=== PATIENT | female | born 1965 | race Two or more races ===

== ENCOUNTER 2020-06-13 13:55 | Outpatient (REF) | payer MEDICAID, SELFPAY ==
--- NOTE | 2020-06-13 | MM_ITS ---
EXAMINATION: MM SCREENING DIGITAL BREAST TOMOSYNTHESIS, BILATERAL CLINICAL INFORMATION: Screening. Asymptomatic. The lifetime risk of breast cancer based on the Tyrer-Cuzick Model is 5%. COMPARISON: Mammography: 07/23/2018, 07/18/2017, 04/24/2016 TECHNIQUE: Digital breast tomosynthesis is performed in both the craniocaudal and mediolateral oblique views along with computer-aided detection (CAD). Synthesized 2D images are generated from the tomosynthesis. Additional exaggerated left CC view is provided. FINDINGS: There are scattered areas of fibroglandular density (ACR BI-RADS breast composition Category b). There are no significant masses, abnormal calcifications, or other abnormalities. No significant changes from prior exams. MM/MM tomosynthesis screening BI IMPRESSION: No mammographic evidence of malignancy. ASSESSMENT: BI-RADS 1: Negative RECOMMENDATION: Routine annual mammography screening. This patient's information was entered into a reminder system with a target due date for their next mammogram.
== END 2020-06-13 13:56 | disposition home or self-care (01) ==
LOC: HO.MAMMO 13:55
PROVIDERS: PCP Internal Medicine; Visit Provider Internal Medicine
DX: Z12.31 Encounter for screening mammogram for malignant neoplasm of breast (principal)
CPT/HCPCS: 77063; 77067

== ENCOUNTER 2020-11-06 14:00 | Outpatient (RCR) | payer MEDICAID, SELFPAY | END 2021-03-09 13:50 | disposition home or self-care (01) | LOC: HO.PTCHIC 14:00 | PROVIDERS: PCP Internal Medicine; Visit Provider Internal Medicine | DX: M25.511 Pain in right shoulder (principal) | CPT/HCPCS: 97012; 97110; 97140; 97161; 97162 ==

== ENCOUNTER 2021-06-27 14:31 | Outpatient (REF) | payer MEDICAID, SELFPAY | END 2021-06-27 14:32 | disposition home or self-care (01) | LOC: HO.HMGCLDS 14:31 | PROVIDERS: Visit Provider Internal Medicine | DX: Z20.822 Contact with and (suspected) exposure to COVID-19 (principal) | CPT/HCPCS: C9803; U0003; U0005 ==

== ENCOUNTER 2021-07-16 13:03 | Outpatient (REF) | payer MEDICAID, SELFPAY ==
[2021-07-20 13:37] LABS: HPV mRNA E6/E7 rflx Not Detected (Not Detected)
== END 2021-07-16 13:04 | disposition home or self-care (01) ==
LOC: HO.LAB 13:03
PROVIDERS: PCP Internal Medicine; Visit Provider Obstetrics & Gynecology
DX: Z01.411 Encounter for gynecological examination (general) (routine) with abnormal findings (principal); Z11.51 Encounter for screening for human papillomavirus (HPV); R10.2 Pelvic and perineal pain
CPT/HCPCS: 81003; 87086; 87624; 88142

== ENCOUNTER → 2021-07-30 12:42 | Outpatient (BNVA) | payer MEDICAID, SELFPAY | PROVIDERS: PCP Internal Medicine; Visit Provider Obstetrics & Gynecology | DX: R10.2 Pelvic and perineal pain (principal); R31.29 Other microscopic hematuria; N95.0 Postmenopausal bleeding; D06.9 Carcinoma in situ of cervix, unspecified | CPT/HCPCS: 81003; 99212 ==

== ENCOUNTER 2021-08-06 10:56 | Outpatient (REF) | payer MEDICAID, SELFPAY ==
[2021-08-06 12:23] LABS: Blood Urea Nitrogen 13 mg/dL (9-16); Estimated Glomerular Filt Rate > 60
== END 2021-08-06 10:57 | disposition home or self-care (01) ==
LOC: HO.LAB 10:56
PROVIDERS: PCP Internal Medicine; Visit Provider Obstetrics & Gynecology
DX: R31.29 Other microscopic hematuria (principal)
CPT/HCPCS: 36415; 82565; 84520

== ENCOUNTER 2021-08-08 12:50 | Outpatient (REF) | payer MEDICAID, SELFPAY ==
--- NOTE | ~2021-08-08 | MM_ITS ---
EXAMINATION: MM SCREENING DIGITAL BREAST TOMOSYNTHESIS, BILATERAL CLINICAL INFORMATION: Screening. Asymptomatic. The lifetime risk of breast cancer based on the Tyrer-Cuzick Model is 6%. COMPARISON: Mammography: 06/13/2020, 07/23/2018, 07/18/2017 TECHNIQUE: Digital breast tomosynthesis is performed in both the craniocaudal and mediolateral oblique views along with computer-aided detection (CAD). Synthesized 2D images are generated from the tomosynthesis. FINDINGS: There are scattered areas of fibroglandular density (ACR BI-RADS breast composition Category b). There are no significant masses, abnormal calcifications, or other abnormalities. No developing density. No significant changes from prior studies. The axilla and skin contours are unremarkable. MM/MM tomosynthesis screening BI IMPRESSION: No mammographic evidence of malignancy. ASSESSMENT: BI-RADS 1: Negative RECOMMENDATION: Routine annual mammography screening. This patient's information was entered into a reminder system with a target due date for their next mammogram.
== END 2021-08-08 12:51 | disposition home or self-care (01) ==
LOC: HO.MAMMO 12:50
PROVIDERS: Visit Provider Internal Medicine
DX: Z12.31 Encounter for screening mammogram for malignant neoplasm of breast (principal)
CPT/HCPCS: 77063; 77067

== ENCOUNTER 2021-08-09 08:31 | Outpatient (REF) | payer MEDICAID, SELFPAY ==
--- NOTE | ~2021-08-09 | CT_ITS ---
EXAMINATION: CT ABDOMEN AND PELVIS WITHOUT AND WITH CONTRAST CLINICAL INFORMATION: Microscopic hematuria COMPARISON: Previous CT of the abdomen and pelvis most recent January 2018 TECHNIQUE: Multidetector volumetric imaging was performed of the abdomen and pelvis before and after the IV administration of 100 mL of Omnipaque 350 intravenous contrast. Sagittal and coronal reformatted images were obtained on the technologist's workstation. This CT examination was performed using dose optimization techniques as appropriate, variously including the following: *Automated exposure control *Adjustment of mA and/or kV according to patient size (this includes techniques or standardized protocols for targeted exams where dose is matched to indication/reason for exam; i.e. extremities or head) *Use of iterative reconstruction technique DLP: 938 mGy-cm FINDINGS: LUNG BASES: The visualized lung bases are unremarkable. LIVER, GALLBLADDER, AND BILIARY TREE: Fatty liver. Gallstones. No biliary duct dilatation or focal liver lesion. PANCREAS: Unremarkable SPLEEN: Unremarkable ADRENAL GLANDS: Unremarkable KIDNEYS AND URETERS: The kidneys are normal in size, shape, and attenuation. No hydronephrosis, hydroureter, or calculi seen. No perinephric stranding. BLADDER: Unremarkable GASTROINTESTINAL TRACT: There is nonspecific mild fat stranding of the small bowel mesentery. The small and large bowel are otherwise unremarkable. The appendix is unremarkable. ABDOMINAL WALL: No significant hernia is appreciated. LYMPH NODES: There is nonspecific small bowel mesentery fat stranding and shotty lymphadenopathy. No enlarged lymph nodes are seen. No ascites. VASCULAR: Unremarkable PELVIC VISCERA: Unremarkable OSSEOUS STRUCTURES: Unremarkable CT/CT abdomen pelvis wo/w con IMPRESSION: No cause of hematuria. Fatty liver. Gallstone. Mild nonspecific shotty small bowel mesentery lymphadenopathy and fat stranding. Fleischner guidelines were followed.
[2021-08-09] MEDS: iohexoL 350 MG/ML 100 ML INFUS..BTL IV (09:53)
== END 2021-08-09 08:32 | disposition home or self-care (01) ==
LOC: HO.CT 08:31
PROVIDERS: Visit Provider Obstetrics & Gynecology
DX: R31.29 Other microscopic hematuria (principal)
CPT/HCPCS: 74178; Q9967

== ENCOUNTER → 2021-09-03 13:13 | Outpatient (BNVA) | payer MEDICAID, SELFPAY | PROVIDERS: Visit Provider Obstetrics & Gynecology ==

== ENCOUNTER → 2021-10-02 07:48 | Outpatient (REF) | payer MEDICAID, SELFPAY | LOC: HO.NUCMED 07:48 | PROVIDERS: Visit Provider Internal Medicine | DX: Z13.89 Encounter for screening for other disorder (principal) ==

== ENCOUNTER → 2021-10-09 12:33 | Outpatient (BNVA) | payer MEDICAID, SELFPAY | PROVIDERS: Visit Provider Obstetrics & Gynecology | DX: N95.0 Postmenopausal bleeding (principal) | CPT/HCPCS: 99212 ==

== ENCOUNTER → 2021-10-12 07:42 | Outpatient (REF) | payer MEDICAID, SELFPAY ==
--- NOTE | ~2021-10-12 | NM_ITS ---
BILIARY TRACT IMAGING STUDY CLINICAL INDICATION: Calculus of gallbladder without cholecystitis. PROCEDURE: Scintillation camera images were obtained over the abdomen for an observation of 60 minutes following the intravenous administration of 5.0 millicuries technetium 99m Mebrofenin. COMPARISON: No previous biliary scan is available for comparison. The diagnostic CT scan of the abdomen and pelvis, dated 08/09/2021, is available for comparison.. FINDINGS: There is good concentration of activity in the liver by 5 minutes post injection. Biliary activity is well visualized by 15 minutes, and there is good visualization of small bowel activity by 25 minutes. The gallbladder is well visualized by 20 minutes. NM/NM hepatobiliary wo pharm IMPRESSION: Normal biliary scan. Visualization of the gallbladder is evidence of a patent cystic duct and strong evidence against the diagnosis of acute cholecystitis. The common bile duct is patent. Liver function appears normal.
== END ==
LOC: HO.NUCMED 07:42
PROVIDERS: Visit Provider Internal Medicine
DX: R10.2 Pelvic and perineal pain (principal); K80.20 Calculus of gallbladder without cholecystitis without obstruction
CPT/HCPCS: 78226; A9537

== ENCOUNTER 2021-10-23 08:47 | Outpatient (REF) | payer MEDICAID, SELFPAY ==
[2021-10-23 17:31] LABS: Urine Cytology See Pathology rpt
== END 2021-10-23 08:48 | disposition home or self-care (01) ==
LOC: HO.LAB 08:47
PROVIDERS: PCP Internal Medicine
DX: R31.29 Other microscopic hematuria (principal)
CPT/HCPCS: 88112; 99202

== ENCOUNTER 2021-10-26 06:56 | Day surgery (SDC) | payer MEDICAID, SELFPAY ==
[2021-10-22 10:42] VITALS: BMI 34.7
--- NOTE | 2021-10-25 09:04 | HO.ANESPROP2 ---
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 (Acute) Pelvic pain (Acute) Well woman exam (Acute) Past Medical History Medical History Anxiety Asthma AFSHAN III (cervical intraepithelial neoplasia grade III) with severe dysplasia Depression Surgical History Surgical History History of bilateral tubal ligation Social History Social History Alcohol intake: never Advance Directives: No Advance Directives Information Provided: Yes Sexual orientation: Straight/Heterosexual Gender identity: Female Meds Allergies Allergy/AdvReac Type Severity Reaction Status Date / Time acetaminophen [From Percocet] Allergy Mild Unknown Verified 10/26/21 07:21 hydromorphone Allergy Unknown hives Verified 10/26/21 07:21 oxycodone [From PERCOCET] Allergy Unknown ITCHING Verified 10/26/21 07:21 zolpidem [From AMBIEN] Allergy Unknown ITCHING Verified 10/26/21 07:21 Home Medications Medication Instructions Recorded Confirmed Last Taken Type fluoxetine 20 mg capsule 20 mg PO QAM 10/23/21 Unknown History fluticasone propionate 50 1 - 2 spray INTRANASAL DAILY PRN 10/23/21 Unknown History mcg/actuation nasal spray,suspension Exam Exam Date and Time: October 25, 2021 0904 Height,Weight and Vital Signs: Height 5 ft 2 in Weight 86.183 kg Assessment and Plan Assessment Anesthesia Assessment: Chart Reviewed Documented by User: Autumn Cunningham MD 10/26/21 07:33 [facility] Past Medical History Medical History Anxiety Asthma AFSHAN III (cervical intraepithelial neoplasia grade III) with severe dysplasia Depression Family History Family history of problems with anesthesia: No Surgical History Surgical History History of bilateral tubal ligation History of Problems with Anesthesia: No Social History Social History Alcohol intake: never Advance Directives: No Advance Directives Information Provided: Yes Sexual orientation: Straight/Heterosexual Gender identity: Female Meds Allergies Allergy/AdvReac Type Severity Reaction Status Date / Time acetaminophen [From Percocet] Allergy Mild Unknown Verified 10/26/21 07:21 hydromorphone Allergy Unknown hives Verified 10/26/21 07:21 oxycodone [From PERCOCET] Allergy Unknown ITCHING Verified 10/26/21 07:21 zolpidem [From AMBIEN] Allergy Unknown ITCHING Verified 10/26/21 07:21 Home Medications Medication Instructions Recorded Confirmed Last Taken Type fluoxetine 20 mg capsule 20 mg PO QAM 10/23/21 Unknown History fluticasone propionate 50 1 - 2 spray INTRANASAL DAILY PRN 10/23/21 Unknown History mcg/actuation nasal spray,suspension Exam Airway Mallampati Class: III TM Dist: >3cm Neck ROM: Full Assessment and Plan Assessment Anesthesia Assessment: Anesthesia Plan Discussed Final Anesthetic Review Family History of Problems with Anesthesia: No History of Problems with Anesthesia: No NPO: Yes ASA Class: II Final Preanesthetic Review: No Changes in Pt Med Stat, Meds/Allgs Chart Reviewed, Consent Obtained/Reviewed and Anes Risks/Benef Reviewed Patient Risk: Low Procedure Risk: Low Anesthetic Plan Anesthetic Plan: GA Disposition: Standard PACU
[2021-10-26] VITALS (8 sets, daily range): BP systolic 118–133; BP diastolic 70–83; PULSE 68–84; RESP 12–16; TEMP 36.4–36.7; O2SAT 97–100; BMI 34.7
[2021-10-26] MEDS: Lactated Ringers 1,000 ML 100 ML IVCONT (08:08)
--- NOTE | 2021-10-26 08:59 | MHC.SHP ---
Pre-Procedural Eval Section A Date of Service: 10/26/21 The patient is an INPATIENT: No Changes since office visit: No Cold of Flu in the past 2 weeks, No New Medical Problems, No Changes in Medication and No Patient answered all questions The History & Physical has been completed within 30 days and I have reviewed it.: Yes Section B Chief Complaint: postmenopasal bleeding Allergies: Allergies Allergy/AdvReac Type Severity Reaction Status Date / Time acetaminophen [From Percocet] Allergy Mild Unknown Verified 10/26/21 07:21 hydromorphone Allergy Unknown hives Verified 10/26/21 07:21 oxycodone [From PERCOCET] Allergy Unknown ITCHING Verified 10/26/21 07:21 zolpidem [From AMBIEN] Allergy Unknown ITCHING Verified 10/26/21 07:21 Plan Diagnosis/Plan: Unchanged I have reviewed the history and physical and performed a pertinent physical examination on my patient. No changes have occurred unless specified.
--- NOTE | 2021-10-26 09:23 | MHC.SHP ---
Pre-Procedural Eval Section A Date of Service: 10/26/21 Section B Chief Complaint: postmenopasal bleeding Allergies: Allergies Allergy/AdvReac Type Severity Reaction Status Date / Time acetaminophen [From Percocet] Allergy Mild Unknown Verified 10/26/21 07:21 hydromorphone Allergy Unknown hives Verified 10/26/21 07:21 oxycodone [From PERCOCET] Allergy Unknown ITCHING Verified 10/26/21 07:21 zolpidem [From AMBIEN] Allergy Unknown ITCHING Verified 10/26/21 07:21 Plan I have reviewed the history and physical and performed a pertinent physical examination on my patient. No changes have occurred unless specified.
--- NOTE | 2021-10-26 10:19 | P.BOP_ITS ---
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
--- NOTE | 2021-10-26 10:20 | W.PM.OPN ---
Operative Note Operative Note Date of Service: 10/26/21 Narrative: Preop Diagnosis: Postmenopausal bleeding Operation: Attempted Diagnostic Hysteroscopy Post Op Diagnosis: Stenosed cervix from previous called knife cone, unable to enter the endometrial cavity QBL: Minimal Anesthesia: MAC Surgeon: Gary Mena MD Campground Cleaning Attendant: None Complication: None Pathology: None Procedure: The patient was put in the dorsal lithotomy position, scrubbed, and draped in the usual manner. A sterile speculum was inserted in the patient's vagina. The cervix was grasped with a single tooth tenaculum. The cervix looked scarred from previous LEEP unable to identify endocervical canal, LEEP was used to excise the middle portion of the cervix to identify the endocervical cavity, but did not identify an endocervical ostium. This was followed by multiple attempts to dilate the cervix using cervical dilators to gain access to the endometrial cavity but they or failed, this point decision was made to abort the procedure. At the end of the procedure, all instruments were taken out of the patient vaginal cavity. The single tooth tenaculum was removed and homeostasis was assured using pressure, The patient tolerated the procedure well and was transferred to the PACU in a stable condition.
== END 2021-10-26 12:04 | disposition home or self-care (01) ==
PROVIDERS: PCP Internal Medicine; Visit Provider Obstetrics & Gynecology
PROC: 0UDB8ZZ Extraction of Endometrium, Via Natural or Artificial Opening Endoscopic (ICD-10-PCS; CPT 58558; principal; 2021-10-26 10:20)
DX: N95.0 Postmenopausal bleeding (principal); N99.89 Other postprocedural complications and disorders of genitourinary system; N88.2 Stricture and stenosis of cervix uteri; Z98.890 Other specified postprocedural states; F41.1 Generalized anxiety disorder; J45.909 Unspecified asthma, uncomplicated; Z98.51 Tubal ligation status
CPT/HCPCS: 58555; J1100; J2250; J2405; J3010

== ENCOUNTER → 2021-11-08 13:37 | Outpatient (BNVA) | payer MEDICAID, SELFPAY | PROVIDERS: PCP Internal Medicine; Visit Provider Obstetrics & Gynecology | DX: N95.0 Postmenopausal bleeding (principal) | CPT/HCPCS: 99212 ==

== ENCOUNTER 2021-12-20 10:24 | Outpatient (REF) | payer MEDICAID, SELFPAY ==
--- NOTE | ~2021-12-20 | US_ITS ---
EXAMINATION: US PELVIS CLINICAL INFORMATION: R10.2 - Pelvic and perineal pain. Age 56. COMPARISON: CT abdomen and pelvis without and with contrast 08/09/2021, pelvic ultrasound 10/23/2016. TECHNIQUE: Ultrasound of the pelvis is performed using both transabdominal and transvaginal transducers along with Doppler. Transvaginal imaging is performed due to inadequate visualization transabdominally. FINDINGS: Uterus: The uterus is anteverted and measures 7.5 x 3.2 x 4.2 cm. Uterine volume 53 mL. The double wall endometrial thickness is 7 mm. The uterus is smooth in contour and has normal myometrial echogenicity. There is no myometrial cysts are visible fibroid. There is fluid in the endocervical canal measuring 4 mm in thickness. Questionable nabothian cyst 1 cm at distal cervix versus funneling of the external os with fluid in the os. Adnexa: The right ovary is visible with transvaginal imaging and normal in size measuring 1.8 x 1.0 x 1.2 cm (volume 1. ML). There is no right adnexal mass and no pelvic ascites. The left ovary is not demonstrated with certainty. There is no visible left pelvic mass or ascites. US/US pelvic and transvaginal IMPRESSION: Uterus: -Normal in size. No fibroid. -Endometrial double wall thickness 11 mm. -Fluid in endocervical canal. Probable nabothian cyst 1 cm. Adnexa: -Left ovary not visualized. Right ovary unremarkable. -No adnexal mass or pelvic ascites.
== END 2021-12-20 10:25 | disposition home or self-care (01) ==
LOC: HO.US 10:24
PROVIDERS: Visit Provider Obstetrics & Gynecology
DX: R10.2 Pelvic and perineal pain (principal)
CPT/HCPCS: 76830; 76856

== ENCOUNTER → 2021-12-24 12:27 | Outpatient (BNVA) | payer MEDICAID, SELFPAY | PROVIDERS: PCP Internal Medicine | DX: R31.29 Other microscopic hematuria (principal) | CPT/HCPCS: 99212 ==

== ENCOUNTER → 2021-12-25 10:39 | Outpatient (BNVA) | payer MEDICAID, SELFPAY | PROVIDERS: PCP Internal Medicine; Visit Provider Obstetrics & Gynecology | DX: N95.0 Postmenopausal bleeding (principal) | CPT/HCPCS: 99212 ==

== ENCOUNTER 2022-01-25 11:47 | Outpatient (REF) | payer MEDICAID, SELFPAY ==
--- NOTE | ~2022-01-25 | XR_ITS ---
EXAMINATION: X-RAY RIGHT ANKLE X-RAY RIGHT FOOT CLINICAL INFORMATION: Achilles tendinitis. COMPARISON: No similar priors. TECHNIQUE: 2 views of the right ankle. 3 views of the right foot. FINDINGS: No evidence of acute fractures or malalignment. Prominent dorsal and plantar calcaneal spurs with associated calcifications at the insertion site of the Achilles tendon. Small enthesophytes along the medial malleolus and base of the fifth metatarsal. Nonspecific diffuse soft tissue edema. XR/XR foot RT min 3V IMPRESSION: 1. No acute fracture or malalignment. 2. Calcifications along the insertion site of the Achilles tendon suggesting tendinosis. Correlate clinically. 3. Mild multifocal osteoarthritis. 4. Nonspecific soft tissue swelling.
--- NOTE | ~2022-01-25 | XR_ITS ---
EXAMINATION: X-RAY RIGHT ANKLE X-RAY RIGHT FOOT CLINICAL INFORMATION: Achilles tendinitis. COMPARISON: No similar priors. TECHNIQUE: 2 views of the right ankle. 3 views of the right foot. FINDINGS: No evidence of acute fractures or malalignment. Prominent dorsal and plantar calcaneal spurs with associated calcifications at the insertion site of the Achilles tendon. Small enthesophytes along the medial malleolus and base of the fifth metatarsal. Nonspecific diffuse soft tissue edema. XR/XR ankle RT min 3V IMPRESSION: 1. No acute fracture or malalignment. 2. Calcifications along the insertion site of the Achilles tendon suggesting tendinosis. Correlate clinically. 3. Mild multifocal osteoarthritis. 4. Nonspecific soft tissue swelling.
== END 2022-01-25 11:48 | disposition home or self-care (01) ==
LOC: HO.XRAY 11:47
PROVIDERS: Absent Provider Internal Medicine; PCP Internal Medicine; Visit Provider Nurse Practitioner
DX: M76.61 Achilles tendinitis, right leg (principal)
CPT/HCPCS: 73610; 73630

== ENCOUNTER 2022-02-19 14:46 | Outpatient (REF) | payer MEDICAID, SELFPAY ==
--- NOTE | ~2022-02-19 | US_ITS ---
EXAMINATION: US RETROPERITONEAL LIMITED (RENAL ONLY) CLINICAL INFORMATION: Other microscopic hematuria. COMPARISON: CT abdomen and pelvis without and with contrast 08/09/2021. TECHNIQUE: Real-time imaging of the kidneys. FINDINGS: RIGHT KIDNEY: 9.6 x 4.3 x 4.5 cm (SAG x AP x TRV). The kidney is normal in size, contour, and echogenicity. Renal cortical thickness is normal. No focal parenchymal lesions or hydronephrosis. Two 3 mm nonobstructing lower pole renal stones. LEFT KIDNEY: 9.4 x 5.2 x 4.3 cm (SAG x AP x TRV). The kidney is normal in size, contour, and echogenicity. Renal cortical thickness is normal. No calculi or focal parenchymal lesions. No hydronephrosis. Imaged liver appears echogenic. US/US renal BI IMPRESSION: Two 3 mm nonobstructing right lower pole renal stones. Partially imaged liver appears echogenic suggestive of hepatic steatosis or underlying liver disease. This could be further characterized with a dedicated right upper quadrant ultrasound if clinically indicated.
== END 2022-02-19 14:47 | disposition home or self-care (01) ==
LOC: HO.US 14:46
DX: R31.29 Other microscopic hematuria (principal)
CPT/HCPCS: 76775

== ENCOUNTER 2022-04-26 13:43 | Outpatient (REF) | payer MEDICAID, SELFPAY | END 2022-04-26 13:44 | disposition home or self-care (01) | LOC: HO.CT 13:43 | PROVIDERS: Visit Provider Family Medicine | DX: Z13.89 Encounter for screening for other disorder (principal) ==

== ENCOUNTER 2022-06-03 13:29 | Outpatient (REF) | payer MEDICAID, SELFPAY ==
--- NOTE | ~2022-06-03 | CT_ITS ---
EXAMINATION: CT ABDOMEN AND PELVIS WITH CONTRAST CLINICAL INFORMATION: Abdominal pain. Renal stone versus diverticulitis. COMPARISON: Previous CT of the abdomen and pelvis most recent July 2021 and pelvic ultrasound most recent November 2021 and renal ultrasound January 2022 TECHNIQUE: Multidetector volumetric images were obtained from the superior aspect of the liver through the pubic symphysis following administration 85 mL of Omnipaque 350 intravenous contrast. Sagittal and coronal reformatted images were obtained on the technologist's workstation. Oral contrast: Yes This CT examination was performed using dose optimization techniques as appropriate, variously including the following: *Automated exposure control *Adjustment of mA and/or kV according to patient size (this includes techniques or standardized protocols for targeted exams where dose is matched to indication/reason for exam; i.e. extremities or head) *Use of iterative reconstruction technique DLP: 551 mGy-cm FINDINGS: LUNG BASES: The visualized lung bases are unremarkable. LIVER, GALLBLADDER, AND BILIARY TREE: The liver fatty. The liver is normal in size and contour. No focal liver lesion. Gallstone. The gallbladder is otherwise normal. No biliary duct dilatation. PANCREAS: Fatty infiltration of the head of the pancreas. Pancreas is otherwise normal. SPLEEN: Unremarkable. ADRENAL GLANDS: Unremarkable. KIDNEYS AND URETERS: The kidneys are normal in size, shape, and attenuation. No hydronephrosis, hydroureter, or calculi seen. No perinephric stranding. BLADDER: Unremarkable. GASTROINTESTINAL TRACT: The small and large bowel are unremarkable. The appendix is unremarkable. ABDOMINAL WALL: Small umbilical hernia containing fat. LYMPH NODES: Normal. VASCULAR: Unremarkable. PELVIC VISCERA: The uterus is prominent for the patient's age measuring 14 by by 6 cm. There is new central low attenuation seen in the uterus suggestive of endometrial fluid. This measures 11 x 4.6 x 4.5 cm in sagittal AP and transverse dimension. This is new compared to previous CT July 2021 and increased from pelvic ultrasound November 2021. Appearance is questionable for vaginal or cervical stenosis or obstructing lesion. WOOD ROOM SUPERVISOR consultation recommended.. Adnexa appear unremarkable. OSSEOUS STRUCTURES: Unremarkable. CT/CT abdomen pelvis w IV con IMPRESSION: New large area of central low attenuation seen in the uterus suggestive of endometrial fluid. This is new from previous CT July 2021 and increased from previous pelvic ultrasound November 2021. WOOD ROOM SUPERVISOR consultation recommended. Fatty liver. Gallstones. Findings will be communicated by the [place] work flow music instructor. Fleischner guidelines were followed.
[2022-06-03] MEDS: iohexoL 350 MG/ML 100 ML INFUS..BTL 85 ML IV (16:46)
[2022-06-03] MEDS: Barium Sulfate Oral (Berry) 450 ML ORAL.SUSP 900 ML PO (16:46)
== END 2022-06-03 13:30 | disposition home or self-care (01) ==
LOC: HO.CT 13:29
PROVIDERS: Visit Provider Registered Nurse
DX: R10.30 Lower abdominal pain, unspecified (principal)
CPT/HCPCS: 74177; Q9967

== ENCOUNTER 2022-08-14 12:42 | Emergency (ER) | payer MEDICAID, SELFPAY ==
--- NOTE | ~2022-08-14 | CT_ITS ---
EXAMINATION: CT ABDOMEN AND PELVIS WITH CONTRAST CLINICAL INFORMATION: Left lower quadrant pain and CVA tenderness with diarrhea COMPARISON: 06/03/2022 TECHNIQUE: Multidetector volumetric images were obtained from the superior aspect of the liver through the pubic symphysis following administration 85 mL of Omnipaque 350 intravenous contrast. Sagittal and coronal reformatted images were obtained on the technologist's workstation. Oral contrast: No This CT examination was performed using dose optimization techniques as appropriate, variously including the following: *Automated exposure control *Adjustment of mA and/or kV according to patient size (this includes techniques or standardized protocols for targeted exams where dose is matched to indication/reason for exam; i.e. extremities or head) *Use of iterative reconstruction technique DLP: 668 mGy-cm FINDINGS: LUNG BASES: The visualized lung bases are unremarkable. LIVER, GALLBLADDER, AND BILIARY TREE: Decreased attenuation throughout the liver most consistent with fatty change. Gallstones noted. PANCREAS: Unremarkable. SPLEEN: Unremarkable. ADRENAL GLANDS: Unremarkable. KIDNEYS AND URETERS: The kidneys are normal in size, shape, and attenuation. No hydronephrosis, hydroureter, or calculi seen. No perinephric stranding. BLADDER: Unremarkable. GASTROINTESTINAL TRACT: The bowel pattern is nonobstructing. There is no free fluid. The pancreas is within normal limits. ABDOMINAL WALL: No significant hernia is appreciated. LYMPH NODES: Some mild periaortic nodes are unchanged. There is mild mesenteric stranding and there are prominent mesenteric nodes which are felt to be increasing from previous. These are not at this time felt to be pathologically enlarged. VASCULAR: Unremarkable. PELVIC VISCERA: The appearance of the uterus is improved. There is persistent fluid density in the lower uterine segment/cervical region. Again overall improved. OSSEOUS STRUCTURES: Unremarkable. CT/CT abdomen pelvis w IV con IMPRESSION: The bowel pattern is felt to be nonobstructing. There is no free fluid. No convincing evidence for bowel wall thickening. There is, however some increasing mesenteric adenopathy here and some mild mesenteric swirling. This may be consistent with mesenteritis/panniculitis. This could be reactive to an enteritis. I would recommend short-term 3 month follow-up film as early malignancy/lymphoma cannot be excluded. Gallstones noted. Probable fatty liver change. Improved overall appearance to the uterus with there is still fluid density expanding the lower uterine segment/cervical region
[2022-08-14 13:05] VITALS: BP 141/68; PULSE 86; RESP 18; TEMP 36.6; O2SAT 98; BMI 35.4
--- NOTE | 2022-08-14 13:05 | ED.ABDPAIN ---
HPI - Abdominal Pain General Chief Complaint: Abdominal Pain <Wanda Haider CNP - Last Filed: 08/14/22 13:13> Stated Complaint: abd pain <Wanda Haider CNP - Last Filed: 08/14/22 13:13> Time Seen by Provider: 08/14/22 20:59 <Wanda Haider CNP - Last Filed: 08/14/22 13:13> Source: patient <Yanelis Alcantara MD - Last Filed: 08/15/22 00:24> Mode of arrival: ambulatory <Yanelis Alcantara MD - Last Filed: 08/15/22 00:24> Limitations: no limitations <Yanelis Alcantara MD - Last Filed: 08/15/22 00:24> History of Present Illness HPI narrative: The patient comes to the emergency room complaining of bilateral lower quadrant pain that started 3 months ago. Patient states that she is known to have endometrial polyps, patient states says she is scheduled for a surgery next month at [facility]. Patient states that she is also known to have hematuria chronically. Patient states that today the pain seemed a little bit worse than usual. Patient had 1 episode of diarrhea, no vomiting, no fever or chills <Yanelis Alcantara MD - Last Filed: 08/15/22 00:24> Related Data Home Medications: Home Medications Medication Instructions Recorded Confirmed fluoxetine 20 mg capsule 20 mg PO QAM 10/23/21 fluticasone propionate 50 1 - 2 spray intranasal DAILY PRN 10/23/21 mcg/actuation nasal spray,suspension ibuprofen 400 mg tablet 400 mg PO Q8-12H PRN 12/24/21 Previous Rx's Medication Instructions Recorded loperamide 2 mg capsule 2 mg PO Q6H PRN loose stool #10 08/15/22 caps <Wanda Haider CNP - Last Filed: 08/14/22 13:13> Allergies/Adverse Reactions: Allergies Allergy/AdvReac Type Severity Reaction Status Date / Time acetaminophen [From Percocet] Allergy Mild Unknown Verified 12/25/21 10:57 hydromorphone Allergy Unknown hives Verified 12/25/21 10:57 oxycodone [From PERCOCET] Allergy Unknown ITCHING Verified 12/25/21 10:57 zolpidem [From AMBIEN] Allergy Unknown ITCHING Verified 12/25/21 10:57 <Wanda Haider CNP - Last Filed: 08/14/22 13:13> Review of Systems Review of Systems Constitutional : No Weight loss, No Fever, No Chills, No Night Sweats, No Fatigue, No Malaise ENT/Mouth : No Hearing loss, No Ear Pain, No Nasal Congestion, No Sinus Pain, No Hoarseness, No sore throat, No Rhinorrhea, No Swallowing Difficulty Eyes: No Eye Pain, No Swelling, No Redness, No Foreign Body, No Discharge, No Vision Changes Cardiovascular : No Chest Pain, No SOB, No Dyspnea on Exertion, No Orthopnea, No Edema, No Palpitations Respiratory : No Cough, No Sputum, No Wheezing, No Smoke Exposure, No Dyspnea Gastrointestinal : No Nausea, No Vomiting, complaining of several episodes of Diarrhea, No Constipation, acute on chronic bilateral lower quadrant pain Genitourinary : no irregular bleeding, No Dysuria, No Urinary Frequency, No Hematuria, No Urinary Incontinence, No Urgency, No Flank Pain, No Urinary Flow Changes, No Hesitancy Musculoskeletal : No joint pain, No Myalgias, No Joint Swelling Skin : No Skin Lesions, No rash Neuro : No Weakness, No Numbness, No Paresthesias, No Loss of Consciousness, No Dizziness, No Headache Psych : No Anxiety/Panic, No Depression, No SI/HI/AH/VH, No Social Issues, Heme/Lymph: No Bruising, No Bleeding,No Lymphadenopathy Endocrine : No Polyuria, No Polydipsia, No Temperature Intolerance <Yanelis Alcantara MD - Last Filed: 08/15/22 00:24> [facility] Past Medical History Medical History: Medical History Anxiety Asthma AFSHAN III (cervical intraepithelial neoplasia grade III) with severe dysplasia Depression <Wanda Haider CNP - Last Filed: 08/14/22 13:13> Surgical History: Surgical History History of bilateral tubal ligation <Wanda Haider CNP - Last Filed: 08/14/22 13:13> Social History Social History: Social History Alcohol intake: never Patient Tobacco Use Status: Never used Tobacco Smoked in Last 30 Days: No Use of substances other than those prescribed or required for medical reasons: No Advance Directives: No Advance Directives Information Provided: Yes Patient : No Sexual orientation: Straight/Heterosexual Gender identity: Female <Wanda Haider JENA - Last Filed: 08/14/22 13:13> Physical Exam ED Vital Signs: Vital Signs - 24 hr 08/14/22 13:05 08/14/22 17:12 08/14/22 20:39 Temperature 98 F 98 F 97.6 F Pulse Rate 86 98 78 Respiratory Rate 18 17 16 Blood Pressure 141/68 H 115/79 129/70 Pulse Oximetry 98 99 97 Oxygen Delivery Method Room Air Room Air 08/15/22 00:08 Temperature 97.6 F Pulse Rate 82 Respiratory Rate 16 Blood Pressure 130/67 Pulse Oximetry 97 Oxygen Delivery Method Room Air BMI result Body Mass Index 35.4 <Wanda HaiderJENA - Last Filed: 08/14/22 13:13> Vital Signs - 24 hr 08/14/22 13:05 08/14/22 17:12 08/14/22 20:39 Temperature 98 F 98 F 97.6 F Pulse Rate 86 98 78 Respiratory Rate 18 17 16 Blood Pressure 141/68 H 115/79 129/70 Pulse Oximetry 98 99 97 Oxygen Delivery Method Room Air Room Air 08/15/22 00:08 Temperature 97.6 F Pulse Rate 82 Respiratory Rate 16 Blood Pressure 130/67 Pulse Oximetry 97 Oxygen Delivery Method Room Air BMI result Body Mass Index 35.4 <Yanelis Alcantara MD - Last Filed: 08/15/22 00:24> Const Other: Appearance: Alert. Oriented X3. No acute distress. Well appearing Eyes: Pupils equal, round and reactive to light. ENT: Pharynx normal. Neck: Normal inspection. Neck supple. No lymph nodes noted. No crepitus CVS: Normal heart rate and rhythm. Pulses normal. Normal S1 and S2 Respiratory: No respiratory distress. Breath sounds normal. No Wheezing. No rales Abdomen: Soft and nontender. No rigidity. No distention. Skin: Skin warm and dry. Normal skin color. Normal skin turgor. Extremities: No lower extremity edema. No Lacerations. No Rash Neuro: Oriented X 3. No motor deficit. No sensory deficit. Moving all extremities. No slurred speech. CN 2 through 12 grossly intact Psych: calm, cooperative, normal affect <Yanelis Alcantara MD - Last Filed: 08/15/22 00:24> Course Course Course Narrative: Patient is a 57-year-old female who presents emergency department for evaluation of abdominal pain and diarrhea. Pain is diffuse to the lower abdomen and radiates to the back alternating between right and left. Onset of pain was 3 months ago. She states that she was seen by [facility] gynecology last week, there is a plan for surgery, although it is unclear when this is supposed to occur or what type of surgery. The diarrhea, she states started yesterday, twice, and only one episode today. Denies hematochezia or melena, nausea, vomiting, fevers, chills. She does state that every time she has urine obtained there is microscopic hematuria, denies any genitourinary complaints. PE: LLQ pain/ tenderness upon palpation, L CVA tenderness Plan: Labs, urinalysis, CT abdomen pelvis. <Wanda Haider CNP - Last Filed: 08/14/22 13:13> Medical Decision Making Medical Decision Making MDM Narrative: -all of patient's labs are unremarkable. Urinalysis is positive for hematuria, however this is chronic per patient. -CT scan shows possible balanitis, panniculitis. -patient instructed to follow-up with her primary care physician. -Patient given the 1st dose of loperamide in the emergency room <Yanelis Alcantara MD - Last Filed: 08/15/22 00:24> Differential Diagnosis Differential Diagnoses: The differential diagnosis associated with the presentation includes (SBO, uterine fibroids, ovarian cysts) <Yanelis Alcantara MD - Last Filed: 08/15/22 00:24> Lab Data MDM Lab Attestation statement: I reviewed the patient's lab results. <aYnelis Alcantara MD - Last Filed: 08/15/22 00:24> Result Diagrams: 08/14/22 13:38 08/14/22 13:38 <Wanda Haider CNP - Last Filed: 08/14/22 13:13> Labs: Lab Results 08/14/22 08/14/22 08/14/22 Range/Units 13:38 13:38 13:42 WBC 6.4 (4.8-10.8) X10*3/uL RBC 4.87 (4.20-5.50) X10*6/uL Hgb 13.6 (12.0-16.0) g/dl Hct 41.7 (37.0-47.0) % MCV 85.6 (80.0-98.0) fL MCH 27.9 (27.0-33.0) pg MCHC 32.6 (31.0-35.0) g/dl RDW 14.2 (11.0-16.0) % Plt Count 250 (160-400) X10*3/uL MPV 11.5 (9.4-12.3) fL Immature Gran % (Auto) 0.5 H (0.0-0.4) % Neut % (Auto) 57.6 (45-73) % Lymph % (Auto) 25.2 (20-40) % Dyer % (Auto) 10.3 (2-11) % Eos % (Auto) 5.6 H (0-4) % Baso % (Auto) 0.8 (0-2) % Lymph # (Auto) 1.6 (1.2-4.9) X10*3/uL Dyer # (Auto) 0.7 (0.1-1.2) X10*3/uL Eos # (Auto) 0.4 (0.0-0.4) X10*3/uL Baso # (Auto) 0.1 (0.0-0.2) X10*3/uL Abs Immat Gran (auto) 0.03 (0.00-0.03) X10*3/uL Absolute Neuts (auto) 3.7 (2.0-8.3) x10*3/uL Absolute Nucleated RBC 0.000 (0.0-0.012) X10*3/uL Nucleated RBC % (auto) 0.0 (0.0-0.2) /100WBC Sodium 140 (135-145) mmol/L Potassium 4.6 (3.3-5.1) mmol/L Chloride 103 (96-108) mmol/L Carbon Dioxide 27 (22-29) mmol/L Anion Gap 15 (12-20) BUN 13 (9-16) mg/dL Creatinine 0.76 (0.5-1.4) mg/dL Estim Creat Clear Calc 86.1 Estimated GFR > 60 Random Glucose 96 (60-115) mg/dL Calcium 9.8 (8.4-10.2) mg/dL Total Bilirubin 0.5 (0.0-1.0) mg/dL AST 20 (5-31) U/L ALT 30 (0-31) U/L Alkaline Phosphatase 113 (39-117) U/L Total Protein 7.7 (6.5-8.0) g/dL Albumin 4.5 (3.5-5.0) g/dL Lipase 25 (8-78) U/L Urine Color Yellow Urine Appearance Clear Urine pH 7.0 (5.0-9.0) Ur Specific [place] 1.010 (1.005-1.025) Urine Protein Negative (Neg-Trace) mg/dL Urine Glucose (UA) Negative (Negative) mg/dL Urine Ketones Negative (Negative) mg/dL Urine Blood Small (1+) H (Negative) Urine Nitrite Negative (Negative) Ur Leukocyte Esterase Negative (Negative) Urine RBC 3-5 H (0-2) /HPF Urine WBC 0-5 (0-5) /HPF Ur Squamous Epith Cells 0-2 (0-2) /HPF Urine Bacteria None Seen (None Seen) Hyaline Casts 0-2 (0-2) /LPF <Wanda Haider, [employer] - Last Filed: 08/14/22 13:13> Lab Results 08/14/22 08/14/22 08/14/22 Range/Units 13:38 13:38 13:42 WBC 6.4 (4.8-10.8) X10*3/uL RBC 4.87 (4.20-5.50) X10*6/uL Hgb 13.6 (12.0-16.0) g/dl Hct 41.7 (37.0-47.0) % MCV 85.6 (80.0-98.0) fL MCH 27.9 (27.0-33.0) pg MCHC 32.6 (31.0-35.0) g/dl RDW 14.2 (11.0-16.0) % Plt Count 250 (160-400) X10*3/uL MPV 11.5 (9.4-12.3) fL Immature Gran % (Auto) 0.5 H (0.0-0.4) % Neut % (Auto) 57.6 (45-73) % Lymph % (Auto) 25.2 (20-40) % Dyer % (Auto) 10.3 (2-11) % Eos % (Auto) 5.6 H (0-4) % Baso % (Auto) 0.8 (0-2) % Lymph # (Auto) 1.6 (1.2-4.9) X10*3/uL Dyer # (Auto) 0.7 (0.1-1.2) X10*3/uL Eos # (Auto) 0.4 (0.0-0.4) X10*3/uL Baso # (Auto) 0.1 (0.0-0.2) X10*3/uL Abs Immat Gran (auto) 0.03 (0.00-0.03) X10*3/uL Absolute Neuts (auto) 3.7 (2.0-8.3) x10*3/uL Absolute Nucleated RBC 0.000 (0.0-0.012) X10*3/uL Nucleated RBC % (auto) 0.0 (0.0-0.2) /100WBC Sodium 140 (135-145) mmol/L Potassium 4.6 (3.3-5.1) mmol/L Chloride 103 (96-108) mmol/L Carbon Dioxide 27 (22-29) mmol/L Anion Gap 15 (12-20) BUN 13 (9-16) mg/dL Creatinine 0.76 (0.5-1.4) mg/dL Estim Creat Clear Calc 86.1 Estimated GFR > 60 Random Glucose 96 (60-115) mg/dL Calcium 9.8 (8.4-10.2) mg/dL Total Bilirubin 0.5 (0.0-1.0) mg/dL AST 20 (5-31) U/L ALT 30 (0-31) U/L Alkaline Phosphatase 113 (39-117) U/L Total Protein 7.7 (6.5-8.0) g/dL Albumin 4.5 (3.5-5.0) g/dL Lipase 25 (8-78) U/L Urine Color Yellow Urine Appearance Clear Urine pH 7.0 (5.0-9.0) Ur Specific [place] 1.010 (1.005-1.025) Urine Protein Negative (Neg-Trace) mg/dL Urine Glucose (UA) Negative (Negative) mg/dL Urine Ketones Negative (Negative) mg/dL Urine Blood Small (1+) H (Negative) Urine Nitrite Negative (Negative) Ur Leukocyte Esterase Negative (Negative) Urine RBC 3-5 H (0-2) /HPF Urine WBC 0-5 (0-5) /HPF Ur Squamous Epith Cells 0-2 (0-2) /HPF Urine Bacteria None Seen (None Seen) Hyaline Casts 0-2 (0-2) /LPF <Yanelis Alcantara MD - Last Filed: 08/15/22 00:24> Independent Interpretation I performed an independent interpretation of an: CT Scan (My interpretation of CT scan: No SBO) <Yanelis Alcantara MD - Last Filed: 08/15/22 00:24> Radiology Impression Discussion of test interpretation with radiology: I have reviewed the radiologist's reading. <Yanelis Alcantara MD - Last Filed: 08/15/22 00:24> Radiologist Impression: FINDINGS: LUNG BASES: The visualized lung bases are unremarkable.? LIVER, GALLBLADDER, AND BILIARY TREE: Decreased attenuation throughout the liver most consistent with fatty change. ? Gallstones noted.? PANCREAS: Unremarkable.? SPLEEN: Unremarkable.? ADRENAL GLANDS: Unremarkable.? KIDNEYS AND URETERS: The kidneys are normal in size, shape, and attenuation. No hydronephrosis, hydroureter, or calculi seen. No perinephric stranding. ? BLADDER: Unremarkable.? GASTROINTESTINAL TRACT: The bowel pattern is nonobstructing. There is no free fluid. The pancreas is within normal limits.? ABDOMINAL WALL: No significant hernia is appreciated.? LYMPH NODES: Some mild periaortic nodes are unchanged. There is mild mesenteric stranding and there are prominent mesenteric nodes which are felt to be increasing from previous. These are not at this time felt to be pathologically enlarged. VASCULAR: Unremarkable. PELVIC VISCERA: The appearance of the uterus is improved. There is persistent fluid density in the lower uterine segment/cervical region. Again overall improved.? OSSEOUS STRUCTURES: Unremarkable.? CT/CT abdomen pelvis w IV con IMPRESSION: The bowel pattern is felt to be nonobstructing. There is no free fluid. No convincing evidence for bowel wall thickening. ? There is, however some increasing mesenteric adenopathy here and some mild mesenteric swirling. This may be consistent with mesenteritis/panniculitis. This could be reactive to an enteritis. I would recommend short-term 3 month follow-up film as early malignancy/lymphoma cannot be excluded. ? Gallstones noted. ? Probable fatty liver change. ? Improved overall appearance to the uterus with there is still fluid density expanding the lower uterine segment/cervical region <Yanelis Alcantara MD - Last Filed: 08/15/22 00:24> Medications Administered Discontinued Medications Generic Name Dose Route Start Last Admin Trade Name Freq PRN Reason Stop Dose Admin Iohexol 100 ml 08/14/22 22:27 08/14/22 22:28 Iohexol 350 Mg/Ml 100 Ml Infus..Btl IV 08/14/22 22:28 85 ml ONCE ONE Administration <Wanda Haider CNP - Last Filed: 08/14/22 13:13> Medications Administered Discontinued Medications Generic Name Dose Route Start Last Admin Trade Name Freq PRN Reason Stop Dose Admin Iohexol 100 ml 08/14/22 22:27 08/14/22 22:28 Iohexol 350 Mg/Ml 100 Ml Infus..Btl IV 08/14/22 22:28 85 ml ONCE ONE Administration <Yanelis Alcantara MD - Last Filed: 08/15/22 00:24> Discharge Plan Discharge Clinical Impression: Diarrhea, Abdominal pain <Wanda Haider CNP - Last Filed: 08/14/22 13:13> Patient Disposition: Home, Self-Care <Wanda Haider CNP - Last Filed: 08/14/22 13:13> Instructions: Acute Diarrhea (ED) <Wanda Haider CNP - Last Filed: 08/14/22 13:13> Additional Instructions: Please follow-up with your primary care physician tomorrow. If you have any worsening or new symptoms, please return to the emergency room or call 911 <Wanda Haider CNP - Last Filed: 08/14/22 13:13> Prescriptions: New loperamide 2 mg capsule 2 mg PO Q6H PRN (Reason: loose stool) Qty: 10 0RF No Action fluticasone propionate 50 mcg/actuation spray,suspension 1 - 2 spray intranasal DAILY PRN fluoxetine 20 mg capsule 20 mg PO QAM ibuprofen 400 mg tablet 400 mg PO Q8-12H PRN <Wanda Haider, JENA - Last Filed: 08/14/22 13:13>
[2022-08-14 13:50] LABS: MANUAL DIFF FLAG NO
[2022-08-14 13:58] LABS: Appearance Urine Clear; Color Urine Yellow; Glucose Urine UA Negative (Negative); Leukocyte Esterase Urine Negative (Negative); Nitrite Urine Negative (Negative); UMIC TRIGGER UACC YES; Urine Blood Small (1+) (Negative); Urine Ketones Negative (Negative); Urine Protein Negative (Neg-Trace)
[2022-08-14 14:09] LABS: Basophils Absolute Auto 0.1 X10*3/uL (0.0-0.2); Basophils Percent Auto 0.8 % (0-2); Eosinophils Absolute Auto 0.4 X10*3/uL (0.0-0.4); Eosinophils Percent Auto 5.6 % (0-4); Hematocrit 41.7 % (37.0-47.0); Hemoglobin 13.6 g/dl (12.0-16.0); Imm Gran Abs Auto 0.03 X10*3/uL (0.00-0.03); Imm Gran Pct Auto 0.5 % (0.0-0.4); Lymphocytes Absolute Auto 1.6 X10*3/uL (1.2-4.9); Lymphocytes Percent Auto 25.2 % (20-40); Mean Corpuscular HGB Conc 32.6 g/dl (31.0-35.0); Mean Corpuscular Hemoglobin 27.9 pg (27.0-33.0); Mean Corpuscular Volume 85.6 fL (80.0-98.0); Mean Platelet Volume 11.5 fL (9.4-12.3); Monocytes Absolute Auto 0.7 X10*3/uL (0.1-1.2); Monocytes Percent Auto 10.3 % (2-11); Neutrophils Absolute Auto 3.7 x10*3/uL (2.0-8.3); Neutrophils Percent Auto 57.6 % (45-73); Platelet Count 250 X10*3/uL (160-400); Red Blood Count 4.87 X10*6/uL (4.20-5.50); Red Cell Distribution Width 14.2 % (11.0-16.0); White Blood Count 6.4 X10*3/uL (4.8-10.8)
[2022-08-14 14:16] LABS: Alanine Aminotransferase 30 U/L (0-31); Albumin Level 4.5 g/dL (3.5-5.0); Alkaline Phosphatase 113 U/L (39-117); Anion Gap 15 (12-20); Aspartate Amino Transferase 20 U/L (5-31); Bilirubin Total 0.5 mg/dL (0.0-1.0); Blood Urea Nitrogen 13 mg/dL (9-16); Calcium 9.8 mg/dL (8.4-10.2); Carbon Dioxide 27 mmol/L (22-29); Chloride 103 mmol/L (96-108); Creatinine Clr Calc Pharmacy 86.1; Estimated Glomerular Filt Rate > 60; Glucose Random 96 mg/dL (60-115); Lipase 25 U/L (8-78); Potassium 4.6 mmol/L (3.3-5.1); Sodium 140 mmol/L (135-145); Total Protein 7.7 g/dL (6.5-8.0)
[2022-08-14 14:20] LABS: Bacteria Urine None Seen (None Seen); Hyaline Casts Urine 0-2 /LPF (0-2); Squamous Epithelial Cell Urine 0-2 /HPF (0-2); WBC Urine 0-5 /HPF (0-5)
[2022-08-14 17:12] VITALS: BP 115/79; PULSE 98; RESP 17; TEMP 36.6; O2SAT 99
[2022-08-14 20:39] VITALS: BP 129/70; PULSE 78; RESP 16; TEMP 36.4; O2SAT 97
--- NOTE | 2022-08-14 20:44 | PC.NURSE ---
This property underwriter assumed care of this PT at this time. PT A&Ox4, reports 8/10 lower ABD pain x 3 months but more constant in the last two weeks, feeling a burning sensation. Reports diarrhea yesterday, but normal BM today. + Bowel sounds x 4 quadrants. Slightly tender to touch on RLQ. IV line placed.
[2022-08-14] MEDS: iohexoL 350 MG/ML 100 ML INFUS..BTL IV (22:28)
[2022-08-15 00:08] VITALS: BP 130/67; PULSE 82; RESP 16; TEMP 36.4; O2SAT 97
[2022-08-15] MEDS: Loperamide HCl 2 MG CAPSULE 4 MG PO (00:34)
== END 2022-08-15 00:41 | disposition home or self-care (01) ==
PROVIDERS: Nurse Practitioner Family; Emergency Provider Emergency Medicine; PCP Internal Medicine
DX: R19.7 Diarrhea, unspecified (principal); R10.30 Lower abdominal pain, unspecified
CPT/HCPCS: 36415; 74177; 80053; 81001; 81003; 83690; 85025; 99284; Q9967

== ENCOUNTER 2022-08-16 14:27 | Outpatient (REF) | payer MEDICAID, SELFPAY ==
--- NOTE | ~2022-08-16 | MM_ITS ---
EXAMINATION: MM SCREENING DIGITAL BREAST TOMOSYNTHESIS, BILATERAL CLINICAL INFORMATION: Screening. Asymptomatic. The lifetime risk of breast cancer based on the Tyrer-Cuzick Model is 7%. COMPARISON: Mammography: 08/06/2021, 06/13/2020, 07/23/2018 TECHNIQUE: Digital breast tomosynthesis is performed in both the craniocaudal and mediolateral oblique views along with computer-aided detection (CAD). Synthesized 2D images are generated from the tomosynthesis. FINDINGS: There are scattered areas of fibroglandular density (ACR BI-RADS breast composition Category b). There are no significant masses, abnormal calcifications, or other abnormalities. No architectural abnormality or developing density or significant change from prior studies. Again, there is mild nipple retraction similar to prior studies. The axilla are unremarkable. MM/MM tomosynthesis screening BI IMPRESSION: No mammographic evidence of malignancy. ASSESSMENT: BI-RADS 2: Benign RECOMMENDATION: Routine annual mammography screening. This patient's information was entered into a reminder system with a target due date for their next mammogram.
== END 2022-08-16 14:28 | disposition home or self-care (01) ==
LOC: HO.MAMMO 14:27
PROVIDERS: PCP Internal Medicine; Visit Provider Internal Medicine
DX: Z12.31 Encounter for screening mammogram for malignant neoplasm of breast (principal)
CPT/HCPCS: 77063; 77067

== ENCOUNTER → 2022-08-26 11:25 | Outpatient (BNVA) | payer MEDICAID, SELFPAY | PROVIDERS: PCP Internal Medicine; Visit Provider Nurse Practitioner Family | DX: R31.29 Other microscopic hematuria (principal); R10.9 Unspecified abdominal pain | CPT/HCPCS: 99212 ==

== ENCOUNTER 2022-11-06 14:00 | Outpatient (REF) | payer MEDICAID, SELFPAY ==
[2022-11-09 06:39] LABS: HPV mRNA E6/E7 rflx Not Detected (Not Detected)
== END 2022-11-06 14:01 | disposition home or self-care (01) ==
LOC: HO.LNP 14:00
PROVIDERS: PCP Internal Medicine; Visit Provider Obstetrics & Gynecology
DX: Z01.419 Encounter for gynecological examination (general) (routine) without abnormal findings (principal); Z11.51 Encounter for screening for human papillomavirus (HPV)
CPT/HCPCS: 87624; 88142

== ENCOUNTER 2022-11-22 13:15 | Outpatient (REF) | payer MEDICAID, SELFPAY ==
--- NOTE | ~2022-11-22 | US_ITS ---
EXAMINATION: US RETROPERITONEAL COMPLETE (RENAL) CLINICAL INFORMATION: Other microscopic hematuria. COMPARISON: CT abdomen and pelvis 08/14/2022. Renal ultrasound 02/19/2022. TECHNIQUE: Real-time imaging of the kidneys and bladder. FINDINGS: RIGHT KIDNEY: 9.2 x 4.0 x 4.4 cm (SAG x AP x TRV). The kidney is normal in size, contour, and echogenicity. Renal cortical thickness is normal. No calculi or focal parenchymal lesions. No hydronephrosis. LEFT KIDNEY: 10.7 x 4.8 x 4.4 cm (SAG x AP x TRV). The kidney is normal in size, contour, and echogenicity. Renal cortical thickness is normal. No calculi or focal parenchymal lesions. No hydronephrosis. BLADDER: Well distended and normal. Bilateral ureteral jets are demonstrated. Prevoid bladder volume is 463 mL. Postvoid bladder volume is 15.7 mL. US/US retroperitoneal comp IMPRESSION: Unremarkable renal ultrasound. Small postvoid residual volume. Normal bilateral ureteral jets.
== END 2022-11-22 13:16 | disposition home or self-care (01) ==
LOC: HO.US 13:15
PROVIDERS: PCP Internal Medicine; Visit Provider Nurse Practitioner Family
DX: R31.29 Other microscopic hematuria (principal)
CPT/HCPCS: 76770

== ENCOUNTER → 2022-12-20 09:52 | Outpatient (BNVA) | payer MEDICAID, SELFPAY | PROVIDERS: PCP Internal Medicine; Visit Provider Nurse Practitioner Family ==

== ENCOUNTER 2023-01-23 12:52 | Emergency (ER) | payer MEDICAID, SELFPAY ==
[2023-01-23 13:02] VITALS: BP 130/73; PULSE 90; RESP 18; TEMP 36.6; O2SAT 97; BMI 34.3
--- NOTE | 2023-01-23 13:02 | ED.GENADULT ---
HPI - General Adult General Chief complaint: Urogenital-Female Stated complaint: vaginal itch Time Seen by Provider: 01/23/23 15:23 Source: patient, family and trust mail clerk Mode of arrival: ambulatory Limitations: no limitations History of Present Illness HPI narrative: 57 year old female with history significant for AFSHAN 3 and nephrolithiasis presents to the ED today with perianal itching and burning x1 week. Reports concern for possible allergy to her toilet paper at home. Denies fever, chills, rectal bleeding, rectal pain, or change in BM, dysuria, hematuria. MD complaint: perianal itching Onset (ago): week(s) (1) Location: genitals Radiation: non-radiation Severity: mild Quality: burning and other (itching) Pain Consistency: constant Relieving factors: none Exacerbating factors: none Associated symptoms: denies other symptoms Treatments prior to arrival: none Related Data Home Medications Medication Instructions Recorded Confirmed fluoxetine 20 mg capsule 20 mg PO QAM 10/23/21 08/26/22 fluticasone propionate 50 1 - 2 spray intranasal DAILY PRN 10/23/21 08/26/22 mcg/actuation nasal spray,suspension ibuprofen 400 mg tablet 400 mg PO Q8-12H PRN 12/24/21 08/26/22 alprazolam 0.5 mg tablet 0.5 mg PO DAILY PRN anxiety 08/26/22 08/26/22 fluticasone propionate 110 2 puff inhalation BID 08/26/22 08/26/22 mcg/actuation HFA aerosol inhaler (Flovent HFA) gabapentin 100 mg capsule 0 mg PO 08/26/22 08/26/22 meclizine 12.5 mg tablet 12.5 mg PO TID PRN 08/26/22 08/26/22 meloxicam 15 mg tablet 15 mg PO DAILY 08/26/22 08/26/22 naproxen 500 mg tablet 500 mg PO BID 08/26/22 08/26/22 cetirizine 10 mg tablet 10 mg PO DAILY 12/20/22 ketotifen fumarate 0.025 % (0.035 1 drp ophthalmic (eye) BID 12/20/22 %) eye drops Previous Rx's Medication Instructions Recorded loperamide 2 mg capsule 2 mg PO Q6H PRN loose stool #10 08/15/22 caps hydrocortisone 2.5 % topical cream 1 appl [place] BEDTIME PRN itching #30 01/23/23 with perineal applicator grams Allergies Allergy/AdvReac Type Severity Reaction Status Date / Time acetaminophen [From Percocet] Allergy Mild Unknown Verified 12/21/22 21:42 hydromorphone Allergy Unknown hives Verified 12/21/22 21:42 oxycodone [From PERCOCET] Allergy Unknown ITCHING Verified 12/21/22 21:42 zolpidem [From AMBIEN] Allergy Unknown ITCHING Verified 12/21/22 21:42 Review of Systems Review of Systems: Yes all other systems are reviewed and are negative FORMERLY [facility], [facility] Past Medical History Attestation statement: The following information was validated with the patient. Source: old records reviewed and nursing notes reviewed Medical History Anxiety Asthma AFSHAN III (cervical intraepithelial neoplasia grade III) with severe dysplasia Depression Surgical History History of bilateral tubal ligation Family History Family History Mother Epilepsy Mental health disorder Social History Social History Household Members: Spouse Housing: Apartment Alcohol intake: never Patient Tobacco Use Status: Never used Tobacco Advance Directives: No Advance Directives Information Provided: No Current occupational status: disabled Sexual orientation: Straight/Heterosexual Gender identity: Female Physical Exam ED Vital Signs: Vital Signs - 24 hr 01/23/23 13:02 Temperature 97.8 F Pulse Rate 90 Respiratory Rate 18 Blood Pressure 130/73 Pulse Oximetry 97 Oxygen Delivery Method Room Air BMI result Body Mass Index 34.3 Appearance: Alert. Oriented X3. No acute distress. Head: normocephalic, atraumatic. Eyes: Pupils equal, round and reactive to light. ENT: Pharynx normal. No tonsillar swelling or exudate. Neck: Normal inspection. Neck supple. CVS: Normal heart rate and rhythm. Pulses normal. Respiratory: No respiratory distress. Breath sounds normal. Abdomen: Soft and nontender. +BS x4 Rectal exam: externally there are mild old excoriations of the shanell anal tissue without any active bleeding or lesions. Digital rectal exam is normal without any palpable hemorrhoids. No visible perianal worms Skin: Skin warm and dry. Normal skin color. Normal skin turgor. No rashes. Extremities: No lower extremity edema. No joint swelling. Course Course Course Narrative: This is an RME: Additional HPI, ROS, PE not included below will be deferred to primary provider. This is a [id number] speaking female, with a past medical history of depression, anxiety, asthma, presenting to the emergency department with a complaint of anal itching and burning x 1 week. No fevers or chills. No dysuria. No diarrhea. Unable to visualize area in triage, will defer until seen by primary provider in main emergency department. Medical Decision Making Medical Decision Making MDM Narrative: 57-year-old female presents to the ER for evaluation of perianal itching for the last week or 2. No pain. No bleeding. Exam is consistent with some mild excoriations but no visible hemorrhoids. No lesions. Symptoms are not worse at night. Low suspicion for pinworms. Will prescribe topical hydrocortisone and have her follow-up with her primary care doctor. Also encouraged [id number] aloe cloths for symptomatic relief. She is stable for discharge home with outpatient follow-up. Differential Diagnosis Differential Diagnoses: The differential diagnosis associated with the presentation includes pinworms, constipation, contact dermatitis, hemorrhoids, anal fissure Independent Historian Clinical information obtained from an independent historian. History obtained from or confirmed by: Spouse External Record Review External record reviewed: Prior outpatient labs and Prior outpatient radiology Prescription Management I considered prescription management with: Other ( Hydrocortisone ointment) Critical Care Time Critical Care Time Critical Care Time: No Discharge Plan Discharge Clinical Impression: Perianal pruritus Patient Disposition: Home, Self-Care Instructions: Anal Itching (ED) Additional Instructions: use the prescribed cream as directed use over the counter aloe wipes or cool cloths to the area as needed for comfort Prescriptions: New hydrocortisone 2.5 % cream with perineal applicator 1 appl [place] BEDTIME PRN (Reason: itching) Qty: 30 0RF No Action loperamide 2 mg capsule 2 mg PO Q6H PRN (Reason: loose stool) Qty: 10 0RF fluticasone propionate 50 mcg/actuation spray,suspension 1 - 2 spray intranasal DAILY PRN fluoxetine 20 mg capsule 20 mg PO QAM ibuprofen 400 mg tablet 400 mg PO Q8-12H PRN meclizine 12.5 mg tablet 12.5 mg PO TID PRN naproxen 500 mg tablet 500 mg PO BID gabapentin 100 mg capsule 0 mg PO alprazolam 0.5 mg tablet 0.5 mg PO DAILY PRN (Reason: anxiety) meloxicam 15 mg tablet 15 mg PO DAILY fluticasone propionate [Flovent HFA] 110 mcg/actuation HFA aerosol inhaler 2 puff inhalation BID cetirizine 10 mg tablet 10 mg PO DAILY ketotifen fumarate 0.025 % (0.035 %) drops 1 drp ophthalmic (eye) BID Referrals: Katie Douglas MD [Primary Care Provider] - Print Language: Armenian
[2023-01-23 17:14] VITALS: BP 135/80; PULSE 70; RESP 16; TEMP 36.4; O2SAT 95
== END 2023-01-23 17:40 | disposition home or self-care (01) ==
PROVIDERS: Emergency Provider Emergency Medicine Emergency Medical Services; PCP Internal Medicine
DX: L29.0 Pruritus ani (principal); L29.2 Pruritus vulvae; Z79.899 Other long term (current) drug therapy
CPT/HCPCS: 99283; 99284

== ENCOUNTER 2023-06-18 09:29 | Outpatient (REF) | payer MEDICAID, SELFPAY ==
[2023-06-18 13:39] LABS: Cholesterol 189 mg/dL (<200); HDL Cholesterol 48 mg/dL (>40); LDL Cholesterol Calculated 113 mg/dL (<100); Triglycerides 143 mg/dL (<150)
[2023-06-18 13:45] LABS: Reflex LDLD? No
[2023-06-18 14:00] LABS: HBS Num1 > 1000.00 mIU/mL (0-7.99); HBsAGNum1 0.27 S/CO (0.00-0.99); HIV AB/AG Nonreactive (Nonreactive); HIV Num 1 0.05 S/CO (0.00-0.99); Hepatitis A Antibody IgM 0.15 Index (0-0.79); Hepatitis B Core Antibody Nonreactive (Nonreactive); Hepatitis B Surface Antigen Negative (Negative); Syphilis Screen Nonreactive (Nonreactive); ~HepC Num1 0.12 S/CO (0.00-0.79); ~Hepatitis A Antibody IgM Nonreactive (Nonreactive); ~Hepatitis B Surface Antibody REACTIVE (Nonreactive); ~Hepatitis C Antibody Nonreactive (Nonreactive)
[2023-06-18 14:06] LABS: Vitamin D 25-OH Total 43.8 ng/mL (>30)
[2023-06-21 15:38] LABS: TS Negative Control Passed; TS Panel A 0; TS Panel B 0; TS Positive Control Passed; TSpotTB Negative (Negative)
== END 2023-06-18 09:30 | disposition home or self-care (01) ==
LOC: HO.HMGCLDS 09:29
PROVIDERS: PCP Internal Medicine; Visit Provider Internal Medicine
DX: Z00.00 Encounter for general adult medical examination without abnormal findings (principal); E78.00 Pure hypercholesterolemia, unspecified; E55.9 Vitamin D deficiency, unspecified; Z11.3 Encounter for screening for infections with a predominantly sexual mode of transmission; Z11.59 Encounter for screening for other viral diseases; Z11.1 Encounter for screening for respiratory tuberculosis
CPT/HCPCS: 36415; 80061; 82306; 86481; 86704; 86706; 86709; 86780; 86803; 87340; 87389

== ENCOUNTER 2023-08-06 11:11 | Outpatient (AMB) | payer MEDICAID, SELFPAY ==
--- NOTE | 2023-08-06 11:12 | A.OFFVIS_ITS ---
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 Patient reports ongoing pain for many year. She states that she has ongoing pain daily when she is sitting a getting ready to stand she feels a sharp pain on the heal. Also having ongoing numbness/ stinging sensation. Allergies acetaminophen [From Percocet] Allergy (Mild, Verified 08/06/23 11:18) Unknown hydromorphone Allergy (Unknown, Verified 08/06/23 11:18) hives oxycodone [From PERCOCET] Allergy (Unknown, Verified 08/06/23 11:18) ITCHING zolpidem [From AMBIEN] Allergy (Unknown, Verified 08/06/23 11:18) ITCHING HPI HPI Comments History of Present Illness Details Chronic ankle pain, 2-3 years, denies inciting injuries. No injection or surgery yet. No EMG. Has not tried any braces yet. Points to posterior/behind lateral malleoli. Numbness/tingling on area. Stinging/aching. Under disability. [facility]LY [facility] Medical History (Updated 08/06/23 @ 11:40 by Margie Poe MD) Achilles tendinitis of both lower extremities AFSHAN III (cervical intraepithelial neoplasia grade III) with severe dysplasia Asthma Depression Anxiety Surgical History History of bilateral tubal ligation Family History Mother Epilepsy Mental health disorder Social History Household Members: Spouse Housing: Apartment Alcohol intake: never Patient Tobacco Use Status: Never used Tobacco Current occupational status: disabled Sexual orientation: Straight/Heterosexual Gender identity: Female Review of Systems Const All systems reviewed & are unremarkable except as noted in HPI and below Physical Exam Vital Signs: BMI result Body Mass Index 34.3 Constitutional: Patient appears to be in no acute distress, well nourished and well developed. MSK: Tender distal Achillis tendon, right worse than left. No signs of acute inflammation, redness or swelling. Right does feel slightly more warm than l eft. No tenderness on malleoli or plantar fascia. Does not appear to have any footdrop. No increased tone noted. Neurological: Neurologic examination of the upper and lower extremities was nonfocal with intact sensation, muscle stretch reflexes and without focal motor deficits . Gentile?s negative bilaterally. Babinski was down going bilaterally. Clonus was negative. Gait is antalgic without loss of balance. Results Reviewed Results Reviewed: Date of Service: 01/25/22 Procedure(s): XR foot RT min 3V Accession Number(s): [id number] cc: Teodora Gan ~ EXAMINATION: X-RAY RIGHT ANKLE X-RAY RIGHT FOOT CLINICAL INFORMATION: Achilles tendinitis. COMPARISON: No similar priors. TECHNIQUE: 2 views of the right ankle. 3 views of the right foot. FINDINGS: No evidence of acute fractures or malalignment. Prominent dorsal and plantar calcaneal spurs with associated calcifications at the insertion site of the Achilles tendon. Small enthesophytes along the medial malleolus and base of the fifth metatarsal. Nonspecific diffuse soft tissue edema. XR/XR foot RT min 3V IMPRESSION: 1. No acute fracture or malalignment. 2. Calcifications along the insertion site of the Achilles tendon suggesting tendinosis. Correlate clinically. 3. Mild multifocal osteoarthritis. 4. Nonspecific soft tissue swelling. Assessment & Plan Assessment & Plan (1) Achilles tendinitis of both lower extremities: Code(s): M76.61 - Achilles tendinitis, right leg; M76.62 - Achilles tendinitis, left leg Plan Chronic Achilles tendinosis with calcification seen on plain x-ray. Mild signs of inflammation seen in right ankle. Patient had undergone adequate conservative management without improvement of condition. It would be reasonable to obtain further imaging such as MRI. An MRI would help rule out any serious condition, guide treatment and assess prognosis for recovery. Referring to pain management as well for consideration of Achilles injection under imaging such as ultrasound. Assessment and plan discussed with patient, and patient was agreeable. All questions were answered thoroughly. Margie Poe MD, NAREN Board Certified, [place] Board of [employer] Medicine and Rehabilitation (ABPMR) Board Certified, [place] Board of Electrodiagnostic Medicine (ABEM) Orders: Orders MR ankle RT wo con Today M76.61 - Achilles tendinitis, right leg, M76.62 - Achilles tendinitis, left leg Referrals Pain Management Referral M76.61 - Achilles tendinitis, right leg, M76.62 - Achilles tendinitis, left leg Coding Level of Care Code New Pt Level 4 (58739) Diagnoses Achilles tendinitis of both lower extremities M76.61; M76.62
[2023-08-06 11:19] VITALS: BMI 34.3
== END 2023-08-06 11:41 | disposition home or self-care (01) ==
PROVIDERS: PCP Internal Medicine; Referring Provider Internal Medicine; Visit Provider Physical Medicine & Rehabilitation
DX: M76.61 Achilles tendinitis, right leg (principal); M76.62 Achilles tendinitis, left leg
CPT/HCPCS: 99204

== ENCOUNTER → 2023-08-06 11:11 | Outpatient (BNVA) | payer MEDICAID, SELFPAY | PROVIDERS: PCP Internal Medicine; Visit Provider Physical Medicine & Rehabilitation | DX: M76.61 Achilles tendinitis, right leg (principal); M76.62 Achilles tendinitis, left leg | CPT/HCPCS: 99202 ==

== ENCOUNTER 2023-08-21 14:25 | Outpatient (REF) | payer MEDICAID, SELFPAY | END 2023-08-21 14:26 | disposition home or self-care (01) | LOC: HO.MAMMO 14:25 | PROVIDERS: PCP Internal Medicine; Visit Provider Internal Medicine | DX: Z12.31 Encounter for screening mammogram for malignant neoplasm of breast (principal) | CPT/HCPCS: 77063; 77067 ==

== ENCOUNTER → 2023-08-21 15:00 | Outpatient (BNV) | payer MEDICAID, SELFPAY | PROVIDERS: PCP Internal Medicine; Visit Provider Radiology Diagnostic Radiology | DX: Z12.31 Encounter for screening mammogram for malignant neoplasm of breast (principal) | CPT/HCPCS: 77063; 77067 ==

== ENCOUNTER 2023-08-29 10:45 | Outpatient (AMB) | payer MEDICAID, SELFPAY ==
--- NOTE | 2023-08-29 10:51 | MHC.OFFVIS ---
Intake Vital Signs 08/29/23 10:52 Height 5 ft 4 in Weight 192 lb BMI 33.0 BP 128/71 Blood Pressure Location Lt brachial Position Sitting Respiration 12 Pulse 82 Pulse Source Pulse Oximeter Pulse Oximetry (%) 96 Oxygen Delivery Method Room Air Intake Visit Reasons: Achiles tendinitis, both legs Human Resource Advisor Required: Yes Human Resource Advisor Name: Ariana Allergies acetaminophen [From Percocet] Allergy (Mild, Verified 08/29/23 10:55) Unknown hydromorphone Allergy (Unknown, Verified 08/29/23 10:55) hives oxycodone [From PERCOCET] Allergy (Unknown, Verified 08/29/23 10:55) ITCHING zolpidem [From AMBIEN] Allergy (Unknown, Verified 08/29/23 10:55) ITCHING Medication List - Last Reconciled 08/29/23 by Kassidy Crocuh LPN alprazolam 0.5 mg PO DAILY PRN cetirizine 10 mg PO DAILY fluoxetine 20 mg PO QAM fluticasone propionate 50 mcg/actuation 1 - 2 sprays intranasal DAILY PRN fluticasone propionate 110 mcg/actuation (Flovent HFA) 2 puffs inhalation BID hydrocortisone 2.5% 1 appl IN BEDTIME PRN ibuprofen 400 mg PO Q8-12H PRN ketotifen fumarate 0.025%(0.035%) 1 drp ophthalmic (eye) BID loperamide 2 mg PO Q6H PRN meclizine 12.5 mg PO TID PRN meloxicam 15 mg PO DAILY naproxen 500 mg PO BID HPI Achiles tendinitis, both legs HPI Details 58-year-old female who presents today to the office for an evaluation of Achilles tendons in both legs. A certified territory account representative was present during the visit. She has a history of bilateral Achilles tendinosis. The pain has been ongoing for many years. She describes her pain as constant in nature. It is worse when standing from a sitting position. She also reports ongoing paresthesia and numbness sensations. She reports chronic ankle pain that started about 2?3 years ago. She denies any inciting injuries or accidents in the past. She has not tried any braces yet. She went to an orthopedic doctor in the past for an evaluation. She has a scheduled appointment for MRI scan next week. She is currently on disability. [facility] Medical History (Updated 08/06/23 @ 11:40 by Margie Poe MD) Achilles tendinitis of both lower extremities AFSHAN III (cervical intraepithelial neoplasia grade III) with severe dysplasia Asthma Depression Anxiety Surgical History History of bilateral tubal ligation Family History Mother Epilepsy Mental health disorder Social History Household Members: Spouse Housing: Apartment Alcohol intake: never Patient Tobacco Use Status: Never used Tobacco Current occupational status: disabled Sexual orientation: Straight/Heterosexual Gender identity: Female Review of Systems Const All systems reviewed & are unremarkable except as noted in HPI and below Physical Exam Vital Signs: Last Vital Signs Pulse 82 08/29/23 10:52 Resp 12 08/29/23 10:52 BP 128/71 08/29/23 10:52 Pulse Ox 96 08/29/23 10:52 Oxygen Delivery Method Room Air 08/29/23 10:52 BMI result Body Mass Index 33.0 General: Appears afebrile. Alert and oriented. Mood and affect appropriate. Follows and participates in conversation appropriately. Respiratory effort is unlabored. Able to transition from sit to stand unassisted. Ambulates with bilaterally normal heel strike and toe off. Tenderness to palpation over and around both Achilles tendons. Results Reviewed Results Reviewed: No imaging is available for review. Assessment & Plan Assessment & Plan (1) Achilles tendinitis of both lower extremities: Code(s): M76.61 - Achilles tendinitis, right leg; M76.62 - Achilles tendinitis, left leg Plan The patient is scheduled for an MRI scan next week. I told her that it would be better to wait until I reviewed the MRI scan before we attempted an injection. We will see her back in the clinic, and based on the findings, we will proceed with an injection under ultrasound guidance accordingly. I will schedule her for bilateral Achilles tendon injections, ultrasound guided. Discussed the risks and benefits of the procedure with the patient in detail. All questions were answered. The patient is on board with the plan. Justification for interventional therapy: ? Patient with average pain > 6/10 ? Patient has exhausted conservative therapy ? Patient unable to tolerate physical therapy due to pain. Scribed for Dr. Rodriguez by Tod Rabago, director of medical review, on 08/29/2023. I, Dr. Rodriguez, have personally reviewed and agree with the information entered by the scribe. Coding Level of Care Code New Pt Level 3 (75971) Diagnoses Achilles tendinitis of both lower extremities M76.61; M76.62
[2023-08-29 10:52] VITALS: BP 128/71; PULSE 82; RESP 12; O2SAT 96; BMI 33.0
== END 2023-08-29 11:16 | disposition home or self-care (01) ==
PROVIDERS: PCP Internal Medicine; Visit Provider Internal Medicine
DX: M76.61 Achilles tendinitis, right leg (principal); M76.62 Achilles tendinitis, left leg
CPT/HCPCS: 99203

== ENCOUNTER → 2023-08-29 10:45 | Outpatient (BNVA) | payer MEDICAID, SELFPAY | PROVIDERS: PCP Internal Medicine; Visit Provider Internal Medicine | DX: M76.61 Achilles tendinitis, right leg (principal); M76.62 Achilles tendinitis, left leg | CPT/HCPCS: 99202 ==

== ENCOUNTER 2023-09-05 15:29 | Outpatient (REF) | payer MEDICAID, SELFPAY ==
--- NOTE | ~2023-09-05 | MR_ITS ---
EXAMINATION: MR ANKLE WITHOUT CONTRAST, RIGHT CLINICAL INFORMATION: Chronic Achilles tendinosis COMPARISON: Radiographs 01/25/2022 TECHNIQUE: MRI of the ankle was performed using routine sequences on a high-field scanner. FINDINGS: Mild chronic Achilles tendinopathy with maximal AP diameter of 0.8 cm distally. Mild interstitial partial tearing at the calcaneal insertion with a prominent enthesopathy and reactive marrow edema of the calcaneus. Posterior superior spurring of the calcaneus with edema along the retrocalcaneal bursa. The posterior tibialis tendon, peroneal tendons, flexor and extensor tendons are otherwise unremarkable. The plantar fascia appears intact with a prominent heel spur. There are foci of micrometallic artifact within the subcutaneous fat overlying the plantar fascia origin as well as the base of the 5th metatarsal and the plantar fascia at the level of the midfoot which could be due to previous surgery or small foreign bodies. These are not evident on the 01/25/2022 radiographs. Mild osteoarthritis of the midfoot with small osteophytes. Ankle ligaments appear intact. No ankle joint effusion. No talar OCD. MR/MR ankle RT wo con IMPRESSION: 1. Mild chronic Achilles tendinopathy with mild interstitial partial tearing at the calcaneal insertion where there is prominent enthesopathy and reactive marrow edema. Retrocalcaneal edema. 2. Plantar fascia appears intact with a prominent heel spur. 3. Mild osteoarthritis of the midfoot.
== END 2023-09-05 15:30 | disposition home or self-care (01) ==
LOC: HO.MRI 15:29
PROVIDERS: PCP Internal Medicine; Visit Provider Physical Medicine & Rehabilitation
DX: M76.61 Achilles tendinitis, right leg (principal); M76.62 Achilles tendinitis, left leg
CPT/HCPCS: 73721

== ENCOUNTER 2023-09-26 10:40 | Outpatient (AMB) | payer MEDICAID, SELFPAY ==
--- NOTE | 2023-09-26 10:44 | A.OFFVIS_ITS ---
Intake Vital Signs 09/26/23 10:46 Height 5 ft 4 in Weight 197 lb BMI 33.8 BP 123/69 Blood Pressure Location Lt brachial Position Sitting Respiration 12 Pulse 84 Pulse Source Pulse Oximeter Pulse Oximetry (%) 96 Oxygen Delivery Method Room Air Intake Visit Reasons: Richar achilles tendon injection Administrative Support Specialist Required: Yes Allergies acetaminophen [From Percocet] Allergy (Mild, Verified 09/26/23 10:47) Unknown hydromorphone Allergy (Unknown, Verified 09/26/23 10:47) hives oxycodone [From PERCOCET] Allergy (Unknown, Verified 09/26/23 10:47) ITCHING zolpidem [From AMBIEN] Allergy (Unknown, Verified 09/26/23 10:47) ITCHING Medication List - Last Reconciled 09/26/23 by Kassidy Crouch LPN alprazolam 0.5 mg PO DAILY PRN cetirizine 10 mg PO DAILY fluoxetine 20 mg PO QAM fluticasone propionate 50 mcg/actuation 1 - 2 sprays intranasal DAILY PRN fluticasone propionate 110 mcg/actuation (Flovent HFA) 2 puffs inhalation BID hydrocortisone 2.5% 1 appl [place] BEDTIME PRN ibuprofen 400 mg PO Q8-12H PRN ketotifen fumarate 0.025%(0.035%) 1 drp ophthalmic (eye) BID loperamide 2 mg PO Q6H PRN meclizine 12.5 mg PO TID PRN meloxicam 15 mg PO DAILY naproxen 500 mg PO BID HPI Richar achilles tendon injection HPI Details 58-year-old female who presents today to the office for an MRI review and consideration of bilateral Achilles tendon injection. She has not done any physical therapy in the past. She is amenable to try physical therapy first prior to receiving injections. [facility] Medical History (Updated 08/06/23 @ 11:40 by Margie Poe MD) Achilles tendinitis of both lower extremities AFSHAN III (cervical intraepithelial neoplasia grade III) with severe dysplasia Asthma Depression Anxiety Surgical History History of bilateral tubal ligation Family History Mother Epilepsy Mental health disorder Social History Household Members: Spouse Housing: Apartment Alcohol intake: never Patient Tobacco Use Status: Never used Tobacco Current occupational status: disabled Sexual orientation: Straight/Heterosexual Gender identity: Female Review of Systems Const All systems reviewed & are unremarkable except as noted in HPI and below Physical Exam Vital Signs: Last Vital Signs Pulse 84 09/26/23 10:46 Resp 12 09/26/23 10:46 BP 123/69 09/26/23 10:46 Pulse Ox 96 09/26/23 10:46 Oxygen Delivery Method Room Air 09/26/23 10:46 BMI result Body Mass Index 33.8 General: Appears afebrile. Alert and oriented. Mood and affect appropriate. Follows and participates in conversation appropriately. Respiratory effort is unlabored. Able to transition from sit to stand unassisted. Ambulates with bilaterally normal heel strike and toe off. Results Reviewed Results Reviewed: 09/05/23: MR ANKLE WITHOUT CONTRAST, RIGHT FINDINGS: Mild chronic Achilles tendinopathy with maximal AP diameter of 0.8 cm distally. Mild interstitial partial tearing at the calcaneal insertion with a prominent enthesopathy and reactive marrow edema of the calcaneus. Posterior superior spurring of the calcaneus with edema along the retrocalcaneal bursa. The posterior tibialis tendon, peroneal tendons, flexor and extensor tendons are otherwise unremarkable. The plantar fascia appears intact with a prominent heel spur. There are foci of micrometallic artifact within the subcutaneous fat overlying the plantar fascia origin as well as the base of the 5th metatarsal and the plantar fascia at the level of the midfoot which could be due to previous surgery or small foreign bodies. These are not evident on the 01/25/2022 radiographs. Mild osteoarthritis of the midfoot with small osteophytes. Ankle ligaments appear intact. No ankle joint effusion. No talar OCD. IMPRESSION: 1. Mild chronic Achilles tendinopathy with mild interstitial partial tearing at the calcaneal insertion where there is prominent enthesopathy and reactive marrow edema. Retrocalcaneal edema. 2. Plantar fascia appears intact with a prominent heel spur. 3. Mild osteoarthritis of the midfoot. Assessment & Plan Assessment & Plan (1) Achilles tendinitis of both lower extremities: Code(s): M76.61 - Achilles tendinitis, right leg; M76.62 - Achilles tendinitis, left leg Plan A referral was provided to physical therapy for two months. The patient will receive a call to schedule an appointment. The patient will follow up in two months for consideration of Achilles tendon corticosteroid injections. Scribed for Dr. Rodriguez by Tod Rabago, neuropsychology medical consultant, on 09/26/2023. I, Dr. Rodriguez, have personally reviewed and agree with the information entered by the scribe. Orders: Orders PT Evaluation and Treatment 09/26/23 M76.61 - Achilles tendinitis, right leg, M76.62 - Achilles tendinitis, left leg Coding Level of Care Code Est Pt Level 3 (33036) Diagnoses Achilles tendinitis of both lower extremities M76.61; M76.62
[2023-09-26 10:46] VITALS: BP 123/69; PULSE 84; RESP 12; O2SAT 96; BMI 33.8
== END 2023-09-26 11:31 | disposition home or self-care (01) ==
PROVIDERS: PCP Internal Medicine; Visit Provider Internal Medicine
DX: M76.61 Achilles tendinitis, right leg (principal); M76.62 Achilles tendinitis, left leg
CPT/HCPCS: 99213

== ENCOUNTER → 2023-09-26 10:40 | Outpatient (BNVA) | payer MEDICAID, SELFPAY | PROVIDERS: PCP Internal Medicine; Visit Provider Internal Medicine | DX: M76.61 Achilles tendinitis, right leg (principal); M76.62 Achilles tendinitis, left leg | CPT/HCPCS: 99212 ==

== ENCOUNTER 2023-12-05 10:44 | Outpatient (AMB) | payer MEDICAID, SELFPAY ==
[2023-12-05 10:47] VITALS: BP 122/78; PULSE 69; RESP 14; O2SAT 96; BMI 33.6
--- NOTE | 2023-12-05 10:47 | MHC.OFFVIS ---
Vital Signs 12/05/23 10:47 Height 5 ft 4 in Weight 196 lb BMI 33.6 BP 122/78 Blood Pressure Location Lt brachial Position Sitting Respiration 14 Pulse 69 Pulse Source Pulse Oximeter Pulse Oximetry (%) 96 Oxygen Delivery Method Room Air Intake Visit Reasons: 2 mo. Follow Up Java Performance Engineer Required: Yes Java Performance Engineer Name: [id number] Jorge Allergies acetaminophen [From Percocet] Allergy (Mild, Verified 12/05/23 10:49) Unknown hydromorphone Allergy (Unknown, Verified 12/05/23 10:49) hives oxycodone [From PERCOCET] Allergy (Unknown, Verified 12/05/23 10:49) ITCHING zolpidem [From AMBIEN] Allergy (Unknown, Verified 12/05/23 10:49) ITCHING Medication List - Last Reconciled 12/05/23 by Kassidy Crouch LPN alprazolam 0.5 mg PO DAILY PRN cetirizine 10 mg PO DAILY fluoxetine 20 mg PO QAM fluticasone propionate 50 mcg/actuation 1 - 2 sprays intranasal DAILY PRN fluticasone propionate 110 mcg/actuation (Flovent HFA) 2 puffs inhalation BID hydrocortisone 2.5% 1 appl [place] BEDTIME PRN ibuprofen 400 mg PO Q8-12H PRN ketotifen fumarate 0.025%(0.035%) 1 drp ophthalmic (eye) BID loperamide 2 mg PO Q6H PRN meclizine 12.5 mg PO TID PRN meloxicam 15 mg PO DAILY naproxen 500 mg PO BID HPI HPI 2 mo. Follow Up: Details: 58-year-old female who presents today to the office for a two month follow up. A certified telephone information supervisor was present during the visit. She reports abdominal pain post gallbladder removal surgery that was done recently. She discontinued physical therapy for foot pain due to surgery. She is also not doing any home exercises. She is interested in trying injection and discussed about the possible side effects. [facility] Medical History (Updated 08/06/23 @ 11:40 by Margie Poe MD) Achilles tendinitis of both lower extremities AFSHAN III (cervical intraepithelial neoplasia grade III) with severe dysplasia Asthma Depression Anxiety Surgical History History of bilateral tubal ligation Family History Mother Epilepsy Mental health disorder Social History Household Members: Spouse Housing: Apartment Alcohol intake: never Patient Tobacco Use Status: Never used Tobacco Current occupational status: disabled Sexual orientation: Straight/Heterosexual Gender identity: Female Review of Systems Const All systems reviewed & are unremarkable except as noted in HPI and below Physical Exam Vital Signs: Last Vital Signs Pulse 69 12/05/23 10:47 Resp 14 12/05/23 10:47 BP 122/78 12/05/23 10:47 Pulse Ox 96 12/05/23 10:47 Oxygen Delivery Method Room Air 12/05/23 10:47 BMI result Body Mass Index 33.6 General: Appears afebrile. Alert and oriented. Mood and affect appropriate. Follows and participates in conversation appropriately. Respiratory effort is unlabored. Able to transition from sit to stand unassisted. Ambulates with bilaterally normal heel strike and toe off. Results Reviewed Results Reviewed: No imaging is available for review. Assessment & Plan Assessment & Plan (1) Achilles tendinitis of both lower extremities: Code(s): M76.61 - Achilles tendinitis, right leg; M76.62 - Achilles tendinitis, left leg Category: Medical Plan A referral that was provided to physical therapy on the last visit is still valid. The patient will receive a call to schedule an appointment. I advised the patient to continue home exercises for the foot pain. The patient will follow up in three months. If the pain continues to persist after three months of formal PT and home exercise program, we will schedule her for Achilles tendon injections. Scribed for Dr. Rodriguez by Tod Rabago, director biomedical engineering, on 12/05/2023. I, Dr. Rodriguez, have personally reviewed and agree with the information entered by the scribe. Coding Level of Care Code Est Pt Level 3 (49598) Diagnoses Achilles tendinitis of both lower extremities M76.61; M76.62
== END 2023-12-05 11:14 | disposition home or self-care (01) ==
PROVIDERS: PCP Internal Medicine; Visit Provider Internal Medicine
DX: M76.61 Achilles tendinitis, right leg (principal); M76.62 Achilles tendinitis, left leg
CPT/HCPCS: 99213

== ENCOUNTER → 2023-12-05 10:44 | Outpatient (BNVA) | payer MEDICAID, SELFPAY | PROVIDERS: PCP Internal Medicine; Visit Provider Internal Medicine | DX: M76.61 Achilles tendinitis, right leg (principal); M76.62 Achilles tendinitis, left leg | CPT/HCPCS: 99212 ==

== ENCOUNTER 2023-12-11 18:05 | Outpatient (REF) | payer MEDICAID, SELFPAY ==
[2023-12-12 03:25] LABS: CT PCR NOT DETECTED (Not Detect.); NG PCR NOT DETECTED (Not Detect.)
[2023-12-12 10:49] LABS: Bacterial Vaginosis PCR NEGATIVE (Negative); Candida Group PCR NOT DETECTED (Not Detect); Candida glab krusei PCR NOT DETECTED (Not Detect); Trichomonas vaginalis PCR NOT DETECTED (Not Detect)
== END 2023-12-11 18:06 | disposition home or self-care (01) ==
LOC: HO.HHCLNP 18:05
PROVIDERS: Visit Provider Emergency Medicine
DX: N89.8 Other specified noninflammatory disorders of vagina (principal)
CPT/HCPCS: 0352U; 0353U

== ENCOUNTER 2024-01-14 10:04 | Outpatient (REF) | payer MEDICAID, SELFPAY ==
--- NOTE | ~2024-01-14 | US_ITS ---
EXAMINATION: US RETROPERITONEAL LIMITED (RENAL ONLY) CLINICAL INFORMATION: Calculus of kidney. COMPARISON: Ultrasound kidneys and bladder 11/16/2022. CT abdomen and pelvis 08/14/2022. Renal ultrasound 02/19/2022. TECHNIQUE: Real-time imaging of the kidneys. FINDINGS: RIGHT KIDNEY: 9.7 x 4.2 x 4.7 cm (SAG x AP x TRV). The kidney is normal in size, contour, and echogenicity. Renal cortical thickness is normal. No calculi or focal parenchymal lesions. No hydronephrosis. LEFT KIDNEY: 10.2 x 5.0 x 4.2 cm (SAG x AP x TRV). The kidney is normal in size, contour, and echogenicity. Renal cortical thickness is normal. No calculi or focal parenchymal lesions. No hydronephrosis. Partially imaged liver appears echogenic suggestive of hepatic steatosis or underlying liver disease. This could be further characterized with a dedicated right upper quadrant ultrasound if clinically indicated. US/US renal BI IMPRESSION: 1. No hydronephrosis or nephrolithiasis. 2. Partially imaged liver appears echogenic suggestive of hepatic steatosis or underlying liver disease. This could be further characterized with a dedicated right upper quadrant ultrasound
== END 2024-01-14 10:05 | disposition home or self-care (01) ==
LOC: HO.US 10:04
PROVIDERS: PCP Internal Medicine; Visit Provider Nurse Practitioner Family
DX: N20.0 Calculus of kidney (principal)
CPT/HCPCS: 76775

== ENCOUNTER 2024-01-29 13:40 | Outpatient (REF) | payer MEDICAID, SELFPAY ==
[2024-02-03 19:58] LABS: HPV mRNA E6/E7 Not Detected (Not Detected)
== END 2024-01-29 13:41 | disposition home or self-care (01) ==
LOC: HO.LNP 13:40
PROVIDERS: PCP Internal Medicine; Visit Provider Obstetrics & Gynecology
DX: Z01.419 Encounter for gynecological examination (general) (routine) without abnormal findings (principal); Z11.51 Encounter for screening for human papillomavirus (HPV); D06.9 Carcinoma in situ of cervix, unspecified
CPT/HCPCS: 36415; 87624; 88175; 99396

== ENCOUNTER 2024-01-29 13:40 | Outpatient (AMB) | payer MEDICAID, SELFPAY ==
[2024-01-29 13:45] VITALS: BP 116/70; BMI 33.3
--- NOTE | 2024-01-29 13:45 | A.OFFVIS_ITS ---
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/DO NOT RS Commercial Decorator Required: Yes Commercial Decorator Language: Hand Upper And Bottom Lacer Services: Commercial Decorator Present (in person) Commercial Decorator Name: Melinda CALIXTO Information Interpreted: non-clinical & clinical Automotive Hardware Engineer: Automotive Hardware Engineer Present (Melinda CALIXTO) Accompanied by: Self / Same As Patient Allergies acetaminophen [From Percocet] Allergy (Mild, Verified 01/29/24 13:52) Unknown hydromorphone Allergy (Unknown, Verified 01/29/24 13:52) hives oxycodone [From PERCOCET] Allergy (Unknown, Verified 01/29/24 13:52) ITCHING zolpidem [From AMBIEN] Allergy (Unknown, Verified 01/29/24 13:52) ITCHING Post menopausal: Yes HPI Comments Details: Presenting for annual exam. No complaints. Last Pap/HPV was negative in 11/19 Last Mammogram was BI-RADS 1 in 08/23 Last Colonoscopy was in 03/17, the recommendation was to repeat in 10 years [facility] Medical History Achilles tendinitis of both lower extremities AFSHAN III (cervical intraepithelial neoplasia grade III) with severe dysplasia Asthma Depression Anxiety Surgical History Hx of cholecystectomy History of bilateral tubal ligation Family History Mother Epilepsy Mental health disorder Social History Household Members: Spouse Housing: Apartment Alcohol intake: never Patient Tobacco Use Status: Never used Tobacco Current occupational status: disabled Sexual orientation: Straight/Heterosexual Gender identity: Female Female Reproductive History Menstrual Menopause type: natural Total pregnancies: 4 Full term: 3 Number of Living Children: 3 Ab spontaneous: 1 Date of last pap smear: 11/07/22 Date of Mammogram: 08/21/23 Review of Systems Const All systems reviewed & are unremarkable except as noted in HPI and below Card Reports as per HPI Resp Reports as per HPI GI Reports as per HPI and Reports no additional complaints Reports as per HPI Physical Exam Vital Signs: Last Vital Signs BP 116/70 01/29/24 13:45 BMI result Body Mass Index 33.3 Const General: cooperative, healthy appearing and comfortable Chest Chest palpation & inspection: normal inspection of the chest and normal palpation of entire chest wall Breast/axilla inspection: normal inspection of the breasts and normal inspection of the axillae Breast/axilla palpation: normal palpation of the breasts, normal palpation of the axillae and no axillary lymphadenopathy Resp Effort & Inspection: normal respiratory effort Auscultation: clear to auscultation bilaterally Percussion: percussion normal Cardio Palpation: normal PMI Rate: regular rate Rhythm: regular rhythm Heart sounds: no murmurs and no rubs Peripheral pulses: Peripheral pulses 2+ throughout GI Inspection: Yes normal to inspection Palpation (GI): Soft to palpation, nontender, no guarding, not rigid and No hepatosplenomegaly present Percussion: Yes normal to percussion Auscultation: normal bowel sounds Rectal Exam - Female: deferred General: Yes bladder normal to palpation External Female Exam: No lesion Speculum Exam - Vagina: normal appearance of the vagina, normal palpation, normal vaginal discharge and not erythematous Speculum Exam - Cervix: normal appearance of the cervix and normal palpation Bimanual exam- vagina & uterus: normal bimanual exam, normal palpation, uterine size normal, bladder normal to palpation, consistency normal and normal palpation Bimanual Exam- Adnexa, other: normal adnexae, no masses and no tenderness Assessment & Plan Assessment & Plan (1) Well woman exam: Comment: History of AFSHAN 3 status post LEEP 2018 and cold knife cone 2019 Negative Pap smear in 07/21 and 11/19 Code(s): Z01.419 - Encounter for gynecological examination (general) (routine) without abnormal findings Category: Medical Plan: Co testing done since the patient had AFSHAN 3 status post LEEP cone with positive margins and cold knife cone in 2019 was 2- co testing in and . Counseled the patient about the recommended dietary allowance of 1200 mg of Calcium & 600 IU of vitamin D. Instructions given the patient to schedule next screening Mammogram in 08/23. The patient was instructed to perform monthly self-breast exams and schedule annual exam in a year. All questions answered and the patient verbalized understanding. Coding Level of Care Code Est Pt Prev Care 40-64y(02116) Diagnoses Well woman exam Z01.419
== END 2024-01-29 14:17 | disposition home or self-care (01) ==
PROVIDERS: PCP Internal Medicine; Visit Provider Obstetrics & Gynecology
DX: Z01.419 Encounter for gynecological examination (general) (routine) without abnormal findings (principal)
CPT/HCPCS: 99396

== ENCOUNTER 2024-02-04 12:55 | Outpatient (AMB) | payer MEDICAID, SELFPAY ==
[2024-02-04 13:06] VITALS: BP 123/68; PULSE 72; BMI 32.8
--- NOTE | 2024-02-04 13:06 | A.OFFVIS_ITS ---
Vital Signs 02/04/24 13:06 Height 5 ft 4 in Weight 191 lb BMI 32.8 BP 123/68 Blood Pressure Location Lt brachial Position Sitting Pulse 72 Intake Visit Reasons: Internal Hemorrhoids Intake Note: This patient presents for Internal Hemorrhoids assessment. Patient c/o; reports no rectal bleeding, ? rash, reports itchiness, reports no straining with bowel movements, reports Hx cholecystectomy 10/2023 (DARYN Fields). Catalytic Converter Operator Helper Required: Yes Catalytic Converter Operator Helper Language: Cement Mixer Name: Brigette Information Interpreted: non-clinical & clinical Director Of Strategic Programs: Director Of Strategic Programs Present (Humaira-DURGA) Accompanied by: Self / Same As Patient Allergies acetaminophen [From Percocet] Allergy (Mild, Verified 02/04/24 13:15) Unknown hydromorphone Allergy (Unknown, Verified 02/04/24 13:15) hives oxycodone [From PERCOCET] Allergy (Unknown, Verified 02/04/24 13:15) ITCHING zolpidem [From AMBIEN] Allergy (Unknown, Verified 02/04/24 13:15) ITCHING Medication List - Last Reconciled 02/04/24 by Lauro Duncan MD alprazolam 0.5 mg PO DAILY PRN cetirizine 10 mg PO DAILY fluoxetine 20 mg PO QAM fluticasone propionate 50 mcg/actuation 1 - 2 sprays intranasal DAILY PRN fluticasone propionate 110 mcg/actuation (Flovent HFA) 2 puffs inhalation BID hydrocortisone 2.5% 1 appl [place] BEDTIME PRN ibuprofen 400 mg PO Q8-12H PRN ketotifen fumarate 0.025%(0.035%) 1 drp ophthalmic (eye) BID loperamide 2 mg PO Q6H PRN meclizine 12.5 mg PO TID PRN meloxicam 15 mg PO DAILY naproxen 500 mg PO BID HPI HPI Internal Hemorrhoids: Details: 58-year-old female referred for itching around her anus. She has had this for about 3 months. She describes severe itching around her anus. She denies any pain. She denies any bleeding. She denies any constipation. She feels that there is a rash in the perianal skin now because of the itching. [facility] Medical History (Updated 02/04/24 @ 13:43 by Lauro Duncan MD) Pruritus ani Achilles tendinitis of both lower extremities AFSHAN III (cervical intraepithelial neoplasia grade III) with severe dysplasia Asthma Depression Anxiety Surgical History Hx of cholecystectomy History of bilateral tubal ligation Family History Mother Epilepsy Mental health disorder Social History Household Members: Spouse Housing: Apartment Alcohol intake: never Patient Tobacco Use Status: Never used Tobacco Current occupational status: disabled Sexual orientation: Straight/Heterosexual Gender identity: Female Review of Systems Const Denies chills and Denies fever(s) Card Denies chest pain, Denies dyspnea and Denies dyspnea on exertion Resp Denies cough, Denies dyspnea and Denies dyspnea on exertion GI Denies hematochezia and Denies change in bowel habits Denies hematuria Musc Denies back pain and Denies limited range of motion Neuro Denies focal weakness and Denies convulsions Psych Denies depression and Denies mood swings Physical Exam Vital Signs: Last Vital Signs Pulse 72 02/04/24 13:06 BP 123/68 02/04/24 13:06 BMI result Body Mass Index 32.8 Const Other: Appears overweight General: comfortable and no acute distress Orientation/consciousness: patient oriented x3 Neck Neck: Yes no lymphadenopathy Resp Auscultation: clear to auscultation bilaterally Cardio Rhythm: regular rhythm GI Other: Rectal exam does not reveal any perianal lesions or abnormal skin Palpation (GI): Soft to palpation, nontender and no guarding Neuro General: patient oriented x3 Office Procedures Anoscopy She was in trevon-knife position. The anoscope was gently inserted. A full examination of the anal canal was done. There was small internal hemorrhoids. There were no lesions in the anal canal. There was no fissure. There was no bleeding. There was no induration. [id number] Assessment & Plan Assessment & Plan (1) Pruritus ani: Code(s): L29.0 - Pruritus ani Category: Medical Plan: It appears that she has pruritus anal with uncertain etiology. I had advised her to avoid caffeinated products as well as high sugar content. I will prescribe her Calmoseptine for symptomatic relief. I did tell her that if she has questions or concerns down the line, she is welcome to come back to the office to be re-evaluated. Coding Level of Care Code New Pt Level 3 (61143) Diagnoses Pruritus ani L29.0 CPT Codes Details - CPT: 65671-[id number] ([id number])
== END 2024-02-04 13:42 | disposition home or self-care (01) ==
PROVIDERS: PCP Internal Medicine; Referring Provider Internal Medicine; Visit Provider Surgery
DX: L29.0 Pruritus ani (principal); K64.8 Other hemorrhoids
CPT/HCPCS: 46600; 99203

== ENCOUNTER → 2024-02-04 12:55 | Outpatient (BNVA) | payer MEDICAID, SELFPAY | PROVIDERS: PCP Internal Medicine; Visit Provider Surgery | DX: L29.0 Pruritus ani (principal) | CPT/HCPCS: 46600; 99202 ==

== ENCOUNTER 2024-02-16 10:40 | Outpatient (AMB) | payer MEDICAID, SELFPAY ==
--- NOTE | 2024-02-16 10:51 | A.OFFVIS_ITS ---
Vital Signs 02/16/24 10:52 Height 5 ft 4 in Weight 189 lb 9.561 oz BMI 32.5 BP 122/70 Intake Visit Reasons: Colposcopy In Flight Technician Required: Yes In Flight Technician Language: Acquisition Editor Services: In Flight Technician Present (in person) In Flight Technician Name: Melinda CALIXTO Information Interpreted: non-clinical & clinical Cancer Center Director: Cancer Center Director Present (Melinda CALIXTO) Accompanied by: Self / Same As Patient Allergies acetaminophen [From Percocet] Allergy (Mild, Verified 02/16/24 11:04) Unknown hydromorphone Allergy (Unknown, Verified 02/16/24 11:04) hives oxycodone [From PERCOCET] Allergy (Unknown, Verified 02/16/24 11:04) ITCHING zolpidem [From AMBIEN] Allergy (Unknown, Verified 02/16/24 11:04) ITCHING Post menopausal: Yes HPI Comments Details: Presenting for colposcopy for LSIL/HPV negative PFSH Medical History Pruritus ani Achilles tendinitis of both lower extremities AFSHAN III (cervical intraepithelial neoplasia grade III) with severe dysplasia Asthma Depression Anxiety Surgical History Hx of cholecystectomy History of bilateral tubal ligation Family History Mother Epilepsy Mental health disorder Social History Household Members: Spouse Housing: Apartment Alcohol intake: never Patient Tobacco Use Status: Never used Tobacco Current occupational status: disabled Sexual orientation: Straight/Heterosexual Gender identity: Female Review of Systems Const All systems reviewed & are unremarkable except as noted in HPI and below Reports as per HPI and Reports no additional complaints GI Reports no additional complaints Reports no additional complaints Physical Exam Vital Signs: Last Vital Signs BP 122/70 02/16/24 10:52 BMI result Body Mass Index 32.5 Office Procedures Colposcopy Colposcopy: Pre-Procedure Counseling: Before beginning the procedure, I conducted comprehensive counseling with the patient. We thoroughly discussed the procedure itself, including its details, alternatives, and all associated risks. This included but not limited to the following complications such as bleeding, infection, and injury to the vagina, bladder, and vessels, as well as the potential need for transfusion with all its associated risks. Subsequently, the patient sign the consent. Pap smear result: LSIL. Procedure: During the procedure, the following steps were performed: A speculum was inserted, and acetic acid was applied. Colposcopy was conducted, allowing visualization of the transformation zone. Acetowhite lesions were identified at the 3 o'clock position. Cervical biopsies were obtained from the 3 o'clock position Vaginoscopy of the upper vagina revealed no evidence of aceto-white lesions. Hemostasis was achieved using Monsel solution, and the patient tolerated the procedure well. Post-Procedure Instructions: The patient was advised to promptly contact the office or the after hours answering service or go to the emergency room if experiencing a temperature exceeding 100.4?F, abdominal pain, nausea/vomiting, or bleeding. Additionally, the patient was instructed to abstain from vaginal intercourse and bathtub use. The patient confirmed understanding of these instructions. Discharge Instructions: The patient was instructed to schedule a follow-up appointment in 2 weeks for further evaluation and management. Please note that this note was generated using a voice recognition program, and errors may have occurred during retail sales associate. [id number] of cervix including upper vagina and biopsy Procedure code (CPT) selection complete Assessment & Plan Assessment & Plan (1) LGSIL on Pap smear of cervix: Code(s): R87.612 - Low grade squamous intraepithelial lesion on cytologic smear of cervix (LGSIL) Category: Medical Plan: Discussed with the patient the result of her abnormal pap, its significance, risk of progression, persistence, and regression. the false positive/negative rate of a Pap smear as a screening test in detecting cervical cancer and the indication for a diagnostic test -colposcopy, biopsy, endocervical curettage. The patient verbalized understanding and agreed with the plan, all questions answered. Colposcopy done, see procedure note Orders: Orders AMB Colposcopy Today R87.612 - Low grade squamous intraepithelial lesion on cytologic smear of cervix (LGSIL) Coding Level of Care Code Procedure Only Diagnoses LGSIL on Pap smear of cervix R87.612 CPT Codes Colposcopy - CPT: 39168-[id number] of cervix including upper vagina and biopsy ( [id number])
[2024-02-16 10:52] VITALS: BP 122/70; BMI 32.5
== END 2024-02-16 11:48 | disposition home or self-care (01) ==
LOC: HO.HWS 10:40
PROVIDERS: PCP Internal Medicine; Visit Provider Obstetrics & Gynecology
DX: R87.612 Low grade squamous intraepithelial lesion on cytologic smear of cervix (LGSIL) (principal)
CPT/HCPCS: 57455

== ENCOUNTER 2024-02-16 10:40 | Outpatient (REF) | payer MEDICAID, SELFPAY | END 2024-02-16 10:41 | disposition home or self-care (01) | LOC: HO.LNP 10:40 | PROVIDERS: PCP Internal Medicine; Visit Provider Obstetrics & Gynecology | DX: R87.612 Low grade squamous intraepithelial lesion on cytologic smear of cervix (LGSIL) (principal) | CPT/HCPCS: 57455; 88305 ==

== ENCOUNTER 2024-03-22 12:44 | Outpatient (AMB) | payer MEDICAID, SELFPAY ==
[2024-03-22 12:55] VITALS: BP 133/63; PULSE 77; RESP 15; O2SAT 97; BMI 32.6
--- NOTE | 2024-03-22 12:55 | A.OFFVIS_ITS ---
Vital Signs 03/22/24 12:55 Height 5 ft 4 in Weight 190 lb BMI 32.6 BP 133/63 Blood Pressure Location Lt brachial Position Sitting Respiration 15 Pulse 77 Pulse Source Pulse Oximeter Pulse Oximetry (%) 97 Oxygen Delivery Method Room Air Intake Visit Reasons: 3 Months F/U Chinese Language Professor Required: Yes Chinese Language Professor Name: Ariana Allergies acetaminophen [From Percocet] Allergy (Mild, Verified 04/07/24 08:42) Unknown hydromorphone Allergy (Unknown, Verified 04/07/24 08:42) hives oxycodone [From PERCOCET] Allergy (Unknown, Verified 04/07/24 08:42) ITCHING zolpidem [From AMBIEN] Allergy (Unknown, Verified 04/07/24 08:42) ITCHING Medication List - Last Reconciled 03/22/24 by Kassidy Crouch LPN alprazolam 0.5 mg PO DAILY PRN cetirizine 10 mg PO DAILY fluoxetine 20 mg PO QAM fluticasone propionate 50 mcg/actuation 1 - 2 sprays intranasal DAILY PRN fluticasone propionate 110 mcg/actuation (Flovent HFA) 2 puffs inhalation BID hydrocortisone 2.5% 1 appl [place] BEDTIME PRN ibuprofen 400 mg PO Q8-12H PRN ketotifen fumarate 0.025%(0.035%) 1 drp ophthalmic (eye) BID loperamide 2 mg PO Q6H PRN meclizine 12.5 mg PO TID PRN meloxicam 15 mg PO DAILY menthol-zinc oxide 0.44-20.6 % (Calmoseptine) 1 appl topical QID PRN naproxen 500 mg PO BID HPI HPI 3 Months F/U: Details: 58-year-old female who presents today to the office for follow up after three months She has been doing physical therapy twice a week and daily home exercises. She has noticed significant pain relief. [facility] Medical History (Updated 04/07/24 @ 08:57 by Lauro Duncan MD) External hemorrhoid Pruritus ani Achilles tendinitis of both lower extremities AFSHAN III (cervical intraepithelial neoplasia grade III) with severe dysplasia Asthma Depression Anxiety Surgical History Hx of cholecystectomy History of bilateral tubal ligation Family History Mother Epilepsy Mental health disorder Social History Household Members: Spouse Housing: Apartment Alcohol intake: never Patient Tobacco Use Status: Never used Tobacco Current occupational status: disabled Sexual orientation: Straight/Heterosexual Gender identity: Female Review of Systems Const All systems reviewed & are unremarkable except as noted in HPI and below Physical Exam Vital Signs: Last Vital Signs Pulse 77 03/22/24 12:55 Resp 15 03/22/24 12:55 BP 133/63 03/22/24 12:55 Pulse Ox 97 03/22/24 12:55 Oxygen Delivery Method Room Air 03/22/24 12:55 BMI result Body Mass Index 32.6 General: Appears afebrile. Alert and oriented. Mood and affect appropriate. Follows and participates in conversation appropriately. Respiratory effort is unlabored. Able to transition from sit to stand unassisted. Ambulates with bilaterally normal heel strike and toe off. Results Reviewed Results Reviewed: No imaging is available for review. Assessment & Plan Assessment & Plan (1) Achilles tendinitis of both lower extremities: Code(s): M76.61 - Achilles tendinitis, right leg; M76.62 - Achilles tendinitis, left leg Category: Medical Plan The patient will continue PT and home exercises as it provided good relief. She will follow up in two months or earlier as needed. Scribed for Dr. Rodriguez by Tod Rabago, medical logistics specialist, on 03/22/2024. I, Dr. Rodriguez, have personally reviewed and agree with the information entered by the scribe. Coding Level of Care Code Est Pt Level 2 (74989) Diagnoses Achilles tendinitis of both lower extremities M76.61; M76.62
== END 2024-03-22 13:12 | disposition home or self-care (01) ==
PROVIDERS: PCP Internal Medicine; Visit Provider Internal Medicine
DX: M76.61 Achilles tendinitis, right leg (principal); M76.62 Achilles tendinitis, left leg
CPT/HCPCS: 99212

== ENCOUNTER → 2024-03-22 12:44 | Outpatient (BNVA) | payer MEDICAID, SELFPAY | PROVIDERS: PCP Internal Medicine; Visit Provider Internal Medicine | DX: M76.61 Achilles tendinitis, right leg (principal); M76.62 Achilles tendinitis, left leg | CPT/HCPCS: 99212 ==

== ENCOUNTER 2024-03-23 10:46 | Outpatient (REF) | payer MEDICAID, SELFPAY ==
[2024-03-23 17:18] LABS: Urine Cytology See Pathology rpt
== END 2024-03-23 10:47 | disposition home or self-care (01) ==
LOC: HO.LNP 10:46
PROVIDERS: PCP Internal Medicine; Visit Provider Nurse Practitioner Family
DX: R31.29 Other microscopic hematuria (principal); N20.0 Calculus of kidney
CPT/HCPCS: 81003; 88112; 99212

== ENCOUNTER 2024-03-23 10:46 | Outpatient (AMB) | payer MEDICAID, SELFPAY ==
--- NOTE | 2024-03-23 11:02 | A.OFFVIS_ITS ---
Intake Visit Reasons: follow up/US(set) Intake Note: Patient presents today for follow up on: nephrolithiasis, microscopic hematuria, ultrasound results Imaging Completed: 01/14/24 Urology Medications: none Blood Thinner: none Library Consultant Required: Yes Accompanied by: Self / Same As Patient Allergies acetaminophen [From Percocet] Allergy (Mild, Verified 03/23/24 11:42) Unknown hydromorphone Allergy (Unknown, Verified 03/23/24 11:42) hives oxycodone [From PERCOCET] Allergy (Unknown, Verified 03/23/24 11:42) ITCHING zolpidem [From AMBIEN] Allergy (Unknown, Verified 03/23/24 11:42) ITCHING Medication List - Last Reconciled 03/23/24 by Rosa Emanuel [facility]- alprazolam 0.5 mg PO DAILY PRN cetirizine 10 mg PO DAILY fluoxetine 20 mg PO QAM fluticasone propionate 50 mcg/actuation 1 - 2 sprays intranasal DAILY PRN fluticasone propionate 110 mcg/actuation (Flovent HFA) 2 puffs inhalation BID hydrocortisone 2.5% 1 appl [place] BEDTIME PRN ibuprofen 400 mg PO Q8-12H PRN ketotifen fumarate 0.025%(0.035%) 1 drp ophthalmic (eye) BID loperamide 2 mg PO Q6H PRN meclizine 12.5 mg PO TID PRN meloxicam 15 mg PO DAILY menthol-zinc oxide 0.44-20.6 % (Calmoseptine) 1 appl topical QID PRN naproxen 500 mg PO BID HPI Comments Details: Divine is a pleasant 57 year old Venezuelan speaking female patient of Dr. Yeung. She has a past medical history of asthma, depression, anxiety, and AFSHAN III with dysplasia. She presents to the office today for follow-up of her nephrolithiasis. Recent renal imaging results reviewed with the patient today. Bilateral kidneys are normal in size, contour, and echogenicity. No renal calculi, lesions, and or hydronephrosis noted bilaterally. She currently denies any bothersome urinary issues or concerns. 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 She also discusses following up with Gastroenterology in the past for gallbladder stones and has since had a cholecystectomy. When asked she denies urinary frequency, urinary urgency, dysuria, change to urinary stream, hematuria, flank pain, fever, and or chills. In office urinalysis results reviewed with the patient today. When asked she reports to be happy with her current voiding parameters. She otherwise offers no other issues or concerns at this time. 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 Asthma Depression Anxiety Surgical History Hx of cholecystectomy History of bilateral tubal ligation Family History Mother Epilepsy Mental health disorder Social History Household Members: Spouse Housing: Apartment Alcohol intake: never Patient Tobacco Use Status: Never used Tobacco Current occupational status: disabled Sexual orientation: Straight/Heterosexual Gender identity: Female Review of Systems Const Reports as per HPI Eyes Reports no additional complaints ENT Reports no additional complaints Card Reports no additional complaints Resp Reports no additional complaints GI Reports as per HPI Reports as per HPI Musc Reports no additional complaints Neuro Reports no additional complaints Psych Reports no additional complaints Endo Reports no additional complaints Physical Exam Const General: cooperative, healthy appearing, comfortable, no acute distress, well developed, alert and awake Nutritional Appearance: overweight Orientation/consciousness: patient oriented x3 Limitations: no limitations HEENT Head: Yes normal to inspection, Yes normocephalic and Yes atraumatic Ears: hearing grossly normal bilaterally Eyes General: appearance normal, both eyes and all related structures Neck Neck: Yes normal visual inspection and Yes trachea midline Chest Chest palpation & inspection: normal inspection of the chest Resp Effort & Inspection: normal respiratory effort and able to speak in complete sentences Cardio Rate: regular rate GI Inspection: Yes normal to inspection General: Yes no CVA tenderness Back/Spine/Pelvis Back: no CVA tenderness Skin General skin exam: no rashes or lesions noted Neuro General: patient oriented x3 Extrem General: Yes normal to inspection Psych Appearance: grossly normal and well kempt Mental Status: mental status grossly normal Speech and movement: Normal speech and movement present and Clear speech present Affect: normal affect Attitude: cooperative Thought process: Normal thought process present Thought content: Normal thought content present Insight: Fair insight present (Psych) Judgement: Fair judgement present (Psych) Results AMB Urinalysis, Automated UA Leukoctes 0 Tori/uL Last Edit by [employer] on 03/23/24 11:14 UA Nitrite Last Edit by [employer] on 03/23/24 11:14 UA Urobilinogen 0.2 mg/dL Last Edit by [employer] on 03/23/24 11:14 UA Protein 0 mg/dL Last Edit by [employer] on 03/23/24 11:14 UA pH 8.5 Last Edit by [employer] on 03/23/24 11:14 UA Blood 10 Adalberto/uL Last Edit by [employer] on 03/23/24 11:14 UA Specific [place] 1.015 Last Edit by [employer] on 03/23/24 11:14 UA Ketone Last Edit by [employer] on 03/23/24 11:14 UA Bilirubin 0 mg/dL Last Edit by [employer] on 03/23/24 11:14 UA Glucose 0 mg/dL Last Edit by [employer] on 03/23/24 11:14 Results Reviewed Results Reviewed: Laboratory Last Values Urine pH (Auto) 8.5 03/23/24 11:12 Specific [place] (Auto) 1.015 03/23/24 11:12 Urine Protein (Auto) 0 mg/dL 03/23/24 11:12 Glucose (UA)(Auto) 0 mg/dL 03/23/24 11:12 Urine Blood (Auto) 10 Adalberto/uL 03/23/24 11:12 Urine Bilirubin (Auto) 0 mg/dL 03/23/24 11:12 Urine Urobilinogen (Auto) 0.2 mg/dL 03/23/24 11:12 Leukocyte Esterase (Auto) 0 Tori/uL 03/23/24 11:12 Date of Service: 01/14/24 US RETROPERITONEAL LIMITED (RENAL ONLY) FINDINGS: RIGHT KIDNEY: 9.7 x 4.2 x 4.7 cm (SAG x AP x TRV). The kidney is normal in size, contour, and echogenicity. Renal cortical thickness is normal. No calculi or focal parenchymal lesions. No hydronephrosis. LEFT KIDNEY: 10.2 x 5.0 x 4.2 cm (SAG x AP x TRV). The kidney is normal in size, contour, and echogenicity. Renal cortical thickness is normal. No calculi or focal parenchymal lesions. No hydronephrosis. Partially imaged liver appears echogenic suggestive of hepatic steatosis or underlying liver disease. This could be further characterized with a dedicated right upper quadrant ultrasound if clinically indicated. IMPRESSION: 1. No hydronephrosis or nephrolithiasis. 2. Partially imaged liver appears echogenic suggestive of hepatic steatosis or underlying liver disease. This could be further characterized with a dedicated right upper quadrant ultrasound. Assessment & Plan Assessment & Plan (1) Nephrolithiasis: Code(s): N20.0 - Calculus of kidney Category: Medical (2) Microscopic hematuria: Code(s): R31.29 - Other microscopic hematuria Category: Medical Plan In office urinalysis results reviewed with the patient today; as noted above; will send for urine cytology Recent renal imaging results reviewed with the patient today; as noted above. Patient currently denies any bothersome urinary issues or concerns. She reports be happy with current voiding parameters. Discussed continuing to drink plenty of water daily in relation to nephrolithiasis as well as overall health and well-being. Continue adding 1 oz of lemon juice to water daily. Follow-up in 6 months; or sooner with any issues, concerns, and or questions. Orders: Orders AMB Urinalysis Automated Today Z13.9 - Encounter for screening, unspecified Urine Cytology Today R31.29 - Other microscopic hematuria Patient Instructions: The patient had an opportunity to ask questions regarding the treatment plan. All questions were answered. Physical exam, labs, and imaging were discussed and reviewed in detail. As well as risks, benefits, and discussion of treatment choices. No major barriers to understanding were identified. The patient expressed understanding and agreement with the above treatment plan. The patient was made aware they should contact our office by phone for worsening of their current condition, the appearance of new symptoms, or with any questions or concerns. Compliance is encouraged with any medications and follow up testing that is ordered. It is a privilege to be allowed the opportunity to participate in? your urological care.? Again, if you have any questions or concerns If you have any questions or concerns please do not hesitate to contact me. The office is [phone]. This note is constructed using voice recognition software. While every effort has been made to ensure accuracy support associate errors may have been included. Yours sincerely, TANGELA Meyers Coding Level of Care Code Est Pt Level 3 (25307) Complex EM visit Add On G2211 Diagnoses Nephrolithiasis N20.0 Microscopic hematuria R31.29
== END 2024-03-23 11:34 | disposition home or self-care (01) ==
PROVIDERS: PCP Internal Medicine; Visit Provider Nurse Practitioner Family
DX: N20.0 Calculus of kidney (principal); R31.29 Other microscopic hematuria; Z13.9 Encounter for screening, unspecified
CPT/HCPCS: 99213

== ENCOUNTER 2024-04-06 10:00 | Outpatient (RCR) | payer MEDICAID, SELFPAY ==
--- NOTE | 2024-03-09 13:39 | MHC.PT.EP ---
[facility] [place] Office [place] Office [place] Office [address] Maged Willams [address] [phone] F: [phone] F: [phone] F: [phone] F: [phone] Physical Therapy Plan of Care Date of Evaluation: 03/09/24 Date of Surgery: NA Diagnosis: B ACHILLES TENDONITIS Assessment: Pt IS 58 YO F REFERRED TO PT FROM DR WALLACE WITH B ACHILLES TENDONITIS. Pt REPORTS 3 YR HX OF PAIN OF INSIDIOUS ONSET. PRESENTS WITH ANTALGIC GT, DECREASED END ROM ANKLE, DECREASED ANKLE STRENGTH. SHOULD BENEFIT FROM PT TO ADDRESS THESE ISSUES Frequency and Duration: The patient will be seen 1-2X/WK X 6 WKS Short Term Goals: 1.INCREASED AWARENESS ANKLE CARE 2. I KT IF INDICATED 3. IMPROVED GT PATTERN (INCREASED HEEL STRIKE AND PUSH OFF/PF) Longterm Goals: 1. I HEP WITH DC EX PLAN 2. DECREASED PAIN AT LEAST 50% WITH ADLS Treatment Plan: Modalities to reduce pain, spasms and effusion. Manual therapy to restore motion and function. Therapeutic exercise to improve strength and flexibility. Neuromuscular re-education for posture and balance. Therapeutic activities to return to functional activities of daily living. Electronically signed by: AVI ARCHER PT Please sign and return to therapist. Thank you for your referral.
--- NOTE | 2024-05-18 10:32 | MHC.PT.DC ---
[facility] [place] Office [place] [facility] [place] Office [address] Maged Willams [address] [phone] F: [phone] F: [phone] F: [phone] F: [phone] Physical Therapy Discharge Report Diagnosis: B ACHILLES TENDONITIS Date of Surgery: NA Date of Evaluation: 03/09/24 Date of Discharge: 05/18/24 Treatments to Date: 8 Cancellations to Date: No Shows to Date: Discharge Status: Independent with HEP Patient Elected to Stop Recommend MD Follow-up Discharge Summary: Pt CONTINUES WITH PAIN AND NOTABLE SWELLING DISTAL ACHILLES TENDONS B. MAY BENEFIT FROM ORTHO/PODIATRY CONSULT (?CORTISONE INJECTIONS, ORTHOTICS, NIGHT SPLINT). IS TO BE AWAY X 2 WEEKS (FOR HER HUSBANDS WORK). TO SCHEDULE A FU FOR WHEN SHE RETURNS TO [facility] PER RECORD, Pt HAD APPT WITH PAIN MANAGEMENT 05/17 AND WILL BE GETTING AN ACHILLES TENDON INJECTION ON 05/19 Electronically signed by: AVI ARCHER PT Please sign and return to therapist. Thank you for your referral.
== END 2024-05-18 10:32 | disposition home or self-care (01) ==
LOC: HO.PT 10:00
PROVIDERS: PCP Internal Medicine; Visit Provider Internal Medicine
DX: M67.88 Other specified disorders of synovium and tendon, other site (principal)
CPT/HCPCS: 97110; 97140; 97161; 97530

== ENCOUNTER 2024-04-06 10:43 | Outpatient (AMB) | payer MEDICAID, SELFPAY ==
--- NOTE | 2024-04-06 10:44 | MHC.OFFVIS ---
Intake Visit Reasons: colpo follow up Conference Center Manager Required: Yes Conference Center Manager Language: Hr Director Services: Conference Center Manager Present (in person) Conference Center Manager Name: Melinda CALIXTO Information Interpreted: non-clinical & clinical Allergies acetaminophen [From Percocet] Allergy (Mild, Verified 03/23/24 11:42) Unknown hydromorphone Allergy (Unknown, Verified 03/23/24 11:42) hives oxycodone [From PERCOCET] Allergy (Unknown, Verified 03/23/24 11:42) ITCHING zolpidem [From AMBIEN] Allergy (Unknown, Verified 03/23/24 11:42) ITCHING HPI Comments Details: The patient is scheduled a telehealth visit post colpo for follow-up. The patient is doing well with no complaints. The pathology showed the following: Cervix, 3 o'clock, biopsy: Squamous mucosa within normal limits; no endocervical component seen; negative for squamous intraepithelial lesion. [facility] Medical History Pruritus ani Achilles tendinitis of both lower extremities AFSHAN III (cervical intraepithelial neoplasia grade III) with severe dysplasia Asthma Depression Anxiety Surgical History Hx of cholecystectomy History of bilateral tubal ligation Family History Mother Epilepsy Mental health disorder Social History Household Members: Spouse Housing: Apartment Alcohol intake: never Patient Tobacco Use Status: Never used Tobacco Current occupational status: disabled Sexual orientation: Straight/Heterosexual Gender identity: Female Review of Systems Const All systems reviewed & are unremarkable except as noted in HPI and below Reports as per HPI and Reports no additional complaints GI Reports no additional complaints Reports no additional complaints Telehealth Telehealth Telehealth Platform: Telephone Location of provider rendering services: practice address Location of patient: address on file Patient Identification confirmed using: Name, : Yes Telehealth method: voice only Patient verbally consented to treatment: Yes Patient verbally consented to billing insurance company: Yes Patient informed of any privacy concerns related to visit: Yes Assessment & Plan Assessment & Plan (1) LGSIL on Pap smear of cervix: Comment: neg cerv bx Code(s): R87.612 - Low grade squamous intraepithelial lesion on cytologic smear of cervix (LGSIL) Category: Medical Plan: Discussed with the patient the pathology results of the colposcopy biopsies & endocervical curettage (neg). Discussed with the patient the sensitivity specificity, positive and negative predictive value in detecting cervical cancer in addition discussed the regression, persistence and progression rates. Recommended co-testing in 12 months, if cytology and or HPV are abnormal will proceed was colposcopy biopsy and endocervical curettage. Instructions given to the patient to schedule a co test appointment in 1 year. All questions answered the patient verbalized understanding. I spent a total of 20 minutes reviewing the chart, talking to the patient via phone and documenting in the medical record. Coding Level of Care Code Tele Est Pt Level 1 (96350) Diagnoses LGSIL on Pap smear of cervix R87.612
== END 2024-04-06 13:07 | disposition home or self-care (01) ==
LOC: HO.HWS 10:43
PROVIDERS: PCP Internal Medicine; Visit Provider Obstetrics & Gynecology
DX: R87.612 Low grade squamous intraepithelial lesion on cytologic smear of cervix (LGSIL) (principal)
CPT/HCPCS: 99211

== ENCOUNTER → 2024-04-06 10:43 | Outpatient (BNVA) | payer MEDICAID, SELFPAY | PROVIDERS: PCP Internal Medicine; Visit Provider Obstetrics & Gynecology ==

== ENCOUNTER 2024-04-07 08:17 | Outpatient (AMB) | payer MEDICAID, SELFPAY ==
[2024-04-07 08:33] VITALS: BP 135/66; PULSE 77; BMI 31.8
--- NOTE | 2024-04-07 08:33 | MHC.OFFVIS ---
Vital Signs 04/07/24 08:33 Height 5 ft 4 in Weight 185 lb BMI 31.8 BP 135/66 Blood Pressure Location Rt brachial Position Sitting Pulse 77 Intake Visit Reasons: Hemorrhoids Intake Note: This patient presents for Hemorrhoids. Pt c/o; reports she was showering when she noticed she had a lump outside her anus, reports no rectal bleeding or constipation. Accounting Tutor Required: Yes Accounting Tutor Language: Lockstitch Front Maker Services: Accounting Tutor Present Accounting Tutor Name: Brigette Information Interpreted: non-clinical & clinical Accompanied by: Self / Same As Patient Allergies acetaminophen [From Percocet] Allergy (Mild, Verified 04/07/24 08:42) Unknown hydromorphone Allergy (Unknown, Verified 04/07/24 08:42) hives oxycodone [From PERCOCET] Allergy (Unknown, Verified 04/07/24 08:42) ITCHING zolpidem [From AMBIEN] Allergy (Unknown, Verified 04/07/24 08:42) ITCHING Medication List - Last Reconciled 04/07/24 by Lauro Duncan MD alprazolam 0.5 mg PO DAILY PRN cetirizine 10 mg PO DAILY fluoxetine 20 mg PO QAM fluticasone propionate 50 mcg/actuation 1 - 2 sprays intranasal DAILY PRN fluticasone propionate 110 mcg/actuation (Flovent HFA) 2 puffs inhalation BID hydrocortisone 2.5% 1 appl [place] BEDTIME PRN ibuprofen 400 mg PO Q8-12H PRN ketotifen fumarate 0.025%(0.035%) 1 drp ophthalmic (eye) BID loperamide 2 mg PO Q6H PRN meclizine 12.5 mg PO TID PRN meloxicam 15 mg PO DAILY menthol-zinc oxide 0.44-20.6 % (Calmoseptine) 1 appl topical QID PRN naproxen 500 mg PO BID HPI HPI Hemorrhoids: Details: She is here to have her anus checked. She says that for the past few weeks, she has noted this small lump outside her anus. She denies any pain. She denies any bleeding I had seen her last January, for pruritus. She says that her pruritus has improved with Calmoseptine. I had done an anoscopy at that time as well. 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 Asthma Depression Anxiety Surgical History Hx of cholecystectomy History of bilateral tubal ligation Family History Mother Epilepsy Mental health disorder Social History Household Members: Spouse Housing: Apartment Alcohol intake: never Patient Tobacco Use Status: Never used Tobacco Current occupational status: disabled Sexual orientation: Straight/Heterosexual Gender identity: Female Review of Systems Const Denies chills and Denies fever(s) Card Denies chest pain, Denies dyspnea and Denies dyspnea on exertion Resp Denies cough, Denies dyspnea and Denies dyspnea on exertion GI Denies hematochezia and Denies change in bowel habits Denies hematuria Musc Denies back pain and Denies limited range of motion Neuro Denies focal weakness and Denies convulsions Psych Denies depression and Denies mood swings Physical Exam Vital Signs: Last Vital Signs Pulse 77 04/07/24 08:33 BP 135/66 04/07/24 08:33 BMI result Body Mass Index 31.8 Const General: comfortable and no acute distress Orientation/consciousness: patient oriented x3 Neck Neck: Yes no lymphadenopathy Resp Auscultation: clear to auscultation bilaterally Cardio Rhythm: regular rhythm GI Other: Rectal exam shows a small external hemorrhoid and right side, non thrombosed, mildly swollen, nontender Palpation (GI): Soft to palpation, nontender and no guarding Neuro General: patient oriented x3 Assessment & Plan Assessment & Plan (1) External hemorrhoid: Code(s): K64.4 - Residual hemorrhoidal skin tags Category: Medical Plan: She has this small external hemorrhoid on the right side. I told her that I would not recommend hemorrhoidectomy at this point. She was very minimal symptoms if at all. I advised her to avoid straining and constipation. She says she is taking Metamucil and this seems to be helping She she understands that she can always see me down the line if she has more concerns about this. She is comfortable with the plan. Coding Level of Care Code Est Pt Level 3 (63651) Diagnoses External hemorrhoid K64.4
== END 2024-04-07 09:10 | disposition home or self-care (01) ==
PROVIDERS: PCP Internal Medicine; Referring Provider Internal Medicine; Visit Provider Surgery
DX: K64.4 Residual hemorrhoidal skin tags (principal)
CPT/HCPCS: 99213

== ENCOUNTER → 2024-04-07 08:17 | Outpatient (BNVA) | payer MEDICAID, SELFPAY | PROVIDERS: PCP Internal Medicine; Visit Provider Surgery | DX: K64.4 Residual hemorrhoidal skin tags (principal) | CPT/HCPCS: 99212 ==

== ENCOUNTER → 2024-05-17 09:33 | Outpatient (BNVA) | payer MEDICAID, SELFPAY | PROVIDERS: PCP Internal Medicine; Visit Provider Internal Medicine | DX: M76.61 Achilles tendinitis, right leg (principal); M76.62 Achilles tendinitis, left leg | CPT/HCPCS: 99212 ==

== ENCOUNTER 2024-05-17 09:52 | Outpatient (AMB) | payer MEDICAID, SELFPAY ==
--- NOTE | 2024-05-17 09:57 | A.OFFVIS_ITS ---
Vital Signs 05/17/24 09:58 Height 5 ft 4 in Weight 185 lb BMI 31.8 BP 118/76 Blood Pressure Location Lt brachial Position Sitting Respiration 15 Pulse 82 Pulse Source Pulse Oximeter Pulse Oximetry (%) 98 Oxygen Delivery Method Room Air Intake Visit Reasons: 2 Month Follow Up Respiratory Care Technician Required: Yes Respiratory Care Technician Name: Silverio [id number] Allergies acetaminophen [From Percocet] Allergy (Mild, Verified 05/19/24 10:41) Unknown hydromorphone Allergy (Unknown, Verified 05/19/24 10:41) hives oxycodone [From PERCOCET] Allergy (Unknown, Verified 05/19/24 10:41) ITCHING zolpidem [From AMBIEN] Allergy (Unknown, Verified 05/19/24 10:41) ITCHING Medication List - Last Reconciled 05/17/24 by Kassidy Crouch LPN alprazolam 0.5 mg PO DAILY PRN cetirizine 10 mg PO DAILY fluoxetine 20 mg PO QAM fluticasone propionate 50 mcg/actuation 1 - 2 sprays intranasal DAILY PRN fluticasone propionate 110 mcg/actuation (Flovent HFA) 2 puffs inhalation BID hydrocortisone 2.5% 1 appl [place] BEDTIME PRN ibuprofen 400 mg PO Q8-12H PRN ketotifen fumarate 0.025%(0.035%) 1 drp ophthalmic (eye) BID loperamide 2 mg PO Q6H PRN meclizine 12.5 mg PO TID PRN meloxicam 15 mg PO DAILY menthol-zinc oxide 0.44-20.6 % (Calmoseptine) 1 appl topical QID PRN naproxen 500 mg PO BID HPI HPI 2 Month Follow Up: Details: 58-year-old female who presents today to the office for a 2 month follow up visit. A certified brewery representative was present during the visit. She reports mild pain in her lower back. She reports when she walks, she feel numbness sensation in her feet and loses her balance. With back pain, she has difficulty walking and standing. She has stopped doing physical therapy and is interested in injection. [facility] Medical History (Updated 04/07/24 @ 08:57 by Lauro Duncan MD) External hemorrhoid Pruritus ani Achilles tendinitis of both lower extremities AFSHAN III (cervical intraepithelial neoplasia grade III) with severe dysplasia Asthma Depression Anxiety Surgical History Hx of cholecystectomy History of bilateral tubal ligation Family History Mother Epilepsy Mental health disorder Social History Household Members: Spouse Housing: Apartment Alcohol intake: never Patient Tobacco Use Status: Never used Tobacco Current occupational status: disabled Sexual orientation: Straight/Heterosexual Gender identity: Female Review of Systems Const All systems reviewed & are unremarkable except as noted in HPI and below Physical Exam Vital Signs: Last Vital Signs Pulse 82 05/17/24 09:58 Resp 15 05/17/24 09:58 BP 118/76 05/17/24 09:58 Pulse Ox 98 05/17/24 09:58 Oxygen Delivery Method Room Air 05/17/24 09:58 BMI result Body Mass Index 31.8 General: Appears afebrile. Alert and oriented. Mood and affect appropriate. Follows and participates in conversation appropriately. Respiratory effort is unlabored. Able to transition from sit to stand unassisted. Ambulates with bilaterally normal heel strike and toe off. Results Reviewed Results Reviewed: No imaging is available for review. Assessment & Plan Assessment & Plan (1) Achilles tendinitis of both lower extremities: Code(s): M76.61 - Achilles tendinitis, right leg; M76.62 - Achilles tendinitis, left leg Category: Medical Plan She will return to the clinic in 2 days for left Achilles tendon injection. Scribed for Dr. Rodriguez by Sherri Boyd medical collections representative, on 05/17/2024.? I, Dr. Rodriguez, have personally reviewed and agree with the information entered by the scribe. Coding Level of Care Code Est Pt Level 2 (62618) Diagnoses Achilles tendinitis of both lower extremities M76.61; M76.62
[2024-05-17 09:58] VITALS: BP 118/76; PULSE 82; RESP 15; O2SAT 98; BMI 31.8
== END 2024-05-17 10:18 | disposition home or self-care (01) ==
PROVIDERS: PCP Internal Medicine; Visit Provider Internal Medicine
DX: M76.61 Achilles tendinitis, right leg (principal); M76.62 Achilles tendinitis, left leg
CPT/HCPCS: 99212

== ENCOUNTER 2024-05-19 10:26 | Outpatient (AMB) | payer MEDICAID, SELFPAY ==
[2024-05-19 10:40] VITALS: BP 134/68; PULSE 90; RESP 16; O2SAT 94; BMI 31.8
--- NOTE | 2024-05-19 10:40 | MHC.OFFVIS ---
Vital Signs 05/19/24 10:40 Height 5 ft 4 in Weight 185 lb BMI 31.8 BP 134/68 Blood Pressure Location Lt brachial Position Sitting Respiration 16 Pulse 90 Pulse Source Pulse Oximeter Pulse Oximetry (%) 94 Oxygen Delivery Method Room Air Intake Visit Reasons: achilles tendon inj Allergies acetaminophen [From Percocet] Allergy (Mild, Verified 05/19/24 10:41) Unknown hydromorphone Allergy (Unknown, Verified 05/19/24 10:41) hives oxycodone [From PERCOCET] Allergy (Unknown, Verified 05/19/24 10:41) ITCHING zolpidem [From AMBIEN] Allergy (Unknown, Verified 05/19/24 10:41) ITCHING Medication List - Last Reconciled 05/19/24 by Kassidy Crouch LPN alprazolam 0.5 mg PO DAILY PRN cetirizine 10 mg PO DAILY fluoxetine 20 mg PO QAM fluticasone propionate 50 mcg/actuation 1 - 2 sprays intranasal DAILY PRN fluticasone propionate 110 mcg/actuation (Flovent HFA) 2 puffs inhalation BID hydrocortisone 2.5% 1 appl HI BEDTIME PRN ibuprofen 400 mg PO Q8-12H PRN ketotifen fumarate 0.025%(0.035%) 1 drp ophthalmic (eye) BID loperamide 2 mg PO Q6H PRN meclizine 12.5 mg PO TID PRN meloxicam 15 mg PO DAILY menthol-zinc oxide 0.44-20.6 % (Calmoseptine) 1 appl topical QID PRN naproxen 500 mg PO BID HPI HPI achilles tendon inj: Details: A certified waste recycler was present during the visit. 58-year-old female who presents today to the office for achilles tendon injection. Denies any recent cough, cold, infection, fever or other significant changes in medical history since last office visit. [facility] Medical History (Updated 04/07/24 @ 08:57 by Lauro Duncan MD) External hemorrhoid Pruritus ani Achilles tendinitis of both lower extremities AFSHAN III (cervical intraepithelial neoplasia grade III) with severe dysplasia Asthma Depression Anxiety Surgical History Hx of cholecystectomy History of bilateral tubal ligation Family History Mother Epilepsy Mental health disorder Social History Household Members: Spouse Housing: Apartment Alcohol intake: never Patient Tobacco Use Status: Never used Tobacco Current occupational status: disabled Sexual orientation: Straight/Heterosexual Gender identity: Female Review of Systems Const All systems reviewed & are unremarkable except as noted in HPI and below Physical Exam Vital Signs: Last Vital Signs Pulse 90 05/19/24 10:40 Resp 16 05/19/24 10:40 BP 134/68 05/19/24 10:40 Pulse Ox 94 05/19/24 10:40 Oxygen Delivery Method Room Air 05/19/24 10:40 BMI result Body Mass Index 31.8 General: Appears afebrile. Alert and oriented. Mood and affect appropriate. Follows and participates in conversation appropriately. Respiratory effort is unlabored. Able to transition from sit to stand unassisted. Ambulates with bilaterally normal heel strike and toe off. Office Procedures AMB Joint Injection/Aspiration Joint Injection/Aspiration Primary Site: right ankle (Achilles tendon) Prep: site was prepped using sterile technique Injected: 40 mg of, Kenalog and with 4 mL of ( 0.25% ropivacaine) Approach Used: other Procedure: The patient tolerated the procedure well Coding Details: Ultrasound guided with needle visualization. Additional procedure code (CPT) needed Results Reviewed Results Reviewed: 09/05/23: MR ANKLE WITHOUT CONTRAST, RIGHT FINDINGS: Mild chronic Achilles tendinopathy with maximal AP diameter of 0.8 cm distally. Mild interstitial partial tearing at the calcaneal insertion with a prominent enthesopathy and reactive marrow edema of the calcaneus. Posterior superior spurring of the calcaneus with edema along the retrocalcaneal bursa. The posterior tibialis tendon, peroneal tendons, flexor and extensor tendons are otherwise unremarkable. The plantar fascia appears intact with a prominent heel spur. There are foci of micrometallic artifact within the subcutaneous fat overlying the plantar fascia origin as well as the base of the 5th metatarsal and the plantar fascia at the level of the midfoot which could be due to previous surgery or small foreign bodies. These are not evident on the 01/25/2022 radiographs. Mild osteoarthritis of the midfoot with small osteophytes. Ankle ligaments appear intact. No ankle joint effusion. No talar OCD. IMPRESSION: 1. Mild chronic Achilles tendinopathy with mild interstitial partial tearing at the calcaneal insertion where there is prominent enthesopathy and reactive marrow edema. Retrocalcaneal edema. 2. Plantar fascia appears intact with a prominent heel spur. 3. Mild osteoarthritis of the midfoot. Assessment & Plan Assessment & Plan (1) Achilles tendinitis of both lower extremities: Code(s): M76.61 - Achilles tendinitis, right leg; M76.62 - Achilles tendinitis, left leg Category: Medical Plan Patient is status post right achilles tendon injection, US-guided. Patient tolerated procedure well and was discharged home in stable condition with discharge instructions. All questions were answered. Depending on response on the right side, we can plan to repeat the same procedure on the left side. Scribed for Dr. Rodriguez by Ricardo medical cost consultant, on 05/19/2024. I, Dr. Rodriguez, have personally reviewed and agree with the information entered by the scribe. Coding Level of Care Code Procedure Only Diagnoses Achilles tendinitis of both lower extremities M76.61; M76.62
== END 2024-05-19 11:33 | disposition home or self-care (01) ==
PROVIDERS: PCP Internal Medicine; Visit Provider Internal Medicine
DX: M76.61 Achilles tendinitis, right leg (principal)
CPT/HCPCS: 20551

== ENCOUNTER → 2024-05-19 10:26 | Outpatient (BNVA) | payer MEDICAID, SELFPAY | PROVIDERS: PCP Internal Medicine; Visit Provider Internal Medicine | DX: M76.61 Achilles tendinitis, right leg (principal); M76.62 Achilles tendinitis, left leg | CPT/HCPCS: 20551; J2795; J3301 ==

== ENCOUNTER 2024-06-29 14:16 | Outpatient (REF) | payer MEDICAID, SELFPAY | END 2024-06-29 14:17 | disposition home or self-care (01) | LOC: HO.HHCLNP 14:16 | PROVIDERS: Visit Provider Internal Medicine | DX: L29.0 Pruritus ani (principal) | CPT/HCPCS: 36415; 87255 ==

== ENCOUNTER 2024-07-02 11:18 | Outpatient (REF) | payer MEDICAID, SELFPAY | END 2024-07-02 11:19 | disposition home or self-care (01) | LOC: HO.HHCLNP 11:18 | PROVIDERS: Visit Provider Internal Medicine | DX: L29.0 Pruritus ani (principal) | CPT/HCPCS: 87172 ==

== ENCOUNTER 2024-07-12 08:58 | Outpatient (REF) | payer MEDICAID, SELFPAY ==
[2024-07-12 11:28] LABS: Estimated Average Glucose 114 mg/dL; Hemoglobin A1C 139.0429 umol/L; Hemoglobin A1c % 5.6 % (<6.0); Total Hemoglobin (HGBA1C) 3692.2026 umol/L
[2024-07-12 11:56] LABS: Alanine Aminotransferase 25 U/L (0-31); Albumin Level 4.5 g/dL (3.5-5.0); Alkaline Phosphatase 104 U/L (39-117); Anion Gap 9 (12-20); Aspartate Amino Transferase 18 U/L (5-31); Bilirubin Total 0.4 mg/dL (0.0-1.0); Blood Urea Nitrogen 16 mg/dL (9-16); Calcium 9.8 mg/dL (8.4-10.2); Carbon Dioxide 30 mmol/L (22-29); Chloride 105 mmol/L (96-108); Cholesterol 251 mg/dL (<200); Estimated Glomerular Filt Rate > 60; Glucose Random 88 mg/dL (60-115); HDL Cholesterol 58 mg/dL (>40); LDL Cholesterol Calculated 168 mg/dL (<100); Potassium 4.2 mmol/L (3.3-5.1); Sodium 140 mmol/L (135-145); Total Protein 8.2 g/dL (6.5-8.0); Triglycerides 126 mg/dL (<150)
[2024-07-12 11:59] LABS: Reflex LDLD? No
== END 2024-07-12 08:59 | disposition home or self-care (01) ==
LOC: HO.HHCL 08:58
PROVIDERS: Visit Provider Internal Medicine
DX: E78.00 Pure hypercholesterolemia, unspecified (principal); E66.811 Obesity, class 1; E66.09 Other obesity due to excess calories; Z68.33 Body mass index [BMI] 33.0-33.9, adult
CPT/HCPCS: 36415; 80053; 80061; 83036

== ENCOUNTER 2024-07-31 11:11 | Emergency (ER) | payer MEDICAID, SELFPAY ==
--- NOTE | ~2024-07-31 | CT_ITS ---
CLINICAL HISTORY: Lower abdominal pain radiating to back > right CT abdomen and pelvis without contrast Comparison: CT/SR - CT ABDOMEN PELVIS W IV CON - 08/14/22 22:22 EST Findings: The lung bases are clear. The unenhanced liver, spleen, adrenal glands and pancreas are unremarkable. The gallbladder is absent. Kidneys demonstrate neither calculus nor obstructive uropathy. Ureters and bladder are within normal limits. No bowel obstruction, free air, free fluid, abscess or adenopathy. Uterus and adnexa are unremarkable. No suspicious bone lesion. Impression: No acute findings. This document has been electronically signed by: Rex Hammond MD on 07/31/2024 12:05:00
[2024-07-31 11:29] VITALS: BP 118/70; PULSE 80; RESP 18; TEMP 36.6; O2SAT 98; BMI 33.8
--- NOTE | 2024-07-31 11:29 | ED.ABDPAIN ---
HPI - Abdominal Pain General Chief Complaint: Abdominal Pain Stated Complaint: abd and back pain Time Seen by Provider: 07/31/24 13:06 Source: patient, old records reviewed and cable lacer Mode of arrival: ambulatory Limitations: no limitations History of Present Illness ED Provider: MUNA MÁRQUEZ narrative: 59 yo female with PMH of renal stones, anxiety, arthritis here with c/o 7 days of L flank pain but no associated GI or symptoms no fevers hurts to move, denies b/b incontinence or saddle anesthesia. No trauma noted. Has not taken medications for it. No rash noted. Pain wraps around the lower hip MD elicited complaint: flank pain Pertinent past history: kidney stones Onset (ago): day(s) (7) Pain Consistency: constant Location: L flank Severity: moderate Quality: aching Radiation: none Migration to: no migration Exacerbating factors: movement Relieving factors: nothing Associated symptoms: denies other symptoms Related Data Home Medications ?Medication ?Instructions ?Recorded ?Confirmed fluoxetine 20 mg capsule 20 mg PO QAM 10/23/21 05/19/24 fluticasone propionate 50 1 - 2 spray intranasal DAILY PRN 10/23/21 05/19/24 mcg/actuation nasal spray,suspension ibuprofen 400 mg tablet 400 mg PO Q8-12H PRN 12/24/21 05/19/24 alprazolam 0.5 mg tablet 0.5 mg PO DAILY PRN anxiety 08/26/22 05/19/24 fluticasone propionate 110 2 puff inhalation BID 08/26/22 05/19/24 mcg/actuation HFA aerosol inhaler (Flovent HFA) meclizine 12.5 mg tablet 12.5 mg PO TID PRN 08/26/22 05/19/24 meloxicam 15 mg tablet 15 mg PO DAILY 08/26/22 05/19/24 naproxen 500 mg tablet 500 mg PO BID 08/26/22 05/19/24 cetirizine 10 mg tablet 10 mg PO DAILY 12/20/22 05/19/24 ketotifen fumarate 0.025 % (0.035 1 drp ophthalmic (eye) BID 12/20/22 05/19/24 %) eye drops Previous Rx's ?Medication ?Instructions ?Recorded loperamide 2 mg capsule 2 mg PO Q6H PRN loose stool #10 08/15/22 caps hydrocortisone 2.5 % topical cream 1 appl HI BEDTIME PRN itching #30 01/23/23 with perineal applicator grams menthol 0.44 %-zinc oxide 20.6 % 1 appl topical QID PRN perianal 02/04/24 topical ointment (Calmoseptine) itching #113 grams cyclobenzaprine 10 mg tablet 10 mg PO TID PRN muscle spasm #20 07/31/24 tabs lidocaine 5 % topical patch 1 patch topical DAILY #30 ea 07/31/24 Allergies Allergy/AdvReac Type Severity Reaction Status Date / Time acetaminophen [From Percocet] Allergy Mild Unknown Verified 07/31/24 11:31 hydromorphone Allergy Unknown hives Verified 07/31/24 11:31 oxycodone [From PERCOCET] Allergy Unknown ITCHING Verified 07/31/24 11:31 zolpidem [From AMBIEN] Allergy Unknown ITCHING Verified 07/31/24 11:31 Review of Systems Review of Systems Constitutional : No Weight loss, No Fever, No Chills ENT/Mouth : No sore throat, No Rhinorrhea Eyes: No Swelling, No Redness Cardiovascular : No Chest Pain, No SOB, NoEdema Respiratory : No Cough, No Sputum, No Wheezing Gastrointestinal : noNausea, no Vomiting, no Diarrhea, positive abdominal Pain, No Hematochezia, No Melena Genitourinary : No Dysuria, No Urinary Frequency, No Hematuria, No Urgency Musculoskeletal : No joint pain, No Myalgias, No Joint Swelling, pos back pain Skin : No Skin Lesions, No rash Neuro : No Weakness, No Numbness, No Dizziness, No Headache Psych : No Anxiety/Panic, No Depression All other systems reviewed and are negative. [facility] Past Medical History Attestation statement: The following information was validated with the patient. Medical History External hemorrhoid Pruritus ani Achilles tendinitis of both lower extremities AFSHAN III (cervical intraepithelial neoplasia grade III) with severe dysplasia Asthma Depression Anxiety Surgical History Hx of cholecystectomy History of bilateral tubal ligation Family History Family History Mother Epilepsy Mental health disorder Social History Social History Household Members: Spouse Housing: Apartment Alcohol intake: never Patient Tobacco Use Status: Never used Tobacco Advance Directives: No Advance Directives Information Provided: No Do you have a plan to hurt others: No Plan Current occupational status: disabled Sexual orientation: Straight/Heterosexual Gender identity: Female Physical Exam ED Vital Signs: Vital Signs - 24 hr 07/31/24 11:29 07/31/24 13:42 Temperature 98 F 98.2 F Pulse Rate 80 88 Respiratory Rate 18 14 Blood Pressure 118/70 130/60 Pulse Oximetry 98 97 Oxygen Delivery Method Room Air BMI result Body Mass Index 33.8 Appearance: Alert. Oriented X3. No acute distress. Eyes: Pupils equal, round and reactive to light. ENT: Pharynx normal. Neck: Normal inspection. Neck supple. CVS: Normal heart rate and rhythm. Pulses normal. Respiratory: No respiratory distress. Breath sounds normal. Abdomen: Soft and non-tender. L lower paraspinal lumbar above hip reports ttp but no mass or rash felt Skin: Skin warm and dry. Normal skin color. Extremities: No lower extremity edema. Neuro: Oriented X 3. No motor deficit. No sensory deficit. CN2-12 intact Course Course Course Narrative: This is a Rapid Medical Exam performed in triage by Shanda Mora PA-C. Full HPI, ROS and PE to be performed by primary ED provider. 59-year-old female presenting to the ED c/o lower abd pain radiating to right low back x many days. PE: abdomen soft w/lower/suprapubic tenderness in left CVAT Plan: labs, UA, CT Medical Decision Making Medical Decision Making [facility] Narrative: 59 yo female with PMH of renal stones, anxiety, arthritis here with c/o L flank pain x 7 days no associated symptoms no b/b incontinence no saddle anesthesia. Not on thinners no red flags on exam and abdomen is not tender at this time possible MSK pain and or renal colic. Labs, UA, CT scan for renal colic. Differential Diagnosis Differential Diagnoses: The differential diagnosis associated with the presentation includes MSK pain, renal colic Admission/Observation Consideration of admission/observation: Escalation of care including admission/observation considered work up negative stable for DC Lab Data [facility] Lab Attestation statement: I reviewed the patient's lab results. 07/31/24 12:09 02/01/25 12:09 Labs: Lab Results 07/31/24 Range/Units 12:09 WBC 6.3 (4.8-10.8) X10*3/uL RBC 4.75 (4.20-5.50) X10*6/uL Hgb 13.6 (12.0-16.0) g/dl Hct 40.9 (37.0-47.0) % MCV 86.1 (80.0-98.0) fL MCH 28.6 (27.0-33.0) pg MCHC 33.3 (31.0-35.0) g/dl RDW 14.3 (11.0-16.0) % Plt Count 238 (160-400) X10*3/uL MPV 11.1 (9.4-12.3) fL Immature Gran % (Auto) 0.2 (0.0-0.4) % Neut % (Auto) 59.1 (45-73) % Lymph % (Auto) 27.2 (20-40) % [place] % (Auto) 7.6 (2-11) % Eos % (Auto) 5.1 H (0-4) % Baso % (Auto) 0.8 (0-2) % Lymph # (Auto) 1.7 (1.2-4.9) X10*3/uL [place] # (Auto) 0.5 (0.1-1.2) X10*3/uL Eos # (Auto) 0.3 (0.0-0.4) X10*3/uL Baso # (Auto) 0.1 (0.0-0.2) X10*3/uL Abs Immat Gran (auto) 0.01 (0.00-0.03) X10*3/uL Absolute Neuts (auto) 3.7 (2.0-8.3) x10*3/uL Absolute Nucleated RBC 0.000 (0.0-0.012) X10*3/uL Nucleated RBC % (auto) 0.0 (0.0-0.2) /100WBC Sodium 140 (135-145) mmol/L Potassium 4.0 (3.3-5.1) mmol/L Chloride 108 (96-108) mmol/L Carbon Dioxide 25 (22-29) mmol/L Anion Gap 11 L (12-20) BUN 16 (9-16) mg/dL Creatinine 0.70 (0.5-1.4) mg/dL Estim Creat Clear Calc 89.0 Estimated GFR > 60 Random Glucose 81 (60-115) mg/dL Calcium 9.5 (8.4-10.2) mg/dL Magnesium 2.3 (1.6-2.6) mg/dL Total Bilirubin 0.4 (0.0-1.0) mg/dL Direct Bilirubin 0.1 (0.0-0.5) mg/dL AST 20 (5-31) U/L ALT 22 (0-31) U/L Alkaline Phosphatase 97 (39-117) U/L Total Protein 8.2 H (6.5-8.0) g/dL Albumin 4.4 (3.5-5.0) g/dL Lipase 20 (8-78) U/L Urine Color Yellow Urine Appearance Cloudy Urine pH 6.5 (5.0-9.0) Ur Specific [place] 1.025 (1.005-1.025) Urine Protein Negative (Neg-Trace) mg/dL Urine Glucose (UA) Negative (Negative) mg/dL Urine Ketones Negative (Negative) mg/dL Urine Blood Trace H (Negative) Urine Nitrite Negative (Negative) Ur Leukocyte Esterase Negative (Negative) Urine RBC 0-2 (0-2) /HPF Urine WBC 0-5 (0-5) /HPF Ur Squamous Epith Cells 6-10 (0-2) /HPF Other Crystals Present Urine Bacteria Trace (None Seen) Hyaline Casts 0-2 (0-2) /LPF Independent Interpretation I performed an independent interpretation of an: CT Scan (no stone) Radiology Impression Discussion of test interpretation with radiology: I have reviewed the radiologist's reading. External Record Review External record reviewed: Outpatient record Prescription Management I considered prescription management with: Pain Medication and Other Discharge Plan Discharge Clinical Impression: Acute flank pain Patient Disposition: Home, Self-Care Instructions: Flank Pain (ED) Additional Instructions: return for fevers, vomiting, increased pain or any other concerns normal urine, labs, CT scan no stone noted Prescriptions: New cyclobenzaprine 10 mg tablet 10 mg PO TID PRN (Reason: muscle spasm) Qty: 20 0RF lidocaine 5 % adhesive patch,medicated 1 patch topical DAILY Qty: 30 0RF Rx Instructions: leave on most painful area for up to 12 hrs No Action loperamide 2 mg capsule 2 mg PO Q6H PRN (Reason: loose stool) Qty: 10 0RF hydrocortisone 2.5 % cream with perineal applicator 1 appl HI BEDTIME PRN (Reason: itching) Qty: 30 0RF fluticasone propionate 50 mcg/actuation spray,suspension 1 - 2 spray intranasal DAILY PRN fluoxetine 20 mg capsule 20 mg PO QAM ibuprofen 400 mg tablet 400 mg PO Q8-12H PRN meclizine 12.5 mg tablet 12.5 mg PO TID PRN naproxen 500 mg tablet 500 mg PO BID alprazolam 0.5 mg tablet 0.5 mg PO DAILY PRN (Reason: anxiety) meloxicam 15 mg tablet 15 mg PO DAILY fluticasone propionate [Flovent HFA] 110 mcg/actuation HFA aerosol inhaler 2 puff inhalation BID menthol-zinc oxide [Calmoseptine] 0.44-20.6 % ointment 1 appl topical QID PRN (Reason: perianal itching) Qty: 113 0RF cetirizine 10 mg tablet 10 mg PO DAILY ketotifen fumarate 0.025 % (0.035 %) drops 1 drp ophthalmic (eye) BID Interventions: ED Discharge Assessment Last Done: 07/31/24 13:42 Discharge Date/Time: 07/31/24 13:43 Print Language: Kenyan
[2024-07-31 12:14] LABS: MANUAL DIFF FLAG NO
[2024-07-31 12:15] LABS: Basophils Absolute Auto 0.1 X10*3/uL (0.0-0.2); Basophils Percent Auto 0.8 % (0-2); Eosinophils Absolute Auto 0.3 X10*3/uL (0.0-0.4); Eosinophils Percent Auto 5.1 % (0-4); Hematocrit 40.9 % (37.0-47.0); Hemoglobin 13.6 g/dl (12.0-16.0); Imm Gran Abs Auto 0.01 X10*3/uL (0.00-0.03); Imm Gran Pct Auto 0.2 % (0.0-0.4); Lymphocytes Absolute Auto 1.7 X10*3/uL (1.2-4.9); Lymphocytes Percent Auto 27.2 % (20-40); Mean Corpuscular HGB Conc 33.3 g/dl (31.0-35.0); Mean Corpuscular Hemoglobin 28.6 pg (27.0-33.0); Mean Corpuscular Volume 86.1 fL (80.0-98.0); Mean Platelet Volume 11.1 fL (9.4-12.3); Monocytes Absolute Auto 0.5 X10*3/uL (0.1-1.2); Monocytes Percent Auto 7.6 % (2-11); Neutrophils Absolute Auto 3.7 x10*3/uL (2.0-8.3); Neutrophils Percent Auto 59.1 % (45-73); Platelet Count 238 X10*3/uL (160-400); Red Blood Count 4.75 X10*6/uL (4.20-5.50); Red Cell Distribution Width 14.3 % (11.0-16.0); White Blood Count 6.3 X10*3/uL (4.8-10.8)
[2024-07-31 12:17] LABS: Appearance Urine Cloudy; Color Urine Yellow; Glucose Urine UA Negative (Negative); Leukocyte Esterase Urine Negative (Negative); Nitrite Urine Negative (Negative); PH 6.5 (5.0-9.0); Specific Gravity - Urine 1.025 (1.005-1.025); UMIC TRIGGER UACC YES; Urine Blood Trace (Negative); Urine Ketones Negative (Negative); Urine Protein Negative (Neg-Trace)
[2024-07-31 12:31] LABS: Alanine Aminotransferase 22 U/L (0-31); Albumin Level 4.4 g/dL (3.5-5.0); Alkaline Phosphatase 97 U/L (39-117); Anion Gap 11 (12-20); Aspartate Amino Transferase 20 U/L (5-31); Bacteria Urine Trace (None Seen); Bilirubin Direct 0.1 mg/dL (0.0-0.5); Bilirubin Total 0.4 mg/dL (0.0-1.0); Blood Urea Nitrogen 16 mg/dL (9-16); Calcium 9.5 mg/dL (8.4-10.2); Carbon Dioxide 25 mmol/L (22-29); Chloride 108 mmol/L (96-108); Estimated Glomerular Filt Rate > 60; Glucose Random 81 mg/dL (60-115); Hyaline Casts Urine 0-2 /LPF (0-2); Lipase 20 U/L (8-78); Magnesium 2.3 mg/dL (1.6-2.6); Other Crystals Urine Present; RBC Urine 0-2 /HPF (0-2); Sodium 140 mmol/L (135-145); Total Protein 8.2 g/dL (6.5-8.0); WBC Urine 0-5 /HPF (0-5)
--- OUTSIDE RECORDS SUMMARY | 2024-07-31 13:15 | XMS_ITS | Encounter Summary ---
Author Organization [employer] Address [address] [place] [address] Care Team Providers Care Lang Interpreter Name Role Phone Katie Douglas MD Primary Care Provider + Reason for Visit * Reason Onset Date Comments Results 07/05/2024 Encounter Details Date Type Department Care Team ([facility] Contact Info) Description 07/05/2024 Telephone [facility] [address] [place], [place] [phone] Katie Douglas MD [address] [place], [place] [phone] Results Social History Tobacco Use Types Packs/Day Years Used Date Smoking Tobacco: Never Passive Smoke Exposure: Never Smokeless Tobacco: Never Alcohol Use Standard Drinks/Week Comments Never 0 (1 standard drink = 0.6 oz pur e alcohol) Depression Answer Date Recorded Patient Health Questionnaire-9 Score 8 02/12/2024 Patient Health Questionnaire-9 Score 8 02/12/2024 Last PHQ-9: Questionnaire Data Not on file 0 02/12/2024 Housing Stability Answer Date Recorded What is your housing situation today? I have emiliano gonzalez 01/29/[address] you li ve. Do you have problems with any of the following? None of the above 01/29/2024 Food Insecurity Answer Date Recorded Within the past 12 months, y ou worried that your food would run out before you got money to buy more: Never True 04/23/2023 Within the past 12 months,th e food you bought just didn't last and you didn't have enough money to get more: Never True Transportation Answer Date Recorded In the past 12 months, has l ack of transportation kept you from medical appts, meetings, work or from getting things needed for daily living? No 04/23/2023 Utilities Answer Date Recorded In the past 12 months, has t he electric, gas, oil or water company threatened to shut off services in your home? No 01/29/2024 Depression Answer Date Recorded Patient Health Questionnaire-2 Score 1 02/12/2024 Internet Access Answer Date Recorded Internet Access Q1 Yes 03/01/2024 Internet Access Q2 Not on file 03/01/2024 Comments Unknown Sex and Gender Information Value Date Recorded Sex Assigned at Female 04/29/2022 10:18 AM EDT Legal Sex Female 10:18 AM EDT Gender Identity Female 04/29/2022 10:18 AM EDT Sexual Orientation Straight 04/29/2022 10 :18 AM EDT documented as of this encounter Miscellaneous Notes * Telephone Encounter - Annette Lowery [place] - 07/05/2024 2:56 PM EST Contacted pt in regards to Pinworm findings, expressed that her results came back negative which means her study was normal. Pt was very understanding and expressed that she will mention her concernsonce more to her pcp at the next visit. documented in this encounter Plan of Treatment Upcoming Encounters Date Type Department Care Team (Late st Contact Info) Description 08/02/2024 9:00 AM EST Telemedicine [facility] [address] [place] [phone] Katie Douglas MD [address] [place] [phone] documented as of this encounter Visit Diagnoses Not on filedocumented in this encounter Additional Health Concerns Assessment Noted Time PHQ-9 Depression Total Score: 8 02/12/20 24 10:40 AM EDT documented as of this encounter Care Teams Lang Interpreter Relationship Specialty Start Date End Date Katie Douglas MD [address] [place] [phone] PCP - General Family Medicine 09/18/16 documented as of this encounter
--- OUTSIDE RECORDS SUMMARY | 2024-07-31 13:15 | XMS_ITS | Encounter Summary ---
Author Organization [email or web address] Address [address] [place] [address] Care Team Providers Care Conciliation Court Judge Name Role Phone Katie Douglas MD Primary Care Provider + Encounter Details Date Type Department Care Team (Latest Contact Info) Description 03/19/2019 Abstract [facility] Dental, Provider, DDS Social History Tobacco Use Types Packs/Day Years Used Date Smoking Tobacco: Never Assessed Comments Unknown Sex and Gender Information Value Date Recorded Sex Assigned at Female 04/29/2022 10:18 AM EDT Legal Sex Female 10:18 AM EDT Gender Identity Female 04/29/2022 10:18 AM EDT Sexual Orientation Straight 04/29/2022 10 :18 AM EDT documented as of this encounter Plan of Treatment Upcoming Encounters Date Type Department Care Team (Late st Contact Info) Description 08/02/2024 9:00 AM EST Telemedicine [facility] [address] [place] [phone] Katie Douglas MD [address] [place] [address] documented as of this encounter Visit Diagnoses Not on filedocumented in this encounter Care Teams Conciliation Court Judge Relationship Specialty Start Date End Date Katie Douglas MD [address] [place] [address] PCP - General Family Medicine 09/18/16 documented as of this encounter
--- OUTSIDE RECORDS SUMMARY | 2024-07-31 13:15 | XMS_ITS | Encounter Summary ---
Author Organization [employer] Address [address] [place] [address] Care Team Providers Care Hat Former Name Role Phone Katie Douglas MD Primary Care Provider + Encounter Details Date Type Department Care Team (Late Contact Info) Description 04/02/2023 Abstract [facility] [address] [place], [place] [phone] Rozina Gama Social History Tobacco Use Types Packs/Day Years Used Date Smoking Tobacco: Never Smokeless Tobacco: Never Alcohol Use Standard Drinks/Week Comments Never 0 (1 standard drink = 0.6 oz pur e alcohol) Depression Answer Date Recorded Patient Health Questionnaire-9 Score 10 02/10/2023 Depression Answer Date Recorded Patient Health Questionnaire-2 Score 2 02/10/2023 Comments Unknown Sex and Gender Information Value Date Recorded Sex Assigned at Female 04/29/2022 10:18 AM EDT Legal Sex Female 10:18 AM EDT Gender Identity Female 04/29/2022 10:18 AM EDT Sexual Orientation Straight 04/29/2022 10 :18 AM EDT documented as of this encounter Plan of Treatment Upcoming Encounters Date Type Department Care Team (Late st Contact Info) Description 08/02/2024 9:00 AM EST Telemedicine [facility] [address] [place], [place] [phone] Katie Douglas MD [address] [place], [place] [phone] documented as of this encounter Procedures Procedure Name Priority Date/Time Associated Diagnosis Comments PAP/HPV Routine 07/16/2021 documented in this encounter Results * Hm Pap Smear (07/16/2021) Pap Negative for intraephithelial lesion or malignancy Negative for intraephithelial lesion or malignancy, Other HPV Undetected us Historical Provider HEALTH MAINTENANCE Final Result documented in this encounter Visit Diagnoses Not on filedocumented in this encounter Additional Health Concerns Assessment Noted Time PHQ-9 Depression Total Score: 10 023 2:01 PM EDT documented as of this encounter Care Teams Hat Former Relationship Specialty Start Date End Date Katie Douglas MD [address] [place] [address] PCP - General Family Medicine 09/18/16 documented as of this encounter
--- OUTSIDE RECORDS SUMMARY | 2024-07-31 13:15 | XMS_ITS | Encounter Summary ---
Author Organization [employer] Address [address] [place] [address] Care Team Providers Care Handbag Finisher Name Role Phone Katie Douglas MD Primary Care Provider + Reason for Visit * Reason Onset Date Comments callback requested 06/29/2024 Encounter Details Date Type Department Care Team ([facility] Contact Info) Description 06/29/2024 Telephone [facility] [address] [place], [place] [phone] Katie Douglas MD [address] [place], [place] [phone] callback requested Social History Tobacco Use Types Packs/Day Years [...] encounter Miscellaneous Notes * Telephone Encounter - Rebekah Tirado RN - 07/01/2024 2:33 PM EST TC placed to pt with S bellstand attendant Arsh #[id number] to clarify the directions for the two lab tests ordered by Dr. Larios on 06/29/2024. Pt given the instructions below as documented in [facility]IN[facility] notes below I also recommended she be tested for Pinworm. Contacted [facility] lab who confirmed they had the stiicky pads for testing and pt was instructed to picking tech the supplies at [facility] and if the credit front office developer staff was confused to ask them to contact Microbiology. Pt verbalized undersanding. Pt also given the main number for [facility] labs for further clarification on collection * Telephone Encounter - Fernandez Stout - 06/29/2024 10:35 AM EST Tc from pt requesting a callback as she's confused in regards some lab work [phone] documented in this encounter Plan of Treatment Upcoming Encounters Date Type Department Care Team (Late st Contact Info) Description 08/02/2024 9:00 AM EST Telemedicine [facility] [address] [place], [place] [phone] Katie Douglas MD [address] [place], [place] [phone] documented as of this encounter Visit Diagnoses Not on filedocumented in this encounter Additional Health Concerns Assessment Noted Time PHQ-9 Depression Total Score: 8 02/12/20 24 10:40 AM EDT documented as of this encounter Care Teams Handbag Finisher Relationship Specialty Start Date End Date Katie Douglas MD [address] [place] [address] PCP - General Family Medicine 09/18/16 documented as of this encounter
--- OUTSIDE RECORDS SUMMARY | 2024-07-31 13:15 | XMS_ITS | Encounter Summary ---
Author Organization [employer] Address [address] [place] [address] Care Team Providers Care Machine Filler Name Role Phone Katie Douglas MD Primary Care Provider + Encounter Details Date Type Department Care Team ([facility] st Contact Info) Description 07/31/2024 Orders Only [facility] External Provider, [facility] Social History Tobacco Use Types Packs/Day Years [...] Info) Description 08/02/2024 9:00 AM EST Telemedicine [facility] [address] [place], [place] [phone] Katie Douglas MD [address] [place], [place] [phone] documented as of this encounter Procedures Procedure Name Priority Date/Time Associated Diagnosis Comments URINALYSIS, COMPLETE, WITH REFLEX TO CULTURE Routine 07/31/2024 12:09 PM EST CBC WITH AUTO DIFFERENTIAL Routine 07/31/2024 12:09 PM EST URINALYSIS WITH REFLEX MICROSCOPIC Routine 07/31/2024 12:09 PM EST MAGNESIUM Routine 07/31/2024 12:09 PM EST LIPASE Routine 07/31/2024 12:09 PM EST HEPATIC FUNCTION PANEL Routine 07/31/2024 12:09 PM EST BASIC METABOLIC PANEL Routine 07/31/2024 12:[address] ABDOMEN PELVIS WO CONTRAST Routine 07/31/2024 12:05 PM EST documented in this encounter Results * (ABNORMAL) Urinalysis, Complete, with Reflex to Culture (07/31/2024 12:09 PM EST) [facility] Color Urine Yellow [facility] Appearance Urine Cloudy [facility] PH 6.5 5.0 - 9.0 [facility] Glucose Urine UA Negative Negative mg/dL [facility] Urine Blood Trace(A) Negative [facility] Specific [employer] - Urine 1.025 1.005 - 1.025 [facility] Urine Protein Negative Neg-Trace mg/dL [facility] Urine Ketones Negative Negative mg/dL [facility] Nitrite Urine Negative Negative [facility] Leukocyte Esterase Urine Negative Negative [facility] RBC Urine 0-2 0 - 2 /HPF [facility] Urine WBC 0-5 0 - 5 /HPF [facility] Urine Squamous Epithelial Cell 6-10 0 - 2 /HPF [facility] Other Crystals Urine Present [facility] Urine Bacteria Trace None Seen [facility] Hyaline Casts, Urine 0-2 0 - 2 /LPF [facility] 07/31/2024 12:0 9 PM EST 07/31/2024 12:12 PM EST Narrative [facility] - 07/31/2024 12:32 PM EST [id number], [employer] us Generic External Data Provider LAB URINE ORDERAB LES Final Result Performing Organization Address [facility] Co de Phone Number [facility] [address] [place] [phone] * Lipase (07/31/2024 12:09 PM EST) Lipase 20 8 - 78 U/L [facility] 07/31/2024 12:0 9 PM EST 07/31/2024 12:12 PM EST us Generic External Data Provider LAB BLOOD ORDERAB LES Final Result Performing Organization Address [facility] Co de Phone Number [facility] [address] [place] [phone] * Magnesium (07/31/2024 12:09 PM EST) Magnesium 2.3 1.6 - 2.6 mg/dL [facility] 07/31/2024 12:0 9 PM EST 07/31/2024 12:12 PM EST us Generic External Data Provider LAB BLOOD ORDERAB LES Final Result [facility] [address] [place] [phone] * (ABNORMAL) Basic Metabolic Panel (07/31/2024 12:09 PM EST) Sodium 140 135 - 145 mmol/L [facility] Potassium 4.0 3.3 - 5.1 mmol/L [facility] Chloride 108 96 - 108 mmol/L [facility] Carbon Dioxide 25 22 - 29 mmol/L [facility] Anion Gap 11(L) 12 - 20 [facility] Urea Nitrogen (BUN) 16 9 - 16 mg/dL [facility] Creatinine, Serum 0.70 0.5 - 1.4 mg/dL [facility] Creatinine Clr Calc Pharmacy 89.0 [facility] Comment:Provided height and weight: 157.48 cm,83.915 kg.eGFR (calculated from the MDRD study equation) and eCrCl(calculated from the Cockcroft-Gault equation) are based ondifferent parameters and may not yield comparable results.If eCrCl result is absurd, please check patient'sheight/weight. Estimated Glomerular Filt Rate >60 [facility] Comment:Chronic Kidney Disea se: Estimated GFR < 60 mL/min/[id number] Kidney Disease: Estimated GFR < 15 mL/min/1.73m2 Glucose 81 60 - 115 mg/dL [facility] Calcium 9.5 8.4 - 10.2 mg/dL [facility] 07/31/2024 12:0 9 PM EST 07/31/2024 12:12 PM EST Generic External Data Provider LAB BLOOD ORDERAB LES Final Result Performing Organization Address [facility]/ZIP Co de Phone Number [facility] [address] [place] [phone] * (ABNORMAL) Hepatic Function Panel (07/31/2024 12:09 PM EST) Bilirubin, Total 0.4 0.0 - 1.0 mg/dL [facility] Bilirubin, Direct 0.1 0.0 - 0.5 mg/dL [facility] Aspartate Amino Transferase 20 5 - 31 U/L [facility] Alanine Aminotransferase 22 0 - 31 U/L [facility] Total Protein 8.2(H) 6.5 - 8.0 g/dL [facility] Albumin Level 4.4 3.5 - 5.0 g/dL [facility] Alkaline Phosphatase 97 39 - 117 U/L [facility] 07/31/2024 12:0 9 PM EST 07/31/2024 12:12 PM EST Generic External Data Provider LAB BLOOD ORDERAB LES Final Result Performing Organization Address [facility] Co de Phone Number [facility] [address] [place] [phone] * (ABNORMAL) Urinalysis w/reflex microscopic (07/31/2024 12:09 PM EST) Color Urine Yellow [facility] Appearance Urine Cloudy [facility] PH 6.5 5.0 - 9.0 [facility] Glucose Urine UA Negative Negative mg/dL [facility] Urine Blood Trace(A) Negative [facility] Specific [employer] - Urine 1.025 1.005 - 1.025 [facility] Urine Protein Negative Neg-Trace mg/dL [facility] Urine Ketones Negative Negative mg/dL [facility] Nitrite Urine Negative Negative [facility] Leukocyte Esterase Urine Negative Negative [facility] 07/31/2024 12:0 9 PM EST 07/31/2024 12:12 PM EST Narrative [facility] - 07/31/2024 12:17 PM EST [id number], Clean Catch us Generic External Data Provider LAB URINE ORDERAB LES Final Result [facility] [address] [place] [phone] * (ABNORMAL) CBC auto differential (07/31/2024 12:09 PM EST) White Blood Count 6.3 4.8 - 10.8 X10*3/uL [facility] Red Blood Count 4.75 4.20 - 5.50 X10*6/uL [facility] Hemoglobin 13.6 12.0 - 16.0 g/dl [facility] Hematocrit 40.9 37.0 - 47.0 % [facility] Mean Corpuscular Volume 86.1 80.0 - 98.0 fL [facility] Mean Corpuscular Hemoglobin 28.6 27.0 - 33.0 pg [facility] Mean Corpuscular HGB Conc 33.3 31.0 - 35.0 g/dl [facility] Red Cell Distribution Width 14.3 11.0 - 16.0 % [facility] Platelet Count 238 160 - 400 X10*3/uL [facility] Mean Platelet Volume 11.1 9.4 - 12.3 fL [facility] Neutrophils Percent Auto 59.1 45 - 73 % [facility] Imm Gran Pct Auto 0.2 0.0 - 0.4 % [facility] Lymphocytes Percent Auto 27.2 20 - 40 % [facility] Monocytes Percent Auto 7.6 2 - 11 % [facility] Eosinophils Percent Auto 5.1(H) 0 - 4 % [facility] Basophils Percent Auto 0.8 0 - 2 % [facility] NRBC Pct Auto 0.0 0.0 - 0.2 /100WBC [facility] Neutrophils Absolute Auto 3.7 2.0 - 8.3 x10*3/uL [facility] Imm Gran Abs Auto 0.01 0.00 - 0.03 X10*3/uL [facility] Lymphocytes Absolute Auto 1.7 1.2 - 4.9 X10*3/uL [facility] Monocytes Absolute Auto 0.5 0.1 - 1.2 X10*3/uL [facility] Eosinophils Absolute Auto 0.3 0.0 - 0.4 X10*3/uL [facility] Basophils Absolute Auto 0.1 0.0 - 0.2 X10*3/uL [facility] NRBC Abs Auto 0.000 0.0 - 0.012 X10*3/uL [facility] 07/31/2024 12:0 9 PM EST 07/31/2024 12:12 PM EST us Generic External Data Provider LAB BLOOD ORDERAB LES Final Result Performing Organization Address City/State/[facility] Co de Phone Number [facility] [address] [place] [phone] * CT Abdomen Pelvis w/o Contrast (07/31/2024 12:05 PM EST) Anatomical Region Laterality Modality Body, Pelvis, Abdomen Computed T omography 07/31/2024 12:0 5 PM EST Narrative 07/31/2024 12:08 PM EST ? [facility] ?[address] ?[place] [address] ? CT Scan Report ? Signed ? Patient: Joel Mastache,Buck D ?MR#: [id number] ?? [id number] ? : 1965 ?Acct:[id number] ? Age/Sex: 59 / F ?ADM Date: 02/01/25 ? Loc: HO.ED ? Attending Dr: ? Ordering Physician: Shanda Mora ?? Date of Service: 07/31/24 ?? Procedure(s): CT abdomen pelvis wo IV con ?? Accession Number(s): [id number] ? cc: Katie Douglas MD; Shanda Mora ? Report Number: ?? [id number]: Total DLP = ??618.00 mGy-cm ? CLINICAL HISTORY: Lower abdominal pain radiating to back > right ? CT abdomen and pelvis without contrast ? Comparison: CT/SR - CT ABDOMEN PELVIS W IV CON - 08/14/22 22:22 EST ? Findings: ?? The lung bases are clear. ?? The unenhanced liver, spleen, adrenal glands and pancreas are ?? unremarkable. ?? The gallbladder is absent. ?? Kidneys demonstrate neither calculus nor obstructive uropathy. ?? Ureters and bladder are within normal limits. ?? No bowel obstruction, free air, free fluid, abscess or adenopathy. ?? Uterus and adnexa are unremarkable. ?? No suspicious bone lesion. ? Impression: ? No acute findings. ? This document has been electronically signed by: Rex Hammond MD on ?? 07/31/2024 12:05:00 ? Dictated By: ?Rex Hammond MD ? Signed By: ?<Electronically signed by Rex Hammond MD in OV> ? 07/31/24 1206 ? DD/ 1205 ? TD/TT: 07/31/24 1205 ? Breaker Operator: ? Procedure Note Juliet, Image - 07/31/[address] [place] [address] [address] Scan Report Signed Patient: Buck Rader DMR#: [id number] : 1965Acct:[id number] Age/Sex: 59 / FADM Date: 07/31/24 Loc: HO.ED Attending Dr: Ordering Physician: Shanda Mora Date of Service: 07/31/24 Procedure(s): CT abdomen pelvis wo IV con Accession Number(s): [id number] cc: Katie Douglas MD; Shanda Mora Report Number: [id number]: Total DLP = 618.00 mGy-cm CLINICAL HISTORY: Lower abdominal pain radiating to back > right CT abdomen and pelvis without contrast Comparison: CT/SR - CT ABDOMEN PELVIS W IV CON - 08/14/22 22:22 EST Findings: The lung bases are clear. The unenhanced liver, spleen, adrenal glands and pancreas are unremarkable. The gallbladder is absent. Kidneys demonstrate neither calculus nor obstructive uropathy. Ureters and bladder are within normal limits. No bowel obstruction, free air, free fluid, abscess or adenopathy. Uterus and adnexa are unremarkable. No suspicious bone lesion. Impression: No acute findings. This document has been electronically signed by: Rex Hammond MD on 07/31/2024 12:05:00 Dictated By: Rex Hammond MD Signed By: <Electronically signed by Rex Hammond MD in OV> 07/31/24 1206 DD/ 1205 TD/TT: 07/31/24 1205 Breaker Operator: [facility] External Provider IMG CT PROCEDURES Edited Result - Final documented in this encounter Visit Diagnoses Not on filedocumented in this encounter Additional Health Concerns Assessment Noted Time PHQ-9 Depression Total Score: 8 02/12/20 24 10:40 AM EDT documented as of this encounter Care Teams Machine Filler Relationship Specialty Start Date End Date Katie Douglas MD [address] [place] [phone] PCP - General Family Medicine 09/18/16 documented as of this encounter
--- OUTSIDE RECORDS SUMMARY | 2024-07-31 13:15 | XMS_ITS | Encounter Summary ---
Author Organization [employer] Address [address] [facility] 7t [place] [address] Care Team Providers Care Medical Technologist Clinical Name Role Phone Katie Douglas MD Primary Care Provider + Encounter Details Date Type Department Care Team (Latest Contact Info) Description 08/27/2021 Abstract [facility] CONVERSIONS Dental, Provider, DDS Social History [...] Info) Description 08/02/2024 9:00 AM EST Telemedicine [facility] [address] [place] [address] Katie Douglas MD [address] [place] [address] documented as of this encounter Visit Diagnoses Not on filedocumented in this encounter Care Teams Medical Technologist Clinical Relationship Specialty Start Date End Date Katie Douglas MD [address] [place] [phone] PCP - General Family Medicine 09/18/16 documented as of this encounter
--- OUTSIDE RECORDS SUMMARY | 2024-07-31 13:15 | XMS_ITS | Encounter Summary ---
Author Organization [employer] Address [address] 7t [place] [address] Care Team Providers Care Certified Surgical Tech/First Assistant Name Role Phone Katie Douglas MD Primary Care Provider + Reason for Visit * Reason Onset Date Comments Chart prep 07/29/2024 Encounter Details Date Type Department Care Team ([facility] Contact Info) Description 07/29/2024 Telephone [facility]INE [address] [place], [place] [phone] April Domingo MA Chart prep Social History Tobacco Use Types Packs/Day Years [...] encounter Miscellaneous Notes * Telephone Encounter - April Domingo MA - 07/29/2024 1:41 PM EST Chart Prep Labs: done Images: done Vaccines due: yes Referrals: complete Screenings: pap smear Overdue care gaps: Up to date documented in this encounter Plan of Treatment Upcoming Encounters Date Type Department Care Team (Late st Contact Info) Description 08/02/2024 9:00 AM EST Telemedicine [facility] MED[facility]INE [address] [place] [address] Katie Douglas MD [address] [place] [address] documented as of this encounter Visit Diagnoses Not on filedocumented in this encounter Additional Health Concerns Assessment Noted Time PHQ-9 Depression Total Score: 8 02/12/20 24 10:40 AM EDT documented as of this encounter Care Teams Certified Surgical Tech/First Assistant Relationship Specialty Start Date End Date Katie Douglas MD [address] [place] [phone] PCP - General Family Medicine 09/18/16 documented as of this encounter
--- OUTSIDE RECORDS SUMMARY | 2024-07-31 13:15 | XMS_ITS | Encounter Summary ---
Author Organization [employer] Address [address] [place] [address] Care Team Providers Care Certified Ski Patroller Name Role Phone Katie Douglas MD Primary Care Provider + Reason for Visit * Reason Onset Date Comments Lab Orders 07/02/2024 Encounter Details Date Type Department Care Team ([facility] Contact Info) Description 07/02/2024 Telephone [facility]INE [address] [place], [place] [phone] Sonia Hare RN [address] [place], [place] [phone] Lab Orders Social History Tobacco Use Types Packs/Day Years [...] encounter Miscellaneous Notes * Telephone Encounter - Brenna Blanca RN - 07/08/2024 10:50 AM EST TC placed to pt via [employer] ([employer] ID#[id number]) to inform of message, Please inform patient that the HSV test ordered by PCP on 06/29/24 could not be processed. If the patient develops any lesions/blisters, they should contact the office for repeat testing. No answer, LVM to return call to office and ask to speak to the green team nurses. * Telephone Encounter - Sonia Hare RN - 07/02/2024 12:44 PM EST Received call from [facility] reporting the HSV lab test from 06/29/24 cannot be performed because thelab received the wrong specimen swab (aptima). The correct swab is the green top viral culture media swab. Message sent to ordering provider Dr. Larios to determine if patient should have specimen recollected. documented in this encounter Plan of Treatment Upcoming Encounters Date Type Department Care Team (Late st Contact Info) Description 08/02/2024 9:00 AM EST Telemedicine [facility]INE [address] [place] [phone] Katie Douglas MD [address] [place] [address] documented as of this encounter Visit Diagnoses Not on filedocumented in this encounter Additional Health Concerns Assessment Noted Time PHQ-9 Depression Total Score: 8 02/12/20 24 10:40 AM EDT documented as of this encounter Care Teams Certified Ski Patroller Relationship Specialty Start Date End Date Katie Douglas MD [address] [place] [phone] PCP - General Family Medicine 09/18/16 documented as of this encounter
--- OUTSIDE RECORDS SUMMARY | 2024-07-31 13:15 | XMS_ITS | Encounter Summary ---
Author Organization [employer] Address [address] [place] [address] Care Team Providers Care Bricklayer Name Role Phone Katie Douglas MD Primary Care Provider + Encounter Details Date Type Department Care Team ([facility] Contact Info) Description 08/08/2022 Orders Only [facility]S [address] [place], [place] [phone] Henrietta Newell LPN Social History Tobacco Use Types Packs/Day Years Used Date Smoking Tobacco: Never Assessed Comments Unknown Sex and Gender Information Value Date Recorded Sex Assigned at Female 04/29/2022 10:18 AM EDT Legal Sex Female 10:18 AM EDT Gender Identity Female 04/29/2022 10:18 AM EDT Sexual Orientation Straight 04/29/2022 10 :18 AM EDT COVID-19 Exposure Response Date Recorded In the last 10 days, have yo u been in contact with someone who was confirmed or suspected to have Coronavirus/COVID-19? No / Unsure 07/18/2022 2:24 PM EST documented as of this encounter Plan of Treatment Upcoming Encounters Date Type Department Care Team (Late Contact Info) Description 08/02/2024 9:00 AM EST Telemedicine [facility] MEDICINE [address] [place] [address] Katie Douglas MD [address] [place] [address] documented as of this encounter Visit Diagnoses Not on filedocumented in this encounter Care Teams Bricklayer Relationship Specialty Start Date End Date Katie Douglas MD [address] [place] [address] PCP - General Family Medicine 09/18/16 documented as of this encounter
--- OUTSIDE RECORDS SUMMARY | 2024-07-31 13:15 | XMS_ITS | Encounter Summary ---
Author Organization [employer] Address [address] [place] [address] Care Team Providers Care Export Specialist Name Role Phone Katie Douglas MD Primary Care Provider + Encounter Details Date Type Department Care Team ([facility] Contact Info) Description 09/03/2022 Orders Only [facility] MED [facility] PEDS [address] [place], [place] [phone] Henrietta Newell LPN Social History Tobacco Use Types Packs/Day Years Used Date Smoking Tobacco: Never Smokeless Tobacco: Never Alcohol Use Standard Drinks/Week Comments Never 0 (1 standard drink = 0.6 oz pur e alcohol) Comments Unknown Sex and Gender Information Value [...] suspected to have Coronavirus/COVID-19? No / Unsure 08/15/2022 11:15 AM EST documented as of this encounter Plan of Treatment Upcoming Encounters Date Type Department Care Team (Late Contact Info) Description 08/02/2024 9:00 AM EST Telemedicine [facility] MEDICINE [address] [place] [address] Katie Douglas MD [address] [place] [address] documented as of this encounter Visit Diagnoses Not on filedocumented in this encounter Care Teams Export Specialist Relationship Specialty Start Date End Date Katie Douglas MD [address] [place] [phone] PCP - General Family Medicine 09/18/16 documented as of this encounter
--- OUTSIDE RECORDS SUMMARY | 2024-07-31 13:15 | XMS_ITS | Encounter Summary ---
Author Organization [employer] Address [address] [place] [address] Care Team Providers Care Flatbed Driver Name Role Phone Katie Douglas MD Primary Care Provider + Encounter Details Date Type Department Care Team (Late Contact Info) Description 10/29/2022 Abstract [facility] MEDICINE [address] [place] [id number] Sandra Ospina RN [address] [place] [address] [phone] Social History Tobacco Use Types Packs/Day Years [...] Info) Description 08/02/2024 9:00 AM EST Telemedicine [facility] MEDICINE [address] [place] [address] [phone] Katie Douglas MD [address] [place], [place] [phone] documented as of this encounter Procedures Procedure Name Priority Date/Time Associated Diagnosis Comments MAMMOGRAPHY Routine 08/08/2021 PAP/HPV Routine 03/01/2020 COLONOSCOPY Routine 03/17/2018 documented in this encounter Results * Mammography (08/08/2021) Mammogram B-RADS 1: Neg Anatomical Region Laterality Modality Other Historical Provider HEALTH MAINTENANCE Final Result * Pap Smear (03/01/2020) Pap smear ASCUS'HPV Narrative Sandra Ospina RN - 03/01/2020 Followed by [employer], 06/16/20 s/p [facility]/ECC [facility] Provider HEALTH MAINTENANCE Edited Result - Final * Colonoscopy (03/17/2018) Colonoscopy Normal Normal [facility] Provider HEALTH MAINTENANCE Edited Result - Final documented in this encounter Visit Diagnoses Not on filedocumented in this encounter Care Teams Flatbed Driver Relationship Specialty Start Date End Date Katie Douglas MD [address] [place] [phone] PCP - General Family Medicine 09/18/16 documented as of this encounter
--- OUTSIDE RECORDS SUMMARY | 2024-07-31 13:15 | XMS_ITS | Encounter Summary ---
Author Organization [employer] Address [address] [facility] [address] [place] [address] Care Team Providers Care Mri Supervisor Name Role Phone Katie Douglas MD Primary Care Provider + Encounter Details Date Type Department Care Team (Latest Contact Info) Description 04/24/2020 Abstract [facility] CONVERSIONS Dental, Provider, DDS Social History [...] Info) Description 08/02/2024 9:00 AM EST Telemedicine [facility] MEDICINE [address] [place] [address] Katie Douglas MD [address] [place] [address] documented as of this encounter Visit Diagnoses Not on filedocumented in this encounter Care Teams Mri Supervisor Relationship Specialty Start Date End Date Katie Douglas MD [address] [place] [address] PCP - General Family Medicine 09/18/16 documented as of this encounter
--- OUTSIDE RECORDS SUMMARY | 2024-07-31 13:15 | XMS_ITS | Encounter Summary ---
Author Organization [employer] Address [address] [place] [address] Care Team Providers Care Diet Assistant Name Role Phone Katie Douglas MD Primary Care Provider + Reason for Visit * Reason Onset Date Comments pain from ext 02/09/2024 Encounter Details Date Type Department Care Team ([facility] st Contact Info) Description 02/09/2024 Telephone [facility] ADULT DENTAL [address] [place] [address] Arsh Cortes, DDMonika [address] [place] [address] pain from ext Social History Tobacco Use Types Packs/Day Years [...] Recorded Patient Health Questionnaire-2 Score 1 02/12/2024 Comments Unknown Sex and Gender Information Value Date Recorded Sex Assigned at Female 04/29/2022 10:18 AM EDT Legal Sex Female 10:18 AM EDT Gender Identity Female 04/29/2022 10:18 AM EDT Sexual Orientation Straight 04/29/2022 10 :18 AM EDT documented as of this encounter Miscellaneous Notes * Telephone Encounter - Jaqui Banks - 02/09/2024 2:23 PM EDT Message for Dr. Cortes Patient is calling in to report pain from extraction on 02/01 and would like to have antibiotic andpain medication sent to the pharmacy DR * Telephone Encounter - Elaine Fabian - 02/09/2024 8:26 AM EDT Carlos cerda Patient had an extraction last week she asking if u can send something for pain and antibiotic for pain for infection . documented in this encounter Plan of Treatment Upcoming Encounters Date Type Department Care Team (Late st Contact Info) Description 08/02/2024 9:00 AM EST Telemedicine [facility] MEDICINE [address] [place] [address] Katie Douglas MD [address] [place] [address] documented as of this encounter Visit Diagnoses Not on filedocumented in this encounter Additional Health Concerns Assessment Noted Time PHQ-9 Depression Total Score: 10 023 2:01 PM EDT documented as of this encounter Care Teams Diet Assistant Relationship Specialty Start Date End Date Katie Douglas MD [address] [place] [phone] PCP - General Family Medicine 09/18/16 documented as of this encounter
[2024-07-31 13:42] VITALS: BP 130/60; PULSE 88; RESP 14; TEMP 36.8; O2SAT 97
== END 2024-07-31 13:43 | disposition home or self-care (01) ==
PROVIDERS: Physician Assistant; Emergency Provider Emergency Medicine; PCP Internal Medicine
DX: R10.9 Unspecified abdominal pain (principal)
CPT/HCPCS: 36415; 74176; 80048; 80076; 81001; 83690; 83735; 85025; 99282; 99284

== ENCOUNTER → 2024-07-31 11:31 | Outpatient (BNV) | payer MEDICAID, SELFPAY | PROVIDERS: PCP Internal Medicine; Visit Provider Radiology Vascular & Interventional Radiology | DX: R10.10 Upper abdominal pain, unspecified (principal) | CPT/HCPCS: 74176 ==

== ENCOUNTER 2024-08-02 09:49 | Emergency (ER) | payer MEDICAID, SELFPAY ==
--- NOTE | ~2024-08-02 | CT_ITS ---
CLINICAL HISTORY: lower abdominal pain CT abdomen and pelvis with contrast Comparison: CT of the abdomen and pelvis from 07/31/2024 Findings: Mild bibasilar atelectasis/pneumonitis of the imaged lung bases with trace right pleural effusion. No significant change in solid abdominal organs. Small mesenteric and periaortic lymph nodes are not significantly changed with mild fluid in the donita mesentery. No small bowel obstruction. Mild wall thickening of the large intestine in fluid in the cecum concerning for mild colitis. The appendix is not definitively seen. Uterus is anteverted. No adnexal soft tissue mass. Mild free fluid in the pelvis is likely physiologic. No acute osseous abnormality. Degenerative changes include lower lumbar facet arthropathy. IMPRESSION: 1. Mild wall thickening of the large intestine concerning for mild colitis, including cecum. 2. No small bowel obstruction. This document has been electronically signed by: Ye Quezada MD on 08/02/2024 19:19:11
[2024-08-02 10:29] VITALS: BP 134/81; PULSE 96; RESP 18; TEMP 36.3; O2SAT 97; BMI 33.1
[2024-08-02 11:25] LABS: Basophils Percent Auto 0.3 % (0-2); Eosinophils Absolute Auto 0.1 X10*3/uL (0.0-0.4); Eosinophils Percent Auto 0.9 % (0-4); Hematocrit 43.9 % (37.0-47.0); Hemoglobin 14.7 g/dl (12.0-16.0); Imm Gran Abs Auto 0.05 X10*3/uL (0.00-0.03); Imm Gran Pct Auto 0.5 % (0.0-0.4); Lymphocytes Absolute Auto 0.4 X10*3/uL (1.2-4.9); Lymphocytes Percent Auto 3.8 % (20-40); MANUAL DIFF FLAG SCAN; Mean Corpuscular HGB Conc 33.5 g/dl (31.0-35.0); Mean Corpuscular Hemoglobin 28.8 pg (27.0-33.0); Mean Corpuscular Volume 86.1 fL (80.0-98.0); Mean Platelet Volume 11.2 fL (9.4-12.3); Monocytes Absolute Auto 0.4 X10*3/uL (0.1-1.2); Monocytes Percent Auto 3.4 % (2-11); Neutrophils Absolute Auto 10.1 x10*3/uL (2.0-8.3); Neutrophils Percent Auto 91.1 % (45-73); Platelet Count 232 X10*3/uL (160-400); SCAN SMEAR FLAG 1; White Blood Count 11.1 X10*3/uL (4.8-10.8)
[2024-08-02 11:46] LABS: Alanine Aminotransferase 23 U/L (0-31); Albumin Level 4.6 g/dL (3.5-5.0); Anion Gap 15 (12-20); Aspartate Amino Transferase 21 U/L (5-31); Bilirubin Direct 0.1 mg/dL (0.0-0.5); Bilirubin Total 0.5 mg/dL (0.0-1.0); Blood Urea Nitrogen 17 mg/dL (9-16); Calcium 9.6 mg/dL (8.4-10.2); Carbon Dioxide 24 mmol/L (22-29); Chloride 104 mmol/L (96-108); Creatinine Clr Calc Pharmacy 88.1; Estimated Glomerular Filt Rate > 60; Glucose Random 116 mg/dL (60-115); Lipase 18 U/L (8-78); Magnesium 2.1 mg/dL (1.6-2.6); Sodium 139 mmol/L (135-145); Total Protein 8.7 g/dL (6.5-8.0)
[2024-08-02 11:56] LABS: Alkaline Phosphatase 103 U/L (39-117)
[2024-08-02 11:57] LABS: SLIDE REVIEW VERIFIED
[2024-08-02 12:30] LABS: Appearance Urine Cloudy; Color Urine Dark Yellow; Glucose Urine UA Negative (Negative); Leukocyte Esterase Urine Trace (Negative); Nitrite Urine Negative (Negative); PH >= 9.0 (5.0-9.0); Specific Gravity - Urine >= 1.030 (1.005-1.025); UMIC TRIGGER UACC YES; Urine Blood Negative (Negative); Urine Ketones Trace mg/dL (Negative); Urine Protein 30 (1+) mg/dL (Neg-Trace)
[2024-08-02 13:37] LABS: Bacteria Urine 2+ (None Seen); Hyaline Casts Urine 0-2 /LPF (0-2); RBC Urine 0-2 /HPF (0-2); WBC Urine 0-5 /HPF (0-5)
[2024-08-02] MEDS: Ondansetron ODT 4 MG TAB.RAPDIS TRANSLINGU (14:46)
[2024-08-02 15:15] VITALS: BP 134/74; PULSE 91; RESP 16; TEMP 36.7; O2SAT 95
--- NOTE | 2024-08-02 15:56 | ED.GENADULT ---
HPI - General Adult General Chief complaint: Nausea/Vomiting/Diarrhea Stated complaint: Vomiting, abd pain Time Seen by Provider: 08/02/24 15:25 Source: patient, RN notes reviewed, old records reviewed and interpreter deaf Mode of arrival: ambulatory Limitations: language barrier History of Present Illness ED Provider: Aidan HPI narrative: 59-year-old female presents for evaluation of abdominal pain that started this morning. The patient reports that she woke up at 4:00 a.m. this morning with lower abdominal pain, nausea, vomiting, and diarrhea She denies any black or bloody stool She reports a history of cholecystectomy but no other abdominal surgeries She reports chills but no fevers Denies any sick contacts No other complaints or concerns at this time Related Data Home Medications ?Medication ?Instructions ?Recorded ?Confirmed fluoxetine 20 mg capsule 20 mg PO QAM 10/23/21 05/19/24 fluticasone propionate 50 1 - 2 spray intranasal DAILY PRN 10/23/21 05/19/24 mcg/actuation nasal spray,suspension ibuprofen 400 mg tablet 400 mg PO Q8-12H PRN 12/24/21 05/19/24 alprazolam 0.5 mg tablet 0.5 mg PO DAILY PRN anxiety 08/26/22 05/19/24 fluticasone propionate 110 2 puff inhalation BID 08/26/22 05/19/24 mcg/actuation HFA aerosol inhaler (Flovent HFA) meclizine 12.5 mg tablet 12.5 mg PO TID PRN 08/26/22 05/19/24 meloxicam 15 mg tablet 15 mg PO DAILY 08/26/22 05/19/24 naproxen 500 mg tablet 500 mg PO BID 08/26/22 05/19/24 cetirizine 10 mg tablet 10 mg PO DAILY 12/20/22 05/19/24 ketotifen fumarate 0.025 % (0.035 1 drp ophthalmic (eye) BID 12/20/22 05/19/24 %) eye drops Previous Rx's ?Medication ?Instructions ?Recorded loperamide 2 mg capsule 2 mg PO Q6H PRN loose stool #10 08/15/22 caps hydrocortisone 2.5 % topical cream 1 appl [place] BEDTIME PRN itching #30 01/23/23 with perineal applicator grams menthol 0.44 %-zinc oxide 20.6 % 1 appl topical QID PRN perianal 02/04/24 topical ointment (Calmoseptine) itching #113 grams cyclobenzaprine 10 mg tablet 10 mg PO TID PRN muscle spasm #20 07/31/24 tabs lidocaine 5 % topical patch 1 patch topical DAILY #30 ea 07/31/24 amoxicillin 875 mg-potassium 1 tab PO Q12H #14 tabs 08/02/24 clavulanate 125 mg tablet Allergies Allergy/AdvReac Type Severity Reaction Status Date / Time hydromorphone Allergy Unknown hives Verified 08/02/24 10:31 oxycodone [From PERCOCET] Allergy Unknown ITCHING Verified 08/02/24 10:31 zolpidem [From AMBIEN] Allergy Unknown ITCHING Verified 08/02/24 10:31 Review of Systems Constitutional: Constitutional: Reports chills, Denies fever(s) and Reports lethargy ENT: Denies vertigo and Denies dizziness Cardiovascular: Cardiovascular: Denies chest pain Respiratory: Respiratory: Denies cough Gastrointestinal: Gastrointestinal: Reports abdominal pain, Denies hematochezia, Reports diarrhea, Reports loose stools, Reports nausea and Reports vomiting Genitourinary: Genitourinary: Denies difficulty voiding and Denies dysuria Integumentary/Breasts: Skin/Breast: Denies rash Neurologic: Denies vertigo and Denies dizziness PMFSH Past Medical History Medical History External hemorrhoid Pruritus ani Achilles tendinitis of both lower extremities AFSHAN III (cervical intraepithelial neoplasia grade III) with severe dysplasia Asthma Depression Anxiety Surgical History Hx of cholecystectomy History of bilateral tubal ligation Family History Family History Mother Epilepsy Mental health disorder Social History Social History Household Members: Spouse Housing: Apartment Alcohol intake: never Patient Tobacco Use Status: Never used Tobacco Smoked in Last 30 Days: No Use of substances other than those prescribed or required for medical reasons: No Advance Directives: No Advance Directives Information Provided: Yes Do you have a plan to hurt others: No Plan Current occupational status: disabled Sexual orientation: Straight/Heterosexual Gender identity: Female Physical Exam ED Vital Signs: Vital Signs - 24 hr 08/02/24 10:29 08/02/24 15:15 08/02/24 17:03 Temperature 97.4 F 98.1 F 98.6 F Pulse Rate 96 91 96 Respiratory Rate 18 16 18 Blood Pressure 134/81 134/74 123/73 Pulse Oximetry 97 95 95 Oxygen Delivery Method Room Air Room Air Room Air BMI result Body Mass Index 33.1 Const General: healthy appearing, comfortable, no acute distress, alert and awake Nutritional Appearance: well nourished Orientation/consciousness: patient oriented x3 HENMT Head: Yes normocephalic and Yes atraumatic Eyes Eyelids: Yes eyelids normal Conjunctivae: conjunctivae normal Sclerae: sclerae normal Corneas: corneas normal Pupils: Equal, round and reactive pupils present EOM: EOMs intact bilaterally Neck Neck: Yes full ROM Resp Effort & Inspection: normal respiratory effort, able to speak in complete sentences and not labored Cardio Rate: regular rate Rhythm: regular rhythm GI Inspection: No distended Palpation (GI): Soft to palpation, not firm, Tenderness to palpation present (GI) in the LLQ, in the RLQ and suprapubicly and Guarding due to palpation present (GI) in the LLQ and in the RLQ Skin General skin exam: elasticity normal Neuro General: patient oriented x3 Cranial nerves: Yes Equal, round and reactive pupils present and Yes Bilaterally intact EOM present Cognition (Neuro): normal cognition Extrem Other: Moving all extremities well without any obvious deformities Course Reevaluation(s) Reevaluation #1: Patient's CT scan shows evidence of colitis. She has not had any recent antibiotic use or travel outside the [place] discussed the results with the patient using a lang interpreter. Recommended liquid diet for the next 2 days. I will prescribe her Augmentin that she should start if her liquid diet is not resolving her symptoms Time: 19:52 Medications Administered Discontinued Medications Generic Name Dose Route Start Last Admin Trade Name Freq PRN Reason Stop Dose Admin Sodium Chloride 1,000 mls @ 999 mls/hr 08/02/24 16:00 08/02/24 17:21 Ns IV 08/02/24 17:00 Infused .Q1H1M JOEY Infusion Iohexol 85 ml 08/02/24 17:52 08/02/24 17:52 Iohexol 350 Mg/Ml 100 Ml Infus..Btl IV 08/02/24 17:53 85 ml ONCE ONE Administration Ketorolac Tromethamine 15 mg 08/02/24 15:49 08/02/24 16:10 Ketorolac Tromethamine 15 Mg/Ml Vial IVPUSH 08/02/24 15:50 15 mg ONCE ONE Administration Ondansetron HCl 4 mg 08/02/24 14:34 08/02/24 14:46 Ondansetron Odt 4 Mg Tab.Rapdis TRANSLINGU 08/02/24 14:35 4 mg ONCE ONE Administration Medical Decision Making Medical Decision Making [facility] Narrative: 59-year-old female presents for evaluation of abdominal pain with nausea vomiting and diarrhea. She was already status post cholecystectomy and her pain is quite low in her abdomen. Concern for colitis/diverticulitis. Less likely UTI as she has no urinary complaints. Given her tenderness with guarding on exam we will get a CT scan of the abdomen pelvis though I feel her symptoms are most likely viral in etiology. Differential Diagnosis Differential Diagnoses: The differential diagnosis associated with the presentation includes Gastroenteritis Colitis Diverticulitis UTI Lab Data [facility] Lab Attestation statement: I reviewed the patient's lab results. Mild leukocytosis to 11.1. This may be reactive to vomiting or related to a viral illness. No anemia. Normal platelet count. No significant electrolyte abnormalities. 08/02/24 11:19 08/02/24 11:19 Labs: Lab Results 08/02/24 08/02/24 08/02/24 Range/Units 11:19 12:21 15:27 WBC 11.1 H (4.8-10.8) X10*3/uL RBC 5.10 (4.20-5.50) X10*6/uL Hgb 14.7 (12.0-16.0) g/dl Hct 43.9 (37.0-47.0) % MCV 86.1 (80.0-98.0) fL MCH 28.8 (27.0-33.0) pg MCHC 33.5 (31.0-35.0) g/dl RDW 14.0 (11.0-16.0) % Plt Count 232 (160-400) X10*3/uL MPV 11.2 (9.4-12.3) fL Immature Gran % (Auto) 0.5 H (0.0-0.4) % Neut % (Auto) 91.1 H (45-73) % Lymph % (Auto) 3.8 L (20-40) % Coleman % (Auto) 3.4 (2-11) % Eos % (Auto) 0.9 (0-4) % Baso % (Auto) 0.3 (0-2) % Lymph # (Auto) 0.4 L (1.2-4.9) X10*3/uL Coleman # (Auto) 0.4 (0.1-1.2) X10*3/uL Eos # (Auto) 0.1 (0.0-0.4) X10*3/uL Baso # (Auto) 0.0 (0.0-0.2) X10*3/uL Abs Immat Gran (auto) 0.05 H (0.00-0.03) X10*3/uL Absolute Neuts (auto) 10.1 H (2.0-8.3) x10*3/uL Absolute Nucleated RBC 0.000 (0.0-0.012) X10*3/uL Nucleated RBC % (auto) 0.0 (0.0-0.2) /100WBC Smear Tech's Comments VERIFIED Sodium 139 (135-145) mmol/L Potassium 4.0 (3.3-5.1) mmol/L Chloride 104 (96-108) mmol/L Carbon Dioxide 24 (22-29) mmol/L Anion Gap 15 (12-20) BUN 17 H (9-16) mg/dL Creatinine 0.70 (0.5-1.4) mg/dL Estim Creat Clear Calc 88.1 Estimated GFR > 60 Random Glucose 116 H (60-115) mg/dL Calcium 9.6 (8.4-10.2) mg/dL Magnesium 2.1 (1.6-2.6) mg/dL Total Bilirubin 0.5 (0.0-1.0) mg/dL Direct Bilirubin 0.1 (0.0-0.5) mg/dL AST 21 (5-31) U/L ALT 23 (0-31) U/L Alkaline Phosphatase 103 (39-117) U/L Total Protein 8.7 H (6.5-8.0) g/dL Albumin 4.6 (3.5-5.0) g/dL Lipase 18 (8-78) U/L Urine Color Dark Yellow Urine Appearance Cloudy Urine pH >= 9.0 (5.0-9.0) Ur Specific [place] >= 1.030 H (1.005-1.025) Urine Protein 30 (1+) H (Neg-Trace) mg/dL Urine Glucose (UA) Negative (Negative) mg/dL Urine Ketones Trace (Negative) mg/dL Urine Blood Negative (Negative) Urine Nitrite Negative (Negative) Ur Leukocyte Esterase Trace H (Negative) Urine RBC 0-2 (0-2) /HPF Urine WBC 0-5 (0-5) /HPF Ur Squamous Epith Cells 11-20 (0-2) /HPF Urine Bacteria 2+ (None Seen) Hyaline Casts 0-2 (0-2) /LPF Influenza Type A (PCR) NEGATIVE (Negative) Influenza Type B (PCR) NEGATIVE (Negative) RSV RNA Qual (PCR) NEGATIVE (Negative) SARS-CoV-2 RNA (RT-PCR) NEGATIVE (Negative) Discharge Plan Discharge Clinical Impression: Colitis Patient Disposition: Home, Self-Care Instructions: Colitis (ED) Additional Instructions: Your CT scan showed colitis. This is usually a type of infection. The treatment however is usually a liquid diet for a couple of days. I recommend that you start a liquid diet for the next 2 days. If your symptoms are worsening or not improving start the antibiotic that was prescribed You may use ibuprofen/acetaminophen as needed for pain Follow-up with your primary doctor, return for new or worsening symptoms Prescriptions: New amoxicillin-pot clavulanate 875-125 mg tablet 1 tab PO Q12H Qty: 14 0RF No Action loperamide 2 mg capsule 2 mg PO Q6H PRN (Reason: loose stool) Qty: 10 0RF hydrocortisone 2.5 % cream with perineal applicator 1 appl [place] BEDTIME PRN (Reason: itching) Qty: 30 0RF cyclobenzaprine 10 mg tablet 10 mg PO TID PRN (Reason: muscle spasm) Qty: 20 0RF lidocaine 5 % adhesive patch,medicated 1 patch topical DAILY Qty: 30 0RF Rx Instructions: leave on most painful area for up to 12 hrs fluticasone propionate 50 mcg/actuation spray,suspension 1 - 2 spray intranasal DAILY PRN fluoxetine 20 mg capsule 20 mg PO QAM ibuprofen 400 mg tablet 400 mg PO Q8-12H PRN meclizine 12.5 mg tablet 12.5 mg PO TID PRN naproxen 500 mg tablet 500 mg PO BID alprazolam 0.5 mg tablet 0.5 mg PO DAILY PRN (Reason: anxiety) meloxicam 15 mg tablet 15 mg PO DAILY fluticasone propionate [Flovent HFA] 110 mcg/actuation HFA aerosol inhaler 2 puff inhalation BID menthol-zinc oxide [Calmoseptine] 0.44-20.6 % ointment 1 appl topical QID PRN (Reason: perianal itching) Qty: 113 0RF cetirizine 10 mg tablet 10 mg PO DAILY ketotifen fumarate 0.025 % (0.035 %) drops 1 drp ophthalmic (eye) BID Print Language: Upper Sorbian
[2024-08-02] MEDS: Ketorolac Tromethamine 15 MG/ML VIAL IVPUSH (16:10)
[2024-08-02] MEDS: 0.9 % Sodium Chloride 1,000 ML 999 ML IV (16:10)
[2024-08-02 16:11] LABS: Influenza A PCR NEGATIVE (Negative); Influenza B PCR NEGATIVE (Negative); Resp Syncy Virus RNA Qual PCR NEGATIVE (Negative); SARS COV2 PCR INHOUSE NEGATIVE (Negative)
--- OUTSIDE RECORDS SUMMARY | 2024-08-02 16:26 | XMS_ITS | Encounter Summary ---
Author Organization [employer] Address [address] [place] [address] Care Team Providers Care Doubler Helper Name Role Phone Katie Douglas MD Primary Care Provider + Encounter Details Date Type Department Care Team ([facility] st Contact Info) Description 08/02/2024 Orders Only GENERIC EXTERNAL DATA DEPARTMENT Provider, Generic External Data Social History Tobacco Use Types Packs/Day Years [...] Upcoming Encounters Date Type Department Care Team ([facility] st Contact Info) Description 09/20/2024 9:00 AM EDT Telemedicine [facility] [address] [place], [place] [phone] Katie Douglas MD [address] [place], [place] [phone] documented as of this encounter Procedures Procedure Name Priority Date/Time Associated Diagnosis Comments SARS COV2/INFLUENZA A/B AND RSV RNA QL NAAT Routine 08/02/2024 3:27 PM EST URINALYSIS, COMPLETE, WITH REFLEX TO CULTURE Routine 08/02/2024 12:21 PM EST SLIDE REVIEW Routine 08/02/2024 11:19 AM EST CBC WITH AUTO DIFFERENTIAL Routine 08/02/2024 11:19 AM EST MAGNESIUM Routine 08/02/2024 11:19 AM EST LIPASE Routine 08/02/2024 11:19 AM EST HEPATIC FUNCTION PANEL Routine 11:19 AM EST COMPREHENSIVE METABOLIC PANEL Routine 08/02/2024 11:19 AM EST documented in this encounter Results * SARS-CoV-2 RNA, Influenza A/B, and RSV RNA, Ql NAAT (08/02/2024 3:27 PM EST) Influenza A PCR NEGATIVE Negative [facility] Influenza B PCR NEGATIVE Negative [facility] Resp Syncy Virus RNA Qual PCR NEGATIVE Negative [facility] SARS COV2 PCR NEGATIVE Negative [facility] Comment:All test results mus t be correlated with clinical findings.Negative results do not preclude SARS-CoV2, influenza Avirus, influenza B virus and/or RSV infectionand should not be used as the sole basis for treatment orother patient management decisions. Negative results must becombined with clinical observations, patient history, andepidemiological information.This test has not been evaluated for monitoring treatment ofinfection.This test has been authorized by the FDA under an EmergencyUse Authorization (EUA) for use by authorized laboratories.Testing performed on the [employer] GeneXpert utilizingreal-time RT-PCR.All SARS CoV2 and positive influenza A/B results arereported to [facility]. 08/02/2024 3:27 PM EST 08/02/2024 3:30 PM EST us Generic External Data Provider LAB MICROBIOLOGY - GENERAL ORDERABLES Final Result [facility] [address] [place] [address] [phone] * (ABNORMAL) Urinalysis, Complete, with Reflex to Culture (08/02/2024 12:21 PM EST) Color Urine Dark Yellow [facility] Appearance Urine Cloudy [facility] PH >=9.0 5.0 - 9.0 [facility] Glucose Urine UA Negative Negative mg/dL [facility] Urine Blood Negative Negative [facility] Specific [place] - Urine >=1.030(H) 1.005 - 1.025 [facility] Urine Protein 30 (1+)(A) Neg-Trace mg/dL [facility] Urine Ketones Trace Negative mg/dL [facility] Nitrite Urine Negative Negative [facility] Leukocyte Esterase Urine Trace(A) Negative [facility] RBC Urine 0-2 0 - 2 /HPF [facility] Urine WBC 0-5 0 - 5 /HPF [facility] Urine Squamous Epithelial Cell 11-20 0 - 2 /HPF [facility] Urine Bacteria 2+ None Seen [facility] Hyaline Casts, Urine 0-2 0 - 2 /LPF [facility] 08/02/2024 12:2 1 PM EST 08/02/2024 12:26 PM EST Narrative [facility] - 08/02/2024 1:39 PM EST 1220Urine, Clean Catch Generic External Data Provider LAB URINE ORDERAB LES Final Result Performing Organization Address [facility]/ZIP Co de Phone Number [facility] [address] [place] [phone] * Slide Review (08/02/2024 11:19 AM EST) Slide Review VERIFIED [facility] 08/02/2024 11:1 9 AM EST 08/02/2024 11:22 AM EST us Generic External Data Provider LAB BLOOD ORDERAB LES Final Result Performing Organization Address [facility] Phone Number [facility] [address] [place] [phone] * Lipase (08/02/2024 11:19 AM EST) Lipase 18 8 - 78 U/L [facility] 08/02/2024 11:1 9 AM EST 08/02/2024 11:22 AM EST us Generic External Data Provider LAB BLOOD ORDERAB LES Final Result Performing Organization Address [facility] Phone Number [facility] [address] [place] [phone] * Magnesium (08/02/2024 11:19 AM EST) Magnesium 2.1 1.6 - 2.6 mg/dL [facility] 08/02/2024 11:1 9 AM EST 08/02/2024 11:22 AM EST Generic External Data Provider LAB BLOOD ORDERAB LES Final Result Performing Organization Address [facility] Co de Phone Number [facility] [address] [place] [address] [phone] * Hepatic Function Panel (08/02/2024 11:19 AM EST) [facility] Bilirubin, Direct 0.1 0.0 - 0.5 mg/dL [facility] 08/02/2024 11:1 9 AM EST 08/02/2024 11:22 AM EST [facility] External Data Provider LAB BLOOD ORDERAB LES Final Result Performing Organization Address [facility] de Phone Number [facility] [address] [place] [phone] * (ABNORMAL) Comprehensive Metabolic Panel (08/02/2024 11:19 AM EST) [facility] Sodium 139 135 - 145 mmol/L [facility] Potassium 4.0 3.3 - 5.1 mmol/L [facility] Chloride 104 96 - 108 mmol/L [facility] Carbon Dioxide 24 22 - 29 mmol/L [facility] Anion Gap 15 12 - 20 [facility] Urea Nitrogen (BUN) 17(H) 9 - 16 mg/dL [facility] Creatinine, Serum 0.70 0.5 - 1.4 mg/dL [facility] Creatinine Clr Calc Pharmacy 88.1 [facility] Comment:Provided height and weight: 157.48 cm,82.2 kg.eGFR (calculated from the MDRD study equation) and eCrCl(calculated from the Cockcroft-Gault equation) are based ondifferent parameters and may not yield comparable results.If eCrCl result is absurd, please check patient'sheight/weight. Estimated Glomerular Filt Rate >60 [facility] Comment:Chronic Kidney Disea se: Estimated GFR < 60 mL/min/1.20n9Unpdrs Kidney Disease: Estimated GFR < 15 mL/min/1.73m2 Glucose 116(H) 60 - 115 mg/dL [facility] Calcium 9.6 8.4 - 10.2 mg/dL [facility] Bilirubin, Total 0.5 0.0 - 1.0 mg/dL [facility] Aspartate Amino Transferase 21 5 - 31 U/L [facility] Alanine Aminotransferase 23 0 - 31 U/L [facility] Total Protein 8.7(H) 6.5 - 8.0 g/dL [facility] Albumin Level 4.6 3.5 - 5.0 g/dL [facility] Alkaline Phosphatase 103 39 - 117 U/L [facility] 08/02/2024 11:1 9 AM EST 08/02/2024 11:22 AM EST us Generic External Data Provider LAB BLOOD ORDERAB LES Final Result [facility] [address] [place] [phone] * (ABNORMAL) CBC auto differential (08/02/2024 11:19 AM EST) White Blood Count 11.1(H) 4.8 - 10.8 X10*3/uL [facility] Red Blood Count 5.10 4.20 - 5.50 X10*6/uL [facility] Hemoglobin 14.7 12.0 - 16.0 g/dl [facility] Hematocrit 43.9 37.0 - 47.0 % [facility] Mean Corpuscular Volume 86.1 80.0 - 98.0 fL [facility] Mean Corpuscular Hemoglobin 28.8 27.0 - 33.0 pg [facility] Mean Corpuscular HGB Conc 33.5 31.0 - 35.0 g/dl [facility] Red Cell Distribution Width 14.0 11.0 - 16.0 % [facility] Platelet Count 232 160 - 400 X10*3/uL [facility] Mean Platelet Volume 11.2 9.4 - 12.3 fL [facility] Neutrophils Percent Auto 91.1(H) 45 - 73 % [facility] Imm Gran Pct Auto 0.5(H) 0.0 - 0.4 % [facility] Lymphocytes Percent Auto 3.8(L) 20 - 40 % [facility] Monocytes Percent Auto 3.4 2 - 11 % [facility] Eosinophils Percent Auto 0.9 0 - 4 % [facility] Basophils Percent Auto 0.3 0 - 2 % [facility] NRBC Pct Auto 0.0 0.0 - 0.2 /100WBC [facility] Neutrophils Absolute Auto 10.1(H) 2.0 - 8.3 x10*3/uL [facility] Imm Gran Abs Auto 0.05(H) 0.00 - 0.03 X10*3/uL [facility] Lymphocytes Absolute Auto 0.4(L) 1.2 - 4.9 X10*3/uL [facility] Monocytes Absolute Auto 0.4 0.1 - 1.2 X10*3/uL [facility] Eosinophils Absolute Auto 0.1 0.0 - 0.4 X10*3/uL [facility] Basophils Absolute Auto 0.0 0.0 - 0.2 X10*3/uL [facility] NRBC Abs Auto 0.000 0.0 - 0.012 X10*3/uL [facility] 08/02/2024 11:1 9 AM EST 08/02/2024 11:22 AM EST us Generic External Data Provider LAB BLOOD ORDERAB LES Edited Result - Final [facility] [address] [place] [phone] documented in this encounter Visit Diagnoses Not on filedocumented in this encounter Additional Health Concerns Assessment Noted Time PHQ-9 Depression Total Score: 8 02/12/20 24 10:40 AM EDT documented as of this encounter Care Teams Doubler Helper Relationship Specialty Start Date End Date Katie Douglas MD [address] [place] [phone] PCP - General Family Medicine 09/18/16 documented as of this encounter
--- OUTSIDE RECORDS SUMMARY | 2024-08-02 16:26 | XMS_ITS | Clinical Summary ---
Author Organization [employer] Address [address] [place] [address] Care Team Providers Care Staff Midwife Name Role Phone Panda Douglas MD Primary Care Provider + Allergies Active Allergy Reactions Criticality Noted Date Comments Acetaminophen Itching 10/19/2014 Cat Dander 02/10/2023 Other reaction(s): WHEEZING Fentanyl Itching 12/02/2023 Gramineae Pollens 02/10/2023 Other reaction(s): wheezing Hydromorphone Hives 02/10/2023 Morphine Hives 12/02/2023 Oxycodone Itching 10/19/2014 Oxycodone-Acetaminophen 08/15/2022 Other reaction(s): itching all over Poison Melissa Extract 10/19/2014 Zolpidem Itching,Rash Low 02/10/2023 Medications meclizine (Antivert) 12.5 MG tabletIndicatio ns:Dizziness TOME NGHIA TABLETA PHONG VECES AL D A CUANDO SEA NECESARIO 30 tablet 3 3 Active FLUoxetine (PROzac) 20 MG capsule TOME NGHIA C PSULA TODOS LOS D EN LA MA APNDA 3 Active albuterol (ProAir HFA) 108 (90 Base) MCG/ACT inhalerIndicati ons:Moderate persistent asthma, unspecified whether complicated Inhale 2 puffs every 4 (four) hours if needed for shortness of breath or wheezing. 18 g 1 3 Active cetirizine (ZyrTEC) 10 MG tabletIndicatio ns:Seasonal allergic rhinitis, unspecified trigger TOME NGHIA TABLETA TODOS LOS ALVAREZ 90 tablet 3 4 Active ibuprofen 600 MG tablet Take 1 tablet (600 mg) by mouth every 6 (six) hours if needed for mild pain for up to 20 doses. 20 tablet 4 Active chlorhexidine (Peridex) 0.12 % solution Swish 15 mL morning and night for 1 minute. Spit, do not swallow. Do not eat or drink for 30 minutes following use. 473 mL 4 Active fluticasone (Flonase) 50 MCG/ACT nasal sprayIndication s:Chronic rhinitis Administer 1 spray into each nostril Once per day. Shake gently. Before first use, prime pump. After use, clean tip and replace cap. 48 mL 1 4 Active Calmoseptine 0.44-20.6 % ointment USE 1 APPLICATION TOPICALLY 4 TIMES A DAY NEEDED FOR PERIANAL ITCHING 20 g 4 08/19/19 25 Active ammonium lactate (Amlactin) 12 % cream Apply topically if needed for dry skin. 385 g 1 4 06/14/20 25 Active betamethasone valerate (Valisone) 0.1 % ointment Apply topically if needed in the morning and at bedtime (itchiness). 45 g 4 Active liver oil-zinc oxide (Desitin) 40 % ointment Apply topically if needed in the morning and at bedtime for irritation. 56 g 4 Active clotrimazole (Lotrimin) 1 % cream Apply topically 2 times daily for 28 days. 30 g 2 4 07/12/19 25 Active Problems Problem Noted Date Diagnosed Date Pruritus ani 06/29/2024 Assessment & Plan (06/29/2024 9:48 AM EST): Pt here with c/o persistent pruritus around her anus , that is not going away despite the use of Topical steroid cream and Calmoseptin prescribed by anorectal surgeon Dr. Rhodes who saw patient for this back in 01/2024 Pt underwent an Anoscopy Per dr. Garcia note: A full examination of the anal canal was done. There was small internal hemorrhoids. There were no lesions in the anal canal. There was no fissure. There was no bleeding. There was no induration. His assessment was that pt had pruritus anal with uncertain etiology. He advised her to avoid caffeinated products as well as high sugar content. He did tell her that if she had questions or concerns down the line, she is welcome to come back to the office to be re-evaluated. Pt will do that. Today's exam of her rectum is unrevealing. I obtained a Cx for HSV although no lesions were observed on exam. I also recommended she be tested for Pinworm. Contacted [facility] lab who confirmed they had the stiicky pads for testing and pt was instructed to seed cone picker the supplies at [facility] and if the front office associate staff was confused to ask them to contact Microbiology. Pt verbalized undersanding. Class 1 obesity due to exces s calories without serious comorbidity with body mass index (BMI) of 33.0 to 33.9 in adult 06/14/2024 Assessment & Plan (06/14/2024 2:41 PM EST): Discussed re weight reduction options including exercise, life style modifications, diet. Recommended to decrease soda and sugary beverage consumption, increase protein intake with meals (at least 1 portion of protein with each meal) to assist with satiety, increase dietary fiber Recommended at least 150 min/week of moderate intensity exercise. Has fatty liver, will order labs to ro also Dm Will consider nutrition referral after labs Declined Influenza or Covid vax today. Chronic rhinitis 02/12/2024 Dry skin dermatitis 02/12/2024 Assessment & Plan (06/14/2024 2:40 PM EST): On both heels, use ammonium lactate cream bid and fu in 6w Assessment & Plan (02/12/2024 2:24 PM EDT): On both ears. Recommended against excessive cleaning with Q-tips. Use a few drops of baby oil gently on each ear. Open fracture of tooth 02/02/2024 Other constipation 12/02/2023 Assessment & Plan (12/02/2023 2:04 PM EDT): Drink more water, more fiber on diet (more fresh fruits and vegetables), walks as tolerated Miralax prescribed today S/P laparoscopic cholecystectomy 12/02/2023 Assessment & Plan (12/02/2023 2:05 PM EDT): Continue to follow post-op instructions Transient elevated blood pressure 10/21/2023 Assessment & Plan (10/21/2023 1:30 PM EDT): Likely a little anxious I advise low Na diet weight reduction and f/u with PCP Dental abscess 09/24/2023 Periodontal disease 09/02/2023 Dental calculus 08/25/2023 Gingival bleeding 08/25/2023 Missing teeth, acquired 08/25/2023 Hemorrhoids, internal 08/11/2023 Assessment & Plan (06/14/2024 2:36 PM EST): Asymptomatic, she can dc daily hemorrhoidal cram and use it prn constipation pain/rectal bleeding only. FU with me or Surgery prn bleeding/pain. I rx clotrimazole cream + Zinc oxide to use daily prn rectal itchiness only, advised to use alcohol free wipes after BM. Assessment & Plan (02/12/2024 2:21 PM EDT): Followed by general surgery, Rx hydrocortisone rectal cream. Avoid constipation. Follow up with GI after MRI. Assessment & Plan (10/21/2023 1:29 PM EDT): Anal/rectal itching probably due to hemorrhoid, I will prescribe hydrocortisone cream Assessment & Plan (08/11/2023 2:06 PM EST): Colonoscopy up to date 2019. Use prep H IR cream Avoid constipation, continue colace dialy, increase water intake. Seasonal allergic rhinitis 08/11/2023 Encounter for preventive health examination 05/30 Assessment & Plan (06/12/2023 2:11 PM EST): Discussed with patient re increase fresh fruit and vegetable intake. Counseled re moderate exercise as tolerated, up to 20min/d Patient feels safe at home. PAP smear Up to date, next one due 2023 by [facility] Mammogram Up to date, next one due 2023 Eye exam Up to date, next one due 2024 CRC screen Up to date. Next one due on 02/2028 Lipids/FBS To be ordered Vaccinations Influenza iz today. Counseled about COVID + Booster and Zoster. Other iz up to date. Obtain hepatitis profile. Dental visit Overdue, mortgage counselor to make an appt at [facility] or one of the other closest dental clinics. Candidiasis of perineum 06/12/2023 Assessment & Plan (06/12/2023 11:11 AM EST): Use Lotrisone cream BID F/u with me in 3-6 weeks Screen for STD (sexually transmitted disease) Assessment & Plan (06/12/2023 2:13 PM EST): Patient is in a monogamous relationship, interested on STD testing Heel pain, bilateral 06/12/2023 Assessment & Plan (06/14/2024 2:39 PM EST): Right side is resolved sp steroid inj. Advised to use Mositurizing cream on left side to treat heel skin cracks _ use heel pad for pain and fu w me in 6w. Vitamin D deficiency 08/15/2022 Tired 08/15/2022 Sprain of calcaneofibular ligament 08/15/2022 Spasm of muscle of lower back 08/15/2022 Shoulder pain 08/15/2022 Headache disorder 08/15/2022 HSIL (high grade squamous in traepithelial lesion) on Pap smear of cervix 08/15/2022 Elevated liver transaminase level 08/15/2022 Dysfunction of eustachian tube 08/15/2022 Dizziness 08/15/2022 Biliary calculus 08/15/2022 Asymptomatic microscopic hematuria 08/15/2022 Callus of heel 08/15/2022 Bilateral Achilles tendonosis 08/15/2022 Assessment & Plan (02/12/2024 2:22 PM EDT): Advised to use shoes with support on both heels, avoid flip flops. I gave her information regarding PT referral so she can make her own appointment. Assessment & Plan (06/12/2023 10:53 AM EST): Recurrent, refer again to orthopedics. Patient is aware she needs to bring foot x-ray from last year. Allergic conjunctivitis 08/15/2022 Assessment & Plan (08/15/2022 12:29 PM EST): Will send refill for allergy medications. Gastroenteritis 08/15/2022 Assessment & Plan (08/15/2022 12:28 PM EST): Resolving with imodium PRN from ED. Discussed with patient about hydration and BRAT diet, advance as tolerated. Will request CT scan and FU PRN. Encounter for colorectal cancer screening 2022 Assessment & Plan (06/12/2023 2:12 PM EST): Up to date Next one due on 2027 (Dr Manning) Perimenopause 10/15/2018 Benign paroxysmal positional vertigo 10/15/2018 Cervical disc disorder 09/04/2018 Visual impairment 07/08/2017 Tinea pedis 07/08/2017 Pure hypercholesterolemia 07/08/2017 Assessment & Plan (08/11/2023 2:05 PM EST): We discussed re rx options. She wants to be more strict with life style modifications. Recommended moderate amount of exercise and increased consumption of fruit, vegetables, fish and high fiber foods. We discussed about avoiding consumption of highly saturated fats or trans fats. FU lipids in 6m, will start meds if LDL not improving. Neck pain 07/08/2017 Acute serous otitis media 01/02/2017 Pain in female pelvis 11/05/2016 Hyperlipidemia 01/12/2013 Assessment & Plan (06/14/2024 2:37 PM EST): Currently on dietary modifications, has fatty liver. Order lipids and fu w me in 6w Assessment & Plan (06/12/2023 10:52 AM EST): Repeat lipids and f/u with me next appointment Depressive disorder 01/12/2013 Anxiety 01/12/2013 Asthma 01/12/2013 Assessment & Plan (02/12/2024 2:23 PM EDT): Controlled, no recent exacerbations in past 5 months. Continue albuterol prn. Follow up in 3 months. 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/03/2018 02/12/2024 Assessment & Plan (08/11/2023 2:04 PM EST): FU PAP next week FU w/[facility] Encounters Date Type Department Care Team Description 08/02/2024 Orders Only GENERIC EXTERNAL DATA DEPARTMENT Provider, [facility] External Data 08/02/2024 Travel 07/31/2024 Orders Only [facility] External Provider, [facility] 07/29/[address] [address] April Domingo [place] Chart prep 07/05/[address] [address] Panda Douglas MD Results 07/02/[address] [address] Sonia Hare RN Lab Orders 06/29/2024 9:15 AM EST Office Visit [address] [address] Tariq Posey MD Pruritus ani (Primary Dx) 06/29/[address] [address] Panda Douglas MD callback requested 06/29/2024 Travel 06/28/[address] [address] Panda Douglas MD Nurse Triage 06/14/2024 2:00 PM EST Office Visit [address] [address] Panda Douglas MD Hemorrhoids, internal (Primary Dx); Pure hypercholesterolemi a; Class 1 obesity due to excess calories without serious comorbidity with body mass index (BMI) of 33.0 to 33.9 in adult; Dry skin dermatitis; Dietary counseling; Exercise counseling; Heel pain, bilateral 06/14/2024 Travel 06/11/2024 Telephone [facility] [address] [place] [address] April Domingo MA Chart prep 06/04/2024 Refill [facility] [address] [place] [address] Panda Douglas MD 06/04/2024 Telephone [facility] [address] [place] [address] [phone] Panda Douglas MD Error (VOID this visit) 06/04/2024 Patient Outreach [facility] [address] [place] [address] [phone] Panda Douglas MD from Last 3 Months Immunizations Name Administration Dates Next Due Hep B, adult 06/27/2010,11/03/2009,10/05/2009 Influenza injectable quadriv alent IIV4 with preservative 08/15/2022 Influenza injectable quadriv alent preservative free 06/12/2023,07/31/2021,05/10/2020,2016 Influenza, IIV3, injectable 03/28/2014, 1 Influenza, Split (incl. gabriela fied surface antigen) 04/19/2013,07/02/2012 Moderna Covid-19 Vaccine 6+ Bivalent 07/18/2022 Pneumococcal Conjugate PCV 20 05/01/2022 TD (adult), 2 Lf tetanus tox oid, preservative free, adsorbed 02/06/2006 Td (adult), 5 Lf tetanus tox oid, preservative free, adsorbed 05/05/2016 Tdap 04/19/2013 Zoster, Recombinant 08/07/2023,05/01/2022 Social History Tobacco Use Types Packs/Day Years Used Date Smoking Tobacco: Never Passive Smoke Exposure: Never Smokeless Tobacco: Never Tobacco Cessation:Counseling Given: Not Answered Alcohol Use Standard Drinks/Week Comments Never 0 [...] Orientation Straight 04/29/2022 10 :18 AM EDT Last Filed Vital Signs Vital Sign Reading Time Taken Comments Blood Pressure 136/78 06/29/2024 9:05 AM EST Pulse 70 06/29/2024 9:05 AM EST Temperature 36.1 ??C (96.9 ??F) 06/29/2024 9:05 AM ES T Respiratory Rate 20 06/29/2024 9:05 AM EST Oxygen Saturation 95% 06/29/2024 9:05 AM EST Inhaled Oxygen Concentration - - Weight 84.5 kg (186 lb 3.2 oz) 06/29/2024 9:05 A M EST Height 157.5 cm (5' 2 ) 06/29/2024 9:05 AM EST Body Mass Index 34.06 06/29/2024 9:05 AM EST Plan of Treatment Upcoming Encounters Date Type Department Care Team (Late st Contact Info) Description 09/20/2024 9:00 AM EDT Telemedicine [facility] [address] [place] [address] Panda Douglas MD [address] [place] [address] Health Maintenance Due Date Last Done Comments CT Colonography 1967 FIT DNA/Cologuard 1967 FIT 1967 FOBT 1967 Sigmoidoscopy 1967 Alcohol/Substance Use Screening 1979 Dental X-Ray: Full Mouth 09/21/2023 021, 03/19/2019, 10/19/2014 Dental Prophylaxis 02/24/2024 08/25/2023, 0 02/18/2022, 08/27/2021, Additional history exists COVID-19 Vaccine ( season) 2024 07/18/2022, 06/05/2021, 09/13/2020 Dental Oral Exam 03/05/2024 09/02/2023, , 04/24/2020, Additional history exists Dental X-Ray: Bitewings 08/26/2024 08/25/19 24, 08/27/2021, 04/24/2020, Additional history exists SDOH Screening 01/28/2025 01/29/2024 Depression Screening 02/11/2025 02/12/2024, 02/12/20 24 Cervical Cancer Screening 02/16/2025 HPV/Cotest 02/16/2025 01/29/2024, 10/28, 07/16/2021, Additional history exists Pap Smear 02/16/2025 01/29/2024, 10/28, 07/16/2021, Additional history exists Tobacco Screening 06/29/2025 06/29/2024 Mammogram 08/21/2025 08/21/2023, 07/31, 08/08/2021, Additional history exists DTaP/Tdap/Td Vaccines (3 - Td or Tdap) 05/05/2026 05/05/2016, 04/19/2013, 02/06/2006 Colonoscopy 03/17/2028 03/17/2018 Colorectal Cancer Screening 03/17/2028 Lipid Panel 07/12/2029 07/12/2024, 05/31, 11/23/2021, Additional history exists RSV Patients and Patients Aged 60 years or older (1 - 1-dose 75+ series) 2042 Hepatitis B Vaccines Completed 06/27/2010, 11/03/2009, 10/05/2009 Pneumococcal Vaccine: 50+ Years Completed 05/01/2022 HIV Screening Completed 06/18/2023 Hepatitis C Screening Completed 06/18/2023 Zoster Vaccines Completed 08/07/2023, 05/01/2022 Influenza Vaccine Completed 06/26/2024, , 08/15/2022, Additional history exists HIB Vaccines Aged Out No longer eligi ble based on patient's age to complete this topic HPV Vaccines Aged Out No longer eligi ble based on patient's age to complete this topic Hepatitis A Vaccines Aged Out No long er eligible based on patient's age to complete this topic IPV Vaccines Aged Out No longer eligi ble based on patient's age to complete this topic Meningococcal Vaccine Aged Out No codie binta eligible based on patient's age to complete this topic RSV under 20 months Aged Out No longe r eligible based on patient's age to complete this topic Rotavirus Vaccines Aged Out No longer eligible based on patient's age to complete this topic Procedures Procedure Name Priority Date/Time Associated Diagnosis Comments SARS COV2/INFLUENZA A/B AND RSV RNA QL NAAT Routine 08/02/2024 3:27 PM EST URINALYSIS, COMPLETE, WITH REFLEX TO CULTURE Routine 08/02/2024 12:21 PM EST SLIDE REVIEW Routine 08/02/2024 11:19 AM EST LIPASE Routine 08/02/2024 11:19 AM EST MAGNESIUM Routine 08/02/2024 11:19 AM EST HEPATIC FUNCTION PANEL Routine 08/02/2024 11:19 AM EST COMPREHENSIVE METABOLIC PANEL Routine 08/02/2024 11:19 AM EST CBC WITH AUTO DIFFERENTIAL Routine 08/02/2024 11:19 AM EST URINALYSIS, COMPLETE, WITH REFLEX TO CULTURE Routine 07/31/2024 12:09 PM EST LIPASE Routine 07/31/2024 12:09 PM EST MAGNESIUM Routine 07/31/2024 12:09 PM EST BASIC METABOLIC PANEL Routine 07/31/2024 12:09 PM EST HEPATIC FUNCTION PANEL Routine 07/31/2024 12:09 PM EST URINALYSIS WITH REFLEX MICROSCOPIC Routine 07/31/2024 12:09 PM EST CBC WITH AUTO DIFFERENTIAL Routine 07/31/2024 12:[address] ABDOMEN PELVIS WO CONTRAST Routine 07/31/2024 12:05 PM EST HEMOGLOBIN A1C Routine 07/12/2024 9:01 AM EST Class 1 obesity due to excess calories without serious comorbidity with body mass index (BMI) of 33.0 to 33.9 in adult LIPID PANEL WITH REFLEX TO DIRECT LDL Routine 07/12/2024 9:01 AM EST Pure hypercholesterolemia COMPREHENSIVE METABOLIC PANEL Routine 07/12/2024 9:01 AM EST Class 1 obesity due to excess calories without serious comorbidity with body mass index (BMI) of 33.0 to 33.9 in adult Pure hypercholesterolemia PINWORM EXAMINATION Routine 07/02/2024 10:08 AM EST Pruritus ani HERPES CULTURE WITH REFLEX TYPING Routine 06/29/2024 12:00 AM EST Pruritus ani HM PAP/HPV Routine 01/29/2024 PERIODIC ORAL EVALUATION - ESTABLISHED PATIENT Routine 09/02/2023 9:30 AM EST Full PROPHYLAXIS - ADULT Routine 08/25/2023 11:00 AM EST BITEWINGS - 4 RADIOGRAPHIC IMAGES Routine 08/25/2023 11:00 AM EST BI MAMMOGRAM SCREENING TOMOSYNTHESIS BILATERAL Routine 08/21/2023 2:50 PM EST HEPATITIS PANEL, GENERAL Routine 06/18/2023 9:52 AM EST Encounter for preventive health examination Screen for STD (sexually transmitted disease) HIV 1/2 ANTIGEN/ANTIBODY, FOURTH GENERATION W/RFL Routine 06/18/2023 9:52 AM EST Encounter for preventive health examination Screen for STD (sexually transmitted disease) PANORAMIC RADIOGRAPHIC IMAGE Routine 09/19/2020 12:00 AM EDT HM COLONOSCOPY Routine 03/17/2018 from Last 3 Months or Most Recently Relevant to Health Maintenance Results * SARS-CoV-2 RNA, Influenza A/B, and RSV RNA, Ql NAAT (08/02/2024 3:27 PM EST) Influenza A PCR NEGATIVE Negative [facility] Influenza B PCR NEGATIVE Negative [facility] Resp Syncy Virus RNA Qual PCR NEGATIVE Negative [facility] SARS COV2 PCR NEGATIVE Negative [facility] Comment:All test results mus t be [...] use by authorized laboratories.Testing performed on the siOPTICA GeneXpert utilizingreal-time RT-PCR.All SARS CoV2 and positive influenza A/B results arereported to [facility]. 08/02/2024 3:27 PM EST 08/02/2024 3:30 PM EST us Generic External Data Provider LAB MICROBIOLOGY - GENERAL ORDERABLES Final Result Performing Organization Address City/[facility]/ZIP Co de Phone Number [facility] [address] [place] [address] [phone] * (ABNORMAL) Urinalysis, Complete, with Reflex to Culture (08/02/2024 12:21 PM EST) Only the most recent of2 resultswithin the time period is included. Color Urine Dark Yellow [facility] Appearance Urine Cloudy [facility] PH >=9.0 5.0 - 9.0 [facility] Glucose Urine UA Negative Negative mg/dL [facility] Urine Blood Negative Negative [facility] Specific Huffman - Urine >=1.030(H) 1.005 - 1.025 [facility] Urine Protein 30 (1+)(A) Neg-Trace mg/dL [facility] Urine Ketones Trace Negative mg/dL [facility] Nitrite Urine Negative Negative [facility] Leukocyte Esterase Urine Trace(A) Negative [facility] RBC Urine 0-2 0 - 2 /HPF [facility] Urine WBC 0-5 0 - 5 /HPF [facility] Urine Squamous Epithelial Cell 11-20 0 - 2 /HPF [facility] Urine Bacteria 2+ None Seen [facility] Hyaline Casts, Urine 0-2 0 - 2 /LPF [facility] 08/02/2024 12:2 1 PM EST 08/02/2024 12:26 PM EST Narrative [facility] - 08/02/2024 1:39 PM EST 1220Urine, Clean Catch us Generic External Data Provider LAB URINE ORDERAB LES Final Result Performing Organization Address City/[facility]/ZIP Co de Phone Number [facility] [address] [place] [phone] * Slide Review (08/02/2024 11:19 AM EST) Slide Review VERIFIED [facility] 08/02/2024 11:1 9 AM EST 08/02/2024 11:22 AM EST us Generic External Data Provider LAB BLOOD ORDERAB LES Final Result [facility] [address] [place] [phone] * (ABNORMAL) CBC auto differential (08/02/2024 11:19 AM EST) Only the most recent of2 resultswithin the time period is included. White Blood Count 11.1(H) 4.8 - 10.8 X10*3/uL [facility] Red Blood Count 5.10 4.20 - 5.50 X10*6/uL [facility] Hemoglobin 14.7 12.0 - 16.0 g/dl [facility] Hematocrit 43.9 37.0 - 47.0 % [facility] Mean Corpuscular Volume 86.1 80.0 - 98.0 fL [facility] Mean Corpuscular Hemoglobin 28.8 27.0 - 33.0 pg [facility] Mean Corpuscular HGB Conc 33.5 31.0 - 35.0 g/dl [facility] Red Cell Distribution Width 14.0 11.0 - 16.0 % [facility] Platelet Count 232 160 - 400 X10*3/uL [facility] Mean Platelet Volume 11.2 9.4 - 12.3 fL [facility] Neutrophils Percent Auto 91.1(H) 45 - 73 % [facility] Imm Gran Pct Auto 0.5(H) 0.0 - 0.4 % [facility] Lymphocytes Percent Auto 3.8(L) 20 - 40 % [facility] Monocytes Percent Auto 3.4 2 - 11 % [facility] Eosinophils Percent Auto 0.9 0 - 4 % [facility] Basophils Percent Auto 0.3 0 - 2 % [facility] NRBC Pct Auto 0.0 0.0 - 0.2 /100WBC [facility] Neutrophils Absolute Auto 10.1(H) 2.0 - 8.3 x10*3/uL [facility] Imm Gran Abs Auto 0.05(H) 0.00 - 0.03 X10*3/uL [facility] Lymphocytes Absolute Auto 0.4(L) 1.2 - 4.9 X10*3/uL [facility] Monocytes Absolute Auto 0.4 0.1 - 1.2 X10*3/uL [facility] Eosinophils Absolute Auto 0.1 0.0 - 0.4 X10*3/uL [facility] Basophils Absolute Auto 0.0 0.0 - 0.2 X10*3/uL [facility] NRBC Abs Auto 0.000 0.0 - 0.012 X10*3/uL [facility] 08/02/2024 11:1 9 AM EST 08/02/2024 11:22 AM EST us Generic External Data Provider LAB BLOOD ORDERAB LES Edited Result - Final Performing Organization Address City/[facility]/ZIP Co de Phone Number [facility] [address] [place] [phone] * Magnesium (08/02/2024 11:19 AM EST) Only the most recent of2 resultswithin the time period is included. Magnesium 2.1 1.6 - 2.6 mg/dL [facility] [facility] 08/02/2024 11:1 9 AM EST 08/02/2024 11:22 AM EST us Generic External Data Provider LAB BLOOD ORDERAB LES Final Result Performing Organization Address City/[facility]/ZIP Co de Phone Number [facility] [address] [place] [phone] * Lipase (08/02/2024 11:19 AM EST) Only the most recent of2 resultswithin the time period is included. Lipase 18 8 - 78 U/L [facility] 08/02/2024 11:1 9 AM EST 08/02/2024 11:22 AM EST Generic External Data Provider LAB BLOOD ORDERAB LES Final Result Performing Organization Address City/[facility]/ZIP Co de Phone Number [facility] [address] [place] [phone] * Hepatic Function Panel (08/02/2024 11:19 AM EST) Only the most recent of2 resultswithin the time period is included. Bilirubin, Direct 0.1 0.0 - 0.5 mg/dL [facility] 08/02/2024 11:1 9 AM EST 08/02/2024 11:22 AM EST Generic External Data Provider LAB BLOOD ORDERAB LES Final Result Performing Organization Address [facility] Co de Phone Number [facility] [address] [place] [phone] * (ABNORMAL) Comprehensive Metabolic Panel (08/02/2024 11:19 AM EST) Only the most recent of2 resultswithin the time period is included. Sodium 139 135 - 145 mmol/L [facility] Potassium 4.0 3.3 - 5.1 mmol/L [facility] Chloride 104 96 - 108 mmol/L [facility] Carbon Dioxide 24 22 - 29 mmol/L [facility] Anion Gap 15 12 - 20 [facility] Urea Nitrogen (BUN) 17(H) 9 - 16 mg/dL [facility] Creatinine, Serum 0.70 0.5 - 1.4 mg/dL [facility] Creatinine Clr Calc Pharmacy 88.1 [facility] Comment:Provided height and weight: 157.48 cm,82.2 kg.eGFR (calculated from the MDRD study equation) and eCrCl(calculated from the Cockcroft-Gault equation) are based ondifferent parameters and may not yield comparable results.If eCrCl result is absurd, please check patient'sheight/weight. Estimated Glomerular Filt Rate >60 [facility] Comment:Chronic Kidney Disea se: Estimated GFR < 60 mL/min/1.12u7Krdoyc Kidney Disease: Estimated GFR < 15 mL/min/1.73m2 Glucose 116(H) 60 - 115 mg/dL [facility] Calcium 9.6 8.4 - 10.2 mg/dL [facility] Bilirubin, Total 0.5 0.0 - 1.0 mg/dL [facility] Aspartate Amino Transferase 21 5 - 31 U/L [facility] Alanine Aminotransferase 23 0 - 31 U/L [facility] Total Protein 8.7(H) 6.5 - 8.0 g/dL [facility] Albumin Level 4.6 3.5 - 5.0 g/dL [facility] Alkaline Phosphatase 103 39 - 117 U/L [facility] 08/02/2024 11:1 9 AM EST 08/02/2024 11:22 AM EST us Generic External Data Provider LAB BLOOD ORDERAB LES Final Result Performing Organization Address City/State/[facility] Co de Phone Number [facility] [address] [place] [phone] * (ABNORMAL) Urinalysis w/reflex microscopic (07/31/2024 12:09 PM EST) Color Urine Yellow [facility] Appearance Urine Cloudy [facility] PH 6.5 5.0 - 9.0 [facility] Glucose Urine UA Negative Negative mg/dL [facility] Urine Blood Trace(A) Negative [facility] Specific Huffman - Urine 1.025 1.005 - 1.025 [facility] Urine Protein Negative Neg-Trace mg/dL [facility] Urine Ketones Negative Negative mg/dL [facility] Nitrite Urine Negative Negative [facility] Leukocyte Esterase Urine Negative Negative [facility] 07/31/2024 12:0 9 PM EST 07/31/2024 12:12 PM EST Narrative [facility] - 07/31/2024 12:17 PM EST [id number], Clean Catch us Generic External Data Provider LAB URINE ORDERAB LES Final Result [facility] [address] [place] [phone] * (ABNORMAL) Basic Metabolic Panel (07/31/2024 12:09 PM EST) Sodium 140 135 - 145 mmol/L [facility] Potassium 4.0 3.3 - 5.1 mmol/L [facility] Chloride 108 96 - 108 mmol/L [facility] Carbon Dioxide 25 22 - 29 mmol/L [facility] Anion Gap 11(L) 12 - 20 [facility] Urea Nitrogen (BUN) 16 9 - 16 mg/dL [facility] Creatinine, Serum 0.70 0.5 - 1.4 mg/dL [facility] Creatinine Clr Calc Pharmacy 89.0 [facility] Comment:Provided height and weight: 157.48 cm,83.915 kg.eGFR (calculated from the MDRD study equation) and eCrCl(calculated from the Cockcroft-Gault equation) are based ondifferent parameters and may not yield comparable results.If eCrCl result is absurd, please check patient'sheight/weight. Estimated Glomerular Filt Rate >60 [facility] Comment:Chronic Kidney Disea se: Estimated GFR < 60 mL/min/1.74c1Chbish Kidney Disease: Estimated GFR < 15 mL/min/1.73m2 Glucose 81 60 - 115 mg/dL [facility] Calcium 9.5 8.4 - 10.2 mg/dL [facility] 07/31/2024 12:0 9 PM EST 07/31/2024 12:12 PM EST us Generic External Data Provider LAB BLOOD ORDERAB LES Final Result [facility] [address] [place] [phone] * CT Abdomen Pelvis w/o Contrast (07/31/2024 12:05 PM EST) Anatomical Region Laterality Modality Body, Pelvis, Abdomen Computed T omography 07/31/2024 12:0 5 PM EST Narrative 07/31/2024 12:08 PM EST ? [facility] ?[address] ?[place] [address] ? CT Scan Report ? Signed ? Patient: Buck Rader ?MR#: MM ?? [id number] ? : 1965 ?Acct:[id number] ? Age/Sex: 59 / F ?ADM Date: 07/31/24 ? Loc: HO.ED ? Attending Dr: ? Ordering Physician: Shanda Mora ?? Date of Service: 07/31/24 ?? Procedure(s): CT abdomen pelvis wo IV con ?? Accession Number(s): [id number] ? cc: Panda Douglas MD; Shanda Mora ? Report Number: ?? [id number]: Total DLP = ??618.00 mGy-cm ? CLINICAL [...] by Rex Hammond MD in OV> ? 07/31/241205 ? DD/ 04 ? TD/TT: 02/01/25 1205 ? Sales Product Specialist: ? Procedure Note Donotuseinterpreter, Image - 07/31/[address] [address] [address] Scan Report Signed Patient: Buck Rader DMR#: [id number] : 1965Acct:[id number] Age/Sex: 59 / FADM Date: 07/31/24 Loc: HO.ED Attending Dr: Ordering Physician: Shanda Mora Date of Service: 07/31/24 Procedure(s): CT abdomen pelvis wo IV con Accession Number(s): [id number] cc: Panda Douglas MD; Shadna Mora Report Number: [id number]: Total DLP = 618.00 mGy-cm CLINICAL HISTORY: [...] 07/31/24 1206 DD/ 1205 TD/TT: 07/31/24 1205 Sales Product Specialist: [facility] External Provider IMG CT PROCEDURES Edited Result - Final * (ABNORMAL) Lipid Panel with Reflex to Direct LDL (07/12/2024 9:01 AM EST) Triglycerides 126 <150 mg/dL [facility] Comment:Desirable Triglyceri de: less than 150 mg/dLBorderline High Triglyceride 150-199 mg/dLHigh Triglyceride: 200-499 mg/dLVery High Triglyceride: greater than or equal to 5OO mg/dL Cholesterol 251(H) <200 mg/dL [facility] Comment:Desirable Cholestero l: less than 200 mg/dLBorderline High Cholesterol: 200-239 mg/dLHigh Cholesterol: greater than 239 mg/dL LDL Cholesterol Calculated 168(H) <100 mg/dL [facility] Comment:Desirable LDL: less than 100 mg/dLNear Optimal/Above Optimal LDL: 110- 129 mg/dLBorderline High LDL: 130-159 mg/dLHigh LDL: 160-189 mg/dLVery High LDL: greater than or equal to 190 mg/dL HDL Cholesterol 58 >40 mg/dL [facility] Comment:Desirable HDL: great er than 40 mg/dL Note: This HDL assay may give artificially low results in patients with liver disease. Blood 07/12/2024 9:01 AM EST 07/12/2024 10:59 AM EST us Panda Douglas MD LAB BLOOD ORDERABLES Fin al Result [facility] [address] [place] [phone] * Hemoglobin A1c (07/12/2024 9:01 AM EST) Hemoglobin A1c 5.6 <6.0 % [facility] Comment:Hemoglobin A1C Refer ence Range Adults: 4.8 - 6.0 % Non diabetic: < 6.0 % Goal: < 7.0 %Additional Action Suggested: > 8.0 %Note: Hemoglobin A1c results are invalid for patients with abnormal amounts of HbF. Blood transfusions may impact the HbA1c concentration in the patient sample. Estimated Average Glucose 114 mg/dL [facility] Comment:eAG = Estimated ave rage glucose which is %A1C expressed asaverage glucose, using the formula of the C5M-PhgreirYrreqtx Glucose study (ADAG), Diabetes Care, Vol.31,#8,2007 Blood Venous blood specimen / Unknown 07/12/2024 9:01 AM EST 07/12/2024 10:59 AM EST us Panda Douglas MD LAB BLOOD ORDERABLES Fin al Result Performing Organization Address [facility] Co de Phone Number [facility] [address] [place] [phone] * Pinworm Examination (07/02/2024 10:08 AM EST) Pinworm Examination SEE NOTE [facility] Comment:PINWORM EXAMINATION Micro Number: [id number] Test Status: Final Specimen Source: Pinworm paddle prep Specimen Quality: Adequate Pinworm Result 1: No enterobius vermicularis seen. Comment: 3 PINWORM PADDLE PREPS SENT IN FOR ONE ORDERTHIS TEST WAS PERFORMED AT:[employer] [place] [id number] BHAKTA MD Swab Anal structure / Unknown 07/02/2024 10:08 AM EST 07/02/2024 11:23 AM EST us Tariq Maldonado MD LAB MICROBIOLOGY - GE NERAL ORDERABLES Final Result Performing Organization Address [facility] Co de Phone Number [facility] [address] [place] [phone] * Herpes Simplex Virus Culture with Reflex Typing (06/29/2024 12:00 AM EST) HSV Culture/Type SEE NOTE [facility] Comment:HERPES SIMPLEX VIRUS CULTURE W/RFL TO TYPING Micro Number: [id number] Test Status: Final Specimen Source: Unk Specimen Quality: Inadequate Result: Test not performed. No suitable specimen received. Please review the test requirements at [email or web address] TEST WAS PERFORMED AT:[facility] [address] [id number] BHAKTA MD Swab Anal structure / Unknown 06/29/2024 06/29/2024 us Tariq Maldonado MD LAB MICROBIOLOGY - NERPR ORDERABLES Final Result [facility] [address] [place] [phone] * (ABNORMAL) HM PAP/HPV (01/29/2024) Pap Smear 4. LSIL(A) 1. NILM HPV Not Detected Undetected, Indeterminat e, Quantitative , Not Detected us Historical Provider HEALTH MAINTENANCE Edited Result - Final * BI Mammogram Screening Tomosynthesis Bilateral (08/21/2023 2:50 PM EST) Anatomical Region Laterality Modality Breast Bilateral Mammography 08/21/2023 2:50 PM EST Narrative 09/14/2023 8:11 AM EDT ? [facility] ? [address] ?[place] [address] ? Mammography Report ? Signed ? Patient: Joel Brown,Buck D ?MR#: MM ?? [id number] ? : 1965 ?Acct:[id number] ? Age/Sex: 58 / F ?ADM Date: 08/21/23 ? Loc: HO.MAMMO ? Attending Dr: Panda Douglas MD ? Ordering Physician: Panda Douglas MD ?Results: 1Ne ?? gative ? Date of Service: 08/21/23 ?Follow Up: 1 Year From Orig ?? inal Mammogram ? Procedure(s): MM tomosynthesis screening BI ?? Accession Number(s): [id number] ? cc: Panda Douglas MD ? EXAMINATION: ?? MM SCREENING DIGITAL BREAST TOMOSYNTHESIS, BILATERAL ? CLINICAL INFORMATION: ? Screening. Asymptomatic. ? COMPARISON: ?? Mammography: This study is compared with prior exams dating back to ?? 2019. ? TECHNIQUE: ?? Digital breast tomosynthesis is performed in both the craniocaudal and ?? mediolateral oblique views along with computer-aided detection (CAD). ?? Synthesized 2D images are generated from the tomosynthesis. ? FINDINGS: ?? There are scattered areas of fibroglandular density (ACR BI-RADS breast ?? composition Category b). ? There are no significant masses, abnormal calcifications, or other ?? abnormalities. ? MM/MM tomosynthesis screening BI ?? IMPRESSION: ?? No mammographic evidence of malignancy. ? ASSESSMENT: ? BI-RADS BI-RADS 1 - Negative ? RECOMMENDATION: ?? Routine annual mammography screening. ? 1 year F/U ? This examination should not preclude the clinical evaluation of a ?? suspicious palpable abnormality. ? This patient's information was entered into a reminder system with a ?? target due date for their next mammogram. ? Dictated By: ?Ary Mcdonnell MD ? Signed By: ?<Electronically signed by Ary Mcdonnell MD in OV> ? 09/14/23 0807 ? DD/ 1450 ? TD/TT: ? Sales Product Specialist: ? Procedure Note Juliet, Image - 09/14/2023 [facility] [address] [place] [address] Mammography Report Signed Patient: Buck Rader [facility]#: [id number] : 1965Acct:[id number] Age/Sex: 58 / FADM Date: 08/21/23 Loc: [facility].MAMMO Attending Dr: Panda Douglas MD Ordering Physician: Panda Douglas MDResults: 1Ne gative Date of Service: 08/21/23Follow Up: 1 Year From [facility] ina Mammogram Procedure(s): MM tomosynthesis screening BI Accession Number(s): [id number] cc: Panda Douglas MD EXAMINATION: MM SCREENING DIGITAL BREAST TOMOSYNTHESIS, BILATERAL CLINICAL INFORMATION: Screening. Asymptomatic. COMPARISON: Mammography: This study is compared with prior exams dating back to 2019. TECHNIQUE: Digital breast tomosynthesis is performed in both the craniocaudal and mediolateral oblique views along with computer-aided detection (CAD). Synthesized 2D images are generated from the tomosynthesis. FINDINGS: There are scattered areas of fibroglandular density (ACR BI-RADS breast composition Category b). There are no significant masses, abnormal calcifications, or other abnormalities. MM/MM tomosynthesis screening BI IMPRESSION: No mammographic evidence of malignancy. ASSESSMENT: BI-RADS BI-RADS 1 - Negative RECOMMENDATION: Routine annual mammography screening. 1 year F/U This examination should not preclude the clinical evaluation of a suspicious palpable abnormality. This patient's information was entered into a reminder system with a target due date for their next mammogram. Dictated By: Ary Mcdonnell MD Signed By: <Electronically signed by Ary Mcdonnell MD in OV> 09/14/23 0807 DD/ 1450 TD/TT: Sales Product Specialist: us Panda Douglas MD IMG BI PROCEDURES Final Result * Hepatitis Panel, General (06/18/2023 9:52 AM EST) Hepatitis A IgM Nonreactive Nonreactive [facility] Comment:IgM antibodies to MALONE V not detected; does not exclude earlyacute or recovered HAV infection. ~Hepatitis B Surface Antibody REACTIVE Nonreactive [facility] Comment:REACTIVE: > 11.99 mI U/mL Hepatitis B Core Antibody Nonreactive Nonreactive [facility] Hepatitis C Antibody Nonreactive Nonreactive [facility] Comment:Antibodies to HCV no t detected; does not exclude early acuteHCV infection. Hepatitis B Surface Ag Negative Negative [facility] Blood 06/18/2023 9:52 AM EST 06/18/2023 1:03 PM EST us Panda Douglas MD LAB BLOOD ORDERABLES Fin al Result Performing Organization Address City/[facility]/ZIP Co de Phone Number [facility] [address] [place] [phone] * HIV-1/2 Antigen and Antibodies, Fourth Generation, with Reflexes (06/18/2023 9:52 AM EST) HIV AB/AG Nonreactive Nonreactive [facility] Comment:HIV-1 p24 Ag and/or HIV-1/HIV-2 Ab not detected.A test result that is nonreactive does not exclude thepossibility of exposure to or infection with HIV-1 and/orHIV-2. Nonreactive results in this assay for individualswith prior exposure to HIV-1 and/or HIV-2 may be due toantigen and antibody levels that are below the limit ofdetection of this assay.The [employer] HIV Ag/Ab Combo assay result andsupplemental assay results should be interpreted inconjunction with the patient's clinical presentation,history and other laboratory results. If the results areinconsistent with clinical evidence, additional testing issuggested to confirm the result. Blood Venous blood specimen / Unknown 06/18/2023 9:52 AM EST 06/18/2023 1:03 PM EST us Panda Douglas MD LAB BLOOD ORDERABLES Fin al Result Performing Organization Address [facility]/ZIP Co de Phone Number [facility] [address] [place] [phone] * Hm Colonoscopy (03/17/2018) Colonoscopy Normal Normal us Historical Provider HEALTH MAINTENANCE Edited Result - Final from Last 3 Months or Most Recently Relevant to Health Maintenance Insurance [facility] C3 DENTAL-[facility] MEDICAID STAND ADULT Care Teams Staff Midwife Relationship Specialty Start Date End Date Panda Douglas MD [address] [place] [address] [place] [address] PCP - General Family Medicine 09/18/16
--- OUTSIDE RECORDS SUMMARY | 2024-08-02 16:26 | XMS_ITS | Encounter Summary ---
Author Organization [employer] Address [address] [place] [address] Care Team Providers Care Assistant Sales Center Manager Name Role Phone Katie Douglas MD Primary Care Provider + Encounter Details Date Type Department Care Team (Latest Contact Info) Description 08/02/2024 Travel Social History Tobacco Use Types Packs/Day Years [...] Info) Description 09/20/2024 9:00 AM EDT Telemedicine [facility] [address] [place] [address] Katie Douglas MD [address] [place] [address] documented as of this encounter Visit Diagnoses Not on filedocumented in this encounter Additional Health Concerns Assessment Noted Time PHQ-9 Depression Total Score: 8 02/12/20 24 10:40 AM EDT documented as of this encounter Care Teams Assistant Sales Center Manager Relationship Specialty Start Date End Date Katie Douglas MD [address] [place] [address] PCP - General Family Medicine 09/18/16 documented as of this encounter
--- OUTSIDE RECORDS SUMMARY | 2024-08-02 16:27 | XMS_ITS | Encounter Summary ---
Author Organization [employer] Address [address] [facility] [address] [place] [address] Care Team Providers Care Clerk Telegraph Service Name Role Phone Katie Douglas MD Primary Care Provider + Encounter Details Date Type Department Care Team (Latest Contact Info) Description 08/27/2021 Abstract [facility] CONVERSIONS Dental, Provider, DDS Social History Tobacco [...] Info) Description 09/20/2024 9:00 AM EDT Telemedicine [facility] [address] [place] [address] Katie Douglas MD [address] [place] [address] documented as of this encounter Visit Diagnoses Not on filedocumented in this encounter Care Teams Clerk Telegraph Service Relationship Specialty Start Date End Date Katie Douglas MD [address] [place] [address] PCP - General Family Medicine 09/18/16 documented as of this encounter
--- OUTSIDE RECORDS SUMMARY | 2024-08-02 16:27 | XMS_ITS | Encounter Summary ---
Author Organization [employer] Address [address] [facility] [address] [place] [address] Care Team Providers Care Ware Dresser Name Role Phone Katie Douglas MD Primary Care Provider + Encounter Details Date Type Department Care Team (Latest Contact Info) Description 04/24/2020 Abstract [facility] Dental, Provider, DDS Social History Tobacco [...] Info) Description 09/20/2024 9:00 AM EDT Telemedicine [facility] [address] [place] [address] Katie Douglas MD [address] [place] [address] documented as of this encounter Visit Diagnoses Not on filedocumented in this encounter Care Teams Ware Dresser Relationship Specialty Start Date End Date Katie Douglas MD [address] [place] [address] PCP - General Family Medicine 09/18/16 documented as of this encounter
--- OUTSIDE RECORDS SUMMARY | 2024-08-02 16:27 | XMS_ITS | Encounter Summary ---
Author Organization [employer] Address [address] [facility] [address]t [place] [address] Care Team Providers Care Dice Spotter Name Role Phone Katie Douglas MD Primary Care Provider + Encounter Details Date Type Department Care Team ([facility] st Contact Info) Description 07/31/2024 Orders Only [facility] External Provider, [facility] Social History Tobacco Use Types Packs/Day Years [...] Info) Description 09/20/2024 9:00 AM EDT Telemedicine [facility] [address] [place], [place] [phone] Katie Douglas MD [address] [place], [place] [phone] documented as of this encounter Procedures Procedure [...] Reflex to Culture (07/31/2024 12:09 PM EST) Color Urine Yellow [facility] Appearance Urine Cloudy [facility] PH 6.5 5.0 - 9.0 [facility] Glucose Urine UA Negative Negative mg/dL [facility] Urine Blood Trace(A) Negative [facility] Specific Oaks - Urine 1.025 1.005 - 1.025 [facility] Urine Protein Negative Neg-Trace mg/dL [facility] Urine Ketones Negative Negative mg/dL [facility] Nitrite Urine Negative Negative [facility] Leukocyte Esterase Urine Negative Negative [facility] RBC Urine 0-2 0 - 2 /HPF [facility] Urine WBC 0-5 0 - 5 /HPF [facility] Urine Squamous Epithelial Cell 6-10 0 - 2 /HPF [facility] Other Crystals Urine Present [facility] Urine Bacteria Trace None Seen [facility] Hyaline Casts, Urine 0-2 0 - 2 /LPF [facility] 07/31/2024 12:0 9 PM EST 07/31/2024 12:12 PM EST Narrative [facility] - 07/31/2024 12:32 PM EST [id number], Clean Catch Generic External Data Provider LAB URINE ORDERAB LES Final Result Performing Organization Address [facility] Co de Phone Number [facility] [address] [place] [phone] * Lipase (07/31/2024 12:09 PM EST) Lipase 20 8 - 78 U/L [facility] 07/31/2024 12:0 9 PM EST 07/31/2024 12:12 PM EST us Generic External Data Provider LAB BLOOD ORDERAB LES Final Result Performing Organization Address [facility] Co de Phone Number [facility] [address] [place] [phone] * Magnesium (07/31/2024 12:09 PM EST) Magnesium 2.3 1.6 - 2.6 mg/dL [facility] 07/31/2024 12:0 9 PM EST 07/31/2024 12:12 PM EST us Generic External Data Provider LAB BLOOD ORDERAB LES Final Result [facility] [address] [place] [phone] * (ABNORMAL) Basic Metabolic Panel (07/31/2024 12:09 PM EST) Sodium 140 135 - 145 mmol/L [facility] Potassium 4.0 3.3 - 5.1 mmol/L [facility] Chloride 108 96 - 108 mmol/L [facility] Carbon Dioxide 25 22 - 29 mmol/L [facility] Anion Gap 11(L) 12 - 20 [facility] Urea Nitrogen (BUN) 16 9 - 16 mg/dL [facility] Creatinine, Serum 0.70 0.5 - 1.4 mg/dL [facility] Creatinine Clr Calc Pharmacy 89.0 [facility] Comment:Provided height and weight: 157.48 cm,83.915 kg.eGFR (calculated from the MDRD study equation) and eCrCl(calculated from the Cockcroft-Gault equation) are based ondifferent parameters and may not yield comparable results.If eCrCl result is absurd, please check patient'sheight/weight. Estimated Glomerular Filt Rate >60 [facility] Comment:Chronic Kidney Disea se: Estimated GFR < 60 mL/min/1.25x3Xfduay Kidney Disease: Estimated GFR < 15 mL/min/1.73m2 Glucose 81 60 - 115 mg/dL [facility] Calcium 9.5 8.4 - 10.2 mg/dL [facility] 07/31/2024 12:0 9 PM EST 07/31/2024 12:12 PM EST Generic External Data Provider LAB BLOOD ORDERAB LES Final Result Performing Organization Address [facility]/ZIP Co de Phone Number [facility] [address] [place] [phone] * (ABNORMAL) Hepatic Function Panel (07/31/2024 12:09 PM EST) Bilirubin, Total 0.4 0.0 - 1.0 mg/dL [facility] Bilirubin, Direct 0.1 0.0 - 0.5 mg/dL [facility] Aspartate Amino Transferase 20 5 - 31 U/L [facility] Alanine Aminotransferase 22 0 - 31 U/L [facility] Total Protein 8.2(H) 6.5 - 8.0 g/dL [facility] Albumin Level 4.4 3.5 - 5.0 g/dL [facility] Alkaline Phosphatase 97 39 - 117 U/L [facility] 07/31/2024 12:0 9 PM EST 07/31/2024 12:12 PM EST Generic External Data Provider LAB BLOOD ORDERAB LES Final Result Performing Organization Address [facility] Co de Phone Number [facility] [address] [place] [phone] * (ABNORMAL) Urinalysis w/reflex microscopic (07/31/2024 12:09 PM EST) Color Urine Yellow [facility] Appearance Urine Cloudy [facility] PH 6.5 5.0 - 9.0 [facility] Glucose Urine UA Negative Negative mg/dL [facility] Urine Blood Trace(A) Negative [facility] Specific Oaks - Urine 1.025 1.005 - 1.025 [facility] Urine Protein Negative Neg-Trace mg/dL [facility] Urine Ketones Negative Negative mg/dL [facility] Nitrite Urine Negative Negative [facility] Leukocyte Esterase Urine Negative Negative [facility] 07/31/2024 12:0 9 PM EST 07/31/2024 12:12 PM EST Narrative [facility] - 07/31/2024 12:17 PM EST [id number], Clean Catch us Generic External Data Provider LAB URINE ORDERAB LES Final Result [facility] [address] [place] [phone] * (ABNORMAL) CBC auto differential (07/31/2024 12:09 PM EST) White Blood Count 6.3 4.8 - 10.8 X10*3/uL [facility] Red Blood Count 4.75 4.20 - 5.50 X10*6/uL [facility] Hemoglobin 13.6 12.0 - 16.0 g/dl [facility] Hematocrit 40.9 37.0 - 47.0 % [facility] Mean Corpuscular Volume 86.1 80.0 - 98.0 fL [facility] Mean Corpuscular Hemoglobin 28.6 27.0 - 33.0 pg [facility] Mean Corpuscular HGB Conc 33.3 31.0 - 35.0 g/dl [facility] Red Cell Distribution Width 14.3 11.0 - 16.0 % [facility] Platelet Count 238 160 - 400 X10*3/uL [facility] Mean Platelet Volume 11.1 9.4 - 12.3 fL [facility] Neutrophils Percent Auto 59.1 45 - 73 % [facility] Imm Gran Pct Auto 0.2 0.0 - 0.4 % [facility] Lymphocytes Percent Auto 27.2 20 - 40 % [facility] Monocytes Percent Auto 7.6 2 - 11 % [facility] Eosinophils Percent Auto 5.1(H) 0 - 4 % [facility] Basophils Percent Auto 0.8 0 - 2 % [facility] NRBC Pct Auto 0.0 0.0 - 0.2 /100WBC [facility] Neutrophils Absolute Auto 3.7 2.0 - 8.3 x10*3/uL [facility] Imm Gran Abs Auto 0.01 0.00 - 0.03 X10*3/uL [facility] Lymphocytes Absolute Auto 1.7 1.2 - 4.9 X10*3/uL [facility] Monocytes Absolute Auto 0.5 0.1 - 1.2 X10*3/uL [facility] Eosinophils Absolute Auto 0.3 0.0 - 0.4 X10*3/uL [facility] Basophils Absolute Auto 0.1 0.0 - 0.2 X10*3/uL [facility] NRBC Abs Auto 0.000 0.0 - 0.012 X10*3/uL [facility] 07/31/2024 12:0 9 PM EST 07/31/2024 12:12 PM EST us Generic External Data Provider LAB BLOOD ORDERAB LES Final Result Performing Organization Address [facility] Co de Phone Number [facility] [address] [place] [phone] * CT Abdomen Pelvis w/o Contrast (07/31/2024 12:05 PM EST) Anatomical Region Laterality Modality Body, Pelvis, Abdomen Computed T omography 07/31/2024 12:0 5 PM EST Narrative 07/31/2024 12:08 PM EST ? [facility] ?[address] ?[place] [address] ? CT Scan Report ? Signed ? Patient: Joel Mastache,Buck D ?MR#: [id number] ?? [id number] ? : 1965 ?Acct:[id number] ? Age/Sex: 59 / F ?ADM Date: 02/01/25 ? Loc: HO.ED ? Attending Dr: ? Ordering Physician: Shanda Mora ?? Date of Service: 07/31/24 ?? Procedure(s): CT abdomen pelvis wo IV con ?? Accession Number(s): [id number] ? cc: Katie Douglas MD; Shanda Mora ? Report Number: ?? [id number]: Total DLP = ??618.00 mGy-cm ? CLINICAL [...] DD/ 1205 ? TD/TT: 07/31/24 1205 ? Gas Meter Installer Helper: ? Procedure Note Juliet, Image - 07/31/[address] [place] [id number] [address] Scan Report Signed Patient: Buck Rader DMR#: [id number] : 1965Acct:[id number] Age/Sex: 59 / FADM Date: 07/31/24 Loc: HO.ED Attending Dr: Ordering Physician: Shanda Mora Date of Service: 07/31/24 Procedure(s): CT abdomen pelvis wo IV con Accession Number(s): [id number] cc: Katie Douglas MD; Shanda Mora Report Number: [id number]: Total DLP = 618.00 mGy-cm CLINICAL HISTORY: [...] 07/31/24 1206 DD/ 1205 TD/TT: 07/31/24 1205 Gas Meter Installer Helper: [facility] External Provider IMG CT PROCEDURES Edited Result - Final documented in this encounter Visit Diagnoses Not on filedocumented in this encounter Additional Health Concerns Assessment Noted Time PHQ-9 Depression Total Score: 8 02/12/20 24 10:40 AM EDT documented as of this encounter Care Teams Dice Spotter Relationship Specialty Start Date End Date Katie Douglas MD [address] [place] [address] PCP - General Family Medicine 09/18/16 documented as of this encounter
--- OUTSIDE RECORDS SUMMARY | 2024-08-02 16:27 | XMS_ITS | Encounter Summary ---
Author Organization [employer] Address [address] [facility] 7t [place] [address] Care Team Providers Care Creative Services Writer Name Role Phone Katie Douglas MD Primary Care Provider + Encounter Details Date Type Department Care Team (Late Contact Info) Description 10/29/2022 Abstract [facility] [address] [place] [phone] Sandra Ospina RN [address] [place] [address] [phone] Social History Tobacco Use Types Packs/Day Years [...] Department Care Team (Late Contact Info) Description 09/20/2024 9:00 AM EDT Telemedicine [facility] [address] [place] [address] [phone] Katie Douglas MD [address] [place], [place] [phone] documented as of this encounter Procedures Procedure Name Priority Date/Time Associated Diagnosis Comments MAMMOGRAPHY Routine 08/08/2021 PAP/HPV Routine 03/01/2020 COLONOSCOPY Routine 03/17/2018 documented in this encounter Results * Mammography (08/08/2021) Mammogram B-RADS 1: Neg Anatomical Region Laterality Modality Other Historical Provider HEALTH MAINTENANCE Final Result * Pap Smear (03/01/2020) Pap smear ASCUS'HPV Narrative Sandra Ospina, JIM - 03/01/2020 Followed by SPEECH PATHOLOGIST ONC, 06/16/20 s/p [facility]/ECC [facility] Provider HEALTH MAINTENANCE Edited Result - Final * Colonoscopy (03/17/2018) Colonoscopy Normal Normal [facility] Provider HEALTH MAINTENANCE Edited Result - Final documented in this encounter Visit Diagnoses Not on filedocumented in this encounter Care Teams Creative Services Writer Relationship Specialty Start Date End Date Katie Douglas MD [address] [place] [phone] PCP - General Family Medicine 09/18/16 documented as of this encounter
--- OUTSIDE RECORDS SUMMARY | 2024-08-02 16:27 | XMS_ITS | Encounter Summary ---
Author Organization [employer] Address [address] [facility] 7t [place] [address] Care Team Providers Care Director Nursing Service Name Role Phone Katie Douglas MD Primary Care Provider + Encounter Details Date Type Department Care Team (Late Contact Info) Description 04/02/2023 Abstract [facility] [address] [place] [address] [phone] Rozina Gama Social History Tobacco Use Types [...] Info) Description 09/20/2024 9:00 AM EDT Telemedicine [facility] [address] [place], [place] [phone] Katie Douglas MD [address] [place], [place] [phone] documented as of this encounter Procedures Procedure Name Priority Date/Time Associated Diagnosis Comments HM PAP/HPV Routine 07/16/2021 documented in this encounter Results * Pap Smear (07/16/2021) Pap Negative for intraephithelial lesion or malignancy Negative for intraephithelial lesion or malignancy, Other HPV Undetected us Historical Provider HEALTH MAINTENANCE Final Result documented in this encounter Visit Diagnoses Not on filedocumented in this encounter Additional Health Concerns Assessment Noted Time PHQ-9 Depression Total Score: 10 023 2:01 PM EDT documented as of this encounter Care Teams Director Nursing Service Relationship Specialty Start Date End Date Katie Douglas MD [address] [place] [address] PCP - General Family Medicine 09/18/16 documented as of this encounter
--- OUTSIDE RECORDS SUMMARY | 2024-08-02 16:27 | XMS_ITS | Encounter Summary ---
Author Organization [employer] Address [address] [facility] [place] [address] Care Team Providers Care Boiler Installer Name Role Phone Katie Douglas MD Primary Care Provider + Reason for Visit * Reason Onset Date Comments Lab Orders 07/02/2024 Encounter Details Date Type Department Care Team ([facility] Contact Info) Description 07/02/2024 Telephone [facility] [address] [place], [place] [phone] Sonia Hare RN [address] [place], [place] [phone] Lab Orders Social History Tobacco Use Types [...] AM EST TC placed to pt via [employer] cable puller ([id number] ID#[id number]) to inform of message, Please inform patient [...] EST Received call from [facility] reporting the HSV lab test from [...] Info) Description 09/20/2024 9:00 AM EDT Telemedicine [facility] [address] [place] [phone] Katie Douglas MD [address] [place] [address] documented as of this encounter Visit Diagnoses Not on filedocumented in this encounter Additional Health Concerns Assessment Noted Time PHQ-9 Depression Total Score: 8 02/12/20 24 10:40 AM EDT documented as of this encounter Care Teams Boiler Installer Relationship Specialty Start Date End Date Katie Douglas MD [address] [place] [address] PCP - General Family Medicine 09/18/16 documented as of this encounter
--- OUTSIDE RECORDS SUMMARY | 2024-08-02 16:27 | XMS_ITS | Encounter Summary ---
Author Organization [employer] Address [address] [facility] 7t [place] [address] Care Team Providers Care Vice President [employer] Name Role Phone Katie Douglas MD Primary Care Provider + Encounter Details Date Type Department Care Team (Latest Contact Info) Description 03/19/2019 Abstract [facility] Dental, Provider, DDS Social History [...] Info) Description 09/20/2024 9:00 AM EDT Telemedicine [facility] [address] [place] [address] Katie Douglas MD [address] [place] [address] documented as of this encounter Visit Diagnoses Not on filedocumented in this encounter Care Teams Vice President [employer] Relationship Specialty Start Date End Date Katie Douglas MD [address] [place] [address] PCP - General Family Medicine 09/18/16 documented as of this encounter
--- OUTSIDE RECORDS SUMMARY | 2024-08-02 16:27 | XMS_ITS | Encounter Summary ---
Author Organization [employer] Address [address] [facility] [address] [place] [address] Care Team Providers Care Template Checker Name Role Phone Katie Douglas MD Primary Care Provider + Reason for Visit * Reason Onset Date Comments Chart prep 07/29/2024 Encounter Details Date Type Department Care Team ([facility] Contact Info) Description 07/29/2024 Telephone [facility] [address] [place], [place] [phone] April Domingo MA Chart prep Social History [...] EDT Telemedicine [facility] [address] [place] [address] Katie Douglas MD [address] [place] [address] documented as of this encounter Visit Diagnoses Not on filedocumented in this encounter Additional Health Concerns Assessment Noted Time PHQ-9 Depression Total Score: 8 02/12/20 24 10:40 AM EDT documented as of this encounter Care Teams Template Checker Relationship Specialty Start Date End Date Katie Douglas MD [address] [place] [address] PCP - General Family Medicine 09/18/16 documented as of this encounter
--- OUTSIDE RECORDS SUMMARY | 2024-08-02 16:27 | XMS_ITS | Encounter Summary ---
Author Organization [employer] Address [address] [address] [place] [address] Care Team Providers Care Outboard Motorboat Operator Name Role Phone Katie Douglas MD Primary Care Provider + Encounter Details Date Type Department Care Team ([facility] Contact Info) Description 09/03/2022 Orders Only [facility] [address] [place], [place] [phone] Henrietta Newell LPN Social History Tobacco Use [...] Info) Description 09/20/2024 9:00 AM EDT Telemedicine [facility] MEDICINE [address] [place] [address] Katie Douglas MD [address] [place] [phone] documented as of this encounter Visit Diagnoses Not on filedocumented in this encounter Care Teams Outboard Motorboat Operator Relationship Specialty Start Date End Date Katie Douglas MD [address] [place] [phone] PCP - General Family Medicine 09/18/16 documented as of this encounter
--- OUTSIDE RECORDS SUMMARY | 2024-08-02 16:27 | XMS_ITS | Encounter Summary ---
Author Organization [employer] Address [address] [facility] [address] [place] [address] Care Team Providers Care Risk Management Intern Name Role Phone Katie Douglas MD Primary Care Provider + Reason for Visit * Reason Onset Date Comments Results 07/05/2024 Encounter Details Date Type Department Care Team ([facility] Contact Info) Description 07/05/2024 Telephone [facility] [address] [place], [place] [phone] Katie Douglas MD [address] [place], [place] [phone] Results Social History Tobacco Use Types Packs/Day [...] Description 09/20/2024 9:00 AM EDT Telemedicine [facility] [address] [place] [address] Katie Douglas MD [address] [place] [address] documented as of this encounter Visit Diagnoses Not on filedocumented in this encounter Additional Health Concerns Assessment Noted Time PHQ-9 Depression Total Score: 8 02/12/20 24 10:40 AM EDT documented as of this encounter Care Teams Risk Management Intern Relationship Specialty Start Date End Date Katie Douglas MD [address] [place] [address] PCP - General Family Medicine 09/18/16 documented as of this encounter
--- OUTSIDE RECORDS SUMMARY | 2024-08-02 16:27 | XMS_ITS | Encounter Summary ---
Author Organization [employer] Address [address] [facility] [address] [place] [address] Care Team Providers Care Principal Programmer Name Role Phone Katie Douglas MD Primary Care Provider + Encounter Details Date Type Department Care Team ([facility] Contact Info) Description 08/08/2022 Orders Only [facility]EDS [address] [place], [place] [phone] Henrietta Newell LPN Social History Tobacco Use [...] Info) Description 09/20/2024 9:00 AM EDT Telemedicine [facility] MED[facility]INE [address] [place] [address] Katie Douglas MD [address] [place] [address] documented as of this encounter Visit Diagnoses Not on filedocumented in this encounter Care Teams Principal Programmer Relationship Specialty Start Date End Date Katie Douglas MD [address] [place] [address] PCP - General Family Medicine 09/18/16 documented as of this encounter
--- OUTSIDE RECORDS SUMMARY | 2024-08-02 16:27 | XMS_ITS | Encounter Summary ---
Author Organization [employer] Address [address] [facility] [facility] [address] [place] [address] Care Team Providers Care Point Of Sale Associate Name Role Phone Katie Douglas MD Primary Care Provider + Reason for Visit * Reason Onset Date Comments pain from ext 02/09/2024 Encounter Details Date Type Department Care Team ([facility] st Contact Info) Description 02/09/2024 Telephone [facility] [address] [place] [address] Arsh Cortes, DDMonika [address] [place] [address] pain from ext Social History Tobacco Use [...] Info) Description 09/20/2024 9:00 AM EDT Telemedicine [facility]INE [address] [place] [address] Katie Douglas MD [address] [place] [address] documented as of this encounter Visit Diagnoses Not on filedocumented in this encounter Additional Health Concerns Assessment Noted Time PHQ-9 Depression Total Score: 10 023 2:01 PM EDT documented as of this encounter Care Teams Point Of Sale Associate Relationship Specialty Start Date End Date Katie Douglas MD [address] [place] [phone] PCP - General Family Medicine 09/18/16 documented as of this encounter
[2024-08-02 17:03] VITALS: BP 123/73; PULSE 96; RESP 18; TEMP 37; O2SAT 95
[2024-08-02] MEDS: iohexoL 350 MG/ML 100 ML INFUS..BTL 85 ML IV (17:52)
--- NOTE | 2024-08-02 18:12 | PC.NURSE ---
Pt resting quietly on stretcher; reports some relief of sx's with treatment; awaiting abd CT scan
[2024-08-02 20:07] VITALS: BP 121/61; PULSE 91; RESP 16; TEMP 37; O2SAT 97
[2024-08-02 20:08] VITALS: BP 121/61; PULSE 91; RESP 16; TEMP 37; O2SAT 97
== END 2024-08-02 20:08 | disposition home or self-care (01) ==
PROVIDERS: Physician Assistant Medical; Emergency Provider Emergency Medicine; PCP Internal Medicine
DX: K52.9 Noninfective gastroenteritis and colitis, unspecified (principal); R11.2 Nausea with vomiting, unspecified; R10.2 Pelvic and perineal pain; Z79.899 Other long term (current) drug therapy; Z03.818 Encounter for observation for suspected exposure to other biological agents ruled out
CPT/HCPCS: 0241U; 36415; 74177; 80053; 81001; 82248; 83690; 83735; 85025; 96361; 96374; 99284; J1885; Q9967

== ENCOUNTER → 2024-08-02 15:49 | Outpatient (BNV) | payer MEDICAID, SELFPAY | PROVIDERS: Emergency Provider Emergency Medicine; PCP Internal Medicine; Visit Provider Radiology Neuroradiology | DX: K52.9 Noninfective gastroenteritis and colitis, unspecified (principal) | CPT/HCPCS: 74177 ==

== ENCOUNTER 2024-08-09 08:57 | Emergency (ER) | payer MEDICAID, SELFPAY ==
[2024-08-09 10:08] VITALS: BP 134/70; PULSE 73; RESP 20; TEMP 36.1; O2SAT 98; BMI 32.9
--- NOTE | 2024-08-09 10:11 | ED_ITS ---
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 Patient states that she was here on 07/31/2024 and diagnosed with flank pain, came back on 08/02/2024 with abdominal pain / nausea / and vomiting then diagnosed with colitis and told to wait 2 days - if symptoms persist start Augmentin as prescribed. Patient stated that the symptoms persisted so she started the medication and now the diarrhea has worsened, stating she is having episodes 3 or 4 times a day. Patient denies any dizziness, lightheadedness, abdominal pain, nausea, vomiting, fever, chills, blurry vision, double vision, loss of vision, chest pain, difficulty breathing, shortness of breath, back pain, night sweats, pain with urination, increased urinary frequency, increased urinary urgency, blood in her urine or stool, syncope or a near syncopal episode, recent trauma or falls, bowel incontinence, bladder incontinence, or any other complaints at this time. Relieving factors: none Exacerbating factors: none Associated symptoms: denies other symptoms Related Data Home Medications ?Medication ?Instructions ?Recorded ?Confirmed fluoxetine 20 mg capsule 20 mg PO QAM 10/23/21 05/19/24 fluticasone propionate 50 1 - 2 spray intranasal DAILY PRN 10/23/21 05/19/24 mcg/actuation nasal spray,suspension ibuprofen 400 mg tablet 400 mg PO Q8-12H PRN 12/24/21 05/19/24 alprazolam 0.5 mg tablet 0.5 mg PO DAILY PRN anxiety 08/26/22 05/19/24 fluticasone propionate 110 2 puff inhalation BID 08/26/22 05/19/24 mcg/actuation HFA aerosol inhaler (Flovent HFA) meclizine 12.5 mg tablet 12.5 mg PO TID PRN 08/26/22 05/19/24 meloxicam 15 mg tablet 15 mg PO DAILY 08/26/22 05/19/24 naproxen 500 mg tablet 500 mg PO BID 08/26/22 05/19/24 cetirizine 10 mg tablet 10 mg PO DAILY 12/20/22 05/19/24 ketotifen fumarate 0.025 % (0.035 1 drp ophthalmic (eye) BID 12/20/22 05/19/24 %) eye drops Previous Rx's ?Medication ?Instructions ?Recorded loperamide 2 mg capsule 2 mg PO Q6H PRN loose stool #10 08/15/22 caps hydrocortisone 2.5 % topical cream 1 appl MS BEDTIME PRN itching #30 01/23/23 with perineal applicator grams menthol 0.44 %-zinc oxide 20.6 % 1 appl topical QID PRN perianal 02/04/24 topical ointment (Calmoseptine) itching #113 grams cyclobenzaprine 10 mg tablet 10 mg PO TID PRN muscle spasm #20 07/31/24 tabs lidocaine 5 % topical patch 1 patch topical DAILY #30 ea 07/31/24 amoxicillin 875 mg-potassium 1 tab PO Q12H #14 tabs 08/02/24 clavulanate 125 mg tablet Allergies Allergy/AdvReac Type Severity Reaction Status Date / Time hydromorphone Allergy Unknown hives Verified 08/09/24 10:12 oxycodone [From PERCOCET] Allergy Unknown ITCHING Verified 08/09/24 10:12 zolpidem [From AMBIEN] Allergy Unknown ITCHING Verified 08/09/24 10:12 Review of Systems 2 Constitutional: Constitutional: Reports no additional constitutional complaints, Denies chills, Denies fever(s) and Denies night sweats Eyes: Eyes: Reports no additional eye complaints, Denies blurry vision, Denies change in vision, Denies diplopia, Denies eye discharge, Denies loss of vision and Denies eye pain ENT: Denies dizziness Cardiovascular: Cardiovascular: Reports no additional cardiovascular complaints, Denies chest pain, Denies lightheadedness, Denies Loss of Consciousness and Denies dyspnea Respiratory: Respiratory: Reports no additional respiratory complaints and Denies dyspnea Gastrointestinal: Gastrointestinal: Reports no additional gastrointestinal complaints, Denies abdominal pain, Denies melena, Denies hematochezia, Reports change in bowel habits, Denies change in stool character and Reports diarrhea Genitourinary: Genitourinary: Denies hematuria, Denies urinary frequency, Denies dysuria, Denies urinary incontinence, Denies urinary hesitancy and Denies urinary urgency Musculoskeletal: Musculoskeletal: Reports no additional musculoskeletal complaints, Denies numbness and Denies tingling Neurologic: Denies dizziness, Denies loss of vision, Denies numbness and Denies tingling Psychiatric: Psychiatric: Reports no additional psychiatric complaints Endocrine: Endocrine: Reports no additional endocrine complaints Hematologic/Lymphatic: Hematologic/Lymphatic: Reports no additional hematologic/lymphatic complaints Allergic/Immunologic: Allergic/Immunologic: Reports no additional allergic/immunologic complaints PMFSH Past Medical History Attestation statement: The following information was validated with the patient. Source: old records reviewed and nursing notes reviewed Medical History External hemorrhoid Pruritus ani Achilles tendinitis of both lower extremities AFSHAN III (cervical intraepithelial neoplasia grade III) with severe dysplasia Asthma Depression Anxiety Surgical History Hx of cholecystectomy History of bilateral tubal ligation Family History Family History Mother Epilepsy Mental health disorder Social History Social History Household Members: Spouse Housing: Apartment Unable to assess alcohol history related to: Unknown Alcohol intake: never Patient Tobacco Use Status: Never used Tobacco Use of substances other than those prescribed or required for medical reasons: Unknown Advance Directives: No Advance Directives Information Provided: Yes Do you have a plan to hurt others: No Plan Current occupational status: disabled Sexual orientation: Straight/Heterosexual Gender identity: Female Physical Exam ED Vital Signs: Vital Signs - 24 hr 08/09/24 10:08 08/09/24 15:10 08/09/24 15:11 Temperature 97.0 F 97.8 F 97.8 F Pulse Rate 73 67 67 Respiratory Rate 20 20 20 Blood Pressure 134/70 118/65 118/65 Pulse Oximetry 98 97 97 Oxygen Delivery Method Room Air Room Air Room Air BMI result Body Mass Index 32.9 Const General: cooperative, no acute distress, alert and awake Nutritional Appearance: well nourished Orientation/consciousness: patient oriented x3 Limitations: no limitations HENMT Head: Yes normal to inspection and Yes atraumatic Ears: hearing grossly normal bilaterally and external ears normal General nose exam: Normal external nose present, no nasal discharge noted and no epistaxis Face and sinus: Yes normal facial exam, No abrasion and No laceration Mouth: Normal oral and palatal mucosa present, no drooling and no muffled voice Eyes General: appearance normal, both eyes and all related structures Periorbital: periorbital findings normal Eyelids: Yes eyelids normal Conjunctivae: conjunctivae normal Pupils: Equal, round and reactive pupils present EOM: EOMs intact bilaterally Neck Neck: Yes normal visual inspection, Yes full ROM and Yes no lymphadenopathy Chest Chest palpation & inspection: normal inspection of the chest Resp Effort & Inspection: normal respiratory effort and able to speak in complete sentences GI Inspection: Yes normal to inspection Neuro General: patient oriented x3, moves all extremities and CN's II-XI intact bilaterally Cranial nerves: Yes Equal, round and reactive pupils present Cognition (Neuro): normal cognition Extrem General: Yes normal to inspection, Yes full ROM and Yes capillary refill normal Psych Appearance: grossly normal Mental Status: mental status grossly normal Affect: normal affect Attitude: cooperative Thought process: Normal thought process present Thought content: Normal thought content present Insight: Good insight present (Psych) Course Course Course Narrative: RME performed by Kassidy Lowery PA-C. Patient is a 59 year old assigned female at presenting to the emergency department with diarrhea. Patient states that on 08/02 she was diagnosed with colitis and started on Augmentin. Patient states that she continues to have a lot of diarrhea. Detailed physical exam and review of systems are deferred to the primary teaching assistant. EKG, labs, and swabs ordered. Patient placed back in the waiting room pending room availability and results. Medical Decision Making Medical Decision Making MDM Narrative: Patient is a 59 year old assigned female at with a history of kidney stones presenting to the emergency department today with diarrhea. Patient's physical exam was unremarkable. Patient's blood work was unremarkable. Patient's urine showed no acute process. Patient's EKG was unremarkable. I explained my physical exam findings as well as all test results to the patient. I answered all questions asked by the patient. Patient was unable to provide a stool sample while in the department because she did not have any diarrhea in the multiple hours she was here. I am most suspicious the patient's diarrhea is secondary to her Augmentin use. I stressed the importance of the patient taking her medication as directed (either prescribed or as the over the counter packaging recommends) - and stopping her augmentin as she is not tolerating the adverse effects well. I stressed the importance of the patient following up with her primary care provider. I stressed the importance of the patient returning to the emergency department immediately if her symptoms were to worsen or if she were to develop any dizziness, shortness of breath, difficulty breathing, chest pain, blurry vision, loss of vision, nausea, vomiting, abdominal pain, fever, chills, back pain, or any other complaints. Patient verbalized agreement and understanding with this treatment plan and discharge. Differential Diagnosis Differential Diagnoses: The differential diagnosis associated with the presentation includes Adverse reaction to medication C.Diff Norovirus Gastroenteritis Diarrhea Admission/Observation Consideration of admission/observation: Escalation of care including admission/observation considered Patient would have been admitted to the hospital had her work up had any findings where hospital admission was appropriate and her clinical presentation warranted hospital admission. Lab Data [facility] Lab Attestation statement: I reviewed the patient's lab results. My interpretation of these results are in the MDM Rationale portion of this note. 08/09/24 11:23 08/09/24 11:23 Labs: Lab Results 08/09/24 Range/Units 11:23 WBC 7.7 (4.8-10.8) X10*3/uL RBC 4.73 (4.20-5.50) X10*6/uL Hgb 13.6 (12.0-16.0) g/dl Hct 41.1 (37.0-47.0) % MCV 86.9 (80.0-98.0) fL MCH 28.8 (27.0-33.0) pg MCHC 33.1 (31.0-35.0) g/dl RDW 13.6 (11.0-16.0) % Plt Count 240 (160-400) X10*3/uL MPV 11.1 (9.4-12.3) fL Immature Gran % (Auto) 0.3 (0.0-0.4) % Neut % (Auto) 63.3 (45-73) % Lymph % (Auto) 24.6 (20-40) % Nobles % (Auto) 7.0 (2-11) % Eos % (Auto) 4.3 H (0-4) % Baso % (Auto) 0.5 (0-2) % Lymph # (Auto) 1.9 (1.2-4.9) X10*3/uL Nobles # (Auto) 0.5 (0.1-1.2) X10*3/uL Eos # (Auto) 0.3 (0.0-0.4) X10*3/uL Baso # (Auto) 0.0 (0.0-0.2) X10*3/uL Abs Immat Gran (auto) 0.02 (0.00-0.03) X10*3/uL Absolute Neuts (auto) 4.9 (2.0-8.3) x10*3/uL Absolute Nucleated RBC 0.000 (0.0-0.012) X10*3/uL Nucleated RBC % (auto) 0.0 (0.0-0.2) /100WBC Sodium 141 (135-145) mmol/L Potassium 3.9 (3.3-5.1) mmol/L Chloride 110 H (96-108) mmol/L Carbon Dioxide 25 (22-29) mmol/L Anion Gap 10 L (12-20) BUN 14 (9-16) mg/dL Creatinine 0.67 (0.5-1.4) mg/dL Estim Creat Clear Calc 91.6 Estimated GFR > 60 Random Glucose 74 (60-115) mg/dL Calcium 9.1 (8.4-10.2) mg/dL Magnesium 2.2 (1.6-2.6) mg/dL Total Bilirubin 0.4 (0.0-1.0) mg/dL AST 21 (5-31) U/L ALT 39 H (0-31) U/L Alkaline Phosphatase 86 (39-117) U/L Total Protein 8.1 H (6.5-8.0) g/dL Albumin 4.3 (3.5-5.0) g/dL Urine Color Yellow Urine Appearance Clear Urine pH 6.5 (5.0-9.0) Ur Specific [place] 1.025 (1.005-1.025) Urine Protein Negative (Neg-Trace) mg/dL Urine Glucose (UA) Negative (Negative) mg/dL Urine Ketones Negative (Negative) mg/dL Urine Blood Small (1+) H (Negative) Urine Nitrite Negative (Negative) Ur Leukocyte Esterase Negative (Negative) Urine RBC 6-10 H (0-2) /HPF Urine WBC 0-5 (0-5) /HPF Ur Squamous Epith Cells 0-2 (0-2) /HPF Urine Bacteria None Seen (None Seen) Hyaline Casts 0-2 (0-2) /LPF Influenza Type A (PCR) NEGATIVE (Negative) Influenza Type B (PCR) NEGATIVE (Negative) RSV RNA Qual (PCR) NEGATIVE (Negative) SARS-CoV-2 RNA (RT-PCR) NEGATIVE (Negative) Independent Interpretation I performed an independent interpretation of an: EKG Interpretation: I independently interpreted this EKG and am in agreement with the below findings: Vent. Rate: 71 BPM Atrial Rate: 71 BPM P-R Int: 150 ms QRS Dur: 86 ms QT Int: 394 ms P-R-T Axes: 43 1 33 degrees QTcB Int: 428 ms Normal sinus rhythm with sinus arrhythmia Normal ECG When compared with ECG of 02-Mar-2015 13:58, No significant change was found Referred By: Kassidy Lowery Electronically Signed By: ALEX BUENO MD Dictated By: Alex Bueno MD Signed By: Electronically signed by Alex Bueno MD 08/09/24 1257 Radiology Impression Discussion of test interpretation with radiology: I have reviewed the radiologist's reading. Discharge Plan Discharge Clinical Impression: Colitis, Adverse drug effect Patient Disposition: Home, Self-Care Instructions: Colitis (ED) Additional Instructions: STOP taking the antibiotic. This is likely the cause of your symptoms. Follow up with a GI specialist. MARILYN de matthew el antibi?michael. Es probable que esta sea la causa de chaitanya s?ntomas. Acuda a un especialista gastrointestinal. Follow up with your primary care provider. Return to the emergency department immediately if your symptoms worsen or if you develop any dizziness, shortness of breath, difficulty breathing, chest pain, blurry vision, loss of vision, nausea, vomiting, abdominal pain, fever, chills, back pain, or any other complaints. Moreno?seguimiento?con linares m?dico de atenci?n primaria. Acuda inmediatamente al servicio de urgencias si chaitanya s?ntomas empeoran o si presenta falta de aliento, dificultad para respirar, dolor tor?cico, mareos, aturdimiento, dolor de espalda, dolor abdominal, fiebre, escalofr?os o cualquier otro s?ntoma. Prescriptions: No Action loperamide 2 mg capsule 2 mg PO Q6H PRN (Reason: loose stool) Qty: 10 0RF hydrocortisone 2.5 % cream with perineal applicator 1 appl MS BEDTIME PRN (Reason: itching) Qty: 30 0RF cyclobenzaprine 10 mg tablet 10 mg PO TID PRN (Reason: muscle spasm) Qty: 20 0RF lidocaine 5 % adhesive patch,medicated 1 patch topical DAILY Qty: 30 0RF Rx Instructions: leave on most painful area for up to 12 hrs amoxicillin-pot clavulanate 875-125 mg tablet 1 tab PO Q12H Qty: 14 0RF fluticasone propionate 50 mcg/actuation spray,suspension 1 - 2 spray intranasal DAILY PRN fluoxetine 20 mg capsule 20 mg PO QAM ibuprofen 400 mg tablet 400 mg PO Q8-12H PRN meclizine 12.5 mg tablet 12.5 mg PO TID PRN naproxen 500 mg tablet 500 mg PO BID alprazolam 0.5 mg tablet 0.5 mg PO DAILY PRN (Reason: anxiety) meloxicam 15 mg tablet 15 mg PO DAILY fluticasone propionate [Flovent HFA] 110 mcg/actuation HFA aerosol inhaler 2 puff inhalation BID menthol-zinc oxide [Calmoseptine] 0.44-20.6 % ointment 1 appl topical QID PRN (Reason: perianal itching) Qty: 113 0RF cetirizine 10 mg tablet 10 mg PO DAILY ketotifen fumarate 0.025 % (0.035 %) drops 1 drp ophthalmic (eye) BID Referrals: [facility] G[facility]ology [facility] [Provider Group] (Call to establish and follow up with a GI specialist.) Katie Douglas MD [Primary Care Provider] - Interventions: ED Discharge Assessment Last Done: 08/09/24 15:11 Discharge Date/Time: 08/09/24 15:11 Print Language: Syriac
--- NOTE | 2024-08-09 10:13 | ECG_ITS ---
Test Reason : WEAKNESS Blood Pressure : */* mmHG Vent. Rate : 71 BPM Atrial Rate : 71 BPM P-R Int : 150 ms QRS Dur : 86 ms QT Int : 394 ms P-R-T Axes : 43 1 33 degrees QTcB Int : 428 ms Normal sinus rhythm with sinus arrhythmia Normal ECG When compared with ECG of 02-Mar-2015 13:58, No significant change was found Referred By: Kassidy Lowery Electronically Signed By: CHRISTIANO BUENO MD
[2024-08-09 11:28] LABS: MANUAL DIFF FLAG NO
[2024-08-09 11:29] LABS: Basophils Percent Auto 0.5 % (0-2); Eosinophils Absolute Auto 0.3 X10*3/uL (0.0-0.4); Eosinophils Percent Auto 4.3 % (0-4); Hematocrit 41.1 % (37.0-47.0); Hemoglobin 13.6 g/dl (12.0-16.0); Imm Gran Abs Auto 0.02 X10*3/uL (0.00-0.03); Imm Gran Pct Auto 0.3 % (0.0-0.4); Lymphocytes Absolute Auto 1.9 X10*3/uL (1.2-4.9); Lymphocytes Percent Auto 24.6 % (20-40); Mean Corpuscular HGB Conc 33.1 g/dl (31.0-35.0); Mean Corpuscular Hemoglobin 28.8 pg (27.0-33.0); Mean Corpuscular Volume 86.9 fL (80.0-98.0); Mean Platelet Volume 11.1 fL (9.4-12.3); Monocytes Absolute Auto 0.5 X10*3/uL (0.1-1.2); Neutrophils Absolute Auto 4.9 x10*3/uL (2.0-8.3); Neutrophils Percent Auto 63.3 % (45-73); Platelet Count 240 X10*3/uL (160-400); Red Blood Count 4.73 X10*6/uL (4.20-5.50); Red Cell Distribution Width 13.6 % (11.0-16.0); White Blood Count 7.7 X10*3/uL (4.8-10.8)
[2024-08-09 11:32] LABS: Appearance Urine Clear; Color Urine Yellow; Glucose Urine UA Negative (Negative); Leukocyte Esterase Urine Negative (Negative); Nitrite Urine Negative (Negative); PH 6.5 (5.0-9.0); Specific Gravity - Urine 1.025 (1.005-1.025); UMIC TRIGGER UACC YES; Urine Blood Small (1+) (Negative); Urine Ketones Negative (Negative); Urine Protein Negative (Neg-Trace)
[2024-08-09 11:36] LABS: Bacteria Urine None Seen (None Seen); Hyaline Casts Urine 0-2 /LPF (0-2); Squamous Epithelial Cell Urine 0-2 /HPF (0-2); WBC Urine 0-5 /HPF (0-5)
[2024-08-09 11:46] LABS: Albumin Level 4.3 g/dL (3.5-5.0); Alkaline Phosphatase 86 U/L (39-117); Anion Gap 10 (12-20); Aspartate Amino Transferase 21 U/L (5-31); Bilirubin Total 0.4 mg/dL (0.0-1.0); Blood Urea Nitrogen 14 mg/dL (9-16); Calcium 9.1 mg/dL (8.4-10.2); Carbon Dioxide 25 mmol/L (22-29); Chloride 110 mmol/L (96-108); Creatinine Clr Calc Pharmacy 91.6; Estimated Glomerular Filt Rate > 60; Glucose Random 74 mg/dL (60-115); Magnesium 2.2 mg/dL (1.6-2.6); Potassium 3.9 mmol/L (3.3-5.1); Sodium 141 mmol/L (135-145); Total Protein 8.1 g/dL (6.5-8.0)
[2024-08-09 11:57] LABS: Alanine Aminotransferase 39 U/L (0-31)
--- OUTSIDE RECORDS SUMMARY | 2024-08-09 12:07 | XMS_ITS | Encounter Summary ---
Author Organization [employer] Address [address] [place] [address] Care Team Providers Care Sdet Name Role Phone Katie Douglas MD Primary Care Provider + Encounter Details Date Type Department Care Team (Latest Contact Info) Description 08/27/2021 Abstract [facility] CONVERSIONS Dental, Provider, DDS Social History [...] Info) Description 09/20/2024 9:00 AM EDT Telemedicine [facility] MEDICINE [address] [place] [address] Katie Douglas MD [address] [place] [address] documented as of this encounter Visit Diagnoses Not on filedocumented in this encounter Care Teams Sdet Relationship Specialty Start Date End Date Katie Douglas MD [address] [place] [address] PCP - General Family Medicine 09/18/16 documented as of this encounter
--- OUTSIDE RECORDS SUMMARY | 2024-08-09 12:07 | XMS_ITS | Encounter Summary ---
Author Organization [employer] Address [address] [place] [address] Care Team Providers Care Resource Conservationist Name Role Phone Katie Douglas MD Primary Care Provider + Encounter Details Date Type Department Care Team ([facility] st Contact Info) Description 08/09/2024 Orders Only GENERIC EXTERNAL DATA DEPARTMENT Provider, [...] Info) Description 09/20/2024 9:00 AM EDT Telemedicine [facility] [address] [place], [place] [phone] Katie Douglas MD [address] [place] [phone] documented as of this encounter Procedures Procedure Name Priority Date/Time Associated Diagnosis Comments URINALYSIS, COMPLETE, WITH REFLEX TO CULTURE Routine 08/09/2024 11:23 AM EST CBC WITH AUTO DIFFERENTIAL Routine 08/09/2024 11:23 AM EST URINALYSIS WITH REFLEX MICROSCOPIC Routine 08/09/2024 11:23 AM EST MAGNESIUM Routine 08/09/2024 11:23 AM EST COMPREHENSIVE METABOLIC PANEL Routine 08/09/2024 11:23 AM EST documented in this encounter Results * Magnesium (08/09/2024 11:23 AM EST) Magnesium 2.2 1.6 - 2.6 mg/dL [facility] 08/09/2024 11:2 3 AM EST 08/09/2024 11:26 AM EST us Generic External Data Provider LAB BLOOD ORDERAB LES Final Result [facility] [address] [place] [phone] * (ABNORMAL) Comprehensive Metabolic Panel (08/09/2024 11:23 AM EST) Sodium 141 135 - 145 mmol/L [facility] Potassium 3.9 3.3 - 5.1 mmol/L [facility] Chloride 110(H) 96 - 108 mmol/L [facility] Carbon Dioxide 25 22 - 29 mmol/L [facility] Anion Gap 10(L) 12 - 20 [facility] Urea Nitrogen (BUN) 14 9 - 16 mg/dL [facility] Creatinine, Serum 0.67 0.5 - 1.4 mg/dL [facility] Creatinine Clr Calc Pharmacy 91.6 [facility] Comment:Provided height and weight: 157.48 cm,81.6 kg.eGFR (calculated from the MDRD study equation) and eCrCl(calculated from the Cockcroft-Gault equation) are based ondifferent parameters and may not yield comparable results.If eCrCl result is absurd, please check patient'sheight/weight. Estimated Glomerular Filt Rate >60 [facility] Comment:Chronic Kidney Disea se: Estimated GFR < 60 mL/min/1.72l2Wlvbde Kidney Disease: Estimated GFR < 15 mL/min/1.73m2 Glucose 74 60 - 115 mg/dL [facility] Calcium 9.1 8.4 - 10.2 mg/dL [facility] Bilirubin, Total 0.4 0.0 - 1.0 mg/dL [facility] Aspartate Amino Transferase 21 5 - 31 U/L [facility] Alanine Aminotransferase 39(H) 0 - 31 U/L [facility] Total Protein 8.1(H) 6.5 - 8.0 g/dL [facility] Albumin Level 4.3 3.5 - 5.0 g/dL [facility] Alkaline Phosphatase 86 39 - 117 U/L [facility] 08/09/2024 11:2 3 AM EST 08/09/2024 11:26 AM EST us Generic External Data Provider LAB BLOOD ORDERAB LES Final Result [facility] [address] [place] [phone] * (ABNORMAL) Urinalysis, Complete, with Reflex to Culture (08/09/2024 11:23 AM EST) Color Urine Yellow [facility] Appearance Urine Clear [facility] PH 6.5 5.0 - 9.0 [facility] Glucose Urine UA Negative Negative mg/dL [facility] Urine Blood Small (1+)(A) Negative [facility] Specific [place] - Urine 1.025 1.005 - 1.025 [facility] Urine Protein Negative Neg-Trace mg/dL [facility] Urine Ketones Negative Negative mg/dL [facility] Nitrite Urine Negative Negative [facility] Leukocyte Esterase Urine Negative Negative [facility] RBC Urine 6-10(A) 0 - 2 /HPF [facility] Urine WBC 0-5 0 - 5 /HPF [facility] Urine Squamous Epithelial Cell 0-2 0 - 2 /HPF [facility] Urine Bacteria None Seen None Seen [facility] Hyaline Casts, Urine 0-2 0 - 2 /LPF [facility] 08/09/2024 11:2 3 AM EST 08/09/2024 11:26 AM EST Narrative [facility] - 08/09/2024 11:38 AM EST Urine, Clean Catch us Generic External Data Provider LAB URINE ORDERAB LES Final Result [facility] [address] [place] [phone] * (ABNORMAL) Urinalysis w/reflex microscopic (08/09/2024 11:23 AM EST) Color Urine Yellow [facility] Appearance Urine Clear [facility] PH 6.5 5.0 - 9.0 [facility] Glucose Urine UA Negative Negative mg/dL [facility] Urine Blood Small (1+)(A) Negative [facility] Specific [place] - Urine 1.025 1.005 - 1.025 [facility] Urine Protein Negative Neg-Trace mg/dL [facility] Urine Ketones Negative Negative mg/dL [facility] Nitrite Urine Negative Negative [facility] Leukocyte Esterase Urine Negative Negative [facility] 08/09/2024 11:2 3 AM EST 08/09/2024 11:26 AM EST Narrative [facility] - 08/09/2024 11:34 AM EST Urine, Clean Catch us Generic External Data Provider LAB URINE ORDERAB LES Final Result [facility] [address] [place] [phone] * (ABNORMAL) CBC auto differential (08/09/2024 11:23 AM EST) White Blood Count 7.7 4.8 - 10.8 X10*3/uL [facility] Red Blood Count 4.73 4.20 - 5.50 X10*6/uL [facility] Hemoglobin 13.6 12.0 - 16.0 g/dl [facility] Hematocrit 41.1 37.0 - 47.0 % [facility] Mean Corpuscular Volume 86.9 80.0 - 98.0 fL [facility] Mean Corpuscular Hemoglobin 28.8 27.0 - 33.0 pg [facility] Mean Corpuscular HGB Conc 33.1 31.0 - 35.0 g/dl [facility] Red Cell Distribution Width 13.6 11.0 - 16.0 % [facility] Platelet Count 240 160 - 400 X10*3/uL [facility] Mean Platelet Volume 11.1 9.4 - 12.3 fL [facility] Neutrophils Percent Auto 63.3 45 - 73 % [facility] Imm Gran Pct Auto 0.3 0.0 - 0.4 % [facility] Lymphocytes Percent Auto 24.6 20 - 40 % [facility] Monocytes Percent Auto 7.0 2 - 11 % [facility] Eosinophils Percent Auto 4.3(H) 0 - 4 % [facility] Basophils Percent Auto 0.5 0 - 2 % [facility] NRBC Pct Auto 0.0 0.0 - 0.2 /100WBC [facility] Neutrophils Absolute Auto 4.9 2.0 - 8.3 x10*3/uL [facility] Imm Gran Abs Auto 0.02 0.00 - 0.03 X10*3/uL [facility] Lymphocytes Absolute Auto 1.9 1.2 - 4.9 X10*3/uL [facility] Monocytes Absolute Auto 0.5 0.1 - 1.2 X10*3/uL [facility] Eosinophils Absolute Auto 0.3 0.0 - 0.4 X10*3/uL [facility] Basophils Absolute Auto 0.0 0.0 - 0.2 X10*3/uL [facility] NRBC Abs Auto 0.000 0.0 - 0.012 X10*3/uL [facility] 08/09/2024 11:2 3 AM EST 08/09/2024 11:26 AM EST us Generic External Data Provider LAB BLOOD ORDERAB LES Final Result Performing Organization Address City/State/[facility] Co de Phone Number [facility] [address] [place] [phone] documented in this encounter Visit Diagnoses Not on filedocumented in this encounter Additional Health Concerns Assessment Noted Time PHQ-9 Depression Total Score: 8 02/12/20 24 10:40 AM EDT documented as of this encounter Care Teams Resource Conservationist Relationship Specialty Start Date End Date Katie Douglas MD [address] [place] [phone] PCP - General Family Medicine 09/18/16 documented as of this encounter
--- OUTSIDE RECORDS SUMMARY | 2024-08-09 12:07 | XMS_ITS | Clinical Summary ---
Author Organization [employer] Address [address] [place] [address] Care Team Providers Care Vending Route Servicer Name Role Phone Panda Douglas MD Primary [...] PSULA TODOS LOS D EN LA [place] PANDA 3 Active albuterol (ProAir HFA) 108 (90 [...] recommended she be tested for Pinworm. Contacted [facility] [place] [facility] who confirmed they had the stiicky pads for testing and pt was instructed to pickup driver the supplies at [facility] [place] [facility] and if the front office java developer staff was confused to ask them [...] to date, next one due 2023 by TECHNICIAN ASSISTANT Mammogram Up to date, next one due 2023 Eye exam Up to date, next one due 2024 CRC screen Up to date. Next one due on 02/2028 Lipids/FBS To be ordered Vaccinations Influenza iz today. Counseled about COVID + Booster and Zoster. Other iz up to date. Obtain hepatitis profile. 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 county counsel to make an appt at [facility] or one of the other closest dental [...] PM EST): FU PAP next week FU w/TECHNICIAN ASSISTANT Encounters Date Type Department Care Team Description 08/09/2024 Orders Only GENERIC EXTERNAL DATA DEPARTMENT Provider, Generic External Data 08/02/2024 Orders Only GENERIC EXTERNAL DATA DEPARTMENT Provider, Generic External Data 08/02/2024 Travel 07/31/2024 Orders Only [facility] External Provider, [facility] 07/29/[address] [address] April Domingo [place] Chart prep 07/05/[address] [address] Panda Douglas MD Results 07/02/[address] [address] Sonia Hare RN Lab Orders 06/29/2024 9:15 AM EST Office Visit [address] [address] Tariq Posey MD Pruritus ani (Primary Dx) 06/29/[address] [address] Panda Douglas MD callback requested 06/29/2024 Travel 06/28/[address] [address] Panda Douglas MD Nurse Triage 06/14/2024 2:00 PM EST Office Visit [address] [address] Panda Douglas MD Hemorrhoids, internal (Primary Dx); Pure hypercholesterolemi a; Class 1 obesity due to excess calories without serious comorbidity with body mass index (BMI) of 33.0 to 33.9 in adult; Dry skin dermatitis; Dietary counseling; Exercise counseling; Heel pain, bilateral 06/14/2024 Travel 06/11/[address] [address] April Domingo [place] Chart prep 06/04/[address] [phone] Panda Douglas MD 06/04/[address] [phone] Panda Douglas MD Error (VOID this visit) 06/04/2024 Patient Outreach [address] [phone] Panda Douglas MD from Last 3 Months [...] Info) Description 09/20/2024 9:00 AM EDT Telemedicine [facility] [address] [place] [address] Panda Douglas MD [address] [place] [address] Health Maintenance Due Date Last Done Comments [...] 01/28/2025 01/29/2024 Depression Screening 02/11/2025 02/12/2024, 02/12/20 Cervical Cancer Screening 02/16/2025 HPV/Cotest 02/16/2025 01/29/2024, [...] Procedure Name Priority Date/Time Associated Diagnosis Comments MAGNESIUM Routine 08/09/2024 11:23 AM EST COMPREHENSIVE METABOLIC PANEL Routine 08/09/2024 11:23 AM EST URINALYSIS, COMPLETE, WITH REFLEX TO CULTURE Routine 08/09/2024 11:23 AM EST URINALYSIS WITH REFLEX MICROSCOPIC Routine 08/09/2024 11:23 AM EST CBC WITH AUTO DIFFERENTIAL Routine 08/09/2024 11:[address] ABDOMEN PELVIS W CONTRAST Routine 08/02/2024 7:19 PM EST SARS COV2/INFLUENZA A/B AND RSV RNA QL [...] Recently Relevant to Health Maintenance Results * (ABNORMAL) Urinalysis, Complete, with Reflex to Culture (08/09/2024 11:23 AM EST) Only the most recent of3 resultswithin the time period is included. Color Urine Yellow [facility] Appearance Urine Clear [facility] PH 6.5 5.0 - 9.0 [facility] Glucose Urine UA Negative Negative mg/dL [facility] Urine Blood Small (1+)(A) Negative [facility] Specific Kirby - Urine 1.025 1.005 - 1.025 [facility] Urine Protein Negative Neg-Trace mg/dL [facility] Urine Ketones Negative Negative mg/dL [facility] Nitrite Urine Negative Negative [facility] Leukocyte Esterase Urine Negative Negative [facility] RBC Urine 6-10(A) 0 - 2 /HPF [facility] Urine WBC 0-5 0 - 5 /HPF [facility] Urine Squamous Epithelial Cell 0-2 0 - 2 /HPF [facility] Urine Bacteria None Seen None Seen [facility] Hyaline Casts, Urine 0-2 0 - 2 /LPF [facility] 08/09/2024 11:2 3 AM EST 08/09/2024 11:26 AM EST Narrative [facility] - 08/09/2024 11:38 AM EST Urine, Clean Catch us Generic External Data Provider LAB URINE ORDERAB LES Final Result [facility] [address] [place] [phone] * (ABNORMAL) CBC auto differential (08/09/2024 11:23 AM EST) Only the most recent of3 resultswithin the time period is included. White Blood Count 7.7 4.8 - 10.8 X10*3/uL [facility] Red Blood Count 4.73 4.20 - 5.50 X10*6/uL [facility] Hemoglobin 13.6 12.0 - 16.0 g/dl [facility] Hematocrit 41.1 37.0 - 47.0 % [facility] Mean Corpuscular Volume 86.9 80.0 - 98.0 fL [facility] Mean Corpuscular Hemoglobin 28.8 27.0 - 33.0 pg [facility] Mean Corpuscular HGB Conc 33.1 31.0 - 35.0 g/dl [facility] Red Cell Distribution Width 13.6 11.0 - 16.0 % [facility] Platelet Count 240 160 - 400 X10*3/uL [facility] Mean Platelet Volume 11.1 9.4 - 12.3 fL [facility] Neutrophils Percent Auto 63.3 45 - 73 % [facility] Imm Gran Pct Auto 0.3 0.0 - 0.4 % [facility] Lymphocytes Percent Auto 24.6 20 - 40 % [facility] Monocytes Percent Auto 7.0 2 - 11 % [facility] Eosinophils Percent Auto 4.3(H) 0 - 4 % [facility] Basophils Percent Auto 0.5 0 - 2 % [facility] NRBC Pct Auto 0.0 0.0 - 0.2 /100WBC [facility] Neutrophils Absolute Auto 4.9 2.0 - 8.3 x10*3/uL [facility] Imm Gran Abs Auto 0.02 0.00 - 0.03 X10*3/uL [facility] Lymphocytes Absolute Auto 1.9 1.2 - 4.9 X10*3/uL [facility] Monocytes Absolute Auto 0.5 0.1 - 1.2 X10*3/uL [facility] Eosinophils Absolute Auto 0.3 0.0 - 0.4 X10*3/uL [facility] Basophils Absolute Auto 0.0 0.0 - 0.2 X10*3/uL [facility] NRBC Abs Auto 0.000 0.0 - 0.012 X10*3/uL [facility] 08/09/2024 11:2 3 AM EST 08/09/2024 11:26 AM EST us Generic External Data Provider LAB BLOOD ORDERAB LES Final Result [facility] [address] [place], [place] [phone] * (ABNORMAL) Urinalysis w/reflex microscopic (08/09/2024 11:23 AM EST) Only the most recent of2 resultswithin the time period is included. Color Urine Yellow [facility] Appearance Urine Clear [facility] PH 6.5 5.0 - 9.0 [facility] Glucose Urine UA Negative Negative mg/dL [facility] Urine Blood Small (1+)(A) Negative [facility] Specific Kirby - Urine 1.025 1.005 - 1.025 [facility] Urine Protein Negative Neg-Trace mg/dL [facility] Urine Ketones Negative Negative mg/dL [facility] Nitrite Urine Negative Negative [facility] Leukocyte Esterase Urine Negative Negative [facility] 08/09/2024 11:2 3 AM EST 08/09/2024 11:26 AM EST Narrative [facility] - 08/09/2024 11:34 AM EST Urine, Clean Catch Generic External Data Provider LAB URINE ORDERAB LES Final Result Performing Organization Address City/[facility] Co de Phone Number [facility] [address] [place] [phone] * Magnesium (08/09/2024 11:23 AM EST) Only the most recent of3 resultswithin the time period is included. Magnesium 2.2 1.6 - 2.6 mg/dL [facility] 08/09/2024 11:2 3 AM EST 08/09/2024 11:26 AM EST Generic External Data Provider LAB BLOOD ORDERAB LES Final Result Performing Organization Address City/[facility] Co de Phone Number [facility] [address] [place] [phone] * (ABNORMAL) Comprehensive Metabolic Panel (08/09/2024 11:23 AM EST) Only the most recent of3 resultswithin the time period is included. Sodium 141 135 - 145 mmol/L [facility] Potassium 3.9 3.3 - 5.1 mmol/L [facility] Chloride 110(H) 96 - 108 mmol/L [facility] Carbon Dioxide 25 22 - 29 mmol/L [facility] Anion Gap 10(L) 12 - 20 [facility] Urea Nitrogen (BUN) 14 9 - 16 mg/dL [facility] Creatinine, Serum 0.67 0.5 - 1.4 mg/dL [facility] Creatinine Clr Calc Pharmacy 91.6 [facility] Comment:Provided height and weight: 157.48 cm,81.6 kg.eGFR (calculated from the MDRD study equation) and eCrCl(calculated from the Cockcroft-Gault equation) are based ondifferent parameters and may not yield comparable results.If eCrCl result is absurd, please check patient'sheight/weight. Estimated Glomerular Filt Rate >60 [facility] Comment:Chronic Kidney Disea se: Estimated GFR < 60 mL/min/1.87f8Spliuo Kidney Disease: Estimated GFR < 15 mL/min/1.73m2 Glucose 74 60 - 115 mg/dL [facility] Calcium 9.1 8.4 - 10.2 mg/dL [facility] Bilirubin, Total 0.4 0.0 - 1.0 mg/dL [facility] Aspartate Amino Transferase 21 5 - 31 U/L [facility] Alanine Aminotransferase 39(H) 0 - 31 U/L [facility] Total Protein 8.1(H) 6.5 - 8.0 g/dL [facility] Albumin Level 4.3 3.5 - 5.0 g/dL [facility] Alkaline Phosphatase 86 39 - 117 U/L [facility] 08/09/2024 11:2 3 AM EST 08/09/2024 11:26 AM EST us Generic External Data Provider LAB BLOOD ORDERAB LES Final Result [facility] [address] [place] [address] [phone] * CT Abdomen Pelvis w/ Contrast (08/02/2024 7:19 PM EST) Anatomical Region Laterality Modality Body, Pelvis, Abdomen Computed T omography 08/02/2024 7:19 PM EST Narrative 08/02/2024 7:20 PM EST ? [facility] ?[address] ?[place] [address] ? CT Scan Report ? Signed ? Patient: Joel Brown,Buck D ?MR#: MM ?? [id number] ? : 1965 ?Acct:[id number] ? Age/Sex: 59 / F ?ADM Date: 08/02/24 ? Loc: HO.ED ? Attending Dr: ? Ordering Physician: Viraj Bermudez ?? Date of Service: 08/02/24 ?? Procedure(s): CT abdomen pelvis w IV con ?? Accession Number(s): [id number] ? cc: Panda Douglas MD; Viraj Bermudez ? Report Number: ?? [id number]: Total DLP = ??603.00 mGy-cm ? CLINICAL HISTORY: lower abdominal pain ? CT abdomen and pelvis with contrast ? Comparison: CT of the abdomen and pelvis from 07/31/2024 ? Findings: ?? Mild bibasilar atelectasis/pneumonitis of the imaged lung bases with trace ?? right pleural effusion. ?? No significant change in solid abdominal organs. ?? Small mesenteric and periaortic lymph nodes are not significantly changed ?? with mild fluid in the donita mesentery. No small bowel obstruction. Mild ?? wall thickening of the large intestine in fluid in the cecum concerning ?? for mild colitis. ?? The appendix is not definitively seen. ?? Uterus is anteverted. No adnexal soft tissue mass. Mild free fluid in the ?? pelvis is likely physiologic. ?? No acute osseous abnormality. Degenerative changes include lower lumbar ?? facet arthropathy. ? IMPRESSION: ?? 1. Mild wall thickening of the large intestine concerning for mild ?? colitis, including cecum. ?? 2. No small bowel obstruction. ? This document has been electronically signed by: Ye Quezada MD on ?? 08/02/2024 19:19:11 ? Dictated By: ?Ye Quezada MD ? Signed By: ?<Electronically signed by Ye Quezada MD in OV> ? 08/02/241919 ? DD/ 18 ? TD/TT: 08/02/241918 ? Credit Historian: ? Procedure Note Donotuseinterpreter, Image - 08/02/[address] [place] [address] [address] Scan Report Signed Patient: Buck Rader DMR#: [id number] : 1965Acct:[id number] Age/Sex: 59 / FADM Date: 08/02/24 Loc: HO.ED Attending Dr: Ordering Physician: Viraj Bermudez Date of Service: 08/02/24 Procedure(s): CT abdomen pelvis w IV con Accession Number(s): [id number] cc: Panda Douglas MD; Viraj Bermudez Report Number: [id number]: Total DLP = 603.00 mGy-cm CLINICAL HISTORY: lower abdominal pain CT abdomen and pelvis with contrast Comparison: CT of the abdomen and pelvis from 07/31/2024 Findings: Mild bibasilar atelectasis/pneumonitis of the imaged lung bases with trace right pleural effusion. No significant change in solid abdominal organs. Small mesenteric and periaortic lymph nodes are not significantly changed with mild fluid in the donita mesentery. No small bowel obstruction. Mild wall thickening of the large intestine in fluid in the cecum concerning for mild colitis. The appendix is not definitively seen. Uterus is anteverted. No adnexal soft tissue mass. Mild free fluid in the pelvis is likely physiologic. No acute osseous abnormality. Degenerative changes include lower lumbar facet arthropathy. IMPRESSION: 1. Mild wall thickening of the large intestine concerning for mild colitis, including cecum. 2. No small bowel obstruction. This document has been electronically signed by: Ye Quezada MD on 08/02/2024 19:19:11 Dictated By: Ye Quezada MD Signed By: <Electronically signed by Ye Quezada MD in OV> 08/02/241919 DD/ 18 TD/TT: 08/02/241918 Credit Historian: us [facility] External Provider IMG CT PROCEDURES Final Result * SARS-CoV-2 RNA, Influenza A/B, and RSV RNA, Ql NAAT (08/02/2024 3:27 PM EST) Influenza A PCR NEGATIVE Negative [facility] Influenza B PCR NEGATIVE Negative [facility] Resp Syncy Virus RNA Qual PCR NEGATIVE Negative [facility] SARS COV2 PCR NEGATIVE Negative [facility] Comment:All test results mus t [...] use by authorized laboratories.Testing performed on the [employer] GeneXpert utilizingreal-time RT-PCR.All SARS CoV2 and positive influenza A/B results arereported to [facility]. 08/02/2024 3:27 PM EST 08/02/2024 3:30 PM EST Generic External Data Provider LAB MICROBIOLOGY - GENERAL ORDERABLES Final Result [facility] [address] [place] [phone] * Slide Review (08/02/2024 11:19 AM EST) Slide Review VERIFIED [facility] 08/02/2024 11:1 9 AM EST 08/02/2024 11:22 AM EST Generic External Data Provider LAB BLOOD ORDERAB LES Final Result [facility] [address] [place] [phone] * Lipase (08/02/2024 11:19 AM EST) Only the most recent of2 resultswithin the time period is included. Lipase 18 8 - 78 U/L [facility] 08/02/2024 11:1 9 AM EST 08/02/2024 11:22 AM EST Generic External Data Provider LAB BLOOD ORDERAB LES Final Result Performing Organization Address City/[facility] Co de Phone Number [facility] [address] [place] [phone] * Hepatic Function Panel (08/02/2024 11:19 AM EST) Only the most recent of2 resultswithin the time period is included. Bilirubin, Direct 0.1 0.0 - 0.5 mg/dL [facility] 08/02/2024 11:1 9 AM EST 08/02/2024 11:22 AM EST Generic External Data Provider LAB BLOOD ORDERAB LES Final Result Performing Organization Address [facility] de Phone Number [facility] [address] [place] [phone] * (ABNORMAL) Basic Metabolic Panel (07/31/2024 12:09 PM EST) Sodium 140 135 - 145 mmol/L [facility] Potassium 4.0 3.3 - 5.1 mmol/L [facility] Chloride 108 96 - 108 mmol/L [facility] Carbon Dioxide 25 22 - 29 mmol/L [facility] Anion Gap 11(L) 12 - 20 [facility] Urea Nitrogen (BUN) 16 9 - 16 mg/dL [facility] Creatinine, Serum 0.70 0.5 - 1.4 mg/dL [facility] Creatinine Clr Calc Pharmacy 89.0 [facility] Comment:Provided height and weight: 157.48 cm,83.915 kg.eGFR (calculated from the MDRD study equation) and eCrCl(calculated from the Cockcroft-Gault equation) are based ondifferent parameters and may not yield comparable results.If eCrCl result is absurd, please check patient'sheight/weight. Estimated Glomerular Filt Rate >60 [facility] Comment:Chronic Kidney Disea se: Estimated GFR < 60 mL/min/1.08o5Urmahj Kidney Disease: Estimated GFR < 15 mL/min/1.73m2 Glucose 81 60 - 115 mg/dL [facility] Calcium 9.5 8.4 - 10.2 mg/dL [facility] 07/31/2024 12:0 9 PM EST 07/31/2024 12:12 PM EST us Generic External Data Provider LAB BLOOD ORDERAB LES Final Result [facility] [address] [place] [phone] * CT Abdomen Pelvis w/o Contrast (07/31/2024 12:05 PM EST) Anatomical Region Laterality Modality Body, Pelvis, Abdomen Computed T omography 07/31/2024 12:0 5 PM EST Narrative 07/31/2024 12:08 PM EST ? [facility] ?[address] ?[place] [address] ? CT Scan Report ? Signed ? Patient: Joel Brown,Buck D ?MR#: MM ?? [id number] ? : 1965 ?Acct:[id number] ? Age/Sex: 59 / F ?ADM Date: 07/31/25 ? Loc: HO.ED ? Attending Dr: ? Ordering Physician: Shanda oMra ?? Date of Service: 02/01/25 ?? Procedure(s): CT abdomen pelvis wo IV con ?? Accession Number(s): [id number] ? cc: Panda Douglas MD; Shanda Mora ? Report Number: ?? [id number]: Total DLP = ??618.00 mGy-cm ? CLINICAL [...] document has been electronically signed by: Rex aHmmond MD on ?? 07/31/2024 12:05:00 ? Dictated By: ?Rex Hammond MD ? Signed By: ?<Electronically signed by Rex Hammond MD in OV> ? 07/31/24 1206 ? DD/ 1205 ? TD/TT: 07/31/24 1205 ? Credit Historian: ? Procedure Note Farrah Chung - 07/31/[address] [place] [address] [address] Scan Report Signed Patient: Buck Rader DMR#: MM [id number] : 1965Acct:[id number] Age/Sex: 59 / FADM Date: 07/31/24 Loc: HO.ED Attending Dr: Ordering Physician: Shanda Mora Date of Service: 07/31/24 Procedure(s): CT abdomen pelvis wo IV con Accession Number(s): [id number] cc: Panda Douglas MD; Shanda Mora Report Number: [id number]: Total DLP = 618.00 mGy-cm CLINICAL HISTORY: [...] Hammond MD in OV> 07/31/24 1206 DD/ 04 TD/TT: 07/31/241204 Credit Historian: [facility] External Provider IMG CT PROCEDURES Edited Result - Final * (ABNORMAL) Lipid Panel with Reflex to Direct LDL (07/12/2024 9:01 AM EST) Triglycerides 126 <150 mg/dL [facility] Comment:Desirable Triglyceri de: less than 150 mg/dLBorderline High Triglyceride 150-199 mg/dLHigh Triglyceride: 200-499 mg/dLVery High Triglyceride: greater than or equal to 5OO mg/dL Cholesterol 251(H) <200 mg/dL [facility] Comment:Desirable Cholestero l: less than 200 mg/dLBorderline High Cholesterol: 200-239 mg/dLHigh Cholesterol: greater than 239 mg/dL LDL Cholesterol Calculated 168(H) <100 mg/dL [facility] Comment:Desirable LDL: less than 100 mg/dLNear Optimal/Above Optimal LDL: 110- 129 mg/dLBorderline High LDL: 130-159 mg/dLHigh LDL: 160-189 mg/dLVery High LDL: greater than or equal to 190 mg/dL HDL Cholesterol 58 >40 mg/dL [facility] Comment:Desirable HDL: great er than 40 mg/dL Note: This HDL assay may give artificially low results in patients with liver disease. Blood 07/12/2024 9:01 AM EST 07/12/2024 10:59 AM EST Panda Douglas MD LAB BLOOD ORDERABLES Fin al Result [facility] [address] [place] [phone] * Hemoglobin A1c (07/12/2024 9:01 AM EST) Hemoglobin A1c 5.6 <6.0 % [facility] Comment:Hemoglobin A1C Refer ence Range Adults: 4.8 - 6.0 % Non diabetic: < 6.0 % Goal: < 7.0 %Additional Action Suggested: > 8.0 %Note: Hemoglobin A1c results are invalid for patients with abnormal amounts of HbF. Blood transfusions may impact the HbA1c concentration in the patient sample. Estimated Average Glucose 114 mg/dL [facility] Comment:eAG = Estimated ave rage glucose which is %A1C expressed asaverage glucose, using the formula of the F6D-UouwqblCrhffgz Glucose study (ADAG), Diabetes Care, Vol.31,#8,Jan. 2007 Blood Venous blood specimen / Unknown 07/12/2024 9:01 AM EST 07/12/2024 10:59 AM EST us Panda Douglas MD LAB BLOOD ORDERABLES Fin al Result [facility] [address] [place] [phone] * Pinworm Examination (07/02/2024 10:08 AM EST) Pinworm Examination SEE NOTE [facility] Comment:PINWORM EXAMINATION Micro Number: [id number] Test Status: Final Specimen Source: Pinworm paddle prep Specimen Quality: Adequate Pinworm Result 1: No enterobius vermicularis seen. Comment: 3 PINWORM PADDLE PREPS SENT IN FOR ONE ORDERTHIS TEST WAS PERFORMED AT[employer] [address] [phone] BHAKTA MD Swab Anal structure / Unknown 07/02/2024 10:08 AM EST 07/02/2024 11:23 AM EST us Tariq Maldonado MD LAB MICROBIOLOGY - GE NERAL ORDERABLES Final Result Performing Organization Address City/State/[facility] de Phone Number [facility] [address] [place] [phone] * Herpes Simplex Virus Culture with Reflex Typing (06/29/2024 12:00 AM EST) HSV Culture/Type SEE NOTE [facility] Comment:HERPES SIMPLEX VIRUS CULTURE W/RFL TO TYPING Micro Number: [id number] Test Status: Final Specimen Source: Unk Specimen Quality: Inadequate Result: Test not performed. No suitable specimen received. Please review the test requirements at [email or web address] TEST WAS PERFORMED AT:[employer] [place] [phone] BHAKTA MD Swab Anal structure / Unknown 06/29/2024 06/29/2024 Tariq Maldonado MD LAB MICROBIOLOGY - NERAL ORDERABLES Final Result Performing Organization Address [facility] Co de Phone Number [facility] [address] [place] [address] [phone] * (ABNORMAL) HM PAP/HPV (01/29/2024) Pap Smear 4. LSIL(A) 1. NILM HPV Not Detected Undetected, Indeterminat e, Quantitative , Not Detected Historical Provider HEALTH MAINTENANCE Edited Result - Final * BI Mammogram Screening Tomosynthesis Bilateral (08/21/2023 2:50 PM EST) Anatomical Region Laterality Modality Breast Bilateral Mammography 08/21/2023 2:50 PM EST Narrative 09/14/2023 8:11 AM EDT ? [facility] ? [address] ?[place] [address] ? Mammography Report ? Signed ? Patient: Joel Mastache,Buck D ?MR#: MM ?? [id number] ? : 1965 ?Acct:[id number] ? Age/Sex: 58 / F ?ADM Date: /22/24 ? Loc: HO.MAMMO ? Attending Dr: Panda Douglas MD ? Ordering Physician: Panda Douglas MD ?Results: 1Ne ?? gative ? Date of Service: 08/21/23 ?Follow Up: 1 Year From Orig ?? inal Mammogram ? Procedure(s): MM tomosynthesis screening BI ?? Accession Number(s): [id number] ? cc: Panda Douglas MD ? EXAMINATION: [...] by Ary Mcdonnell MD in OV> ? 09/13/ 0807 ? DD/ 1450 ? TD/TT: ? Credit Historian: ? Procedure Note Donotuseinterpreter, Image - 09/14/2023 [place] [facility] [address] [place] [address] Mammography Report Signed Patient: Buck Rader DMR#: MM [id number] : 1965Acct:[id number] Age/Sex: 58 / FADM Date: 08/21/23 Loc: HO.MAMMO Attending Dr: Panda Douglas MD Ordering Physician: Panda Douglas MDResults: 1Ne gative Date of Service: 08/21/23Follow Up: 1 Year From Orig inal Mammogram Procedure(s): MM tomosynthesis screening BI Accession Number(s): [id number] cc: Panda Douglas MD EXAMINATION: MM SCREENING [...] in OV> 09/14/23 0807 DD/ 1450 TD/TT: Credit Historian: Panda Douglas MD IMG BI PROCEDURES Final Result * Hepatitis Panel, General (06/18/2023 9:52 AM EST) Hepatitis A IgM Nonreactive Nonreactive [facility] [facility] Comment:IgM antibodies to MALONE V not detected; does not exclude earlyacute or recovered HAV infection. ~Hepatitis B Surface Antibody REACTIVE Nonreactive [facility] Comment:REACTIVE: > 11.99 mI U/mL Hepatitis B Core Antibody Nonreactive Nonreactive [facility] Hepatitis C Antibody Nonreactive Nonreactive [facility] Comment:Antibodies to HCV no t detected; does not exclude early acuteHCV infection. Hepatitis B Surface Ag Negative Negative [facility] Blood 06/18/2023 9:52 AM EST 06/18/2023 1:03 PM EST Panda Douglas MD LAB BLOOD ORDERABLES Fin al Result [facility] [address] [place] [phone] * HIV-1/2 Antigen and Antibodies, Fourth Generation, with Reflexes (06/18/2023 9:52 AM EST) HIV AB/AG Nonreactive Nonreactive [facility] Comment:HIV-1 p24 Ag and/or HIV-1/HIV-2 Ab not detected.A test result that is nonreactive does not exclude thepossibility of exposure to or infection with HIV-1 and/orHIV-2. Nonreactive results in this assay for individualswith prior exposure to HIV-1 and/or HIV-2 may be due toantigen and antibody levels that are below the limit ofdetection of this assay.The Currently HIV Ag/Ab Combo assay result andsupplemental assay results should be interpreted inconjunction with the patient's clinical presentation,history and other laboratory results. If the results areinconsistent with clinical evidence, additional testing issuggested to confirm the result. Blood Venous blood specimen / Unknown 06/18/2023 9:52 AM EST 06/18/2023 1:03 PM EST Panda Douglas MD LAB BLOOD ORDERABLES Fin al Result [facility] [address] [place] [phone] * Colonoscopy (03/17/2018) [facility] Colonoscopy Normal Normal us Historical Provider HEALTH MAINTENANCE Edited Result - Final from Last 3 Months or Most Recently Relevant to Health Maintenance Insurance [facility] STAND ADULT Care Teams Vending Route Servicer Relationship Specialty Start Date End Date Panda Douglas MD [address] [place] [phone] PCP - General Family Medicine 09/18/16
--- OUTSIDE RECORDS SUMMARY | 2024-08-09 12:07 | XMS_ITS | Encounter Summary ---
Author Organization [employer] Address [address] [place] [address] Care Team Providers Care Car Inspection And Repair Manager Name Role Phone Katie Douglas MD Primary Care Provider + Encounter Details Date Type Department Care Team ([facility] st Contact Info) Description 07/31/2024 Orders Only [facility] External Provider, [facility] Social History Tobacco Use Types Packs/Day [...] Info) Description 09/20/2024 9:[address] [facility] [address] [place], [place] [phone] Katie Douglas MD [address] [place], [place] [phone] documented as of this encounter Procedures Procedure [...] [facility] Appearance Urine Cloudy [facility] PH 6.5 5.0 - 9.0 [facility] Glucose Urine UA Negative Negative mg/dL [facility] Urine Blood Trace(A) Negative [facility] Specific Cameron - Urine 1.025 1.005 - 1.025 [facility] Urine Protein Negative Neg-Trace mg/dL [facility] Urine Ketones Negative Negative mg/dL [facility] Nitrite Urine Negative Negative [facility] Leukocyte Esterase Urine Negative Negative [facility] RBC Urine 0-2 0 - 2 /HPF [facility] Urine WBC 0-5 0 - 5 /HPF [facility] Urine Squamous Epithelial Cell 6-10 0 - 2 /HPF [facility] Other Crystals Urine Present [facility] Urine Bacteria Trace None Seen [facility] Hyaline Casts, Urine 0-2 0 - 2 /LPF [facility] 07/31/2024 12:0 9 PM EST 07/31/2024 12:12 PM EST Narrative [facility] - 07/31/2024 12:32 PM EST [id number], Clean Catch Generic External Data Provider LAB URINE ORDERAB LES Final Result Performing Organization Address [facility] Co de Phone Number [facility] [address] [place] [phone] * Lipase (07/31/2024 12:09 PM EST) Lipase 20 8 - 78 U/L [facility] 07/31/2024 12:0 9 PM EST 07/31/2024 12:12 PM EST us Generic External Data Provider LAB BLOOD ORDERAB LES Final Result Performing Organization Address [facility] Co de Phone Number [facility] [address] [place] [phone] * Magnesium (07/31/2024 12:09 PM EST) Magnesium 2.3 1.6 - 2.6 mg/dL [facility] 07/31/2024 12:0 9 PM EST 07/31/2024 12:12 PM EST us Generic External Data Provider LAB BLOOD ORDERAB LES Final Result [facility] [address] [place] [phone] * (ABNORMAL) Basic Metabolic Panel (07/31/2024 12:09 PM EST) Sodium 140 135 - 145 mmol/L [facility] Potassium 4.0 3.3 - 5.1 mmol/L [facility] Chloride 108 96 - 108 mmol/L [facility] Carbon Dioxide 25 22 - 29 mmol/L [facility] Anion Gap 11(L) 12 - 20 [facility] Urea Nitrogen (BUN) 16 9 - 16 mg/dL [facility] Creatinine, Serum 0.70 0.5 - 1.4 mg/dL [facility] Creatinine Clr Calc Pharmacy 89.0 [facility] Comment:Provided height and weight: 157.48 cm,83.915 kg.eGFR (calculated from the MDRD study equation) and eCrCl(calculated from the Cockcroft-Gault equation) are based ondifferent parameters and may not yield comparable results.If eCrCl result is absurd, please check patient'sheight/weight. Estimated Glomerular Filt Rate >60 [facility] Comment:Chronic Kidney Disea se: Estimated GFR < 60 mL/min/1.08x8Mwjaqw Kidney Disease: Estimated GFR < 15 mL/min/1.73m2 Glucose 81 60 - 115 mg/dL [facility] Calcium 9.5 8.4 - 10.2 mg/dL [facility] 07/31/2024 12:0 9 PM EST 07/31/2024 12:12 PM EST Generic External Data Provider LAB BLOOD ORDERAB LES Final Result Performing Organization Address [facility]/ZIP Co de Phone Number [facility] [address] [place] [phone] * (ABNORMAL) Hepatic Function Panel (07/31/2024 12:09 PM EST) Bilirubin, Total 0.4 0.0 - 1.0 mg/dL [facility] Bilirubin, Direct 0.1 0.0 - 0.5 mg/dL [facility] Aspartate Amino Transferase 20 5 - 31 U/L [facility] Alanine Aminotransferase 22 0 - 31 U/L [facility] Total Protein 8.2(H) 6.5 - 8.0 g/dL [facility] Albumin Level 4.4 3.5 - 5.0 g/dL [facility] Alkaline Phosphatase 97 39 - 117 U/L [facility] 07/31/2024 12:0 9 PM EST 07/31/2024 12:12 PM EST Generic External Data Provider LAB BLOOD ORDERAB LES Final Result Performing Organization Address [facility] Co de Phone Number [facility] [address] [place] [phone] * (ABNORMAL) Urinalysis w/reflex microscopic (07/31/2024 12:09 PM EST) Color Urine Yellow [facility] Appearance Urine Cloudy [facility] PH 6.5 5.0 - 9.0 [facility] Glucose Urine UA Negative Negative mg/dL [facility] Urine Blood Trace(A) Negative [facility] Specific Cameron - Urine 1.025 1.005 - 1.025 [facility] Urine Protein Negative Neg-Trace mg/dL [facility] Urine Ketones Negative Negative mg/dL [facility] Nitrite Urine Negative Negative [facility] Leukocyte Esterase Urine Negative Negative [facility] 07/31/2024 12:0 9 PM EST 07/31/2024 12:12 PM EST Narrative [facility] - 07/31/2024 12:17 PM EST [id number], Clean Catch us Generic External Data Provider LAB URINE ORDERAB LES Final Result [facility] [address] [place] [phone] * (ABNORMAL) CBC auto differential (07/31/2024 12:09 PM EST) White Blood Count 6.3 4.8 - 10.8 X10*3/uL [facility] Red Blood Count 4.75 4.20 - 5.50 X10*6/uL [facility] Hemoglobin 13.6 12.0 - 16.0 g/dl [facility] Hematocrit 40.9 37.0 - 47.0 % [facility] Mean Corpuscular Volume 86.1 80.0 - 98.0 fL [facility] Mean Corpuscular Hemoglobin 28.6 27.0 - 33.0 pg [facility] Mean Corpuscular HGB Conc 33.3 31.0 - 35.0 g/dl [facility] Red Cell Distribution Width 14.3 11.0 - 16.0 % [facility] Platelet Count 238 160 - 400 X10*3/uL [facility] Mean Platelet Volume 11.1 9.4 - 12.3 fL [facility] Neutrophils Percent Auto 59.1 45 - 73 % [facility] Imm Gran Pct Auto 0.2 0.0 - 0.4 % [facility] Lymphocytes Percent Auto 27.2 20 - 40 % [facility] Monocytes Percent Auto 7.6 2 - 11 % [facility] Eosinophils Percent Auto 5.1(H) 0 - 4 % [facility] Basophils Percent Auto 0.8 0 - 2 % [facility] NRBC Pct Auto 0.0 0.0 - 0.2 /100WBC [facility] Neutrophils Absolute Auto 3.7 2.0 - 8.3 x10*3/uL [facility] Imm Gran Abs Auto 0.01 0.00 - 0.03 X10*3/uL [facility] Lymphocytes Absolute Auto 1.7 1.2 - 4.9 X10*3/uL [facility] Monocytes Absolute Auto 0.5 0.1 - 1.2 X10*3/uL [facility] Eosinophils Absolute Auto 0.3 0.0 - 0.4 X10*3/uL [facility] Basophils Absolute Auto 0.1 0.0 - 0.2 X10*3/uL [facility] NRBC Abs Auto 0.000 0.0 - 0.012 X10*3/uL [facility] 07/31/2024 12:0 9 PM EST 07/31/2024 12:12 PM EST us Generic External Data Provider LAB BLOOD ORDERAB LES Final Result Performing Organization Address [facility] Co de Phone Number [facility] [address] [place] [address] [phone] * CT Abdomen Pelvis w/o Contrast (07/31/2024 12:05 PM EST) Anatomical Region Laterality Modality Body, Pelvis, Abdomen Computed T omography 07/31/2024 12:0 5 PM EST Narrative 07/31/2024 12:08 PM EST ? [facility] ?[address] ?[place] [address] ? [address] Scan Report ? Signed ? Patient: Joel Mastache,Buck D ?MR#: MM ?? [id number] ? : 1965 ?Acct:[id number] ? Age/Sex: 59 / F ?ADM Date: 02/01/25 ? Loc: HO.ED ? Attending Dr: ? Ordering Physician: Shanda Mora ?? Date of Service: 07/31/24 ?? Procedure(s): CT abdomen pelvis wo IV con ?? Accession Number(s): [id number] ? cc: Katie Douglas MD; Shanda Mora ? Report Number: ?? [id number]: Total DLP = ??618.00 mGy-cm ? CLINICAL [...] DD/ 1205 ? TD/TT: 07/31/24 1205 ? Restaurant Shift Leader: ? Procedure Note Juliet, Image - 07/31/[address] [place] [address] [address] Scan Report Signed Patient: Buck Rader DMR#: [id number] : 1965Acct:[id number] Age/Sex: 59 / FADM Date: 07/31/24 Loc: HO.ED Attending Dr: Ordering Physician: Shanda Mora Date of Service: 07/31/24 Procedure(s): CT abdomen pelvis wo IV con Accession Number(s): [id number] cc: Katie Douglas MD; Shanda Mora Report Number: [id number]: Total DLP = 618.00 mGy-cm CLINICAL HISTORY: [...] 07/31/24 1206 DD/ 1205 TD/TT: 07/31/24 1205 Restaurant Shift Leader: [facility] External Provider IMG CT PROCEDURES Edited Result - Final documented in this encounter Visit Diagnoses Not on filedocumented in this encounter Additional Health Concerns Assessment Noted Time PHQ-9 Depression Total Score: 8 02/12/20 24 10:40 AM EDT documented as of this encounter Care Teams Car Inspection And Repair Manager Relationship Specialty Start Date End Date Katie Douglas MD [address] [place] [phone] PCP - General Family Medicine 09/18/16 documented as of this encounter
--- OUTSIDE RECORDS SUMMARY | 2024-08-09 12:07 | XMS_ITS | Encounter Summary ---
Author Organization [employer] Address [address] [place] [address] Care Team Providers Care Searchlight Operator Name Role Phone Katie Douglas MD Primary Care Provider + Encounter Details Date Type Department Care Team (Latest Contact Info) Description 03/19/2019 Abstract [facility] CONVERSIONS Dental, Provider, DDS Social [...] Info) Description 09/20/2024 9:00 AM EDT Telemedicine [facility] MEDICINE [address] [place] [address] Katie Douglas MD [address] [place] [address] documented as of this encounter Visit Diagnoses Not on filedocumented in this encounter Care Teams Searchlight Operator Relationship Specialty Start Date End Date Katie Douglas MD [address] [place] [phone] PCP - General Family Medicine 09/18/16 documented as of this encounter
--- OUTSIDE RECORDS SUMMARY | 2024-08-09 12:07 | XMS_ITS | Encounter Summary ---
Author Organization [employer] Address [address] [place] [address] Care Team Providers Care Data Control Assistant Name Role Phone Katie Douglas MD [...] Info) Description 09/20/2024 9:00 AM EDT Telemedicine [facility] MED[facility]INE [address] [place] [address] Katie Douglas MD [address] [place] [address] documented as of this encounter Visit Diagnoses Not on filedocumented in this encounter Additional Health Concerns Assessment Noted Time PHQ-9 Depression Total Score: 8 02/12/20 24 10:40 AM EDT documented as of this encounter Care Teams Data Control Assistant Relationship Specialty Start Date End Date Katie Douglas MD [address] [place] [address] PCP - General Family Medicine 09/18/16 documented as of this encounter
--- OUTSIDE RECORDS SUMMARY | 2024-08-09 12:07 | XMS_ITS | Encounter Summary ---
Author Organization [employer] Address [address] [place] [address] Care Team Providers Care Event Crew Technician Name Role Phone Katie Douglas MD Primary Care Provider + Encounter Details Date Type Department Care Team (Latest Contact Info) Description 04/24/2020 Abstract [facility] CONVERSIONS Dental, Provider, [...] EDT Telemedicine [facility] [address] [place] [address] Katie Douglas MD [address] [place] [address] documented as of this encounter Visit Diagnoses Not on filedocumented in this encounter Care Teams Event Crew Technician Relationship Specialty Start Date End Date Katie Douglas MD [address] [place] [address] PCP - General Family Medicine 09/18/16 documented as of this encounter
--- OUTSIDE RECORDS SUMMARY | 2024-08-09 12:07 | XMS_ITS | Encounter Summary ---
Author Organization [employer] Address [address] [place] [address] Care Team Providers Care Cell Tower Climber Name Role Phone Katie Douglas MD Primary Care Provider + Reason for Visit * Reason Onset Date Comments Chart prep 07/29/2024 Encounter Details Date Type Department Care Team ([facility] Contact Info) Description 07/29/2024 Telephone [facility] MEDICINE [address] [place], [place] [phone] April Domingo MA Chart prep Social History [...] 09/20/2024 9:00 AM EDT Telemedicine [facility] MEDICINE [address] [place] [address] Katie Douglas MD [address] [place] [address] documented as of this encounter Visit Diagnoses Not on filedocumented in this encounter Additional Health Concerns Assessment Noted Time PHQ-9 Depression Total Score: 8 02/12/20 24 10:40 AM EDT documented as of this encounter Care Teams Cell Tower Climber Relationship Specialty Start Date End Date Katie Douglas MD [address] [place] [address] PCP - General Family Medicine 09/18/16 documented as of this encounter
--- OUTSIDE RECORDS SUMMARY | 2024-08-09 12:07 | XMS_ITS | Encounter Summary ---
Author Organization [employer] Address [address] [place] [address] Care Team Providers Care Superintendent [employer] Name Role Phone Katie Douglas MD Primary Care Provider + Reason for Visit * Reason Onset Date Comments pain from ext 02/09/2024 Encounter Details Date Type Department Care Team ([facility] st Contact Info) Description 02/09/2024 Telephone [facility] ADULT DENTAL [address] [place] [address] Arsh Cortes, DDMonika [address] [place] [address] pain from ext Social History Tobacco Use [...] Description 09/20/2024 9:00 AM EDT Telemedicine [facility] MEDICINE [address] [place] [address] Katie Douglas MD [address] [place] [address] documented as of this encounter Visit Diagnoses Not on filedocumented in this encounter Additional Health Concerns Assessment Noted Time PHQ-9 Depression Total Score: 10 023 2:01 PM EDT documented as of this encounter Care Teams Superintendent [employer] Relationship Specialty Start Date End Date Katie Douglas MD [address] [place] [phone] PCP - General Family Medicine 09/18/16 documented as of this encounter
--- OUTSIDE RECORDS SUMMARY | 2024-08-09 12:07 | XMS_ITS | Encounter Summary ---
Author Organization [employer] Address [address] [place] [address] Care Team Providers Care Apparatus Repair Mechanic Name Role Phone Katie Douglas MD Primary Care Provider + Encounter Details Date Type Department Care Team ([facility] st Contact Info) Description 08/02/2024 [...] Info) Description 09/20/2024 9:00 AM EDT Telemedicine [facility] MEDICINE [address] [place], [place] [phone] Katie Douglas MD [address] [place], [place] [phone] documented as of this encounter Procedures Procedure Name Priority Date/Time Associated Diagnosis Comments CT ABDOMEN PELVIS W CONTRAST Routine 08/02/2024 [...] EST documented in this encounter Results * CT Abdomen Pelvis w/ Contrast (08/02/2024 7:19 PM EST) Anatomical Region Laterality Modality Body, Pelvis, Abdomen Computed T omography 08/02/2024 7:19 PM EST Narrative 08/02/2024 7:20 PM EST ? [facility] ?[address] ?[place] [address] ? CT Scan Report ? Signed ? Patient: Buck Rader D ?MR#: MM ?? [id number] ? : 1965 ?Acct:[id number] ? Age/Sex: 59 / F ?ADM Date: 08/02/24 ? Loc: HO.ED ? Attending Dr: ? Ordering Physician: Viraj Bermudez ?? Date of Service: 08/02/24 ?? Procedure(s): CT abdomen pelvis w IV con ?? Accession Number(s): [id number] ? cc: Katie Douglas MD; Viraj Bermudez ? Report Number: ?? [id number]: Total DLP = ??603.00 mGy-cm ? CLINICAL [...] ? DD/ 18 ? TD/TT: 08/02/241918 ? [employer] Science Teacher: ? Procedure Note Donotuseinterpreter, Image - 08/02/[address] [place] [address] [address] Scan Report Signed Patient: Buck Rader DMR#: [id number] : 1965Acct:[id number] Age/Sex: 59 / FADM Date: 08/02/24 Loc: HO.ED Attending Dr: Ordering Physician: Viraj Bermudez Date of Service: 08/02/24 Procedure(s): CT abdomen pelvis w IV con Accession Number(s): [id number] cc: Katie Douglas MD; Viraj Bermudez Report Number: [id number]: Total DLP = 603.00 mGy-cm CLINICAL HISTORY: [...] in OV> 08/02/241919 DD/ 18 TD/TT: 08/02/241918 Middle [employer] Science Teacher: us [facility] External Provider IMG CT PROCEDURES Final Result * SARS-CoV-2 RNA, Influenza A/B, and RSV RNA, Ql NAAT (08/02/2024 3:27 PM EST) Influenza A PCR NEGATIVE Negative [facility] Influenza B PCR NEGATIVE Negative [facility] Resp Syncy Virus RNA Qual PCR NEGATIVE Negative [facility] SARS COV2 PCR NEGATIVE Negative [facility] Comment:All test results mus t be [...] use by authorized laboratories.Testing performed on the [employer] GeneXpert utilizingreal-time RT-PCR.All SARS CoV2 and positive influenza A/B results arereported to [facility]. 08/02/2024 3:27 PM EST 08/02/2024 3:30 PM EST us Generic External Data Provider LAB MICROBIOLOGY - GENERAL ORDERABLES Final Result [facility] [address] [place] [phone] [phone] * (ABNORMAL) Urinalysis, Complete, with Reflex to Culture (08/02/2024 12:21 PM EST) Color Urine Dark Yellow [facility] Appearance Urine Cloudy [facility] PH >=9.0 5.0 - 9.0 [facility] Glucose Urine UA Negative Negative mg/dL [facility] Urine Blood Negative Negative [facility] Specific [place] - Urine >=1.030(H) 1.005 - 1.025 [facility] Urine Protein 30 (1+)(A) Neg-Trace mg/dL [facility] Urine Ketones Trace Negative mg/dL [facility] Nitrite Urine Negative Negative [facility] Leukocyte Esterase Urine Trace(A) Negative [facility] RBC Urine 0-2 0 - 2 /HPF [facility] Urine WBC 0-5 0 - 5 /HPF [facility] Urine Squamous Epithelial Cell 11-20 0 - 2 /HPF [facility] Urine Bacteria 2+ None Seen [facility] Hyaline Casts, Urine 0-2 0 - 2 /LPF [facility] 08/02/2024 12:2 1 PM EST 08/02/2024 12:26 PM EST Narrative [facility] - 08/02/2024 1:39 PM EST 1220Urine, Clean Catch us Generic External Data Provider LAB URINE ORDERAB LES Final Result Performing Organization Address [facility] Co de Phone Number [facility] [address] [place] [phone] * Slide Review (08/02/2024 11:19 AM EST) Slide Review VERIFIED [facility] 08/02/2024 11:1 9 AM EST 08/02/2024 11:22 AM EST us Generic External Data Provider LAB BLOOD ORDERAB LES Final Result Performing Organization Address [facility] Co de Phone Number [facility] [address] [place] [phone] * Lipase (08/02/2024 11:19 AM EST) Lipase 18 8 - 78 U/L [facility] 08/02/2024 11:1 9 AM EST 08/02/2024 11:22 AM EST us Generic External Data Provider LAB BLOOD ORDERAB LES Final Result Performing Organization Address [facility] Co de Phone Number [facility] [address] [place] [phone] * Magnesium (08/02/2024 11:19 AM EST) Pathologist [facility] Magnesium 2.1 1.6 - 2.6 mg/dL [facility] 08/02/2024 11:1 9 AM EST 08/02/2024 11:22 AM EST Generic External Data Provider LAB BLOOD ORDERAB LES Final Result Performing Organization Address [facility]/ZIP Co de Phone Number [facility] [address] [place] [phone] * Hepatic Function Panel (08/02/2024 11:19 AM EST) Pathologist [facility] Bilirubin, Direct 0.1 0.0 - 0.5 mg/dL [facility] 08/02/2024 11:1 9 AM EST 08/02/2024 11:22 AM EST [employer] External Data Provider LAB BLOOD ORDERAB LES Final Result Performing Organization Address [facility] de Phone Number [facility] [address] [place] [phone] * (ABNORMAL) Comprehensive Metabolic Panel (08/02/2024 11:19 AM EST) Pathologist [facility] Sodium 139 135 - 145 mmol/L [facility] Potassium 4.0 3.3 - 5.1 mmol/L [facility] Chloride 104 96 - 108 mmol/L [facility] Carbon Dioxide 24 22 - 29 mmol/L [facility] Anion Gap 15 12 - 20 [facility] Urea Nitrogen (BUN) 17(H) 9 - 16 mg/dL [facility] Creatinine, Serum 0.70 0.5 - 1.4 mg/dL [facility] Creatinine Clr Calc Pharmacy 88.1 [facility] Comment:Provided height and weight: 157.48 cm,82.2 kg.eGFR (calculated from the MDRD study equation) and eCrCl(calculated from the Cockcroft-Gault equation) are based ondifferent parameters and may not yield comparable results.If eCrCl result is absurd, please check patient'sheight/weight. Estimated Glomerular Filt Rate >60 [facility] Comment:Chronic Kidney Disea se: Estimated GFR < 60 mL/min/1.99a2Tpthkq Kidney Disease: Estimated GFR < 15 mL/min/1.73m2 Glucose 116(H) 60 - 115 mg/dL [facility] Calcium 9.6 8.4 - 10.2 mg/dL [facility] Bilirubin, Total 0.5 0.0 - 1.0 mg/dL [facility] Aspartate Amino Transferase 21 5 - 31 U/L [facility] Alanine Aminotransferase 23 0 - 31 U/L [facility] Total Protein 8.7(H) 6.5 - 8.0 g/dL [facility] Albumin Level 4.6 3.5 - 5.0 g/dL [facility] Alkaline Phosphatase 103 39 - 117 U/L [facility] 08/02/2024 11:1 9 AM EST 08/02/2024 11:22 AM EST us Generic External Data Provider LAB BLOOD ORDERAB LES Final Result [facility] [address] [place] [phone] * (ABNORMAL) CBC auto differential (08/02/2024 11:19 AM EST) White Blood Count 11.1(H) 4.8 - 10.8 X10*3/uL [facility] Red Blood Count 5.10 4.20 - 5.50 X10*6/uL [facility] Hemoglobin 14.7 12.0 - 16.0 g/dl [facility] Hematocrit 43.9 37.0 - 47.0 % [facility] Mean Corpuscular Volume 86.1 80.0 - 98.0 fL [facility] Mean Corpuscular Hemoglobin 28.8 27.0 - 33.0 pg [facility] Mean Corpuscular HGB Conc 33.5 31.0 - 35.0 g/dl [facility] Red Cell Distribution Width 14.0 11.0 - 16.0 % [facility] Platelet Count 232 160 - 400 X10*3/uL [facility] Mean Platelet Volume 11.2 9.4 - 12.3 fL [facility] Neutrophils Percent Auto 91.1(H) 45 - 73 % [facility] Imm Gran Pct Auto 0.5(H) 0.0 - 0.4 % [facility] Lymphocytes Percent Auto 3.8(L) 20 - 40 % [facility] Monocytes Percent Auto 3.4 2 - 11 % [facility] Eosinophils Percent Auto 0.9 0 - 4 % [facility] Basophils Percent Auto 0.3 0 - 2 % [facility] NRBC Pct Auto 0.0 0.0 - 0.2 /100WBC [facility] Neutrophils Absolute Auto 10.1(H) 2.0 - 8.3 x10*3/uL [facility] Imm Gran Abs Auto 0.05(H) 0.00 - 0.03 X10*3/uL [facility] Lymphocytes Absolute Auto 0.4(L) 1.2 - 4.9 X10*3/uL [facility] Monocytes Absolute Auto 0.4 0.1 - 1.2 X10*3/uL [facility] Eosinophils Absolute Auto 0.1 0.0 - 0.4 X10*3/uL [facility] Basophils Absolute Auto 0.0 0.0 - 0.2 X10*3/uL [facility] NRBC Abs Auto 0.000 0.0 - 0.012 X10*3/uL [facility] 08/02/2024 11:1 9 AM EST 08/02/2024 11:22 AM EST us Generic External Data Provider LAB BLOOD ORDERAB LES Edited Result - Final [facility] [address] [place] [phone] documented in this encounter Visit Diagnoses Not on filedocumented in this encounter Additional Health Concerns Assessment Noted Time PHQ-9 Depression Total Score: 8 02/12/20 24 10:40 AM EDT documented as of this encounter Care Teams Apparatus Repair Mechanic Relationship Specialty Start Date End Date Katie Douglsa MD [address] [place] [phone] PCP - General Family Medicine 09/18/16 documented as of this encounter
--- OUTSIDE RECORDS SUMMARY | 2024-08-09 12:08 | XMS_ITS | Encounter Summary ---
Author Organization [employer] Address [address] [place] [address] Care Team Providers Care Mathematical Engineering Technician Name Role Phone Katie Douglas MD Primary Care Provider + Encounter Details Date Type Department Care Team (Late Contact Info) Description 04/02/2023 Abstract [facility] MEDICINE [address] [place] [phone] Rozina Gama Social History Tobacco Use Types [...] 09/20/2024 9:00 AM EDT Telemedicine [facility] MEDICINE [address] [place], [place] [phone] Katie Douglas MD [address] [place], [place] [phone] documented as of this encounter Procedures Procedure [...] documented as of this encounter Care Teams Mathematical Engineering Technician Relationship Specialty Start Date End Date Katie Douglas MD [address] [place] [phone] PCP - General Family Medicine 09/18/16 documented as of this encounter
--- OUTSIDE RECORDS SUMMARY | 2024-08-09 12:08 | XMS_ITS | Encounter Summary ---
Author Organization [employer] Address [address] [place] [address] Care Team Providers Care Horizontal Drill Operator Name Role Phone Katie Douglas MD Primary Care Provider + Encounter Details Date Type Department Care Team ([facility] Contact Info) Description 08/08/2022 Orders Only [facility] MED & PEDS [address] [place], [place] [phone] Henrietta Newell LPN Social History Tobacco Use [...] Info) Description 09/20/2024 9:00 AM EDT Telemedicine [facility] MEDICINE [address] [place] [address] Katie Douglas MD [address] [place] [phone] documented as of this encounter Visit Diagnoses Not on filedocumented in this encounter Care Teams Horizontal Drill Operator Relationship Specialty Start Date End Date Katie Douglas MD [address] [place] [phone] PCP - General Family Medicine 09/18/16 documented as of this encounter
--- OUTSIDE RECORDS SUMMARY | 2024-08-09 12:08 | XMS_ITS | Encounter Summary ---
Author Organization [employer] Address [address] [place] [address] Care Team Providers Care Foaming Machine Operator Name Role Phone Katie Douglas MD Primary Care Provider + Encounter Details Date Type Department Care Team ([facility] Contact Info) Description 09/03/2022 Orders Only [facility] MED & PEDS [address] [place], [place] [phone] Henrietta Newell LPN Social History Tobacco Use [...] EDT Telemedicine [facility] MEDICINE [address] [place] [address] Katie Douglas MD [address] [place] [address] documented as of this encounter Visit Diagnoses Not on filedocumented in this encounter Care Teams Foaming Machine Operator Relationship Specialty Start Date End Date Katie Douglas MD [address] [place] [phone] PCP - General Family Medicine 09/18/16 documented as of this encounter
--- OUTSIDE RECORDS SUMMARY | 2024-08-09 12:08 | XMS_ITS | Encounter Summary ---
Author Organization [employer] Address [address] [facility] [address] [facility] [address] [place] [address] Care Team Providers Care Spring Forger Name Role Phone Katie Douglas MD Primary Care Provider + Encounter Details Date Type Department Care Team (Late Contact Info) Description 10/29/[address] [facility] MEDICINE [address] [place] [phone] Sandra Ospina RN [address] [place] [phone] Social History Tobacco Use Types Packs/Day Years [...] Info) Description 09/20/2024 9:00 AM EDT Telemedicine [facility] MEDICINE [address] [place] [address] [phone] Katie Douglas MD [address] [place], [place] [phone] documented as of this encounter Procedures Procedure Name Priority Date/Time Associated Diagnosis Comments MAMMOGRAPHY Routine 08/08/2021 PAP/HPV Routine 03/01/2020 COLONOSCOPY Routine 03/17/2018 documented in this encounter Results * Mammography (08/08/2021) Mammogram B-RADS 1: Neg Anatomical Region Laterality Modality Other Historical Provider HEALTH MAINTENANCE Final Result * Pap Smear (03/01/2020) Pap smear ASC[facility]'HPV Narrative Sandra Ospina, JIM - 03/01/2020 Followed by [facility], 06/16/20 s/p [facility]/ECC [facility] Provider HEALTH MAINTENANCE Edited Result - Final * Colonoscopy (03/17/2018) Colonoscopy Normal Normal [facility] Provider HEALTH MAINTENANCE Edited Result - Final documented in this encounter Visit Diagnoses Not on filedocumented in this encounter Care Teams Spring Forger Relationship Specialty Start Date End Date Katie Douglas MD [address] [place] [phone] PCP - General Family Medicine 09/18/16 documented as of this encounter
[2024-08-09 12:10] LABS: Influenza A PCR NEGATIVE (Negative); Influenza B PCR NEGATIVE (Negative); Resp Syncy Virus RNA Qual PCR NEGATIVE (Negative); SARS COV2 PCR INHOUSE NEGATIVE (Negative)
[2024-08-09 15:10] VITALS: BP 118/65; PULSE 67; RESP 20; TEMP 36.6; O2SAT 97
[2024-08-09 15:11] VITALS: BP 118/65; PULSE 67; RESP 20; TEMP 36.6; O2SAT 97
== END 2024-08-09 15:11 | disposition home or self-care (01) ==
PROVIDERS: Physician Assistant Medical; Emergency Provider Emergency Medicine; PCP Internal Medicine
DX: K52.9 Noninfective gastroenteritis and colitis, unspecified (principal); R53.1 Weakness; Z03.818 Encounter for observation for suspected exposure to other biological agents ruled out
CPT/HCPCS: 0241U; 80053; 81001; 83735; 85025; 93005; 99283; 99284

== ENCOUNTER → 2024-08-09 10:13 | Outpatient (BNV) | payer MEDICAID, SELFPAY | PROVIDERS: Emergency Provider Emergency Medicine; PCP Internal Medicine; Visit Provider Internal Medicine Cardiovascular Disease | DX: I49.9 Cardiac arrhythmia, unspecified (principal) | CPT/HCPCS: 93010 ==

== ENCOUNTER → 2024-08-26 14:30 | Outpatient (BNV) | payer MEDICAID, SELFPAY | PROVIDERS: PCP Internal Medicine; Visit Provider Internal Medicine | DX: Z12.31 Encounter for screening mammogram for malignant neoplasm of breast (principal) | CPT/HCPCS: 77063; 77067 ==

== ENCOUNTER 2024-08-26 14:32 | Outpatient (REF) | payer MEDICAID, SELFPAY ==
--- OUTSIDE RECORDS SUMMARY | 2024-08-26 17:46 | XMS_ITS | Encounter Summary ---
Author Organization [employer] Address [address] [place] [address] Care Team Providers Care Clinical Coordinator Name Role Phone Katie Douglas MD Primary [...] AM EDT Telemedicine [facility] MEDICINE [address] [place] [address] Katie Douglas MD [address] [place] [address] 09/21/2024 9:00 AM EDT Nutrition [facility] DIABETES/NUTRITION [address] [place] [address] [place] [address] documented as of this encounter Visit Diagnoses Not on filedocumented in this encounter Additional Health Concerns Assessment Noted Time PHQ-9 Depression Total Score: 8 02/12/20 24 10:40 AM EDT documented as of this encounter Care Teams Clinical Coordinator Relationship Specialty Start Date End Date Katie Douglas MD [address] [place] [phone] PCP - General Family Medicine 09/18/16 documented as of this encounter
--- OUTSIDE RECORDS SUMMARY | 2024-08-26 17:46 | XMS_ITS | Encounter Summary ---
Author Organization [employer] Address [address] [facility] [address] 7t [place] [address] Care Team Providers Care Engineering Project Designer Name Role Phone Katie Douglas MD Primary Care Provider + Encounter Details Date Type Department Care Team ([facility] st Contact Info) Description 08/02/2024 Orders Only [...] Info) Description 09/20/2024 9:00 AM EDT Telemedicine [facility] MEDICINE [address] [place] [address] Katie Douglas MD 230 [place] [address] 09/21/2024 9:00 AM EDT Nutrition [facility] DIABETES/NUTRITION [address] [place] [address] [place] [address] documented as of this encounter Procedures Procedure [...] EST Narrative 08/02/2024 7:20 PM EST ? [facility] ?[address] ?[place] [address] ? CT Scan Report ? Signed ? Patient: Buck Rader ?MR#: MM ?? [id number] ? : 1965 ?Acct:[id number] ? Age/Sex: 59 / F ?ADM Date: 08/02/24 ? Loc: HO.ED ? Attending Dr: ? Ordering Physician: Viraj Bermudez ?? Date of Service: 08/02/24 ?? Procedure(s): CT abdomen pelvis w IV con ?? Accession Number(s): [id number] ? cc: Katie Douglas MD; Viraj Bermudez ? Report Number: ?? [id number]: Total DLP = ??603.00 mGy-cm ? CLINICAL [...] ? DD/ 18 ? TD/TT: 08/02/241918 ? Timber Buyer: ? Procedure Note Donotuseinterpreter, Image - 08/02/[address] [address] [address] Scan Report Signed Patient: Buck Rader DMR#: [id number] : 1965Acct:[id number] Age/Sex: 59 / FADM Date: 08/02/24 Loc: HO.ED Attending Dr: Ordering Physician: Viraj Bermudez Date of Service: 08/02/24 Procedure(s): CT abdomen pelvis w IV con Accession Number(s): [id number] cc: Katie Douglas MD; Viraj Bermudez Report Number: [id number]: Total DLP = 603.00 mGy-cm CLINICAL HISTORY: [...] in OV> 08/02/241919 DD/ 18 TD/TT: 08/02/241918 Timber Buyer: [facility] External Provider IMG CT PROCEDURES Final Result * SARS-CoV-2 RNA, Influenza A/B, and RSV RNA, Ql NAAT (08/02/2024 3:27 PM EST) Influenza A PCR NEGATIVE Negative [facility] Influenza B PCR NEGATIVE Negative [facility] Resp Syncy Virus RNA Qual PCR NEGATIVE Negative [facility] SARS COV2 PCR NEGATIVE Negative [facility] Comment:All test results mus t [...] use by authorized laboratories.Testing performed on the [employer] GeneXpert utilizingreal-time RT-PCR.All SARS CoV2 and positive influenza A/B results arereported to [facility]. 08/02/2024 3:27 PM EST 08/02/2024 3:30 PM EST Generic External Data Provider LAB MICROBIOLOGY - GENERAL ORDERABLES Final Result [facility] [address] [place] [address] [phone] * (ABNORMAL) Urinalysis, Complete, with Reflex to Culture (08/02/2024 12:21 PM EST) Color Urine Dark Yellow [facility] Appearance Urine Cloudy [facility] PH >=9.0 5.0 - 9.0 [facility] Glucose Urine UA Negative Negative mg/dL [facility] Urine Blood Negative Negative [facility] Specific [place] - Urine >=1.030(H) 1.005 - 1.025 [facility] Urine Protein 30 (1+)(A) Neg-Trace mg/dL [facility] Urine Ketones Trace Negative mg/dL [facility] Nitrite Urine Negative Negative [facility] Leukocyte Esterase Urine Trace(A) Negative [facility] RBC Urine 0-2 0 - 2 /HPF [facility] Urine WBC 0-5 0 - 5 /HPF [facility] Urine Squamous Epithelial Cell 11-20 0 - 2 /HPF [facility] Urine Bacteria 2+ None Seen [facility] Hyaline Casts, Urine 0-2 0 - 2 /LPF [facility] 08/02/2024 12:2 1 PM EST 08/02/2024 12:26 PM EST Narrative [facility] - 08/02/2024 1:39 PM EST 1220Urine, Clean Catch us Generic External Data Provider LAB URINE ORDERAB LES Final Result Performing Organization Address City/[facility]/ZIP Co de Phone Number [facility] [address] [place] [phone] * Slide Review (08/02/2024 11:19 AM EST) Slide Review VERIFIED [facility] 08/02/2024 11:1 9 AM EST 08/02/2024 11:22 AM EST us Generic External Data Provider LAB BLOOD ORDERAB LES Final Result Performing Organization Address City/[facility]/ZIP Co de Phone Number [facility] [address] [place] [phone] * Lipase (08/02/2024 11:19 AM EST) Lipase 18 8 - 78 U/L [facility] 08/02/2024 11:1 9 AM EST 08/02/2024 11:22 AM EST us Generic External Data Provider LAB BLOOD ORDERAB LES Final Result Performing Organization Address [facility] Phone Number [facility] [address] [place] [phone] * Magnesium (08/02/2024 11:19 AM EST) Magnesium 2.1 1.6 - 2.6 mg/dL [facility] 08/02/2024 11:1 9 AM EST 08/02/2024 11:22 AM EST us Generic External Data Provider LAB BLOOD ORDERAB LES Final Result Performing Organization Address [facility] Phone Number [facility] [address] [place] [phone] * Hepatic Function Panel (08/02/2024 11:19 AM EST) Bilirubin, Direct 0.1 0.0 - 0.5 mg/dL [facility] 08/02/2024 11:1 9 AM EST 08/02/2024 11:22 AM EST Generic External Data Provider LAB BLOOD ORDERAB LES Final Result Performing Organization Address [facility] Phone Number [facility] [address] [place] [phone] * (ABNORMAL) Comprehensive Metabolic Panel (08/02/2024 11:19 AM EST) Sodium 139 135 - 145 mmol/L [facility] Potassium 4.0 3.3 - 5.1 mmol/L [facility] Chloride 104 96 - 108 mmol/L [facility] Carbon Dioxide 24 22 - 29 mmol/L [facility] Anion Gap 15 12 - 20 [facility] Urea Nitrogen (BUN) 17(H) 9 - 16 mg/dL [facility] Creatinine, Serum 0.70 0.5 - 1.4 mg/dL [facility] Creatinine Clr Calc Pharmacy 88.1 [facility] Comment:Provided height and weight: 157.48 cm,82.2 kg.eGFR (calculated from the MDRD study equation) and eCrCl(calculated from the Cockcroft-Gault equation) are based ondifferent parameters and may not yield comparable results.If eCrCl result is absurd, please check patient'sheight/weight. Estimated Glomerular Filt Rate >60 [facility] Comment:Chronic Kidney Disea se: Estimated GFR < 60 mL/min/1.39o4Ryphhw Kidney Disease: Estimated GFR < 15 mL/min/1.73m2 Glucose 116(H) 60 - 115 mg/dL [facility] Calcium 9.6 8.4 - 10.2 mg/dL [facility] Bilirubin, Total 0.5 0.0 - 1.0 mg/dL [facility] Aspartate Amino Transferase 21 5 - 31 U/L [facility] Alanine Aminotransferase 23 0 - 31 U/L [facility] Total Protein 8.7(H) 6.5 - 8.0 g/dL [facility] Albumin Level 4.6 3.5 - 5.0 g/dL [facility] Alkaline Phosphatase 103 39 - 117 U/L [facility] 08/02/2024 11:1 9 AM EST 08/02/2024 11:22 AM EST us Generic External Data Provider LAB BLOOD ORDERAB LES Final Result [facility] [address] [place] [address] [phone] * (ABNORMAL) CBC auto differential (08/02/2024 11:19 AM EST) White Blood Count 11.1(H) 4.8 - 10.8 X10*3/uL [facility] Red Blood Count 5.10 4.20 - 5.50 X10*6/uL [facility] Hemoglobin 14.7 12.0 - 16.0 g/dl [facility] Hematocrit 43.9 37.0 - 47.0 % [facility] Mean Corpuscular Volume 86.1 80.0 - 98.0 fL [facility] Mean Corpuscular Hemoglobin 28.8 27.0 - 33.0 pg [facility] Mean Corpuscular HGB Conc 33.5 31.0 - 35.0 g/dl [facility] Red Cell Distribution Width 14.0 11.0 - 16.0 % [facility] Platelet Count 232 160 - 400 X10*3/uL [facility] Mean Platelet Volume 11.2 9.4 - 12.3 fL [facility] Neutrophils Percent Auto 91.1(H) 45 - 73 % [facility] Imm Gran Pct Auto 0.5(H) 0.0 - 0.4 % [facility] Lymphocytes Percent Auto 3.8(L) 20 - 40 % [facility] Monocytes Percent Auto 3.4 2 - 11 % [facility] Eosinophils Percent Auto 0.9 0 - 4 % [facility] Basophils Percent Auto 0.3 0 - 2 % [facility] NRBC Pct Auto 0.0 0.0 - 0.2 /100WBC [facility] Neutrophils Absolute Auto 10.1(H) 2.0 - 8.3 x10*3/uL [facility] Imm Gran Abs Auto 0.05(H) 0.00 - 0.03 X10*3/uL [facility] Lymphocytes Absolute Auto 0.4(L) 1.2 - 4.9 X10*3/uL [facility] Monocytes Absolute Auto 0.4 0.1 - 1.2 X10*3/uL [facility] Eosinophils Absolute Auto 0.1 0.0 - 0.4 X10*3/uL [facility] Basophils Absolute Auto 0.0 0.0 - 0.2 X10*3/uL [facility] NRBC Abs Auto 0.000 0.0 - 0.012 X10*3/uL [facility] 08/02/2024 11:1 9 AM EST 08/02/2024 11:22 AM EST us Generic External Data Provider LAB BLOOD ORDERAB LES Edited Result - Final [facility] [address] [place] [address] [phone] documented in this encounter Visit Diagnoses Not on filedocumented in this encounter Additional Health Concerns Assessment Noted Time PHQ-9 Depression Total Score: 8 02/12/20 24 10:40 AM EDT documented as of this encounter Care Teams Engineering Project Designer Relationship Specialty Start Date End Date Katie Douglas MD [address] [place] [phone] PCP - General Family Medicine 09/18/16 documented as of this encounter
--- OUTSIDE RECORDS SUMMARY | 2024-08-26 17:47 | XMS_ITS | Encounter Summary ---
Author Organization [employer] Address [address] [facility] [address]t [place] [address] Care Team Providers Care Rebar Worker Name Role Phone Katie Douglas MD Primary Care Provider + Reason for Visit * Reason Onset Date Comments Care Management 08/10/2024 [facility]- chart revi ew Encounter Details Date Type Department Care Team ([facility] Contact Info) Description 08/10/2024 Telephone [facility] MEDICINE [address] [place] [address] Katie Douglas MD [address] [place] [address] Care Management ([facility]- chart review) Social History Tobacco Use Types Packs/Day Years [...] before you got money to buy more: Sometimes True 2024 Within the past 12 months,th e food you bought just didn't last and you didn't have enough money to get more: Sometimes True 08/10/2024 Transportation Answer Date Recorded In the past [...] encounter Miscellaneous Notes * Telephone Encounter - Kyrie Flannery RN - 08/10/2024 8:52 AM EST CM Kyrie Flannery RN, performed chart review, in anticipation of initial assessment with patient, aspatient has stratified for C3 Adult Complex Care through the ADT feed. History significant for visual impairment, cervical disc disorder, headache disorder, depressive disorder, anxiety, asthma, chronic rhinitis, obesity. Specialists include [facility] physical therapy, General surgery, [facility], [facility] pain management, [facility], [facility] urology, [facility]. ED visits within the last 12 months include [facility] on 08/09/24, C on 08/02/24, C on 07/31/24. Last appointment in PCP office on 06/29/24. Next appointment scheduled for 09/20/24. documented in this encounter Plan of Treatment Upcoming Encounters Date Type Department Care Team (Late st Contact Info) Description 09/20/2024 9:00 AM EDT Telemedicine [facility] MEDICINE [address] [place] [phone] Katie Douglas MD [address] [place] [address] 09/21/2024 9:00 AM EDT Nutrition [facility] DIABETES/NUTRITION [address] [place], [place] [phone] Sue Elise [address] [place] [address] documented as of this encounter Visit Diagnoses Not on filedocumented in this encounter Additional Health Concerns Assessment Noted Time PHQ-9 Depression Total Score: 8 02/12/20 24 10:40 AM EDT documented as of this encounter Care Teams Rebar Worker Relationship Specialty Start Date End Date Katie Douglas MD [address] [place] [address] PCP - General Family Medicine 09/18/16 documented as of this encounter
--- OUTSIDE RECORDS SUMMARY | 2024-08-26 17:47 | XMS_ITS | Encounter Summary ---
Author Organization [employer] Address [address] [facility] [address] 7t [place] [address] Care Team Providers Care Belt Notcher Name Role Phone Katie Douglas MD Primary Care Provider + Reason for Visit * Reason Onset Date Comments Chart prep 07/29/2024 Encounter Details Date Type Department Care Team ([facility] Contact Info) Description 07/29/2024 Telephone [facility] MEDICINE [address] [place], [place] [phone] April Domingo MA Chart prep Social History [...] Info) Description 09/20/2024 9:00 AM EDT Telemedicine [facility] MEDICINE [address] [place] [phone] Katie Douglas MD [address] [place] [address] 09/21/2024 9:00 AM EDT Nutrition [facility] DIABETES/NUTRITION [address] [place] [address] Sue Elise, DIONISIO [address] [place] [address] documented as of this encounter Visit Diagnoses Not on filedocumented in this encounter Additional Health Concerns Assessment Noted Time PHQ-9 Depression Total Score: 8 02/12/20 10:40 AM EDT documented as of this encounter Care Teams Belt Notcher Relationship Specialty Start Date End Date Katie Douglas MD [address] [place] [address] PCP - General Family Medicine 09/18/16 documented as of this encounter
--- OUTSIDE RECORDS SUMMARY | 2024-08-26 17:47 | XMS_ITS | Encounter Summary ---
Author Organization [employer] Address [address] [facility] [address] 7[address] [place] [address] Care Team Providers Care Paediatrician Name Role Phone Katie Douglas MD Primary Care Provider + Kyrie Flannery RN Unavailable [phone] Encounter Details Date Type Department Care Team (Late Contact Info) Description 09/03/2022 Orders Only [facility] [address] [place], [place] [phone] Henrietta Newell LPN Social History Tobacco Use [...] Upcoming Encounters Date Type Department Care Team ([facility] Contact Info) Description 09/20/2024 9:00 AM EDT Telemedicine [facility] MEDICINE [address] [place], [place] [phone] Katie Douglas MD [address] [place], [place] [phone] 09/21/2024 9:00 AM EDT Nutrition [facility] DIABETES/NUTRITION [address] [place], [place] [phone] Sue [address]ise [address] [place] [address] documented as of this encounter Visit Diagnoses Not on filedocumented in this encounter Care Teams Paediatrician Relationship Specialty Start Date End Date Katie Douglas MD [address] [place] [address] PCP - General Family Medicine 09/18/16 Kyrie Flannery RN [address] [place] [address] Coating Machine FeederStock Preparer 08/20/24 documented as of this encounter
--- OUTSIDE RECORDS SUMMARY | 2024-08-26 17:47 | XMS_ITS | Encounter Summary ---
Author Organization [employer] [facility] Address [address] [facility] 7t [place] [address] Care Team Providers Care Car Runner Name Role Phone Katie Douglas MD Primary Care Provider + Kyrie Flannery RN Unavailable [phone] Encounter Details Date Type Department Care Team (Latest Contact Info) Description 08/27/2021 Abstract [facility] CONVERSIONS Dental, Provider, DDS Social History [...] Info) Description 09/20/2024 9:00 AM EDT Telemedicine [facility] MEDICINE [address] [place] [phone] Katie Douglas MD [address] [place] [address] 09/21/2024 9:00 AM EDT Nutrition [facility] DIABETES/NUTRITION [address] [place] [phone] [place] [address] documented as of this encounter Visit Diagnoses Not on filedocumented in this encounter Care Teams Car Runner Relationship Specialty Start Date End Date Katie Douglas MD [address] [place] [address] PCP - General Family Medicine 09/18/16 Kyrie Flannery, JIM [address] [place] [address] Director Financial SystemsStock Broker Supervisor 08/20/24 documented as of this encounter
--- OUTSIDE RECORDS SUMMARY | 2024-08-26 17:47 | XMS_ITS | Encounter Summary ---
Author Organization [employer] Address [address] [facility] [employer] [facility] 7t [place] [address] Care Team Providers Care Balance Wheel Hand Filer Name Role Phone Katie Douglas MD Primary Care Provider + Kyrie Flannery RN Unavailable [phone] Encounter Details Date Type Department Care Team (Latest Contact Info) Description 04/24/2020 Abstract [facility] CONVERSION[facility] Dental, Provider, DDS Social History Tobacco [...] Upcoming Encounters Date Type Department Care Team ( st Contact Info) Description 09/20/2024 9:00 AM EDT Telemedicine [facility] MEDICINE [address] [place] [phone] Katie Douglas MD [address] [place] [address] 09/21/2024 9:00 AM EDT Nutrition [facility] DIABETES/NUTRITION [address] [place] [phone] [place] [address] documented as of this encounter Visit Diagnoses Not on filedocumented in this encounter Care Teams Balance Wheel Hand Filer Relationship Specialty Start Date End Date Katie Douglas MD [address] [place] [phone] PCP - General Family Medicine 09/18/16 Kyrie Flannery, JIM [address] [place] [address] Dial Equipment EngineerBar Assistant 08/20/24 documented as of this encounter
--- OUTSIDE RECORDS SUMMARY | 2024-08-26 17:47 | XMS_ITS | Encounter Summary ---
Author Organization [employer] Address [address] [facility] 7t [place] [address] Care Team Providers Care Metal Filer Name Role Phone Katie Douglas MD Primary Care Provider + Kyrie Flannery RN Unavailable [phone] Encounter Details Date Type Department Care Team (Late st Contact Info) Description 04/02/2023 Abstract [facility] MEDICINE [address] [place] [address] Rozina Gama Social History Tobacco Use Types [...] Info) Description 09/20/2024 9:00 AM EDT Telemedicine [facility] MEDICINE [address] [place], [place] [phone] Katie Douglas MD [address] [place] [address] 09/21/2024 9:00 AM EDT Nutrition [facility] DIABETES/NUTRITION [address] [place] [address] [place] [address] Sue Elise, DIONISIO [address] [place] [address] documented as of this encounter Procedures Procedure [...] Noted Time PHQ-9 Depression Total Score: 10 02/10/ 023 2:01 PM EDT documented as of this encounter Care Teams Metal Filer Relationship Specialty Start Date End Date Katie Douglas MD [address] [place] [address] PCP - General Family Medicine 09/18/16 Kyrie Flannery, JIM [address] [place] [address] Prototype CarpenterDrafter Landscape 08/20/24 documented as of this encounter
--- OUTSIDE RECORDS SUMMARY | 2024-08-26 17:47 | XMS_ITS | Encounter Summary ---
Author Organization [employer] Address [address] [facility] [address] 7[address] [place] [address] Care Team Providers Care Choker Setter Name Role Phone Katie Douglas MD Primary Care Provider + Kyrie Flannery RN Unavailable [phone] Encounter Details Date Type Department Care Team (Late Contact Info) Description 08/08/2022 Orders Only [facility] MED [facility] PEDS [address] [place] [address] Henrietta Newell LPN Social History Tobacco Use [...] Description 09/20/2024 9:00 AM EDT Telemedicine [facility] MEDICINE [address] [place], [place] [phone] Katie Douglas MD [address] [place] [address] 09/21/2024 9:00 AM EDT Nutrition [facility] DIABETES/NUTRITION [address] [place] [address] Sue Elise, DIONISIO [address] [place], [place] [phone] documented as of this encounter Visit Diagnoses Not on filedocumented in this encounter Care Teams Choker Setter Relationship Specialty Start Date End Date Katie Douglas MD [address] [place] [address] PCP - General Family Medicine 09/18/16 Kyrie Flannery, JIM [address] [place] [address] Health Data AnalystVp Production 08/20/24 documented as of this encounter
--- OUTSIDE RECORDS SUMMARY | 2024-08-26 17:47 | XMS_ITS | Encounter Summary ---
Author Organization [email or web address] Address [address] [place] [address] Care Team Providers Care Managed Care Director Name Role Phone Katie Douglas MD Primary Care Provider + Kyrie Flannery RN Unavailable [phone] Reason for Visit * Reason Onset Date Comments Care Management 08/20/2024 C3CM- Initial as sessment/enrollment Encounter Details Date Type Department Care Team ([facility] st Contact Info) Description 08/20/2024 Telephone [facility] MEDICINE [address] [place] [address] Katie Douglas MD [address] [place], [place] [phone] Care Management (C3CM- Initial assessment/enrollment) Social History Tobacco Use Types Packs/Day Years [...] Telephone Encounter - Kyrie Flannery RN - 08/20/2024 2:11 PM EST TADEO Flannery RN, provided notification to PCP Dr. Douglas of patient's enrollment into C3 Complex Care Program. TADEO Flannery RN, completed care plan and sent to HIM to be scanned into the medical record. PCPnotified and awaiting review from provider. CM plan -assist with appointment scheduling and reminder -educate on disease processes -assist with SDOH needs * Telephone Encounter - Kyrie Flannery RN - 08/20/2024 2:09 PM EST TADEO Flannery RN placed outbound call to patient for agreed upon time for initial assessment forenrollment into Adult Care Management Program. Patient's name, , and address were verified. Buck Brown is a 59 y.o. female with PMH of visual impairment, cervical disc disorder, headache disorder, depressive disorder, anxiety, asthma, chronic rhinitis, obesity, shoulder pain, neck pain, dizziness, vertigo, bilateral Achilles tendinosis, chronic rhinitis, hemorrhoids. Pt reports being followed by [facility] general surgery for hemorrhoid. Pt states that her hemorrhoids went away but sometimes with mild rectal itchiness. 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 CM will follow up and confirm appointment. Patient reports being followedby [facility] pain management due to the bilateral Achilles tendinosis. Patient state that at the last visit last year around Feb she was given an injection on the back of one of her foot which improved the pain. Patient states that when she walks sometimes is bothersome but not as bad as it was before. P aydin is aware that she has a urology appointment on 09/21/24 but doesn't know the reason why. CM will attempt to find out. Patient state that she is due for her dental cleaning but that every time she has called [facility] dental dept to schedule appointment she is being told that no appointment is available. CM will assist pt is scheduling dental appt for cleaning. Pt reports that she is no longer being followed by PT or orthopedic surgery. Patient was aware that she had a scheduled visit at [facility] on 08/26/24 @ 2:30 PM but did not know what for. Per [employer] it seems that appt is for a Mammo screening. CM will confirm appt. Patient is aware of her televisit with PCP on 09/20/24. Patient denies any he aring or vision concerns at this time. Patient state her last eye exam was on 07/30/24. Patient states that she wears glasses. Patient was seen at [facility] ED on 08/09/24 due to colitis and adverse drug effect of diarrhea and abdominal pain and was instructed to stop taking antibiotic which was likely thecause of her symptoms and recommended to follow up with GI specialist. Patient was then seen here by Dr. Verde on 08/11/24 for ED f/u. Patients states that she no longer is having the diarrhea but is worried that she may still have an infection due to having to stop the antibiotic. Pt state sometimeshaving the abdominal pain. Patient would like RN to touch base with PCP to see if GI referral is necessary or next steps. CM will send message to PCP. Patient denies any use of DME. Patient that in the past she was followed by [facility] taxi servicer, but it's been more than a year since they followed up with her. Patient would like to re- establish care with a taxi servicer. Patient states that she doesn't have a gall bladder. Patient state her diet consist of low fat diet and non-spicy food. Pt deniesexercising. Pt state she takes centrum vitamins 50 + (OTC) but doesn't take it consistently. Patient state she lost weight when she had the diarrhea and colitis issue, went from 185 lbs to 178 lbs. Patient report that she is being followed by a therapist and a psychiatrist at [facility] in [place]. She speaks with the therapist every 2 weeks and with the psychiatrist every 2 months. Patient has a way to get in contact with them as needed and also has crisis # on hand. Patient denies any SI/HI at this time. Patient she sometimes feels depressed and anxious but not as strong as before. Patientalso state that she sometimes feels nervous. Patient state that watching TV and playing computer game helps relax her. Patient reports that when she reads something later on she forgets what she read. Patient has not mentioned this to her PCP. [facility] Pt denies assistance with ADL's other than with going up the stairs which she doesn't go up because she starts to feel unbalanced and dizzy. Pt doesn't have VNA or LAST TRIMMER or HCP. Pt denies any smoking, drinking, or illegal drugs. Pt lives alone in an apartment through [address], feels safe in [facility] residence. Patient state she has transportation to her medical appointments. Patient does not work is on disability. Pt state she is not behind on any of her utilities. Patient state she receives food stamps. Patient state her food is usually sufficient but sometimes is not. CM will assist pt with appointment reminders, scheduling of appointments with specialist office/PCP, SDOH needs, etc. Care management program explained and contact information given. Patient verbalizes understanding, and able to repeat back to card writer hand. A follow up call will be placed within 10 days, patient agrees with plan. documented in this encounter Plan of Treatment Upcoming Encounters Date Type Department Care Team ([facility] Contact Info) Description 09/20/2024 9:00 AM EDT Telemedicine [facility] MEDICINE [address] [place] [phone] Katie Douglas MD [address] [place] [address] 09/21/2024 9:00 AM EDT Nutrition [facility] DIABETES/NUTRITION [address], [place] [phone] [place] [address] documented as of this encounter Visit Diagnoses Not on filedocumented in this encounter Additional Health Concerns Assessment Noted Time PHQ-9 Depression Total Score: 8 02/12/20 24 10:40 AM EDT documented as of this encounter Care Teams Managed Care Director Relationship Specialty Start Date End Date Katie Douglas MD [address] [place] [address] [phone] PCP - General Family Medicine 09/18/16 Kyrie Flannery, JIM [address] [place] [phone] Train Brake OperatorPhotoengraver Apprentice 08/20/24 documented as of this encounter
--- OUTSIDE RECORDS SUMMARY | 2024-08-26 17:47 | XMS_ITS | Encounter Summary ---
Author Organization [employer] Address [address] [place] [address] Care Team Providers Care Patent Prosecution Paralegal Name Role Phone Katie Douglas MD Primary Care Provider + Encounter Details Date Type Department Care Team ([facility] st Contact Info) Description 08/09/2024 [...] Info) Description 09/20/2024 9:00 AM EDT Telemedicine [facility] MEDICINE [address] [place] [phone] Katie Douglas MD [address] [place] [address] 09/21/2024 9:00 AM EDT Nutrition [facility] DIABETES/NUTRITION [address] [place] [address] [place] [address] documented as of this encounter Procedures Procedure Name Priority Date/Time Associated Diagnosis Comments URINALYSIS, COMPLETE, WITH REFLEX TO CULTURE Routine 08/09/2024 11:23 AM EST SARS COV2/INFLUENZA A/B AND RSV RNA QL NAAT Routine 08/09/2024 11:23 AM EST CBC WITH AUTO DIFFERENTIAL Routine 08/09/2024 11:23 AM EST URINALYSIS WITH REFLEX MICROSCOPIC Routine 08/09/2024 11:23 AM EST MAGNESIUM Routine 08/09/2024 11:23 AM EST COMPREHENSIVE METABOLIC PANEL Routine 08/09/2024 11:23 AM EST documented in this encounter Results * SARS-CoV-2 RNA, Influenza A/B, and RSV RNA, Ql NAAT (08/09/2024 11:23 AM EST) Pathologist [facility] Influenza A PCR NEGATIVE Negative [facility] Influenza B PCR NEGATIVE Negative [facility] Resp Syncy Virus RNA Qual PCR NEGATIVE Negative [facility] SARS COV2 PCR NEGATIVE Negative [facility] Comment:All test results mus t [...] use by authorized laboratories.Testing performed on the [employer] GeneXpert utilizingreal-time RT-PCR.All SARS CoV2 and positive influenza A/B results arereported to [facility]. 08/09/2024 11:2 3 AM EST 08/09/2024 11:26 AM EST Generic External Data Provider LAB MICROBIOLOGY - GENERAL ORDERABLES Final Result Performing Organization Address [facility]/ZIP Co de Phone Number [facility] [address] [place] [phone] * Magnesium (08/09/2024 11:23 AM EST) [facility] Magnesium 2.2 1.6 - 2.6 mg/dL [facility] 08/09/2024 11:2 3 AM EST 08/09/2024 11:26 AM EST Generic External Data Provider LAB BLOOD ORDERAB LES Final Result Performing Organization Address [facility]/[place] Co de Phone Number [facility] [address] [place] [phone] * (ABNORMAL) Comprehensive Metabolic Panel (08/09/2024 11:23 AM EST) [facility] Sodium 141 135 - 145 mmol/L [facility] Potassium 3.9 3.3 - 5.1 mmol/L [facility] Chloride 110(H) 96 - 108 mmol/L [facility] Carbon Dioxide 25 22 - 29 mmol/L [facility] Anion Gap 10(L) 12 - 20 [facility] Urea Nitrogen (BUN) 14 9 - 16 mg/dL [facility] Creatinine, Serum 0.67 0.5 - 1.4 mg/dL [facility] Creatinine Clr Calc Pharmacy 91.6 [facility] Comment:Provided height and weight: 157.48 cm,81.6 kg.eGFR (calculated from the MDRD study equation) and eCrCl(calculated from the Cockcroft-Gault equation) are based ondifferent parameters and may not yield comparable results.If eCrCl result is absurd, please check patient'sheight/weight. Estimated Glomerular Filt Rate >60 [facility] Comment:Chronic Kidney Disea se: Estimated GFR < 60 mL/min/1.51i2Porfvr Kidney Disease: Estimated GFR < 15 mL/min/1.73m2 Glucose 74 60 - 115 mg/dL [facility] Calcium 9.1 8.4 - 10.2 mg/dL [facility] Bilirubin, Total 0.4 0.0 - 1.0 mg/dL [facility] Aspartate Amino Transferase 21 5 - 31 U/L [facility] Alanine Aminotransferase 39(H) 0 - 31 U/L [facility] Total Protein 8.1(H) 6.5 - 8.0 g/dL [facility] Albumin Level 4.3 3.5 - 5.0 g/dL [facility] Alkaline Phosphatase 86 39 - 117 U/L [facility] 08/09/2024 11:2 3 AM EST 08/09/2024 11:26 AM EST us Generic External Data Provider LAB BLOOD ORDERAB LES Final Result [facility] [address] [place] [phone] [phone] * (ABNORMAL) Urinalysis, Complete, with Reflex to Culture (08/09/2024 11:23 AM EST) Color Urine Yellow [facility] Appearance Urine Clear [facility] PH 6.5 5.0 - 9.0 [facility] Glucose Urine UA Negative Negative mg/dL [facility] Urine Blood Small (1+)(A) Negative [facility] Specific [place] - Urine 1.025 1.005 - 1.025 [facility] Urine Protein Negative Neg-Trace mg/dL [facility] Urine Ketones Negative Negative mg/dL [facility] Nitrite Urine Negative Negative [facility] Leukocyte Esterase Urine Negative Negative [facility] RBC Urine 6-10(A) 0 - 2 /HPF [facility] Urine WBC 0-5 0 - 5 /HPF [facility] Urine Squamous Epithelial Cell 0-2 0 - 2 /HPF [facility] Urine Bacteria None Seen None Seen [facility] Hyaline Casts, Urine 0-2 0 - 2 /LPF [facility] 08/09/2024 11:2 3 AM EST 08/09/2024 11:26 AM EST Narrative [facility] - 08/09/2024 11:38 AM EST Urine, Clean Catch us Generic External Data Provider LAB URINE ORDERAB LES Final Result Performing Organization Address City/State/[place] Co de Phone Number [facility] [address] [place] [phone] * (ABNORMAL) Urinalysis w/reflex microscopic (08/09/2024 11:23 AM EST) Color Urine Yellow [facility] Appearance Urine Clear [facility] PH 6.5 5.0 - 9.0 [facility] Glucose Urine UA Negative Negative mg/dL [facility] Urine Blood Small (1+)(A) Negative [facility] Specific [place] - Urine 1.025 1.005 - 1.025 [facility] Urine Protein Negative Neg-Trace mg/dL [facility] Urine Ketones Negative Negative mg/dL [facility] Nitrite Urine Negative Negative [facility] Leukocyte Esterase Urine Negative Negative [facility] 08/09/2024 11:2 3 AM EST 08/09/2024 11:26 AM EST Narrative [facility] - 08/09/2024 11:34 AM EST Urine, Clean Catch us Generic External Data Provider LAB URINE ORDERAB LES Final Result [facility] [address] [place] [address] [phone] * (ABNORMAL) CBC auto differential (08/09/2024 11:23 AM EST) White Blood Count 7.7 4.8 - 10.8 X10*3/uL [facility] Red Blood Count 4.73 4.20 - 5.50 X10*6/uL [facility] Hemoglobin 13.6 12.0 - 16.0 g/dl [facility] Hematocrit 41.1 37.0 - 47.0 % [facility] Mean Corpuscular Volume 86.9 80.0 - 98.0 fL [facility] Mean Corpuscular Hemoglobin 28.8 27.0 - 33.0 pg [facility] Mean Corpuscular HGB Conc 33.1 31.0 - 35.0 g/dl [facility] Red Cell Distribution Width 13.6 11.0 - 16.0 % [facility] Platelet Count 240 160 - 400 X10*3/uL [facility] Mean Platelet Volume 11.1 9.4 - 12.3 fL [facility] Neutrophils Percent Auto 63.3 45 - 73 % [facility] Imm Gran Pct Auto 0.3 0.0 - 0.4 % [facility] Lymphocytes Percent Auto 24.6 20 - 40 % [facility] Monocytes Percent Auto 7.0 2 - 11 % [facility] Eosinophils Percent Auto 4.3(H) 0 - 4 % [facility] Basophils Percent Auto 0.5 0 - 2 % [facility] NRBC Pct Auto 0.0 0.0 - 0.2 /100WBC [facility] Neutrophils Absolute Auto 4.9 2.0 - 8.3 x10*3/uL [facility] Imm Gran Abs Auto 0.02 0.00 - 0.03 X10*3/uL [facility] Lymphocytes Absolute Auto 1.9 1.2 - 4.9 X10*3/uL [facility] Monocytes Absolute Auto 0.5 0.1 - 1.2 X10*3/uL [facility] Eosinophils Absolute Auto 0.3 0.0 - 0.4 X10*3/uL [facility] Basophils Absolute Auto 0.0 0.0 - 0.2 X10*3/uL [facility] NRBC Abs Auto 0.000 0.0 - 0.012 X10*3/uL [facility] 08/09/2024 11:2 3 AM EST 08/09/2024 11:26 AM EST us Generic External Data Provider LAB BLOOD ORDERAB LES Final Result Performing Organization Address City/State/[place] Co de Phone Number [facility] [address] [place] [phone] documented in this encounter Visit Diagnoses Not on filedocumented in this encounter Additional Health Concerns Assessment Noted Time PHQ-9 Depression Total Score: 8 02/12/20 24 10:40 AM EDT documented as of this encounter Care Teams Patent Prosecution Paralegal Relationship Specialty Start Date End Date Katie Douglas MD [address] [place] [address] PCP - General Family Medicine 09/18/16 documented as of this encounter
--- OUTSIDE RECORDS SUMMARY | 2024-08-26 17:47 | XMS_ITS | Clinical Summary ---
Author Organization [employer] Address [address] [place] [address] Care Team Providers Care Acid Tank Cleaner Name Role Phone Panda Douglas MD Primary Care Provider + Kyrie Flannery RN Unavailable [phone] Allergies Active Allergy Reactions Criticality Noted Date [...] replace cap. 48 mL 1 4 Active ammonium lactate (Amlactin) 12 % cream [...] bedtime for irritation. 56 g 4 Active Calmoseptine 0.44-20.6 % ointment USE 1 APPLICATION TOPICALLY 4 TIMES A DAY NEEDED FOR PERIANAL ITCHING 20 g 4 08/19/19 25 Active Problems Problem Noted Date Diagnosed [...] recommended she be tested for Pinworm. 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 Use prep H IR cream Avoid constipation, [...] to date, next one due 2023 by DESK REPORTER Mammogram Up to date, next one due 2023 Eye exam Up to date, next one due 2024 CRC screen Up to date. Next one due on 02/2028 Lipids/FBS To be ordered Vaccinations Influenza iz today. Counseled about COVID + Booster and Zoster. Other iz up to date. Obtain hepatitis profile. Dental visit Overdue, trauma counsellor to make an appt at [facility] or one of the other closest dental [...] PM EST): FU PAP next week FU w/DESK REPORTER Encounters Date Type Department Care Team Description 08/24/[address] [address] Panda Douglas MD Care Management (C3) 08/24/[address] [address] Panda Douglas MD Care Management (C3) 08/20/[address] [address] Panda Douglas MD Care Management (C3- Initial assessment/enrollmen t) 08/19/2024 Patient Outreach [address] [address] Panda Douglas MD Care Coordination (C3 -[facility] buck Suggs telephone call outreach) 08/11/2024 8:40 AM EST Office Visit [facility] WALK-IN [address] [address] Huber Verde MD Diarrhea, unspecified type (Primary Dx) 08/10/[address] [address] Panda Douglas MD ER Follow-up 08/10/2024 Patient Outreach [address] [address] Panda Douglas MD Care Coordination (C3 [facility] Buck Ifeanyi telephone call outreach) 08/10/2024 Patient Outreach [address] [address] Panda Douglas MD Care Coordination (C3 [facility] Buck Suggs telephone call outreach) 08/10/[address] [address] Panda Douglas MD Care Management (C3- chart review) 08/09/2024 Orders Only GENERIC EXTERNAL DATA DEPARTMENT Provider, Generic External Data 08/02/2024 Orders Only GENERIC EXTERNAL DATA DEPARTMENT Provider, Generic External Data 08/02/2024 Travel 07/31/2024 Orders Only [facility] External Provider, [facility] 07/29/[address] [address] April Domingo MA Chart prep 07/05/[address] [address] Panda Douglas MD Results 07/02/[address] [address] Sonia Hare RN Lab Orders 06/29/2024 9:15 AM EST Office Visit [address] [address] Tariq Posey MD Pruritus ani (Primary Dx) 06/29/[address] [address] Panda Douglas MD callback requested 06/29/2024 Travel 06/28/[address] [address] Panda Douglas MD Nurse Triage 06/14/2024 2:00 PM EST Office Visit [address] [address] Panda Douglas MD Hemorrhoids, internal (Primary Dx); Pure hypercholesterolemia ; Class 1 obesity due to excess calories without serious comorbidity with body mass index (BMI) of 33.0 to 33.9 in adult; Dry skin dermatitis; Dietary counseling; Exercise counseling; Heel pain, bilateral 06/14/2024 Travel 06/11/[address] [address] April Domingo MA Chart prep 06/04/[address] [place] [address] Panda Douglas MD 06/04/2024 Telephone [facility] MEDICINE [address] [place] [address] Panda Douglas MD Error (VOID this visit) 06/04/2024 Patient Outreach [facility] [address] [place] [address] Panda Douglas MD from Last 3 Months [...] Sign Reading Time Taken Comments Blood Pressure 137/81 08/11/2024 8:41 AM EST Pulse 71 08/11/2024 8:41 AM EST Temperature 36.7 ??C (98 ??F) 08/11/2024 8:41 AM EST Respiratory Rate 18 08/11/2024 8:41 AM EST Oxygen Saturation 95% 08/11/2024 8:41 AM EST Inhaled Oxygen Concentration - - Weight 81.6 kg (180 lb) 08/11/2024 8:41 AM EST Height 157.5 cm (5' 2 ) 08/11/2024 8:41 AM EST Body Mass Index 32.92 08/11/2024 8:41 AM EST Plan of Treatment Upcoming Encounters Date Type Department Care Team (Late st Contact Info) Description 09/20/2024 9:00 AM EDT Telemedicine [facility] MEDICINE [address] [place] [address] Panda Douglas MD [address] [place] [address] 09/21/2024 9:00 AM EDT Nutrition [facility] DIABETES/NUTRITION [address] [place] [address] Sue Elise, DIONISIO [address] [place] [address] Health Maintenance Due Date Last Done Comments [...] 08/25/19 24, 08/27/2021, 04/24/2020, Additional history exists Depression Screening 02/11/2025 02/12/2024, 02/12/20 24 Cervical Cancer Screening 02/16/2025 HPV/Cotest 02/16/2025 01/29/2024, 10/28, 07/16/2021, Additional history exists Pap Smear 02/16/2025 01/29/2024, 10/28, 07/16/2021, Additional history exists SDOH Screening 08/10/2025 08/10/2024 Tobacco Screening 08/11/2025 08/11/2024 Mammogram 08/21/2025 08/21/2023, 07/31, 08/08/2021, Additional history [...] AUTO DIFFERENTIAL Routine 08/09/2024 11:23 AM EST SARS COV2/INFLUENZA A/B AND RSV RNA QL NAAT Routine 08/09/2024 11:[address] ABDOMEN [...] time period is included. Color Urine Yellow [facility] Appearance Urine Clear [facility] PH 6.5 5.0 - 9.0 [facility] Glucose Urine UA Negative Negative mg/dL [facility] Urine Blood Small (1+)(A) Negative [facility] Specific [place] - Urine 1.025 1.005 - 1.025 [facility] Urine Protein Negative Neg-Trace mg/dL [facility] Urine Ketones Negative Negative mg/dL [facility] Nitrite Urine Negative Negative [facility] Leukocyte Esterase Urine Negative Negative [facility] RBC Urine 6-10(A) 0 - 2 /HPF [facility] Urine WBC 0-5 0 - 5 /HPF [facility] Urine Squamous Epithelial Cell 0-2 0 - 2 /HPF [facility] Urine Bacteria None Seen None Seen [facility] Hyaline Casts, Urine 0-2 0 - 2 /LPF [facility] 08/09/2024 11:2 3 AM EST 08/09/2024 11:26 AM EST Narrative [facility] - 08/09/2024 11:38 AM EST Urine, Clean Catch us Generic External Data Provider LAB URINE ORDERAB LES Final Result Performing Organization Address City/State/[facility] Co de Phone Number [facility] [address] [place] [phone] * SARS-CoV-2 RNA, Influenza A/B, and RSV RNA, Ql NAAT (08/09/2024 11:23 AM EST) Only the most recent of2 resultswithin the time period is included. Influenza A PCR NEGATIVE Negative [facility] Influenza B PCR NEGATIVE Negative [facility] Resp Syncy Virus RNA Qual PCR NEGATIVE Negative [facility] SARS COV2 PCR NEGATIVE Negative [facility] Comment:All test results mus t be [...] use by authorized laboratories.Testing performed on the [employer] GeneXpert utilizingreal-time RT-PCR.All SARS CoV2 and positive influenza A/B results arereported to [facility]. 08/09/2024 11:2 3 AM EST 08/09/2024 11:26 AM EST us Generic External Data Provider LAB MICROBIOLOGY - GENERAL ORDERABLES Final Result [facility] [address] [place] [phone] * (ABNORMAL) CBC auto differential (08/09/2024 11:23 AM EST) Only the most recent of3 resultswithin the time period is included. White Blood Count 7.7 4.8 - 10.8 X10*3/uL [facility] Red Blood Count 4.73 4.20 - 5.50 X10*6/uL [facility] Hemoglobin 13.6 12.0 - 16.0 g/dl [facility] Hematocrit 41.1 37.0 - 47.0 % [facility] Mean Corpuscular Volume 86.9 80.0 - 98.0 fL [facility] Mean Corpuscular Hemoglobin 28.8 27.0 - 33.0 pg [facility] Mean Corpuscular HGB Conc 33.1 31.0 - 35.0 g/dl [facility] Red Cell Distribution Width 13.6 11.0 - 16.0 % [facility] Platelet Count 240 160 - 400 X10*3/uL [facility] Mean Platelet Volume 11.1 9.4 - 12.3 fL [facility] Neutrophils Percent Auto 63.3 45 - 73 % [facility] Imm Gran Pct Auto 0.3 0.0 - 0.4 % [facility] Lymphocytes Percent Auto 24.6 20 - 40 % [facility] Monocytes Percent Auto 7.0 2 - 11 % [facility] Eosinophils Percent Auto 4.3(H) 0 - 4 % [facility] Basophils Percent Auto 0.5 0 - 2 % [facility] NRBC Pct Auto 0.0 0.0 - 0.2 /100WBC [facility] Neutrophils Absolute Auto 4.9 2.0 - 8.3 x10*3/uL [facility] Imm Gran Abs Auto 0.02 0.00 - 0.03 X10*3/uL [facility] Lymphocytes Absolute Auto 1.9 1.2 - 4.9 X10*3/uL [facility] Monocytes Absolute Auto 0.5 0.1 - 1.2 X10*3/uL [facility] Eosinophils Absolute Auto 0.3 0.0 - 0.4 X10*3/uL [facility] Basophils Absolute Auto 0.0 0.0 - 0.2 X10*3/uL [facility] NRBC Abs Auto 0.000 0.0 - 0.012 X10*3/uL [facility] 08/09/2024 11:2 3 AM EST 08/09/2024 11:26 AM EST us Generic External Data Provider LAB BLOOD ORDERAB LES Final Result [facility] [address] [place], [place] [phone] * (ABNORMAL) Urinalysis w/reflex microscopic (08/09/2024 11:23 AM EST) Only the most recent of2 resultswithin the time period is included. Color Urine Yellow [facility] Appearance Urine Clear [facility] PH 6.5 5.0 - 9.0 [facility] Glucose Urine UA Negative Negative mg/dL [facility] Urine Blood Small (1+)(A) Negative [facility] Specific [place] - Urine 1.025 1.005 - 1.025 [facility] Urine Protein Negative Neg-Trace mg/dL [facility] Urine Ketones Negative Negative mg/dL [facility] Nitrite Urine Negative Negative [facility] Leukocyte Esterase Urine Negative Negative [facility] 08/09/2024 11:2 3 AM EST 08/09/2024 11:26 AM EST Narrative [facility] - 08/09/2024 11:34 AM EST Urine, Clean Catch us Generic External Data Provider LAB URINE ORDERAB LES Final Result Performing Organization Address City/[facility]/ZIP Co de Phone Number [facility] [address] [place] [phone] * Magnesium (08/09/2024 11:23 AM EST) Only the most recent of3 resultswithin the time period is included. Magnesium 2.2 1.6 - 2.6 mg/dL [facility] 08/09/2024 11:2 3 AM EST 08/09/2024 11:26 AM EST Generic External Data Provider LAB BLOOD ORDERAB LES Final Result Performing Organization Address City/[facility]/ZIP Co de Phone Number [facility] [address] [place] [phone] * (ABNORMAL) Comprehensive Metabolic Panel (08/09/2024 11:23 AM EST) Only the most recent of3 resultswithin the time period is included. Sodium 141 135 - 145 mmol/L [facility] Potassium 3.9 3.3 - 5.1 mmol/L [facility] Chloride 110(H) 96 - 108 mmol/L [facility] Carbon Dioxide 25 22 - 29 mmol/L [facility] Anion Gap 10(L) 12 - 20 [facility] Urea Nitrogen (BUN) 14 9 - 16 mg/dL [facility] Creatinine, Serum 0.67 0.5 - 1.4 mg/dL [facility] Creatinine Clr Calc Pharmacy 91.6 [facility] Comment:Provided height and weight: 157.48 cm,81.6 kg.eGFR (calculated from the MDRD study equation) and eCrCl(calculated from the Cockcroft-Gault equation) are based ondifferent parameters and may not yield comparable results.If eCrCl result is absurd, please check patient'sheight/weight. Estimated Glomerular Filt Rate >60 [facility] Comment:Chronic Kidney Disea se: Estimated GFR < 60 mL/min/1.62t0Qgakgs Kidney Disease: Estimated GFR < 15 mL/min/1.73m2 Glucose 74 60 - 115 mg/dL [facility] Calcium 9.1 8.4 - 10.2 mg/dL [facility] Bilirubin, Total 0.4 0.0 - 1.0 mg/dL [facility] Aspartate Amino Transferase 21 5 - 31 U/L [facility] Alanine Aminotransferase 39(H) 0 - 31 U/L [facility] Total Protein 8.1(H) 6.5 - 8.0 g/dL [facility] Albumin Level 4.3 3.5 - 5.0 g/dL [facility] Alkaline Phosphatase 86 39 - 117 U/L [facility] 08/09/2024 11:2 3 AM EST 08/09/2024 11:26 AM EST us Generic External Data Provider LAB BLOOD ORDERAB LES Final Result Performing Organization Address City/State/[facility] Co de Phone Number [facility] [address] [place] [phone] * CT Abdomen Pelvis w/ Contrast (08/02/2024 7:19 PM EST) Anatomical Region Laterality Modality Body, Pelvis, Abdomen Computed T omography 08/02/2024 7:19 PM EST Narrative 08/02/2024 7:20 PM EST ? [facility] ?[address] ?[place] [address] ? CT Scan Report ? Signed ? Patient: Joel Mastache,Buck D ?MR#: MM ?? [id number] ? : 1965 ?Acct:[id number] ? Age/Sex: 59 / F ?ADM Date: 02/03/25 ? Loc: HO.ED ? Attending Dr: ? Ordering Physician: Viraj Bermudez ?? Date of Service: 08/02/24 ?? Procedure(s): CT abdomen pelvis w IV con ?? Accession Number(s): [id number] ? cc: Panda Douglas MD; Viraj Bermudez ? Report Number: ?? [id number]: Total DLP = ??603.00 mGy-cm ? CLINICAL [...] ? DD/ 18 ? TD/TT: 08/02/241918 ? Director Of District Office: ? Procedure Note Farrah Chung - 08/02/[address] [address] [address] Scan Report Signed Patient: Buck Rader [facility]#: [id number] : 1965Acct:[id number] Age/Sex: 59 / FADM Date: 08/02/24 Loc: HO.ED Attending Dr: Ordering Physician: Viraj Bermudez Date of Service: 08/02/24 Procedure(s): CT abdomen pelvis w IV con Accession Number(s): [id number] cc: Panda Douglas MD; Viraj Bermudez Report Number: [id number]: Total DLP = 603.00 mGy-cm CLINICAL HISTORY: [...] MD Signed By: <Electronically signed by Ye Quzeada MD in OV> 08/02/241919 DD/ 18 TD/TT: 08/02/241918 Director Of District Office: us [facility] External Provider IMG CT PROCEDURES Final Result * Slide Review (08/02/2024 11:19 AM EST) Slide Review VERIFIED [facility] 08/02/2024 11:1 9 AM EST 08/02/2024 11:22 AM EST Generic External Data Provider LAB BLOOD ORDERAB LES Final Result [facility] [address] [place] [phone] [phone] * Lipase (08/02/2024 11:19 AM EST) Only the most recent of2 resultswithin the time period is included. Lipase 18 8 - 78 U/L [facility] 08/02/2024 11:1 9 AM EST 08/02/2024 11:22 AM EST Generic External Data Provider LAB BLOOD ORDERAB LES Final Result Performing Organization Address City/[facility]/ZIP Co de Phone Number [facility] [address] [place] [phone] * Hepatic Function Panel (08/02/2024 11:19 AM EST) Only the most recent of2 resultswithin the time period is included. Pathologist [facility] Bilirubin, Direct 0.1 0.0 - 0.5 mg/dL [facility] 08/02/2024 11:1 9 AM EST 08/02/2024 11:22 AM EST Generic External Data Provider LAB BLOOD ORDERAB LES Final Result Performing Organization Address City/[facility]/ZIP Co de Phone Number [facility] [address] [place] [phone] * (ABNORMAL) Basic Metabolic Panel (07/31/2024 12:09 PM EST) Pathologist [facility] Sodium 140 135 - 145 mmol/L [facility] Potassium 4.0 3.3 - 5.1 mmol/L [facility] Chloride 108 96 - 108 mmol/L [facility] Carbon Dioxide 25 22 - 29 mmol/L [facility] Anion Gap 11(L) 12 - 20 [facility] Urea Nitrogen (BUN) 16 9 - 16 mg/dL [facility] Creatinine, Serum 0.70 0.5 - 1.4 mg/dL [facility] Creatinine Clr Calc Pharmacy 89.0 [facility] Comment:Provided height and weight: 157.48 cm,83.915 kg.eGFR (calculated from the MDRD study equation) and eCrCl(calculated from the Cockcroft-Gault equation) are based ondifferent parameters and may not yield comparable results.If eCrCl result is absurd, please check patient'sheight/weight. Estimated Glomerular Filt Rate >60 [facility] Comment:Chronic Kidney Disea se: Estimated GFR < 60 mL/min/1.65g3Lsxfhn Kidney Disease: Estimated GFR < 15 mL/min/1.73m2 Glucose 81 60 - 115 mg/dL [facility] Calcium 9.5 8.4 - 10.2 mg/dL [facility] 07/31/2024 12:0 9 PM EST 07/31/2024 12:12 PM EST us Generic External Data Provider LAB BLOOD ORDERAB LES Final Result [facility] [address] [place] [phone] * CT Abdomen Pelvis w/o Contrast (07/31/2024 12:05 PM EST) Anatomical Region Laterality Modality Body, Pelvis, Abdomen Computed T omography 07/31/2024 12:0 5 PM EST Narrative 07/31/2024 12:08 PM EST ? [facility] ?[address] [place] [address]. ?[place] [address] ? CT Scan Report ? Signed ? Patient: Joel Mastache,Buck D ?MR#: MM ?? [id number] ? : 1965 ?Acct:[id number] ? Age/Sex: 59 / F ?ADM Date: 02/01/25 ? Loc: HO.ED ? Attending Dr: ? Ordering Physician: Shanda Mora ?? Date of Service: 07/31/24 ?? Procedure(s): CT abdomen pelvis wo IV con ?? Accession Number(s): [id number] ? cc: Panda Douglas MD; Shanda Mora ? Report Number: ?? [id number]: Total DLP = ??618.00 mGy-cm ? CLINICAL [...] DD/ 1205 ? TD/TT: 07/31/24 1205 ? Director Of District Office: ? Procedure Note Juliet, Image - 07/31/[address] [place] [address] [address] Scan Report Signed Patient: Buck Rader DMR#: [id number] : 1965Acct:[id number] Age/Sex: 59 / FADM Date: 07/31/24 Loc: HO.ED Attending Dr: Ordering Physician: Shanda Mora Date of Service: 07/31/24 Procedure(s): CT abdomen pelvis wo IV con Accession Number(s): [id number] cc: Panda Douglas MD; Shanda Mora Report Number: [id number]: Total DLP = 618.00 mGy-cm CLINICAL HISTORY: [...] OV> 07/31/24 1206 DD/ 04 TD/TT: 07/31/241204 Director Of District Office: [facility] External Provider IMG CT PROCEDURES Edited Result - Final * (ABNORMAL) Lipid Panel with Reflex to Direct LDL (07/12/2024 9:01 AM EST) Triglycerides 126 <150 mg/dL [facility] Comment:Desirable Triglyceri de: less than 150 mg/dLBorderline High Triglyceride 150-199 mg/dLHigh Triglyceride: 200-499 mg/dLVery High Triglyceride: greater than or equal to 5OO mg/dL Cholesterol 251(H) <200 mg/dL [facility] Comment:Desirable Cholestero l: less than 200 mg/dLBorderline High Cholesterol: 200-239 mg/dLHigh Cholesterol: greater than 239 mg/dL LDL Cholesterol Calculated 168(H) <100 mg/dL [facility] Comment:Desirable LDL: less than 100 mg/dLNear Optimal/Above Optimal LDL: 110- 129 mg/dLBorderline High LDL: 130-159 mg/dLHigh LDL: 160-189 mg/dLVery High LDL: greater than or equal to 190 mg/dL HDL Cholesterol 58 >40 mg/dL [facility] Comment:Desirable HDL: great er than 40 mg/dL Note: This HDL assay may give artificially low results in patients with liver disease. Blood 07/12/2024 9:01 AM EST 07/12/2024 10:59 AM EST Panda Douglas MD LAB BLOOD ORDERABLES Fin al Result Performing Organization Address City/[facility] Co de Phone Number [facility] [address] [place] [phone] * Hemoglobin A1c (07/12/2024 9:01 AM EST) Hemoglobin A1c 5.6 <6.0 % [facility] Comment:Hemoglobin A1C Refer ence Range Adults: 4.8 - 6.0 % Non diabetic: < 6.0 % Goal: < 7.0 %Additional Action Suggested: > 8.0 %Note: Hemoglobin A1c results are invalid for patients with abnormal amounts of HbF. Blood transfusions may impact the HbA1c concentration in the patient sample. Estimated Average Glucose 114 mg/dL [facility] Comment:eAG = Estimated ave rage glucose which is %A1C expressed asaverage glucose, using the formula of the Z8X-BkqotwbCzyxgal Glucose study (ADAG), Diabetes Care, Vol.31,#8,Jan. 2007 Blood Venous blood specimen / Unknown 07/12/2024 9:01 AM EST 07/12/2024 10:59 AM EST us Panda Douglas MD LAB BLOOD ORDERABLES Fin al Result Performing Organization Address [facility] de Phone Number [facility] [address] [place] [phone] * Pinworm Examination (07/02/2024 10:08 AM EST) Pinworm Examination SEE NOTE [facility] Comment:PINWORM EXAMINATION Micro Number: [id number] Test Status: Final Specimen Source: Pinworm paddle prep Specimen Quality: Adequate Pinworm Result 1: No enterobius vermicularis seen. Comment: 3 PINWORM PADDLE PREPS SENT IN FOR ONE ORDERTHIS TEST WAS PERFORMED AT:[facility] [place] [id number] BHAKTA MD Swab Anal structure / Unknown 07/02/2024 10:08 AM EST 07/02/2024 11:23 AM EST us Tariq Maldonado MD LAB MICROBIOLOGY - GE NERAL ORDERABLES Final Result Performing Organization Address [facility] Co de Phone Number [facility] [address] [place] [address] [phone] * Herpes Simplex Virus Culture with Reflex Typing (06/29/2024 12:00 AM EST) HSV Culture/Type SEE NOTE [facility] Comment:HERPES SIMPLEX VIRUS CULTURE W/RFL TO TYPING Micro Number: [id number] Test Status: Final Specimen Source: Unk Specimen Quality: Inadequate Result: Test not performed. No suitable specimen received. Please review the test requirements at [email or web address] TEST WAS PERFORMED AT:[facility] [place] [id number] BHAKTA MD Swab Anal structure / Unknown 06/29/2024 06/29/2024 Tariq Maldonado MD LAB MICROBIOLOGY - GE NERAL ORDERABLES Final Result Performing Organization Address [facility] Co de Phone Number [facility] [address] [place] [phone] * (ABNORMAL) HM PAP/HPV (01/29/2024) Pap Smear 4. LSIL(A) 1. NILM HPV Not Detected Undetected, Indeterminat e, Quantitative , Not Detected Historical Provider HEALTH MAINTENANCE Edited Result - Final * BI Mammogram Screening Tomosynthesis Bilateral (08/21/2023 2:50 PM EST) Anatomical Region Laterality Modality Breast Bilateral Mammography 08/21/2023 2:50 PM EST Narrative 09/14/2023 8:11 AM EDT ? [facility] ? [address] ?[place] [address] ? Mammography Report ? Signed ? Patient: Joel Mastache,Buck D ?MR#: MM ?? [id number] ? : 1965 ?Acct:[id number] ? Age/Sex: 58 / F ?ADM Date: 08/21/23 ? Loc: HO.MAMMO ? Attending Dr: Panda Douglas MD ? Ordering Physician: Panda Douglas MD ?Results: 1Ne ?? gative ? Date of Service: 08/21/23 ?Follow Up: 1 Year From Orig ?? inal Mammogram ? Procedure(s): MM tomosynthesis screening BI ?? Accession Number(s): [id number] ? cc: Panda Douglas MD ? EXAMINATION: [...] by Ary Mcdonnell MD in OV> ? 09/14/23806 ? DD/ 1450 ? TD/TT: ? Director Of District Office: ? Procedure Note Donotbobinterpreter, Image - 09/14/2023 [facility] [address] [place] [address] Mammography Report Signed Patient: Buck Rader DMR#: [id number] : 1965Acct:[id number] Age/Sex: 58 / FADM Date: 08/21/23 Loc: HO.MAMMO Attending Dr: Panda Douglas MD Ordering Physician: Panda Douglas MDResults: 1Ne gative Date of Service: 08/21/23Follow Up: 1 Year From Orig inal Mammogram Procedure(s): MM tomosynthesis screening BI Accession Number(s): [id number] cc: Panda Douglas MD EXAMINATION: MM SCREENING [...] in OV> 09/14/23 0807 DD/ 1450 TD/TT: Director Of District Office: Panda Douglas MD IMG BI PROCEDURES Final Result * Hepatitis Panel, General (06/18/2023 9:52 AM EST) Hepatitis A IgM Nonreactive Nonreactive [facility] Comment:IgM antibodies to MALONE V not detected; does not exclude earlyacute or recovered HAV infection. ~Hepatitis B Surface Antibody REACTIVE Nonreactive [facility] Comment:REACTIVE: > 11.99 mI U/mL Hepatitis B Core Antibody Nonreactive Nonreactive [facility] Hepatitis C Antibody Nonreactive Nonreactive [facility] Comment:Antibodies to HCV no t detected; does not exclude early acuteHCV infection. Hepatitis B Surface Ag Negative Negative [facility] Blood 06/18/2023 9:52 AM EST 06/18/2023 1:03 PM EST Panda Douglas MD LAB BLOOD ORDERABLES Fin al Result [facility] [address] [place] [phone] * HIV-1/2 Antigen and Antibodies, Fourth Generation, with Reflexes (06/18/2023 9:52 AM EST) HIV AB/AG Nonreactive Nonreactive [facility] Comment:HIV-1 p24 Ag and/or HIV-1/HIV-2 Ab not detected.A test result that is nonreactive does not exclude thepossibility of exposure to or infection with HIV-1 and/orHIV-2. Nonreactive results in this assay for individualswith prior exposure to HIV-1 and/or HIV-2 may be due toantigen and antibody levels that are below the limit ofdetection of this assay.The Pneuronnity HIV Ag/Ab Combo assay result andsupplemental assay results should be interpreted inconjunction with the patient's clinical presentation,history and other laboratory results. If the results areinconsistent with clinical evidence, additional testing issuggested to confirm the result. Blood Venous blood specimen / Unknown 06/18/2023 9:52 AM EST 06/18/2023 1:03 PM EST Panda Douglas MD LAB BLOOD ORDERABLES Fin al Result [facility] [address] [place] [phone] [phone] * Colonoscopy (03/17/2018) [facility] Signature Colonoscopy Normal Normal Historical Provider HEALTH MAINTENANCE Edited Result - Final from Last 3 Months or Most Recently Relevant to Health Maintenance Insurance [facility] C3 DENTAL-[facility] MEDICAID STAND ADULT Care Teams Acid Tank Cleaner Relationship Specialty Start Date End Date Panda Douglas MD [address] [place] [phone] PCP - General Family Medicine 09/18/16 Kyrie Flannery, RN [address] [place] [phone] Marine Extension AgentLabor Specialist 08/20/24
--- OUTSIDE RECORDS SUMMARY | 2024-08-26 17:47 | XMS_ITS | Encounter Summary ---
Author Organization [employer] Address [address] [facility] 7t [place] [address] Care Team Providers Care Return Checker Name Role Phone Katie Douglas MD Primary Care Provider + Reason for Visit * Reason Comments Care Coordination [facility] call outreach Encounter Details Date Type Department Care Team (Latest Contact Info) Description 08/10/2024 Patient Outreach [facility] MEDICINE [address] [place] [address] Katie Douglas MD [address] [place] [address] Care Coordination (C3 JAIRO Suggs telephone call outreach) Social History Tobacco Use Types Packs/Day Years [...] AM EDT documented as of this encounter Progress Notes * Buck Suggs - 08/10/2024 10:50 AM EST CHW Buck Suggs placed outbound call to patient introducing herself from [facility] CM Department, in regard to offering CM-CHW program services. Patient's name and was confirmed. Patient agrees to participate in CHW- program for SDOH needs. SDOH screening completed: 08/10/24, CHW spoke to patient she is all set with SDOH needs. CHW reinforced direct contact information for any additional questions or concerns and extended clinic hours on Mondays and Wednesdays, andWalk-In Urgent Care Located in [facility]. Patient provided with after-hours line for [facility], , which offer nighttime triage service and option to transfer to employee relation manager provider if needed. Patient verbalizes understanding, and able to repeat back to teletypewriter operator. documented in this encounter Plan of Treatment Upcoming Encounters Date Type Department Care Team ([facility] st Contact Info) Description 09/20/2024 9:00 AM EDT Telemedicine [facility] MEDICINE [address], [place] [phone] Katie Douglas MD [address] [place], [place] [phone] 09/21/2024 9:00 AM EDT Nutrition [facility] DIABETES/NUTRITION [address], [place] [phone] Sue [address], [place] [phone] documented as of this encounter Visit Diagnoses Not on filedocumented in this encounter Additional Health Concerns Assessment Noted Time PHQ-9 Depression Total Score: 8 02/12/20 24 10:40 AM EDT documented as of this encounter Care Teams Return Checker Relationship Specialty Start Date End Date Katie Douglas MD [address] [place] [address] [phone] PCP - General Family Medicine 09/18/16 documented as of this encounter
--- OUTSIDE RECORDS SUMMARY | 2024-08-26 17:47 | XMS_ITS | Encounter Summary ---
Author Organization [employer] Address [address] [facility] 7t [place] [address] Care Team Providers Care Sex Crimes Detective Name Role Phone Katie Douglas MD Primary Care Provider + Reason for Visit * Reason Comments Care Coordination [facility] telephone call outreach Encounter Details Date Type Department Care Team (Latest Contact Info) Description 08/19/2024 Patient Outreach [facility] MEDICINE [address] [place] [address] Katie Douglas MD [address] [place] [address] Care Coordination (C3 Hubert Suggs telephone call outreach) Social History Tobacco [...] encounter Progress Notes * Buck Suggs - 08/19/2024 2:06 PM EST CHW Buck Suggs placed outbound call to patient introducing herself from [facility] CM Department, in regard to remind patient of Adult Complex Care program initial assessment appt for tomorrow 08/20/24 @ 10:30AM via telephone. Patient's name and was confirmed. Patient is aware and confirmed will be available for call and has no barriers on attending call. Patient verbalized understanding and agrees with plan. documented in this encounter Plan of Treatment Upcoming Encounters Date Type Department Care Team (Late st Contact Info) Description 09/20/2024 9:00 AM EDT Telemedicine [facility] MEDICINE [address] [place] [address] Katie Douglas MD [address] [place] [address] 09/21/2024 9:00 AM EDT Nutrition [facility] DIABETES/NUTRITION [address] [place] [address] [place] [address] documented as of this encounter Visit Diagnoses Not on filedocumented in this encounter Additional Health Concerns Assessment Noted Time PHQ-9 Depression Total Score: 8 02/12/20 24 10:40 AM EDT documented as of this encounter Care Teams Sex Crimes Detective Relationship Specialty Start Date End Date Katie Douglas MD [address] [place] [address] PCP - General Family Medicine 09/18/16 documented as of this encounter
--- OUTSIDE RECORDS SUMMARY | 2024-08-26 17:47 | XMS_ITS | Encounter Summary ---
Author Organization [employer] Address [address] [facility] [address] 7[address] [place] [address] Care Team Providers Care Civil Drafting Technician Name Role Phone Katie Douglas MD Primary Care Provider + Encounter Details Date Type Department Care Team ([facility] st Contact Info) Description 07/31/2024 Orders Only [facility] External Provider, [facility] Social History Tobacco [...] Info) Description 09/20/2024 9:00 AM EDT Telemedicine [facility] MEDICINE [address] [place] [address] Katie Douglas MD [address] [place] [address] 09/21/2024 9:00 AM EDT Nutrition [facility] DIABETES/NUTRITION [address] [place] [address] Sue Elise, RD [address] [place] [address] documented as of this encounter Procedures Procedure [...] (07/31/2024 12:09 PM EST) Color Urine Yellow [facility] Appearance Urine Cloudy [facility] PH 6.5 5.0 - 9.0 [facility] Glucose Urine UA Negative Negative mg/dL [facility] Urine Blood Trace(A) Negative [facility] Specific [place] - Urine 1.025 1.005 - 1.025 [facility] Urine Protein Negative Neg-Trace mg/dL [facility] Urine Ketones Negative Negative mg/dL [facility] Nitrite Urine Negative Negative [facility] Leukocyte Esterase Urine Negative Negative [facility] RBC Urine 0-2 0 - 2 /HPF [facility] Urine WBC 0-5 0 - 5 /HPF [facility] Urine Squamous Epithelial Cell 6-10 0 - 2 /HPF [facility] Other Crystals Urine Present [facility] Urine Bacteria Trace None Seen [facility] Hyaline Casts, Urine 0-2 0 - 2 /LPF [facility] 07/31/2024 12:0 9 PM EST 07/31/2024 12:12 PM EST Narrative [facility] - 07/31/2024 12:32 PM EST [id number], Clean Catch us Generic External Data Provider LAB URINE ORDERAB LES Final Result [facility] [address] [place] [address] [phone] * Lipase (07/31/2024 12:09 PM EST) Lipase 20 8 - 78 U/L [facility] 07/31/2024 12:0 9 PM EST 07/31/2024 12:12 PM EST us Generic External Data Provider LAB BLOOD ORDERAB LES Final Result Performing Organization Address City/[facility]/ZIP Co de Phone Number [facility] [address] [place] [phone] * Magnesium (07/31/2024 12:09 PM EST) Pathologist [facility] Magnesium 2.3 1.6 - 2.6 mg/dL [facility] 07/31/2024 12:0 9 PM EST 07/31/2024 12:12 PM EST Generic External Data Provider LAB BLOOD ORDERAB LES Final Result Performing Organization Address [facility] de Phone Number [facility] [address] [place] [phone] * (ABNORMAL) Basic Metabolic Panel (07/31/2024 12:09 PM EST) Pathologist [facility] Sodium 140 135 - 145 mmol/L [facility] Potassium 4.0 3.3 - 5.1 mmol/L [facility] Chloride 108 96 - 108 mmol/L [facility] Carbon Dioxide 25 22 - 29 mmol/L [facility] Anion Gap 11(L) 12 - 20 [facility] Urea Nitrogen (BUN) 16 9 - 16 mg/dL [facility] Creatinine, Serum 0.70 0.5 - 1.4 mg/dL [facility] Creatinine Clr Calc Pharmacy 89.0 [facility] Comment:Provided height and weight: 157.48 cm,83.915 kg.eGFR (calculated from the MDRD study equation) and eCrCl(calculated from the Cockcroft-Gault equation) are based ondifferent parameters and may not yield comparable results.If eCrCl result is absurd, please check patient'sheight/weight. Estimated Glomerular Filt Rate >60 [facility] Comment:Chronic Kidney Disea se: Estimated GFR < 60 mL/min/1.12l6Ytngig Kidney Disease: Estimated GFR < 15 mL/min/1.73m2 Glucose 81 60 - 115 mg/dL [facility] Calcium 9.5 8.4 - 10.2 mg/dL [facility] 07/31/2024 12:0 9 PM EST 07/31/2024 12:12 PM EST us Generic External Data Provider LAB BLOOD ORDERAB LES Final Result Performing Organization Address [facility]/ZIP Co de Phone Number [facility] [address] [place] [phone] * (ABNORMAL) Hepatic Function Panel (07/31/2024 12:09 PM EST) Bilirubin, Total 0.4 0.0 - 1.0 mg/dL [facility] Bilirubin, Direct 0.1 0.0 - 0.5 mg/dL [facility] Aspartate Amino Transferase 20 5 - 31 U/L [facility] Alanine Aminotransferase 22 0 - 31 U/L [facility] Total Protein 8.2(H) 6.5 - 8.0 g/dL [facility] Albumin Level 4.4 3.5 - 5.0 g/dL [facility] Alkaline Phosphatase 97 39 - 117 U/L [facility] 07/31/2024 12:0 9 PM EST 07/31/2024 12:12 PM EST us Generic External Data Provider LAB BLOOD ORDERAB LES Final Result Performing Organization Address City/[facility] Co de Phone Number [facility] [address] [place] [phone] * (ABNORMAL) Urinalysis w/reflex microscopic (07/31/2024 12:09 PM EST) Color Urine Yellow [facility] Appearance Urine Cloudy [facility] PH 6.5 5.0 - 9.0 [facility] Glucose Urine UA Negative Negative mg/dL [facility] Urine Blood Trace(A) Negative [facility] Specific [place] - Urine 1.025 1.005 - 1.025 [facility] Urine Protein Negative Neg-Trace mg/dL [facility] Urine Ketones Negative Negative mg/dL [facility] Nitrite Urine Negative Negative [facility] Leukocyte Esterase Urine Negative Negative [facility] 07/31/2024 12:0 9 PM EST 07/31/2024 12:12 PM EST Narrative [facility] - 07/31/2024 12:17 PM EST [id number], Clean Catch us Generic External Data Provider LAB URINE ORDERAB LES Final Result [facility] [address] [place] [phone] * (ABNORMAL) CBC auto differential (07/31/2024 12:09 PM EST) White Blood Count 6.3 4.8 - 10.8 X10*3/uL [facility] Red Blood Count 4.75 4.20 - 5.50 X10*6/uL [facility] Hemoglobin 13.6 12.0 - 16.0 g/dl [facility] Hematocrit 40.9 37.0 - 47.0 % [facility] Mean Corpuscular Volume 86.1 80.0 - 98.0 fL [facility] Mean Corpuscular Hemoglobin 28.6 27.0 - 33.0 pg [facility] Mean Corpuscular HGB Conc 33.3 31.0 - 35.0 g/dl [facility] Red Cell Distribution Width 14.3 11.0 - 16.0 % [facility] Platelet Count 238 160 - 400 X10*3/uL [facility] Mean Platelet Volume 11.1 9.4 - 12.3 fL [facility] Neutrophils Percent Auto 59.1 45 - 73 % [facility] Imm Gran Pct Auto 0.2 0.0 - 0.4 % [facility] Lymphocytes Percent Auto 27.2 20 - 40 % [facility] Monocytes Percent Auto 7.6 2 - 11 % [facility] Eosinophils Percent Auto 5.1(H) 0 - 4 % [facility] Basophils Percent Auto 0.8 0 - 2 % [facility] NRBC Pct Auto 0.0 0.0 - 0.2 /100WBC [facility] Neutrophils Absolute Auto 3.7 2.0 - 8.3 x10*3/uL [facility] Imm Gran Abs Auto 0.01 0.00 - 0.03 X10*3/uL [facility] Lymphocytes Absolute Auto 1.7 1.2 - 4.9 X10*3/uL [facility] Monocytes Absolute Auto 0.5 0.1 - 1.2 X10*3/uL [facility] Eosinophils Absolute Auto 0.3 0.0 - 0.4 X10*3/uL [facility] Basophils Absolute Auto 0.1 0.0 - 0.2 X10*3/uL [facility] NRBC Abs Auto 0.000 0.0 - 0.012 X10*3/uL [facility] 07/31/2024 12:0 9 PM EST 07/31/2024 12:12 PM EST us Generic External Data Provider LAB BLOOD ORDERAB LES Final Result Performing Organization Address [facility]/State/[facility] Co de Phone Number [facility] [address] [place] [phone] * CT Abdomen Pelvis w/o Contrast (07/31/2024 12:05 PM EST) Anatomical Region Laterality Modality Body, Pelvis, Abdomen Computed T omography 07/31/2024 12:0 5 PM EST Narrative 07/31/2024 12:08 PM EST ? [facility] ?[address] ?[place] [address] ? CT Scan Report ? Signed ? Patient: Joel Mastache,Buck D ?MR#: [id number] ?? [id number] ? : 1965 ?Acct:[id number] ? Age/Sex: 59 / F ?ADM Date: 07/31/25 ? Loc: HO.ED ? Attending Dr: ? Ordering Physician: Shanda Mora ?? Date of Service: 07/31/24 ?? Procedure(s): CT abdomen pelvis wo IV con ?? Accession Number(s): [id number] ? cc: Katie Douglas MD; Shanda Mora ? Report Number: ?? [id number]: Total DLP = ??618.00 mGy-cm ? CLINICAL [...] DD/ 1205 ? TD/TT: 07/31/24 1205 ? Service Supervisor: ? Procedure Note Juliet, Image - 07/31/[address] [address] [address] Scan Report Signed Patient: Buck Rader DMR#: [id number] : 1965Acct:[id number] Age/Sex: 59 / FADM Date: 07/31/24 Loc: HO.ED Attending Dr: Ordering Physician: Shanda Mora Date of Service: 07/31/24 Procedure(s): CT abdomen pelvis wo IV con Accession Number(s): [id number] cc: Katie Dogulas MD; Shanda Mora Report Number: [id number]: Total DLP = 618.00 mGy-cm CLINICAL HISTORY: [...] 07/31/24 1206 DD/ 1205 TD/TT: 07/31/24 1205 Service Supervisor: [facility] External Provider IMG CT PROCEDURES Edited Result - Final documented in this encounter Visit Diagnoses Not on filedocumented in this encounter Additional Health Concerns Assessment Noted Time PHQ-9 Depression Total Score: 8 02/12/20 24 10:40 AM EDT documented as of this encounter Care Teams Civil Drafting Technician Relationship Specialty Start Date End Date Katie Douglas MD [address] [place] [phone] PCP - General Family Medicine 09/18/16 documented as of this encounter
--- OUTSIDE RECORDS SUMMARY | 2024-08-26 17:47 | XMS_ITS | Encounter Summary ---
Author Organization [employer] Address [address] [place] [address] Care Team Providers Care Rescue Boat Operator Name Role Phone Katie Douglas MD Primary Care Provider + Kyrie Flannery RN Unavailable [phone] Reason for Visit * Reason Onset Date Comments Care Management 08/24/2024 C3CM Encounter Details Date Type Department Care Team ([facility] Contact Info) Description 08/24/2024 Telephone [facility] MEDICINE [address] [place] [address] Katie Douglas MD [address] [place], [place] [phone] Care Management (C3CM) Social History Tobacco Use Types Packs/Day Years [...] Telephone Encounter - Kyrie Flannery RN - 08/25/2024 1:40 PM EST TC placed, spoke w/ pt, who state she's been trying to return my calls but it seems that she had the wrong #. CM gave pt the correct #. CM reminded pt of upcoming appt tomorrow at [facility] women[facility] moss for screening mammogram. CM inform of reason for urology appt is for a 6 mo f/u. Pt verbalized understanding and agreed to plan. * Telephone Encounter - Kyrie Flannery RN - 08/24/2024 2:13 PM EST CM called [facility] women's center, spoke with Cindy who state that pt does not have a scheduled appointment in September. CM also find out through [employer] that the urology appt is a 6 mo f/u due to hematuria and nephrolithiasis. When CM is able to speak with pt, will inquire in regards to appt availability for the dentist and then will call [facility] dental dept. * Telephone Encounter - Kyrie Flannery RN - 08/24/2024 10:28 AM EST CM Kyrie Flannery called [facility] women's center on 08/23/24, spoke with Cindy and confirmed that pt has an appointment on 08/26 @ 2:30 PM for screening mammogram. TC placed x1 to pt in the AM on 08/23/24 to inform, no answer, LVM in Egyptian to RTC. TC placed x2 today (08/24/23) in the AM to inform, no answer, LVM in Egyptian to RTC. CM will attempt again tomorrow in the PM. documented in this encounter Plan of Treatment Upcoming Encounters Date Type Department Care Team (Late st Contact Info) Description 09/20/2024 9:00 AM EDT Telemedicine [facility] MEDICINE [address] [place] [address] Katie Douglas MD [address] [place] [address] 09/21/2024 9:00 AM EDT Nutrition [facility] DIABETES/NUTRITION [address] [place] [address] [place] [address] documented as of this encounter Visit Diagnoses Not on filedocumented in this encounter Additional Health Concerns Assessment Noted Time PHQ-9 Depression Total Score: 8 02/12/20 10:40 AM EDT documented as of this encounter Care Teams Rescue Boat Operator Relationship Specialty Start Date End Date Katie Douglas MD [address] [place] [phone] PCP - General Family Medicine 09/18/16 Kyrie Flannery RN [address] [place] [phone] Dog Food Shredder OperatorCommunication Arts Lecturer 08/20/24 documented as of this encounter
--- OUTSIDE RECORDS SUMMARY | 2024-08-26 17:47 | XMS_ITS | Encounter Summary ---
Author Organization [employer] Address [address] [facility] [address] [place] [address] Care Team Providers Care Loss Control Manager Name Role Phone Katie Douglas MD Primary Care Provider + Reason for Visit * Reason Comments Diarrhea Encounter Details Date Type Department Care Team ([facility] Contact Info) Description 08/11/2024 8:40 AM EST Office Visit [facility] [address] [place] [address] Name, MD Huber [address] [place] [address] Diarrhea, unspecified type (Primary Dx) Social History Tobacco Use Types Packs/Day Years [...] AM EDT documented as of this encounter Last Filed Vital Signs Vital Sign Reading [...] Mass Index 32.92 08/11/2024 8:41 AM EST documented in this encounter Progress Notes * Huber Verde MD - 08/11/2024 8:40 AM EST Subjective Patient ID: Buck Brown is a 59 y.o. female who presents for Diarrhea. Patient comes for a post ER follow-up. She was seen twice at [facility] ER on July 31 and August 02 for complaints of watery diarrhea and abdominal discomfort. Workup included unremarkable blood work and she had 2 CT scan of the abdomen. The second CT scan showed possible colitis. Patient was discharged home with a course of Augmentin and recommended a liquid diet. The patient describes improvement in the frequency of the diarrhea. She still has watery bowel movements once or twice a day. There isno fever, no chills, no abdominal pain, no blood in the stool, no family history of colon cancer orinflammatory bowel disease. The patient wonders if she should be referred to GI. Review of Systems Constitutional: Negative for chills and fever. HENT: Negative for sore throat. Respiratory: Negative for cough, shortness of breath and wheezing. Cardiovascular: Negative for chest pain, palpitations and leg swelling. Gastrointestinal: Positive for diarrhea. Negative for abdominal pain and blood in stool. Visit Vitals BP 137/81 (BP Location: Left arm, Patient Position: Sitting, BP Cuff Size: Adult) Pulse 71 Temp 98 ??F (36.7 ??C) (Oral) Resp 18 Ht 5' 2 (1.575 m) Wt 180 lb (81.6 kg) SpO2 95% BMI 32.92 kg/m?? OB Status Unknown Smoking Status Never BSA 1.89 m?? Objective Physical Exam Constitutional: General: She is not in acute distress. Appearance: Normal appearance. She is not toxic-appearing. Cardiovascular: Rate and Rhythm: Normal rate and regular rhythm. Pulmonary: Effort: Pulmonary effort is normal. Abdominal: General: There is no distension. Tenderness: There is no abdominal tenderness. Musculoskeletal: Right lower leg: No edema. Left lower leg: No edema. Neurological: Mental Status: She is alert. Assessment/Plan Diagnoses and all orders for this visit: Diarrhea, unspecified type Comments: Patient is reassured. I expect her diarrhea will continue to improve gradually. I recommended a simple diet. Avoid milk, excessive caffeine, alcohol, and sugar- free gum for the next week. She is recommended to drink plenty of fluids. She is encouraged to call her PCP if not back to normal by next week. documented in this encounter Plan of Treatment Upcoming Encounters Date Type Department Care Team (Late st Contact Info) Description 09/20/2024 9:00 AM EDT Telemedicine [facility] [address] [place], [place] [phone] Katie Douglas MD [address] [place], [place] [phone] 09/21/2024 9:00 AM EDT Nutrition [facility] [address] [place] [address] [place] [address] documented as of this encounter Visit Diagnoses Diagnosis Diarrhea, unspecified type- Primary documented in this encounter Additional Health Concerns Assessment Noted Time PHQ-9 Depression Total Score: 8 02/12/20 24 10:40 AM EDT documented as of this encounter Care Teams Loss Control Manager Relationship Specialty Start Date End Date Katie Douglas MD [address] [place] [address] PCP - General Family Medicine 09/18/16 documented as of this encounter
--- OUTSIDE RECORDS SUMMARY | 2024-08-26 17:47 | XMS_ITS | Encounter Summary ---
Author Organization [employer] Address [address] [facility] 7t [place] [address] Care Team Providers Care Tie Carrier Name Role Phone Katie Douglas MD Primary Care Provider + Reason for Visit * Reason Comments Care Coordination [address] [facility] [address] telephone call outreach Encounter Details Date Type Department Care Team (Latest Contact Info) Description 08/10/2024 Patient Outreach [facility] [address] [place] [address] Katie Douglas MD [address] [place] [address] Care Coordination (C3 JAIRO Suggs telephone call [...] Progress Notes * Buck Suggs - 08/10/2024 10:47 AM EST CHW Buck Suggs, placed outbound call to patient introducing herself from [facility] CM Department, in regards to offering services. Patient's name and was confirmed. Patient agrees toparticipate in program. Appt. for initial assessment scheduled for 08/20/24@ 10:30AM. CHW reinforceddirect contact information or CM for any additional questions or concerns and extended clinic hours on Mondays and Wednesdays, and Walk-In Urgent Care Located in [facility]. Patient provided with after-hours line for [facility], , which offer night time triage service and option to transfer to operations officer afloat provider if needed. Patient verbalizes understanding, and able to repeat back to hand sign writer. documented in this encounter Plan of Treatment Upcoming Encounters Date Type Department Care Team ([facility] st Contact Info) Description 09/20/2024 9:00 AM EDT Telemedicine [facility] [address] [place] [address] Katie Douglas MD [address] [place] [address] 09/21/2024 9:00 AM EDT Nutrition [facility] [address] [place], [place] [phone] Sue Elise, RD [address] [place], [place] [phone] documented as of this encounter Visit Diagnoses Not on filedocumented in this encounter Additional Health Concerns Assessment Noted Time PHQ-9 Depression Total Score: 8 02/12/20 24 10:40 AM EDT documented as of this encounter Care Teams Tie Carrier Relationship Specialty Start Date End Date Katie Douglas MD [address] [place] [phone] PCP - General Family Medicine 09/18/16 documented as of this encounter
--- OUTSIDE RECORDS SUMMARY | 2024-08-26 17:47 | XMS_ITS | Encounter Summary ---
Author Organization [employer] Address [address] [facility] 7t [place] [address] Care Team Providers Care Caser [employer]oe Parts Name Role Phone Katie Douglas MD Primary Care Provider + Kyrie Flannery RN Unavailable [phone] Reason for Referral * Consultation (Routine) - Authorized Specialty Diagnoses / Procedures Referred By Cynthia Referred To Contact Nutrition Diagnoses Gastroenteritis Katie Douglas MD [address] [place] [address] Phone: tel: fax: Referral ID Status Reason Start Date Expiration Date Visits Requested Visits Authorized [id number] Authorized Consult and Treat 08/24/2024 08/24/2025 1 1 * Consultation (Routine) - Pending Review Specialty Diagnoses / Procedures Referred By [facility] Referred To Contact Gastroenterology Diagnoses Gastroenteritis Katie Douglas MD [address] [place] [address] Phone: tel: fax: Referral ID Status Reason Start Date Expiration Date Visits Requested Visits Authorized [id number] Pending Review Specialty Services Required 08/24/2024 08/24/2025 1 1 Reason for Visit * Reason Onset Date Comments Care Management 08/24/2024 C3CM Encounter Details Date Type Department Care Team ([facility] st Contact Info) Description 08/24/2024 Telephone [facility] [address] [place] [address] Katie Douglas MD [address] [place] [address] Care Management (C3) Social History Tobacco Use Types Packs/Day Years [...] Encounter - Kyrie Flannery RN - 08/25/2024 1:44 PM EST TC placed, spoke w/ pt, inform of respond below from PCP. Pt verbalized understanding and agreed toplan. * Telephone Encounter - Katie Douglas MD - 08/24/2024 6:33 PM EST Please call patient regarding diarrhea and antibiotics: She does not need to restart antibiotics ascolitis is probably resolved. She does need to follow-up with GI as she has had similar episodes 1 in 2022 and another 1 in 2023, I am sending a referral I will refer her again to nutrition, as sometimes diarrhea could be triggered by certain meals. * Telephone Encounter - Kyrie Flannery RN - 08/24/2024 2:00 PM EST Patient was seen at [facility] ED on 08/09/24 due to colitis and adverse drug effect of diarrhea and abdominal pain and was instructed to stop taking antibiotic which was likely the cause of her symptoms andrecommended to follow up with GI specialist. Patient was then seen here by Dr. Verde on 08/11/24 for ED f/u. Patients states that she no longer is having the diarrhea but is worried that she may still have an infection due to having to stop the antibiotic. Pt state sometimes having the abdominal pain. Patient would like RN to touch base with PCP to see if GI referral is necessary or next steps. Also, during initial assessment for the care management program pt reported being followed by a finish mixer here at [facility] in the past and would like to re-establish care. FYI: pt has a tele appointment with you on 09/20/24. Please review and advise CM Kyrie lFannery RN. Thanks. documented in this encounter Plan of Treatment Upcoming Encounters Date Type Department Care Team (Late st Contact Info) Description 09/20/2024 9:00 AM EDT Telemedicine [facility] [address] [place] [phone] Katie Douglas MD [address] [place] [address] 09/21/2024 9:00 AM EDT Nutrition [facility] [address] [place] [address] [place] [address] Scheduled Referrals Name Type Priority Associated Diagnoses Order Schedule Referral to Gastroenterology Outpatient Referral Routine Gastroenteritis Expected: 08/24/2024 (Approximate), Expires: 08/24/2025 Referral to Nutrition Therapy Outpatient Referral Routine Gastroenteritis Expected: 08/24/2024 (Approximate), Expires: 08/24/2025 documented as of this encounter Visit Diagnoses Diagnosis Gastroenteritis- Primary Other and unspecified noninfectious gastroenteritis and colitis documented in this encounter Additional Health Concerns Assessment Noted Time PHQ-9 Depression Total Score: 8 02/12/20 24 10:40 AM EDT documented as of this encounter Care Teams [employer] Relationship Specialty Start Date End Date Katie Douglas MD [address] [place] [phone] PCP - General Family Medicine 09/18/16 Kyrie Flannery, RN [address] [place] [address] Manufacturing Technology ProfessorInspector Cold Working 08/20/24 documented as of this encounter
--- OUTSIDE RECORDS SUMMARY | 2024-08-26 17:47 | XMS_ITS | Encounter Summary ---
Author Organization [employer] Address [address] [facility] [address] [place] [address] Care Team Providers Care Set Making Machine Operator Name Role Phone Katie Douglas MD Primary Care Provider + Kyrie Flannery RN Unavailable [phone] Encounter Details Date Type Department Care Team (Late st Contact Info) Description 10/29/2022 Abstract [facility] [address] [place] [phone] Sandra Ospina RN [address] [place] [address] Social History Tobacco Use Types Packs/Day Years [...] Info) Description 09/20/2024 9:00 AM EDT Telemedicine [facility] [address] [place] [phone] Katie Douglas MD [address] [place] [address] 09/21/2024 9:00 AM EDT Nutrition [facility] [address] [place] [phone] Sue Elise, RD [address] [place] [address] documented as of this encounter Procedures Procedure Name Priority Date/Time Associated Diagnosis Comments MAMMOGRAPHY Routine 08/08/2021 PAP/HPV Routine 03/01/2020 COLONOSCOPY Routine 03/17/2018 documented in this encounter Results * Mammography (08/08/2021) Mammogram B-RADS 1: Neg Anatomical Region Laterality Modality Other Historical Provider HEALTH MAINTENANCE Final Result * Pap Smear (03/01/2020) Pap smear ASCUS'HPV Narrative Sandra Ospina RN - 03/01/2020 Followed by [facility], 06/16/20 s/p [facility]/ECC [facility] Provider HEALTH MAINTENANCE Edited Result - Final * Colonoscopy (03/17/2018) Colonoscopy Normal Normal [facility] Provider HEALTH MAINTENANCE Edited Result - Final documented in this encounter Visit Diagnoses Not on filedocumented in this encounter Care Teams Set Making Machine Operator Relationship Specialty Start Date End Date Katie Douglas MD [address] [place] [address] PCP - General Family Medicine 09/18/16 Kyrie Flannery, JIM [address] [place] [address] Manager LineCombat Rifle Crewmember 08/20/24 documented as of this encounter
--- OUTSIDE RECORDS SUMMARY | 2024-08-26 17:47 | XMS_ITS | Encounter Summary ---
Author Organization [employer] Address [address] [facility] [address] [place] [address] Care Team Providers Care Action Finisher Name Role Phone Katie Douglas MD Primary Care Provider + Reason for Visit * Reason Onset Date Comments ER Follow-up 08/10/2024 Encounter Details Date Type Department Care Team ([facility] Contact Info) Description 08/10/2024 Telephone [facility] [address] [place], [place] [phone] Katie Douglas MD [address] [place], [place] [phone] ER Follow-up Social History Tobacco Use Types Packs/Day Years [...] encounter Miscellaneous Notes * Telephone Encounter - Stephanie Adams RN - 08/10/2024 12:59 PM EST Call placed to patient to follow-up on her symptoms. Patient reports she is having ongoing GI complaints of mild cramping and diarrhea. No fevers, chills. Tolerating PO fluids/ small meals. Patient was seen in ED 07/31 and 08/02. Per ED paperwork, patient's CT was remarkable for mild colitis on 08/02. Patient was prescribed 7 day course of Augmentin. Patient reports I was only given 2 pills and someone told me not to take them. Patient reports she did not get any other medications. Advised patient that with her persisting symptoms she should be re-evaluated. Advised patient of [facility] hours. Patient reports she will come to [facility] tomorrow if her diarrhea has not resolved. All [place] [id number] * Telephone Encounter - Myra Dinero - 08/10/2024 11:32 AM EST Pt walked in requesting ed follow up apt as she was seen in [facility] ed 2x for diarrhea and vomiting. Ptstates she needs to see pcp mayito so she can explain why this might be happening to her. documented in this encounter Plan of Treatment Upcoming Encounters Date Type Department Care Team (Late st Contact Info) Description 09/20/2024 9:00 AM EDT Telemedicine [facility] [address] [place] [address] Katie Douglas MD [address] [place], [place] [phone] 09/21/2024 9:00 AM EDT Nutrition [facility] DI[facility]ETES/NUTRITION [address] [place], [place] [phone] Sue Elise [address] [place] [address] documented as of this encounter Visit Diagnoses Not on filedocumented in this encounter Additional Health Concerns Assessment Noted Time PHQ-9 Depression Total Score: 8 02/12/20 24 10:40 AM EDT documented as of this encounter Care Teams Action Finisher Relationship Specialty Start Date End Date Katie Douglas MD [address] [place] [phone] PCP - General Family Medicine 09/18/16 documented as of this encounter
--- OUTSIDE RECORDS SUMMARY | 2024-08-26 17:47 | XMS_ITS | Encounter Summary ---
Author Organization [employer] Address [address] [facility] [address] [place] [address] Care Team Providers Care Margarine Churn Operator Name Role Phone Katie Douglas MD Primary Care Provider + Kyrie Flannery RN Unavailable [phone] Reason for Visit * Reason Onset Date Comments pain from ext 02/09/2024 Encounter Details Date Type Department Care Team ([facility] st Contact Info) Description 02/09/[address] [facility] [address] [place] [address] Arsh Cortes DDS [address] [place] [address] pain from ext Social History Tobacco Use [...] Info) Description 09/20/2024 9:00 AM EDT Telemedicine [facility] [address] [place] [address] Katie Douglas MD [address] [place] [address] 09/21/2024 9:00 AM EDT Nutrition [facility] [address] [place] [address] [place] [address] documented as of this encounter Visit Diagnoses Not on filedocumented in this encounter Additional Health Concerns Assessment Noted Time PHQ-9 Depression Total Score: 10 023 2:01 PM EDT documented as of this encounter Care Teams Margarine Churn Operator Relationship Specialty Start Date End Date Katie Douglas MD [address] [place] [address] PCP - General Family Medicine 09/18/16 Kyrie Flannery, JIM [address] [place] [address] Director Of Outpatient ServicesNegative Cutter 08/20/24 documented as of this encounter
--- OUTSIDE RECORDS SUMMARY | 2024-08-26 17:47 | XMS_ITS | Encounter Summary ---
Author Organization [employer] Address [address] [facility] [address] [place] [address] Care Team Providers Care Principal Mechanical Engineer Name Role Phone Katie Douglas MD Primary Care Provider + Kyrie Flannery RN Unavailable [phone] Encounter Details Date Type Department Care Team (Latest Contact Info) Description 03/19/2019 Abstract [facility] Dental, Provider, DDS Social History [...] 09/20/2024 9:00 AM EDT Telemedicine [facility] [address] [place] [phone] Katie Douglas MD [address] [place] [address] 09/21/2024 9:00 AM EDT Nutrition [facility] [address] [place] [address] [address] [place] [address] documented as of this encounter Visit Diagnoses Not on filedocumented in this encounter Care Teams Principal Mechanical Engineer Relationship Specialty Start Date End Date Katie Douglas MD [address] [place] [address] PCP - General Family Medicine 09/18/16 Kyrie Flannery, JIM [address] [place] [address] Children LibrarianExcavating Supervisor 08/20/24 documented as of this encounter
== END 2024-08-26 14:33 | disposition home or self-care (01) ==
LOC: HO.MAMMO 14:32
PROVIDERS: PCP Internal Medicine; Visit Provider Internal Medicine
DX: Z12.31 Encounter for screening mammogram for malignant neoplasm of breast (principal)
CPT/HCPCS: 77063; 77067

== ENCOUNTER 2024-09-21 09:42 | Outpatient (AMB) | payer MEDICAID, SELFPAY ==
--- NOTE | 2024-09-21 10:00 | MHC.OFFVIS ---
Intake Visit Reasons: 6m follow up Intake Note: Patient presents today for follow up on: microscopic hematuria Urology Medications: none Blood Thinner: none [employer] Field Technician Required: Yes [employer] Field Technician Name: [id number] Accompanied by: Self / Same As Patient Allergies hydromorphone Allergy (Unknown, Verified 09/21/24 10:21) hives oxycodone [From PERCOCET] Allergy (Unknown, Verified 09/21/24 10:21) ITCHING zolpidem [From AMBIEN] Allergy (Unknown, Verified 09/21/24 10:21) ITCHING Medication List - Last Reconciled 09/21/24 by YOSSI Meyers- alprazolam 0.5 mg PO DAILY PRN cetirizine 10 mg PO DAILY cyclobenzaprine 10 mg PO TID PRN fluoxetine 20 mg PO QAM fluticasone propionate 50 mcg/actuation 1 - 2 sprays intranasal DAILY PRN fluticasone propionate 110 mcg/actuation (Flovent HFA) 2 puffs inhalation BID hydrocortisone 2.5% 1 appl [place] BEDTIME PRN ibuprofen 400 mg PO Q8-12H PRN ketotifen fumarate 0.025%(0.035%) 1 drp ophthalmic (eye) BID lidocaine 5% 1 patch topical DAILY loperamide 2 mg PO Q6H PRN meclizine 12.5 mg PO TID PRN meloxicam 15 mg PO DAILY menthol-zinc oxide 0.44-20.6 % (Calmoseptine) 1 appl topical QID PRN naproxen 500 mg PO BID HPI Comments Details: Divine is a pleasant 59 year old Hungarian speaking female patient of Dr. Yeung. She has a past medical history of asthma, depression, anxiety, and AFSHAN III with dysplasia. She presents to the office today for follow-up of her nephrolithiasis as well as microscopic hematuria. In discussion with the patient today she denies having had any bothersome urological issues or concerns since her last office visit here however discusses her recent appointment with her PCP for ongoing left hip pain she continues to experience. She also discusses having seeked emergency room care last month for ongoing abdominal pain she had been experiencing and was diagnosed with colitis. Recent CT results reviewed with the patient today 08/24 bilateral kidneys demonstrate either calculus nor obstructive uropathy. Ureters and bladder are within normal limits. During last office visit patient was noted to have microscopic hematuria urine cytology results were reviewed with the patient today. 03/23 Negative for high-grade urothelial carcinoma. She denies any previous history of nicotine dependence and or workplace chemical exposure. When asked she currently denies any bothersome urinary issues or concerns. She denies urinary urgency, urinary frequency, incontinence, nocturia, hematuria, dysuria, foul smelling urine, changes to urinary stream, flank pain, fever, and or chills. She does report at times noting her urine is more yellow. We discussed correlation of adequate hydration. She is happy with her current voiding parameters. She otherwise offers no other issues or concerns at this time. Plan We plan to continue monitoring microscopic hematuria as urine cytology remains negative and the patient is at low risk for malignancy. If necessary, further inspection with cystoscopy may be considered. A repeat urine cytology test will be sent to rule out any new abnormalities. In the interim, increasing hydration is recommended for better urine clarity as well as her history of nephrolithiasis and the patient should report any new symptoms. Patient was informed and verbally consented to the use of an ambient scribe for clinic note documentation during this visit. Discussion Notes During the visit, I discussed the current state of her microscopic hematuria, emphasizing the importance of further monitoring given the negative cytology results and her low-risk profile. We conversed about the potential need for a more detailed examination through cystoscopy, which could be pursued if the situation requires. I explained the significance of the urine's variability in color, likely influenced by diet and hydration, advising increased water intake for urine clarity as well as for her history of nephrolithiasis. 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 Asthma Depression Anxiety Surgical History Hx of cholecystectomy History of bilateral tubal ligation Family History Mother Epilepsy Mental health disorder Social History Household Members: Spouse Housing: Apartment Unable to assess alcohol history related to: Unknown Alcohol intake: never Patient Tobacco Use Status: Never used Tobacco Current occupational status: disabled Sexual orientation: Straight/Heterosexual Gender identity: Female Review of Systems Const Reports no additional complaints Eyes Reports no additional complaints ENT Reports no additional complaints Card Reports no additional complaints Resp Reports no additional complaints GI Reports as per HPI Reports as per HPI Musc Reports as per HPI Neuro Reports no additional complaints Psych Reports no additional complaints Endo Reports no additional complaints Physical Exam Const General: cooperative, healthy appearing, comfortable, no acute distress, well developed, alert and awake Nutritional Appearance: overweight Orientation/consciousness: patient oriented x3 Limitations: language barrier HEENT Head: Yes normal to inspection, Yes normocephalic and Yes atraumatic Ears: hearing grossly normal bilaterally Eyes General: appearance normal, both eyes and all related structures Neck Neck: Yes normal visual inspection and Yes trachea midline Chest Chest palpation & inspection: normal inspection of the chest Resp Effort & Inspection: normal respiratory effort and able to speak in complete sentences Cardio Rate: regular rate GI Inspection: Yes normal to inspection General: Yes no CVA tenderness Back/Spine/Pelvis Back: no CVA tenderness Skin General skin exam: no rashes or lesions noted Neuro General: patient oriented x3 Extrem General: Yes normal to inspection Psych Appearance: grossly normal and well kempt Mental Status: mental status grossly normal Speech and movement: Normal speech and movement present and Clear speech present Affect: normal affect Attitude: cooperative Thought process: Normal thought process present Thought content: Normal thought content present Insight: Fair insight present (Psych) Judgement: Fair judgement present (Psych) Results AMB Urinalysis, Automated UA Leukoctes 0 Tori/uL Last Edit by [employer] on 09/21/24 10:19 UA Nitrite Last Edit by [employer] on 09/21/24 10:19 UA Urobilinogen 0.2 mg/dL Last Edit by [employer] on 09/21/24 10:19 UA Protein 15 mg/dL Last Edit by [employer] on 09/21/24 10:19 UA pH 6.5 Last Edit by [employer] on 09/21/24 10:19 UA Blood 80 Adalberto/uL Last Edit by [employer] on 09/21/24 10:19 UA Specific [place] 1.015 Last Edit by [employer] on 09/21/24 10:19 UA Ketone Negative Last Edit by [employer] on 09/21/24 10:19 UA Bilirubin 0 mg/dL Last Edit by Coronah[employer] Daliajonathan on 09/21/24 10:19 UA Glucose 0 mg/dL Last Edit by Coronagennyyasmeen Gómezjonathan on 09/21/24 10:19 Results Reviewed Results Reviewed: Laboratory Last Values Urine pH (Auto) 6.5 09/21/24 10:07 Specific [place] (Auto) 1.015 09/21/24 10:07 Urine Protein (Auto) 15 mg/dL 09/21/24 10:07 Glucose (UA)(Auto) 0 mg/dL 09/21/24 10:07 Urine Ketones (Auto) Negative 09/21/24 10:07 Urine Blood (Auto) 80 Adalberto/uL 09/21/24 10:07 Urine Bilirubin (Auto) 0 mg/dL 09/21/24 10:07 Urine Urobilinogen (Auto) 0.2 mg/dL 09/21/24 10:07 Leukocyte Esterase (Auto) 0 Tori/uL 09/21/24 10:07 Date of Service: 07/31/24 Procedure(s): CT abdomen pelvis wo IV con Findings: The lung bases are clear. The unenhanced liver, spleen, adrenal glands and pancreas are unremarkable. The gallbladder is absent. Kidneys demonstrate neither calculus nor obstructive uropathy. Ureters and bladder are within normal limits. No bowel obstruction, free air, free fluid, abscess or adenopathy. Uterus and adnexa are unremarkable. No suspicious bone lesion. Impression: No acute findings. Assessment & Plan Assessment & Plan (1) Nephrolithiasis: Code(s): N20.0 - Calculus of kidney Category: Medical (2) Microscopic hematuria: Code(s): R31.29 - Other microscopic hematuria Category: Medical Plan In office urinalysis results with the patient today; as noted above; will send for urine cytology. Recent CT results reviewed with the patient today; as noted above. She currently denies any bothersome urinary issues or concerns. We discussed importance of adequate hydration relation to nephrolithiasis as well as overall health and well-being. We discussed potential causes of microscopic hematuria as well as further workup in risks and benefits of these interventions; will continue with surveillance monitoring Will obtain renal ultrasound 6 months. Follow-up in 6 months with imaging to be completed prior; or sooner with any issues concerns, and or questions. Orders: Orders US renal BI 6 Months N20.0 - Calculus of kidney AMB Urinalysis Automated Today Z13.9 - Encounter for screening, unspecified Urine Cytology Today R31.29 - Other microscopic hematuria Patient Instructions: The patient had an opportunity to ask questions regarding the treatment plan. All questions were answered. Physical exam, labs, and imaging were discussed and reviewed in detail. As well as risks, benefits, and discussion of treatment choices. No major barriers to understanding were identified. The patient expressed understanding and agreement with the above treatment plan. The patient was made aware they should contact our office by phone for worsening of their current condition, the appearance of new symptoms, or with any questions or concerns. Compliance is encouraged with any medications and follow up testing that is ordered. It is a privilege to be allowed the opportunity to participate in? your urological care.? Again, if you have any questions or concerns If you have any questions or concerns please do not hesitate to contact me. The office is [phone]. This note is constructed using voice recognition software. While every effort has been made to ensure accuracy manual lathe operator errors may have been included. Yours sincerely, TANGELA Meyers Coding Level of Care Code Est Pt Level 3 (02827) Complex EM visit Add On G2211 Diagnoses Nephrolithiasis N20.0 Microscopic hematuria R31.29
--- OUTSIDE RECORDS SUMMARY | 2024-09-21 10:58 | XMS_ITS | Encounter Summary ---
Author Organization [employer] Address [address] [facility] 7[address] [place] [address] Care Team Providers Care Title I Assistant Name Role Phone Katie Douglas MD Primary Care Provider + Kyrie Flannery RN Unavailable [phone] Encounter Details Date Type Department Care Team ([facility] st Contact Info) Description 09/10/2024 Population Health [facility] Department [address] [id number] Provider, Population Health Generic Social History Tobacco Use Types Packs/Day Years [...] Care Team (Late st Contact Info) Description 12/10/2024 12:15 PM EDT Telemedicine [facility] MEDICINE [address] [place] [phone] Katie Douglas MD [address] [place] [address] documented as of this encounter Visit Diagnoses Not on filedocumented in this encounter Additional Health Concerns Assessment Noted Time PHQ-9 Depression Total Score: 8 02/12/20 24 10:40 AM EDT documented as of this encounter Care Teams Title I Assistant Relationship Specialty Start Date End Date Katie Douglas MD [address] [place] [phone] PCP - General Family Medicine 09/18/16 Kyrie Flannery, JIM [address] [place] [id number] Casino Gaming InspectorWhite Spooler 08/20/24 documented as of this encounter
--- OUTSIDE RECORDS SUMMARY | 2024-09-21 10:58 | XMS_ITS | Encounter Summary ---
Author Organization [employer] Address [address] [facility] [address] [place] [address] Care Team Providers Care Weeder Name Role Phone Katie Douglas MD Primary Care Provider + Kyrie Flannery RN Unavailable [phone] Encounter Details Date Type Department Care Team (Late Contact Info) Description 09/03/2022 Orders Only [facility] [address] [place], [place] [phone] Henrietta Newell LPN Social History Tobacco Use [...] Upcoming Encounters Date Type Department Care Team ([facility] Contact Info) Description 12/10/2024 12:15 PM EDT Telemedicine [facility] MEDICINE [address] [place], [place] [phone] Katie Douglas MD [address] [place], [place] [phone] documented as of this encounter Visit Diagnoses Not on filedocumented in this encounter Care Teams Weeder Relationship Specialty Start Date End Date Katie Douglas MD [address] [place] [address] PCP - General Family Medicine 09/18/16 Kyrie Flannery RN [address] [place] [address] ReservationistResidential Solar Consultant 08/20/24 documented as of this encounter
--- OUTSIDE RECORDS SUMMARY | 2024-09-21 10:58 | XMS_ITS | Encounter Summary ---
Author Organization [employer] Address [address] [place] [address] Care Team Providers Care Rotary Drier Operator Name Role Phone Katie Douglas MD Primary Care Provider + Kyrie Flannery RN Unavailable [phone] Encounter Details Date Type Department Care Team ([facility] st Contact Info) Description 09/20/2024 9:00 AM EDT Telemedicine [facility] MEDICINE [address] [place] [address] Katie Douglas MD [address] [place] [address] Spasm of muscle of lower back (Primary Dx); Pure hypercholesterolemia; Decreased attention Span; Pruritus ani; Asymptomatic microscopic hematuria Social History Tobacco Use Types Packs/Day Years [...] as of this encounter Miscellaneous Notes * Assessment & Plan Note - Katie Douglas MD - 09/20/2024 10:20 AM EDT Associated Problem(s): Pure hypercholesterolemia We discussed re rx options. She has been closely followed by dietitian but lipid levels have not improved. Start atorvastatin 40 mg and follow-up LFTs in 3 months, I will check with her in 6 weeks to see other side effects including myalgias, GI intolerance or severe headache. Recommended moderate amount of exercise and increase consumption of fruit, vegetables, fish and high fiber foods. Should decrease consumption of highly saturated fats or trans fats. * Assessment & Plan Note - Katie Douglas MD - 09/20/2024 10:19 AM EDT Associated Problem(s): Decreased attention Span We discussed about potential intersection L ET with history of anxiety and depression and previous use of alprazolam until 2 years ago. Advised her to continue reading daily and enroll on Serbian or reading classes at [facility] so that some specific learning limitation can be evaluated. She will follow-up with [facility] regarding drivers license * Assessment & Plan Note - Katie Douglas MD - 09/20/2024 10:17 AM EDT Associated Problem(s): Spasm of muscle of lower back Advised to use heat to affected area perform stretching exercises daily, she already went to PT last year for this. Use Tylenol alternate with ibuprofen as needed pain and take Flexeril with Tylenol nightly x 5 days. Advised to come to acupuncture reconsult as needed, she may need to go back to PT * Assessment & Plan Note - Katie Douglas MD - 09/20/2024 10:16 AM EDT Associated Problem(s): Pruritus ani Resolved, pinworm test, HSV and anoscopy were all within normal limits except for small nonbleedinginternal hemorrhoids. Patient to continue dietary recommendations and use hydrocortisone intrarectal cream as needed * Assessment & Plan Note - Katie Douglas MD - 09/20/2024 9:19 AM EDT Associated Problem(s): Asymptomatic microscopic hematuria No evidence of kidney stones or UTI. She will fu with urologist tomorrow documented in this encounter Plan of Treatment Upcoming Encounters Date Type Department Care Team (Late st Contact Info) Description 12/10/2024 12:15 PM EDT Telemedicine [facility] MED[facility]INE [address] [place], [place] [phone] Katie Douglas MD [address] [place] [address] documented as of this encounter Visit Diagnoses Diagnosis Spasm of muscle of lower back- Primary Pure hypercholesterolemia Decreased attention Span Pruritus ani Asymptomatic microscopic hematuria documented in this encounter Additional Health Concerns Assessment Noted Time PHQ-9 Depression Total Score: 8 02/12/20 24 10:40 AM EDT documented as of this encounter Care Teams Rotary Drier Operator Relationship Specialty Start Date End Date Katie Douglas MD [address] [place] [address] PCP - General Family Medicine 09/18/16 Kyrie Flannery, JIM [address] [place] [address] Account Services AssociateInspector Packer Glass Container 08/20/24 documented as of this encounter
--- OUTSIDE RECORDS SUMMARY | 2024-09-21 10:58 | XMS_ITS | Encounter Summary ---
Author Organization [employer] Address 75 [facility] 7t [place] [address] Care Team Providers Care Pipe Buffer Name Role Phone Katie Douglas MD Primary Care Provider + Kyrie Flannery RN Unavailable [phone] Reason for Referral * Consultation (Routine) - Pending Review Specialty Diagnoses / Procedures Referred By Cynthia galvez Referred To Contact Nutrition Diagnoses Gastroenteritis Katie Douglas MD [address] [place] [address] Phone: tel: fax: Referral ID Status Reason Start Date Expiration Date Visits Requested Visits Authorized [id number] Pending Review Consult and Treat 08/24/2024 08/24/2025 1 1 * Consultation (Routine) - Authorized Specialty Diagnoses / Procedures Referred By Cynthia galvez Referred To Contact Gastroenterology Diagnoses Gastroenteritis Katie Douglas MD [address] [place] [address] Phone: tel: fax: [facility] [address] [place] [address] [address] Floor [place], [place] Phone: tel: fax: Referral ID Status Reason Start Date Expiration Date Visits Requested Visits Authorized [id number] Authorized Specialty Services Required 08/27/2024 08/27/2025 6 6 Reason for Visit * Reason Onset Date Comments Care Management 08/24/2024 C3CM Encounter Details Date Type Department Care Team (Late st Contact Info) Description 08/24/2024 Telephone [facility] [address] [place] [address] Katie Douglas MD [address] [place] [address] Care Management (C3CM) Social History Tobacco Use [...] 2:00 PM EST Patient was seen at [facility] on 08/09/24 due to colitis and [...] program pt reported being followed by a braid folder here at [facility] in the past and would like to re-establish care. FYI: pt has a tele appointment with you on 09/20/24. Please review and advise CM Kyrie Flannery RN. Thanks. documented in this encounter Plan of Treatment Upcoming Encounters Date Type Department Care Team (Late st Contact Info) Description 12/10/2024 12:15 PM EDT Telemedicine [facility] [address] [place] [address] Katie Douglas MD [address] [place] [address] Scheduled Referrals Name Type Priority Associated Diagnoses [...] documented as of this encounter Care Teams Pipe Buffer Relationship Specialty Start Date End Date Katie Douglas MD [address] [place] [address] PCP - General Family Medicine 09/18/16 Kyrie Flannery, JIM [address] [place] [phone] Sales Order SpecialistDirector Of Critical Care 08/20/24 documented as of this encounter
--- OUTSIDE RECORDS SUMMARY | 2024-09-21 10:58 | XMS_ITS | Encounter Summary ---
Author Organization [employer] Address [address] [facility] 7[address] [place] [address] Care Team Providers Care Clinical Pharmacologist Name Role Phone Katie Douglas MD Primary Care Provider + Kyrie Flannery RN Unavailable [phone] Encounter Details Date Type Department Care Team (Late st Contact Info) Description 10/29/2022 Abstract [facility] MEDICINE [address] [place] [phone] Sandra Ospina RN [address] [place], [place] [phone] Social History Tobacco Use Types Packs/Day Years [...] Info) Description 12/10/2024 12:15 PM EDT Telemedicine [facility] MEDICINE [address] [place] [address] [phone] Katie Douglas MD [address] [place], [place] [phone] documented as of this encounter Procedures Procedure Name Priority Date/Time Associated Diagnosis Comments MAMMOGRAPHY Routine 08/08/2021 PAP/HPV Routine 03/01/2020 COLONOSCOPY Routine 03/17/2018 documented in this encounter Results * Mammography (08/08/2021) Mammogram B-RADS 1: Neg Anatomical Region Laterality Modality Other Historical Provider HEALTH MAINTENANCE Final Result * Pap Smear (03/01/2020) Pap smear ASCUS'HPV Narrative Sandra Ospina RN - 03/01/2020 Followed by [facility], 06/16/20 s/p [facility]/ECC [facility] Provider HEALTH MAINTENANCE Edited Result - Final * Colonoscopy (03/17/2018) Colonoscopy Normal Normal [facility] Provider HEALTH MAINTENANCE Edited Result - Final documented in this encounter Visit Diagnoses Not on filedocumented in this encounter Care Teams Clinical Pharmacologist Relationship Specialty Start Date End Date Katie Douglas MD [address] [place] [address] PCP - General Family Medicine 09/18/16 Kyrie Flannery RN [address] [place] [phone] Digital Associate Media DirectorCredit Analysis Manager 08/20/24 documented as of this encounter
--- OUTSIDE RECORDS SUMMARY | 2024-09-21 10:58 | XMS_ITS | Encounter Summary ---
Author Organization [employer] Address [address] [facility] [address] [place] [address] Care Team Providers Care Shaft Mechanic Name Role Phone Katie Douglas MD Primary Care Provider + Kyrie Flannery RN Unavailable [phone] Reason for Visit * Reason Onset Date Comments pain from ext 02/09/2024 Encounter Details Date Type Department Care Team ([facility] st Contact Info) Description 02/09/2024 Telephone [facility] [address] [place] [address] Arsh Cortes DDS [address] [place] [address] pain from ext Social History Tobacco Use [...] Info) Description 12/10/2024 12:15 PM EDT Telemedicine [facility] [address] [place] [address] Katie Douglas MD [address] [place] [address] documented as of this encounter Visit Diagnoses Not on filedocumented in this encounter Additional Health Concerns Assessment Noted Time PHQ-9 Depression Total Score: 10 023 2:01 PM EDT documented as of this encounter Care Teams Shaft Mechanic Relationship Specialty Start Date End Date Katie Douglas MD [address] [place] [address] PCP - General Family Medicine 09/18/16 Kyrie Flannery, JIM [address] [place] [address] Protocol OfficerSea Air Land Officer 08/20/24 documented as of this encounter
--- OUTSIDE RECORDS SUMMARY | 2024-09-21 10:58 | XMS_ITS | Encounter Summary ---
Author Organization [employer] Address [address] 7[address] [place] [address] Care Team Providers Care Substation Electrician Name Role Phone Katie Douglas MD Primary Care Provider + Kyrie Flannery RN Unavailable [phone] Reason for Visit * Reason Onset Date Comments Care Management 08/24/2024 C3CM Encounter Details Date Type Department Care Team ([facility] Contact Info) Description 08/24/2024 Telephone [facility] MEDICINE [address] [place] [address] Katie Douglas MD [address] [place], [place] [phone] Care Management (C3CM) Social History Tobacco Use [...] reminded pt of upcoming appt tomorrow at [facility] for screening mammogram. CM inform of reason for urology appt is for a 6 mo f/u. Pt verbalized understanding and agreed to plan. * Telephone Encounter - Kyrie Flannery RN - 08/24/2024 2:13 PM EST CM called [facility], spoke with Cindy who state that pt does not have a scheduled appointment in September. CM also find out through [employer] that the urology appt is a 6 mo f/u due to hematuria and nephrolithiasis. When CM is able to speak with pt, will inquire in regards to appt availability for the dentist and then will call [facility] dental dept. * Telephone Encounter - Kyrie Flannery RN - 08/24/2024 10:28 AM EST CM Kyrie Flannery called [facility] on 08/23/24, spoke with Cindy and confirmed that pt has an appointment on 08/26 @ 2:30 PM for screening mammogram. TC placed x1 to pt in the AM on 08/23/24 to inform, no answer, LVM in Czech to RTC. TC placed x2 today (08/24/23) in the AM to inform, no answer, LVM in Czech to RTC. CM will attempt again tomorrow in the PM. documented in this encounter Plan of Treatment Upcoming Encounters Date Type Department Care Team (Late st Contact Info) Description 12/10/2024 12:15 PM EDT Telemedicine [facility] MEDICINE [address] [place] [address] Katie Douglas MD [address] [place] [address] documented as of this encounter Visit Diagnoses Not on filedocumented in this encounter Additional Health Concerns Assessment Noted Time PHQ-9 Depression Total Score: 8 02/12/20 24 10:40 AM EDT documented as of this encounter Care Teams Substation Electrician Relationship Specialty Start Date End Date Katie Douglas MD [address] [place] [address] PCP - General Family Medicine 09/18/16 Kyrie Flannery RN [address] [place] [address] Clinical Documentation ClerkFunctional Skills Tutor 08/20/24 documented as of this encounter
--- OUTSIDE RECORDS SUMMARY | 2024-09-21 10:58 | XMS_ITS | Encounter Summary ---
Author Organization [employer] Address [address] 7t [place] [address] Care Team Providers Care Riding Silks Custodian Name Role Phone Katie Douglas MD Primary Care Provider + Kyrie Flannery RN Unavailable [phone] Encounter Details Date Type Department Care Team ([facility] st Contact Info) Description 08/26/2024 Orders Only [facility] MED[facility]INE [address] [place] [address] Katie Douglas MD [address] [place], [place] [phone] Social History Tobacco Use Types Packs/Day Years [...] Info) Description 12/10/2024 12:15 PM EDT Telemedicine [facility] MED[facility]INE [address] [place] [address] Katie Douglas MD [address] [place] [address] documented as of this encounter Procedures Procedure Name Priority Date/Time Associated Diagnosis Comments BI MAMMOGRAM SCREENING TOMOSYNTHESIS BILATERAL Routine 08/26/2024 2:40 PM EST documented in this encounter Results * BI Mammogram Screening Tomosynthesis Bilateral (08/26/2024 2:40 PM EST) Anatomical Region Laterality Modality Breast Bilateral Mammography 08/26/2024 2:40 PM EST Narrative 08/30/2024 3:17 PM EST ? [facility] [place] ? [address] ?[place] [address] ? Mammography Report ? Signed ? Patient: Joel Mastache,Buck D ?MR#: [id number] ?? [id number] ? : 1965 ?Acct:[id number] ? Age/Sex: 59 / F ?ADM Date: 02/27/25 ? Loc: HO.MAMMO ? Attending Dr: Katie Douglas MD ? Ordering Physician: Katie Douglas MD ?Results: 1Ne ?? gative ? Date of Service: 08/26/24 ?Follow Up: 1 Year From Orig ?? inal Mammogram ? Procedure(s): MM tomosynthesis screening BI ?? Accession Number(s): [id number] ? cc: Katie Douglas MD ? EXAMINATION: ?? MM SCREENING DIGITAL BREAST TOMOSYNTHESIS, BILATERAL ? CLINICAL INFORMATION: ? Screening. Asymptomatic. ? COMPARISON: ?? Mammography: Comparison is made with available priors ? TECHNIQUE: ?? Digital breast mammography with tomosynthesis is performed in both the ?? craniocaudal and mediolateral oblique views along with computer-aided ?? detection (CAD). ? FINDINGS: ?? There are scattered areas [...] due date for their next mammogram. ? Electronically signed by: ??Kayla Wilde DO ??08/30/2024 03:14 PM EST ?? RP ? Dictated By: ?Kayla Wilde DO ? Signed By: ?<Electronically signed by Kayla Wilde, DO in OV> ? 08/30/24 1514 ? DD/ 1440 ? TD/TT: 08/26/24 1500 ? Insurance Sales Agent: ? Procedure Note Donotuseinterpreter, Image - 08/30/[address] [place] [facility] [address] [place], [place] [address] Mammography Report Signed Patient: Buck Rader DMR#: [id number] : 1965Acct:[id number] Age/Sex: 59 / FADM Date: 08/26/24 Loc: HO.MAMMO Attending Dr: Katie Douglas MD Ordering Physician: Katie Douglas MDResults: 1Ne gative Date of Service: 08/26/24Follow Up: 1 Year From Orig inal Mammogram Procedure(s): MM tomosynthesis screening BI Accession Number(s): [id number] cc: Katie Douglas MD EXAMINATION: MM SCREENING DIGITAL BREAST TOMOSYNTHESIS, BILATERAL CLINICAL INFORMATION: Screening. Asymptomatic. COMPARISON: Mammography: Comparison is made with available priors TECHNIQUE: Digital breast mammography with tomosynthesis is performed in both the craniocaudal and mediolateral oblique views along with computer-aided detection (CAD). FINDINGS: There are scattered areas of fibroglandular [...] target due date for their next mammogram. Electronically signed by: Kayla Wilde DO 08/30/2024 03:14 PM EST Dictated By: Kayla Wilde DO Signed By: <Electronically signed by Kayla Wilde DO in OV> 08/30/24 1514 DD/ 1440 TD/TT: 08/26/24 1500 Insurance Sales Agent: Katie Douglas MD IMG BI PROCEDURES Final Result documented in this encounter Visit Diagnoses Not on filedocumented in this encounter Additional Health Concerns Assessment Noted Time PHQ-9 Depression Total Score: 8 02/12/20 24 10:40 AM EDT documented as of this encounter Care Teams Riding Silks Custodian Relationship Specialty Start Date End Date Katie Douglas MD [address] [place] [phone] PCP - General Family Medicine 09/18/16 Kyrie Flannery, RN [address] [place] [address] Windows System AdminCrutcher Helper 08/20/24 documented as of this encounter
--- OUTSIDE RECORDS SUMMARY | 2024-09-21 10:58 | XMS_ITS | Encounter Summary ---
Author Organization [employer] Address [address] 7[address] [place] [address] Care Team Providers Care Butter Printer Name Role Phone Katie Douglas MD Primary Care Provider + Kyrie Flannery RN Unavailable [phone] Reason for Visit * Reason Onset Date Comments Care Management 08/31/2024 C3CM- F/U Call # 1 Encounter Details Date Type Department Care Team ([facility] st Contact Info) Description 08/31/2024 Telephone [facility] MEDICINE [address] [place] [address] Katie Douglas MD [address] [place], [place] [phone] Care Management (C3CM- F/U Call # 1) Social History Tobacco Use Types Packs/Day Years [...] Telephone Encounter - Kyrie Flannery RN - 08/31/2024 11:58 AM EST CM Kyrie Flannery RN and CORY Haskins placed outbound call to patient. Patient's name, and address confirmed. Patient states is doing well with no recent illnesses or emergency room visits. CM inquiredwhat day of the week and time would she like her dental appointment to be scheduled. Pt responded between 9-10 AM any day of the week. CM informed should be receiving a letter in regard to GI referral. Pt is aware of grinder chipper appointment that was scheduled on 09/21/24 @ 9 AM. Pt reports that herdepression/anxiety is regular. Pt states that she received a call from her therapist at [facility] last week letting her know that they are changing her to a new therapist at the [place] location. Pt agreed to f/u with [facility] office if she doesn't receive a call. Pt reported having intermittent muscle spasms on her back, she's been using lidocaine patches. Pt reported having an appointment tomorrow at the [facility] to update her address on her ID. Pt also reported that she has attempted to get her driving permit x2 but failed the test. Pt reports that when she read later on, she forgets what she read. CM will add that detail as well as the intermittent muscle spasms of back to tele visit appt on 09/20/24. No further questions or concerns. CM reinforced direct contact information for any additional questions or concerns. Education provided on Walk-In Urgent Care located in [facility] of [facility]. Patient provided with after-hours line for [facility], , which offer night time triage service and option to transfer to group home paraprofessional provider if needed. Patient verbalizes understanding, and able to r epeat back to public relations writer. A follow up call will be placed within 10 days, patient agrees with plan. documented in this encounter Plan of Treatment Upcoming Encounters Date Type Department Care Team ([facility] st Contact Info) Description 12/10/2024 12:15 PM EDT Telemedicine [facility] MEDICINE [address] [place], [place] [phone] Katie Douglas MD [address] [place], [place] [phone] documented as of this encounter Visit Diagnoses Not on filedocumented in this encounter Additional Health Concerns Assessment Noted Time PHQ-9 Depression Total Score: 8 02/12/20 24 10:40 AM EDT documented as of this encounter Care Teams Butter Printer Relationship Specialty Start Date End Date Katie Douglas MD [address] [place], [place] [phone] PCP - General Family Medicine 09/18/16 Kyrie Flannery, JIM [address] [place] [address] Blind AideCar And Yard Supervisor 08/20/24 documented as of this encounter
--- OUTSIDE RECORDS SUMMARY | 2024-09-21 10:58 | XMS_ITS | Encounter Summary ---
Author Organization [employer] Address [address] [facility] 7t [place] [address] Care Team Providers Care Managing Manager Name Role Phone Katie Douglas MD Primary Care Provider + Kyrie Flannery RN Unavailable [phone] Encounter Details Date Type Department Care Team (Late st Contact Info) Description 04/02/2023 Abstract [facility] MEDICINE [address] [place], [place] [phone] Rozina Gama Social History Tobacco Use Types [...] 12/10/2024 12:15 PM EDT Telemedicine [facility] MEDICINE [address] [place], [place] [phone] Katie Douglas MD [address] [place], [place] [phone] documented as of this encounter Procedures Procedure [...] documented as of this encounter Care Teams Managing Manager Relationship Specialty Start Date End Date Katie Douglas MD [address] [place] [address] PCP - General Family Medicine 09/18/16 Kyrie Flannery RN [address] [place] [address] Fitness ManagerStation Repairer 08/20/24 documented as of this encounter
--- OUTSIDE RECORDS SUMMARY | 2024-09-21 10:58 | XMS_ITS | Encounter Summary ---
Author Organization [facility] [facility] Address [address]t [place] [address] Care Team Providers Care Seamer Operator Name Role Phone Katie Douglas MD Primary Care Provider + Kyrie Flannery RN Unavailable Reason for Visit * Reason Comments Care Coordination C3 [facility] [address] telephone call outreach Encounter Details Date Type Department Care Team (Latest Contact Info) Description 09/15/2024 Patient Outreach [facility] MEDICINE [address] [place] [address] Katie Douglas MD [address] [place] [address] Care Coordination [facility]) Social History Tobacco [...] encounter Progress Notes * Buck Suggs - 09/15/2024 2:40 PM EDT CHW Buck Suggs placed outbound call to patient to follow up on SDOH needs. Patient's name, andaddress confirmed. CHW spoke to patient she needs help with food insecurity I will send out Pantry Information. Patient states is doing well. No further questions or concerns. CHW reinforced direct contact information or CM for any additional questions or concerns and extended clinic hours on Mondays and Wednesdays, and Walk-In Urgent Care Located in [facility] of [facility]. Patient provided with after-hours line for [facility], , which offer night time triage service and option to transfer to traffic control officer provider if needed. Patient verbalizes understanding, and able to repeat back to comic book writer. A follow up call will be placed within 10 days, patient agrees with plan. documented in this encounter Plan of Treatment Upcoming Encounters Date Type Department Care Team (Late st Contact Info) Description 12/10/2024 12:15 PM EDT Telemedicine [facility] MEDICINE [address] [place] [address] Katie Douglas MD [address] [place] [address] documented as of this encounter Visit Diagnoses Not on filedocumented in this encounter Additional Health Concerns Assessment Noted Time PHQ-9 Depression Total Score: 8 02/12/20 24 10:40 AM EDT documented as of this encounter Care Teams Seamer Operator Relationship Specialty Start Date End Date Katie Douglas MD [address] [place] [address] PCP - General Family Medicine 09/18/16 Kyrie Flannery, RN [address] [place] [address] Gardener FloristFeltmaker And Weigher 08/20/24 documented as of this encounter
--- OUTSIDE RECORDS SUMMARY | 2024-09-21 10:58 | XMS_ITS | Encounter Summary ---
Author Organization [employer] Address [address] 7[address] [place] [address] Care Team Providers Care Production Technologist Name Role Phone Katie Douglas MD Primary Care Provider + Kyrie Flannery RN Unavailable [phone] Encounter Details Date Type Department Care Team (Latest Contact Info) Description 09/20/2024 Travel Social History Tobacco Use Types Packs/Day [...] Info) Description 12/10/2024 12:15 PM EDT Telemedicine [facility] MEDICINE [address] [place] [phone] Katie Douglas MD [address] [place] [address] documented as of this encounter Visit Diagnoses Not on filedocumented in this encounter Additional Health Concerns Assessment Noted Time PHQ-9 Depression Total Score: 8 02/12/20 24 10:40 AM EDT documented as of this encounter Care Teams Production Technologist Relationship Specialty Start Date End Date Katie Douglas MD [address] [place] [address] PCP - General Family Medicine 09/18/16 Kyrie Flannery, RN [address] [place] [address] Applied MathematicianTray Line Supervisor 08/20/24 documented as of this encounter
--- OUTSIDE RECORDS SUMMARY | 2024-09-21 10:58 | XMS_ITS | Encounter Summary ---
Author Organization [employer] Address [address] [facility] [address] [facility] 7t [place] [address] Care Team Providers Care Blueprint Cutter Name Role Phone Katie Douglas MD Primary Care Provider + Kyrie Flannery RN Unavailable [phone] Encounter Details Date Type Department Care Team (Latest Contact Info) Description 03/19/2019 Abstract [facility] CONVERSIONS Dental, Provider, DDS Social History [...] Upcoming Encounters Date Type Department Care Team ([facility] st Contact Info) Description 12/10/2024 12:15 PM EDT Telemedicine [facility] MEDICINE [address] [place] [address] Katie Douglas MD [address] [place] [address] documented as of this encounter Visit Diagnoses Not on filedocumented in this encounter Care Teams Blueprint Cutter Relationship Specialty Start Date End Date Katie Douglas MD [address] [place] [address] PCP - General Family Medicine 09/18/16 Kyrie Flannery, RN [address] [place] [address] [place] [address] Senior Qualitative ResearcherCrm Coordinator 08/20/24 documented as of this encounter
--- OUTSIDE RECORDS SUMMARY | 2024-09-21 10:58 | XMS_ITS | Encounter Summary ---
Author Organization [employer] Address [address] 7[address] [place] [address] Care Team Providers Care Yarn Twister Name Role Phone Katie Douglas MD Primary Care Provider + Kyrie Flannery RN Unavailable [phone] Reason for Visit * Reason Onset Date Comments Care Management 09/17/2024 C3CM- appointmen t reminder Encounter Details Date Type Department Care Team ([facility] st Contact Info) Description 09/17/2024 Telephone [facility] MEDICINE [address] [place] [address] Katie Douglas MD [address] [place] [address] Care Management (C3CM- appointment reminder) Social History Tobacco Use Types Packs/Day Years [...] Telephone Encounter - Kyrie Flannery RN - 09/17/2024 3:18 PM EDT CM informed patient that ibuprofen was sent to her [facility] pharmacy. Patient stated already received. * Telephone Encounter - Kyrie Flannery RN - 09/17/2024 1:26 PM EDT CM Kyrie Flannery RN placed outbound call to patient introducing myself from [facility] CM Department, in regard to remind patient of appt for 09/20/24 via tele with PCP @ 9 AM and [facility] urology appointment on 09/21/24 @ 10:30 AM. Patient's name and was confirmed. Patient is aware and confirmed will be available and has no barriers on attending this appointment. CM also inform patient to expect call from appropriate steam locomotive firer/fireman (Jaimee Harris) to reschedule fertilizing machine operator appointment. Pt reported that she spoke with the pharmacist requesting ibuprofen due to left hip pain x 3 days. Ptdenied any injury. Pt reported 9/10 pain. CM inform will queue medication to PCP. Patient verbalized understanding and agrees with plan. documented in this encounter Plan of Treatment Upcoming Encounters Date Type Department Care Team (Late st Contact Info) Description 12/10/2024 12:15 PM EDT Telemedicine [facility] MEDICINE [address] [place] [address] Katie Douglas MD [address] [place], [place] [phone] documented as of this encounter Visit Diagnoses Not on filedocumented in this encounter Additional Health Concerns Assessment Noted Time PHQ-9 Depression Total Score: 8 02/12/20 24 10:40 AM EDT documented as of this encounter Care Teams Yarn Twister Relationship Specialty Start Date End Date Katie Douglas MD [address] [place] [phone] PCP - General Family Medicine 09/18/16 Kyrie Flannery, JIM [address] [place] [address] Pension Fund ManagerPortrait Consultant 08/20/24 documented as of this encounter
--- OUTSIDE RECORDS SUMMARY | 2024-09-21 10:58 | XMS_ITS | Encounter Summary ---
Author Organization [employer] Address [address] 7[address] [place] [address] Care Team Providers Care Electrophysiology Nurse Practitioner Name Role Phone Katie Douglas MD Primary Care Provider + Kyrie Flannery RN Unavailable [phone] Reason for Visit * Reason Onset Date Comments Care Management 08/20/2024 C3CM- Initial as sessment/enrollment Encounter Details Date Type Department Care Team ([facility] st Contact Info) Description 08/20/2024 Telephone [facility] MEDICINE [address] [place] [address] Katie Douglas MD [address] [place], [place] [phone] Care Management (C3CM- Initial assessment/enrollment) Social History [...] is your housing situation today? I have emilaino gonzalez 01/29/[address] [...] rhinitis, hemorrhoids. Pt reports being followed by [facility] general surgery for hemorrhoid. Pt states that her hemorrhoids went away but sometimes with mild rectal itchiness. Pt reports being followed by [facility] AUTOMOTIVE BUYER, believes that she has an upcoming appointment in September. CM will follow up and confirm appointment. Patient reports being followedby [facility] pain management due to the bilateral Achilles [...] but that every time she has called [facility] dental dept to schedule appointment she is being told that no appointment is available. CM will assist pt is scheduling dental appt for cleaning. Pt reports that she is no longer being followed by PT or orthopedic surgery. Patient was aware that she had a scheduled visit at [facility] on 08/26/24 @ 2:30 PM but did not know what for. Per [employer] it seems that appt is for a Mammo screening. CM will confirm appt. Patient is aware of her televisit with PCP on 09/20/24. Patient denies any he aring or vision concerns at this time. Patient state her last eye exam was on 07/30/24. Patient states that she wears glasses. Patient was seen at [facility] ED on 08/09/24 due to colitis and [...] in the past she was followed by [facility] academic department chair, but it's been more than a year since they followed up with her. Patient would like to re- establish care with a academic department chair. Patient states that she doesn't have a [...] a therapist and a psychiatrist at [facility] in [place]. She speaks with the therapist every 2 [...] [facility] Pt denies assistance with ADL's other than with going up the stairs which she doesn't go up because she starts to feel unbalanced and dizzy. Pt doesn't have VNA or ADAPTIVE PHYSICAL EDUCATION SPECIALIST or HCP. Pt denies any smoking, drinking, or illegal drugs. Pt lives alone in an apartment through [place] [address], feels safe in [facility] residence. Patient state she has transportation to [...] understanding, and able to repeat back to magnetic tape typewriter operator. A follow up call will be placed within 10 days, patient agrees with plan. documented in this encounter Plan of Treatment Upcoming Encounters Date Type Department Care Team ([facility] Contact Info) Description 12/10/2024 12:15 PM EDT Telemedicine [facility] MEDICINE [address] [place] [address] Katie Douglas MD [address] [place] [address] documented as of this encounter Visit Diagnoses Not on filedocumented in this encounter Additional Health Concerns Assessment Noted Time PHQ-9 Depression Total Score: 8 02/12/20 24 10:40 AM EDT documented as of this encounter Care Teams Electrophysiology Nurse Practitioner Relationship Specialty Start Date End Date Katie Douglas MD [address] [place] [address] PCP - General Family Medicine 09/18/16 Kyrie Flannery, RN [address] [place] [address] Russian TeacherGraves Registration Specialist 08/20/24 documented as of this encounter
--- OUTSIDE RECORDS SUMMARY | 2024-09-21 10:58 | XMS_ITS | Encounter Summary ---
Author Organization [employer] Address [address] [place] [address] Care Team Providers Care Street Cleaner Name Role Phone Katie Douglas MD Primary Care Provider + Kyrie Flannery RN Unavailable [phone] Reason for Visit * Reason Comments Med Refill Encounter Details Date Type Department Care Team ([facility] st Contact Info) Description 08/27/2024 Refill [facility] [address] [place], [place] [phone] Katie Douglas MD [address] [place], [place] [phone] Seasonal allergic rhinitis, unspecified trigger Social History Tobacco Use Types Packs/Day Years [...] Info) Description 12/10/2024 12:15 PM EDT Telemedicine [facility] [address] [place] [phone] Katie Douglas MD [address] [place] [phone] documented as of this encounter Visit Diagnoses Diagnosis Seasonal allergic rhinitis, unspecified trigger documented in this encounter Additional Health Concerns Assessment Noted Time PHQ-9 Depression Total Score: 8 02/12/20 24 10:40 AM EDT documented as of this encounter Care Teams Street Cleaner Relationship Specialty Start Date End Date Katie Douglas MD [address] [place] [phone] PCP - General Family Medicine 09/18/16 Kyrie Flannery, JIM [address] [place] [phone] Ton Cylinder InspectorGarden Worker 08/20/24 documented as of this encounter
--- OUTSIDE RECORDS SUMMARY | 2024-09-21 10:58 | XMS_ITS | Encounter Summary ---
Author Organization [employer] Address [address] [place] [address] Care Team Providers Care Sat Act Instructor Name Role Phone Katie Douglas MD Primary Care Provider + Kyrie Flannery RN Unavailable [phone] Reason for Visit * Reason Onset Date Comments Care Management 09/13/2024 C3CM- F/U Call # 2 Encounter Details Date Type Department Care Team ([facility] st Contact Info) Description 09/13/2024 Telephone [facility] [address] [place] [address] Katie Douglas MD [address] [place], [place] [phone] Care Management (C3CM- F/U Call # 2) Social History Tobacco Use Types Packs/Day Years [...] Telephone Encounter - Kyrie Flannery RN - 09/13/2024 10:49 AM EDT Please assist in 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 Patient has another appointment scheduled on that same date and similar time. Thank you! * Telephone Encounter - Kyrie Flannery RN - 09/13/2024 10:35 AM EDT TDAEO Flannery RN and CORY Haskins placed outbound call to patient. Patient's name, and address confirmed. Patient states is doing well with no recent illnesses or emergency room visits. Patient reports that she feels tired. Patient reports that she received GI referral letter and an appointment on 12/06/24 @ 10:15 AM. Patient reports was assigned a new therapist who is supposed to call her today. Patient reports that her asthma is controlled and is currently using Flovent inhaler. TADEO reminded patient of telephone visit with PCP Misael on 09/20/24 @ 9 AM. TADEO also informed patient of enlisted aircrew/aerial observer/gunner appointment on 09/21/24 @ 9 AM and [facility] urology appointment on 09/21/24 @ 10:30 AM. Patient decided to reschedule the enlisted aircrew/aerial observer/gunner appointment and keep the Urology appointment as scheduled. CM will assist in rescheduling enlisted aircrew/aerial observer/gunner appointment. CM will also assist in calling [facility] dental and scheduling a cleaning for patient. No further questions or concerns. CM reinforced direct contact information for any additional questions or concerns. Education provided on [facility] located in [facility] of [facility]. Patient provided with after-hours line for [facility], , which offer night time triage service and option to transfer to cushion worker provider if needed. Patient verbalizes understanding, and able to r epeat back to blog writer. A follow up call will be placed within 10 days, patient agrees with plan. documented in this encounter Plan of Treatment Upcoming Encounters Date Type Department Care Team (Late st Contact Info) Description 12/10/2024 12:15 PM EDT Telemedicine [facility] MED[facility]INE [address] [place], [place] [phone] Katie Douglas MD [address] [place], [place] [phone] documented as of this encounter Visit Diagnoses Not on filedocumented in this encounter Additional Health Concerns Assessment Noted Time PHQ-9 Depression Total Score: 8 02/12/20 24 10:40 AM EDT documented as of this encounter Care Teams Sat Act Instructor Relationship Specialty Start Date End Date Katie Douglas MD [address] [place] [phone] PCP - General Family Medicine 09/18/16 Kyrie Flannery, RN [address] [place] [phone] PatternatorJet Operator 08/20/24 documented as of this encounter
--- OUTSIDE RECORDS SUMMARY | 2024-09-21 10:58 | XMS_ITS | Encounter Summary ---
Author Organization [employer] Address [address] [place] [address] Care Team Providers Care Sea Air Land Officer Name Role Phone Katie Douglas MD Primary Care Provider + Kyrie Flannery RN Unavailable [phone] Encounter Details Date Type Department Care Team (Late Contact Info) Description 08/08/2022 Orders Only [facility] [address] [place], [place] [phone] Henrietta Newell LPN Social History Tobacco Use [...] Department Care Team (Late Contact Info) Description 12/10/2024 12:15 PM EDT Telemedicine [facility] MED[facility]INE [address] [place], [place] [phone] Katie Douglas MD [address] [place], [place] [phone] documented as of this encounter Visit Diagnoses Not on filedocumented in this encounter Care Teams Sea Air Land Officer Relationship Specialty Start Date End Date Katie Douglas MD [address] [place] [address] PCP - General Family Medicine 09/18/16 Kyrie Flannery, JIM [address] [place] [phone] Mental Health Program ManagerTip Cutter 08/20/24 documented as of this encounter
--- OUTSIDE RECORDS SUMMARY | 2024-09-21 10:58 | XMS_ITS | Clinical Summary ---
Author Organization [employer] Address [address] [place] [address] Care Team Providers Care Roentgenology Teacher Name Role Phone Panda Douglas MD Primary Care Provider + Kyrie Flannery RN Unavailable [phone] Allergies Active Allergy Reactions Criticality Noted Date Comments Acetaminophen Itching 10/19/2014 Cat Dander 02/10/2023 Other reaction(s): WHEEZING Fentanyl Itching 12/02/2023 Gramineae Pollens 02/10/2023 Other reaction(s): wheezing Hydromorphone Hives 02/10/2023 Morphine Hives 12/02/2023 Oxycodone Itching 10/19/2014 Oxycodone-Acetaminophen 08/15/2022 Other reaction(s): itching all over Poison Melissa Extract 10/19/2014 Zolpidem Itching,Rash Low 02/10/2023 Medications meclizine (Antivert) 12.5 MG tabletIndicati ons:Dizziness TOME NGHIA TABLETA PHONG VECES AL D A CUANDO SEA NECESARIO 30 tablet 3 08/08/19 23 Active FLUoxetine (PROzac) 20 MG capsule TOME NGHIA C PSULA TODOS LOS D EN LA MA PANDA 12/10/19 23 Active albuterol (ProAir HFA) 108 (90 Base) MCG/ACT inhalerIndicat ions:Moderate persistent asthma, unspecified whether complicated Inhale 2 puffs every 4 (four) hours if needed for shortness of breath or wheezing. 18 g 1 02/13/20 23 Active chlorhexidine (Peridex) 0.12 % solution Swish 15 mL morning and night for 1 minute. Spit, do not swallow. Do not eat or drink for 30 minutes following use. 473 mL 02/09/20 24 Active fluticasone (Flonase) 50 MCG/ACT nasal sprayIndicatio ns:Chronic rhinitis Administer 1 spray into each nostril Once per day. Shake gently. Before first use, prime pump. After use, clean tip and replace cap. 48 mL 1 02/12/20 24 Active ammonium lactate (Amlactin) 12 % cream Apply topically if needed for dry skin. 385 g 1 06/14/20 24 025 Active betamethasone valerate (Valisone) 0.1 % ointment Apply topically if needed in the morning and at bedtime (itchiness). 45 g 06/14/20 24 Active liver oil-zinc oxide (Desitin) 40 % ointment Apply topically if needed in the morning and at bedtime for irritation. 56 g 06/14/20 24 Active cetirizine (ZyrTEC) 10 MG tabletIndicati ons:Seasonal allergic rhinitis, unspecified trigger TOME NGHIA TABLETA TODOS [facility] ALVAREZ 90 tablet 3 08/31/19 25 Active cyclobenzaprin e (Flexeril) 10 MG tablet Take 1 tablet (10 mg) by mouth at bedtime for 10 days. 10 tablet 09/21/19 25 025 Active acetaminophen (Tylenol Extra Strength) 500 MG tablet Take 1 tablet (500 mg) by mouth every 6 (six) hours if needed for mild pain. 120 tablet 09/21/19 25 025 Active ibuprofen 600 MG tablet Take 1 tablet (600 mg) by mouth every 6 (six) hours if needed for mild pain for up to 180 doses. 90 tablet 09/21/19 25 Active atorvastatin (Lipitor) 40 MG tablet Take 1 tablet (40 mg) by mouth at bedtime. 30 tablet 11 09/21/19 25 026 Active cetirizine (ZyrTEC) 10 MG tabletIndicati ons:Seasonal allergic rhinitis, unspecified trigger TOME NGHIA TABLETA TODOS LOS ALVAREZ 90 tablet 3 08/11/19 24 025 Discontinued ibuprofen 600 MG tablet Take 1 tablet (600 mg) by mouth every 6 (six) hours if needed for mild pain for up to 20 doses. 20 tablet 01/06/20 24 025 Discontinued(Re order (will not trigger notification to Pharmacy)) ibuprofen 600 MG tablet Take 1 tablet (600 mg) by mouth every 6 (six) hours if needed for mild pain for up to 180 doses. 90 tablet 1 09/18/19 25 025 Discontinued(Re order (will not trigger notification to Pharmacy)) Active Problems Problem Noted Date Diagnosed Date Decreased attention Span 09/20/2024 Assessment & Plan (09/20/2024 10:19 AM EDT): We discussed about potential intersection L ET with history of anxiety and depression and previous use of alprazolam until 2 years ago. Advised her to continue reading daily and enroll on [place] or reading classes at [facility] so that some specific learning limitation can be evaluated. She will follow-up with [facility] regarding drivers license Pruritus ani 06/29/2024 Assessment & Plan (09/20/2024 10:16 AM EDT): Resolved, pinworm test, HSV and anoscopy were all within normal limits except for small nonbleeding internal hemorrhoids. Patient to continue dietary recommendations and use hydrocortisone intrarectal cream as needed Assessment & Plan (06/29/2024 9:48 AM EST): [...] recommended she be tested for Pinworm. 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 Next one due on 02/2028 Lipids/FBS To be ordered Vaccinations Influenza iz today. Counseled about COVID + Booster and Zoster. Other iz up to date. Obtain hepatitis profile. Dental visit Overdue, cosmetic counselor to make an appt at [facility] or one of the other closest [...] Spasm of muscle of lower back 08/15/2022 Assessment & Plan (09/20/2024 10:17 AM EDT): Advised to use heat to affected area perform stretching exercises daily, she already went to PT last year for this. Use Tylenol alternate with ibuprofen as needed pain and take Flexeril with Tylenol nightly x 5 days. Advised to come to acupuncture reconsult as needed, she may need to go back to PT Shoulder pain 08/15/2022 Headache disorder 08/15/2022 HSIL (high grade squamous in traepithelial lesion) on Pap smear of cervix 08/15/2022 Elevated liver transaminase level 08/15/2022 Dysfunction of eustachian tube 08/15/2022 Dizziness 08/15/2022 Asymptomatic microscopic hematuria 08/15/2022 Assessment & Plan (09/20/2024 10:17 AM EDT): No evidence of kidney stones or UTI. She will fu with urologist tomorrow Callus of heel 08/15/2022 Bilateral Achilles tendonosis [...] 07/08/2017 Pure hypercholesterolemia 07/08/2017 Assessment & Plan (09/20/2024 10:20 AM EDT): We discussed re rx options. She has [...] of highly saturated fats or trans fats. 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 02/12/2024 Assessment & Plan (08/11/2023 2:04 PM EST): FU PAP next week FU w/TELEPHONE RECORDER Encounters Date Type Department Care Team Description 09/20/2024 9:00 AM EDT Telemedicine [facility] [address] [place] [phone] Panda Douglas MD Spasm of muscle of lower back (Primary Dx); Pure hypercholesterolemi a; Decreased attention Span; Pruritus ani; Asymptomatic microscopic hematuria 09/20/2024 Travel 09/17/2024 Telephone [facility] [address] [place] [address] [phone] Panda Douglas MD Care Management (C3CM- appointment reminder) 09/16/2024 Refill [facility] [address] [place] [address] [phone] Arsh Cortes DDS 09/15/2024 Patient Outreach [facility] [address] [place] [address] [phone] Panda Douglas MD Care Coordination (C3 CM-CHW Buck Suggs telephone call outreach) 09/13/2024 Telephone [facility] [address] [place] [address] [phone] Panda Douglas MD Care Management ([facility]- F/U Call # 2) 09/10/2024 Population Health Risk Score [facility] (C3) [address] [phone] Provider, Population Health Generic 08/31/2024 Telephone [facility] [address] [place] [address] [phone] Panda Douglas MD Care Management ([facility]- F/U Call # 1) 08/27/2024 Refill [facility] [address] [place] [address] [phone] Panda Douglas MD Seasonal allergic rhinitis, unspecified trigger 08/26/2024 Orders Only [facility] [address] [place] [address] [phone] Panda Douglas MD 08/24/[address] [phone] Panda Douglas MD Care Management ([facility]) 08/24/2024 Telephone [facility] [address] [place] [address] [phone] Panda Douglas MD Care Management ([facility]) 08/20/[address] [phone] Panda Douglas MD Care Management ([facility]- Initial assessment/enrollme nt) 08/19/2024 Patient Outreach [address] [phone] Panda Douglas MD Care Coordination ([facility] buck Suggs telephone call outreach) 08/11/2024 8:40 AM EST Office Visit [facility] [address] [place] [address] [phone] Huber Verde MD Diarrhea, unspecified type (Primary Dx) 08/10/[address] [phone] Panda Douglas MD ER Follow-up 08/10/2024 Patient Outreach [address] [phone] Panda Douglas MD Care Coordination ([facility] telephone call outreach) 08/10/2024 Patient Outreach [address] [phone] Panda Douglas MD Care Coordination ([address] telephone call outreach) 08/10/[address] [phone] Panda Douglas MD Care Management ([facility]- chart review) 08/09/2024 Orders Only GENERIC EXTERNAL DATA DEPARTMENT Provider, Generic External Data 08/02/2024 Orders Only GENERIC EXTERNAL DATA DEPARTMENT Provider, Generic External Data 08/02/2024 Travel 07/31/2024 Orders Only [facility] External Provider, [facility] 07/29/[address] [phone] April Domingo MA Chart prep 07/05/[address] [phone] Panda Douglas MD Results 07/02/[address] [phone] Sonia Hare RN Lab Orders 06/29/2024 9:15 AM EST Office Visit [address] [phone] Tariq Posey MD Pruritus ani (Primary Dx) 06/29/[address] [phone] Panda Douglas MD callback requested 06/29/2024 Travel 06/28/[address] [phone] Panda Douglas MD Nurse Triage from Last 3 Months Immunizations Name Administration [...] 12/10/2024 12:15 PM EDT Telemedicine [facility] [address] [place] [address] Panda Douglas MD [address] [place] [address] Health Maintenance Due Date Last Done Comments [...] history exists Depression Screening 02/11/2025 02/12/2024, 02/12/20 Cervical Cancer Screening 02/16/2025 HPV/Cotest 02/16/2025 01/29/2024, 10/28, 07/16/2021, Additional history exists Pap Smear 02/16/2025 01/29/2024, 10/28, 07/16/2021, Additional history exists SDOH Screening 08/10/2025 08/10/2024 Tobacco Screening 08/11/2025 08/11/2024 Mammogram 08/26/2025 08/26/2024, 08/01, 08/16/2022, Additional history exists DTaP/Tdap/Td Vaccines (3 - [...] TOMOSYNTHESIS BILATERAL Routine 08/26/2024 2:40 PM EST MAGNESIUM Routine 08/09/2024 11:23 AM EST [...] RADIOGRAPHIC IMAGES Routine 08/25/2023 11:00 AM EST HEPATITIS PANEL, GENERAL Routine 06/18/2023 9:52 [...] Recently Relevant to Health Maintenance Results * BI Mammogram Screening Tomosynthesis Bilateral (08/26/2024 2:40 PM EST) Anatomical Region Laterality Modality Breast Bilateral Mammography 08/26/2024 2:40 PM EST Narrative 08/30/2024 3:17 PM EST ? [facility] ? [address] ?[place] [address] ? Mammography Report ? Signed ? Patient: Joel Parkerache,Buck D ?MR#: MM ?? [id number] ? : 1965 ?Acct:[id number] ? Age/Sex: 59 / F ?ADM Date: 02/27/25 ? Loc: HO.MAMMO ? Attending Dr: Panda Douglas MD ? Ordering Physician: Panda Douglas MD ?Results: 1Ne ?? gative ? Date of Service: 08/26/24 ?Follow Up: 1 Year From Orig ?? inal Mammogram ? Procedure(s): MM tomosynthesis screening BI ?? Accession Number(s): [id number] ? cc: Panda Douglas MD ? EXAMINATION: [...] DO in OV> ? 08/30/24 1514 ? DD/DT: 08/26/ 1440 ? TD/TT: 08/26/ 1500 ? Cake Former: ? Procedure Note Donotuseinterpreter, Image - [facility] [address] [place] [address] Mammography Report Signed Patient: Buck Rader DMR#: [id number] : 1965Acct:[id number] Age/Sex: 59 / FADM Date: 08/26/24 Loc: HO.MAMMO Attending Dr: Panda Douglas MD Ordering Physician: Panda Douglas MDResults: 1Ne gative Date of Service: 08/26/24Follow Up: 1 Year From Orig inal Mammogram Procedure(s): MM tomosynthesis screening BI Accession Number(s): [id number] cc: Panda Douglas MD EXAMINATION: MM SCREENING [...] Wilde DO Signed By: <Electronically signed by Kayal Wilde DO in OV> 08/30/24 1514 DD/ 1440 TD/TT: 08/26/24 1500 Cake Former: us Panda Douglas MD IMG BI PROCEDURES Final Result * (ABNORMAL) Urinalysis, Complete, with Reflex to Culture (08/09/2024 11:23 AM EST) Only the most recent of3 resultswithin the time period is included. Color Urine Yellow [facility] Appearance Urine Clear [facility] PH 6.5 5.0 - 9.0 [facility] Glucose Urine UA Negative Negative mg/dL [facility] Urine Blood Small (1+)(A) Negative [facility] Specific [place] - Urine 1.025 1.005 - 1.025 [facility] Urine Protein Negative Neg-Trace mg/dL [facility] Urine Ketones Negative Negative mg/dL [facility] Nitrite Urine Negative Negative [facility] Leukocyte Esterase Urine Negative Negative [facility] RBC Urine 6-10(A) 0 - 2 /HPF [facility] Urine WBC 0-5 0 - 5 /HPF [facility] Urine Squamous Epithelial Cell 0-2 0 - 2 /HPF [facility] Urine Bacteria None Seen None Seen [facility] Hyaline Casts, Urine 0-2 0 - 2 /LPF [facility] 08/09/2024 11:2 3 AM EST 08/09/2024 11:26 AM EST Narrative [facility] - 08/09/2024 11:38 AM EST Urine, Clean Catch us Generic External Data Provider LAB URINE ORDERAB LES Final Result Performing Organization Address City/State/[facility] Co de Phone Number [facility] [address] [place] [phone] * SARS-CoV-2 RNA, Influenza A/B, and RSV RNA, Ql NAAT (08/09/2024 11:23 AM EST) Only the most recent of2 resultswithin the time period is included. Influenza A PCR NEGATIVE Negative [facility] Influenza B PCR NEGATIVE Negative [facility] Resp Syncy Virus RNA Qual PCR NEGATIVE Negative [facility] SARS COV2 PCR NEGATIVE Negative [facility] Comment:All test results mus t [...] use by authorized laboratories.Testing performed on the Fitmo GeneXpert utilizingreal-time RT-PCR.All SARS CoV2 and positive influenza A/B results arereported to [facility]. 08/09/2024 11:2 3 AM EST 08/09/2024 11:26 AM EST us Generic External Data Provider LAB MICROBIOLOGY - GENERAL ORDERABLES Final Result [facility] [address] [place] [phone] * (ABNORMAL) CBC auto differential (08/09/2024 11:23 AM EST) Only the most recent of3 resultswithin the time period is included. White Blood Count 7.7 4.8 - 10.8 X10*3/uL [facility] Red Blood Count 4.73 4.20 - 5.50 X10*6/uL [facility] Hemoglobin 13.6 12.0 - 16.0 g/dl [facility] Hematocrit 41.1 37.0 - 47.0 % [facility] Mean Corpuscular Volume 86.9 80.0 - 98.0 fL [facility] Mean Corpuscular Hemoglobin 28.8 27.0 - 33.0 pg [facility] Mean Corpuscular HGB Conc 33.1 31.0 - 35.0 g/dl [facility] Red Cell Distribution Width 13.6 11.0 - 16.0 % [facility] Platelet Count 240 160 - 400 X10*3/uL [facility] Mean Platelet Volume 11.1 9.4 - 12.3 fL [facility] Neutrophils Percent Auto 63.3 45 - 73 % [facility] Imm Gran Pct Auto 0.3 0.0 - 0.4 % [facility] Lymphocytes Percent Auto 24.6 20 - 40 % [facility] Monocytes Percent Auto 7.0 2 - 11 % [facility] Eosinophils Percent Auto 4.3(H) 0 - 4 % [facility] Basophils Percent Auto 0.5 0 - 2 % [facility] NRBC Pct Auto 0.0 0.0 - 0.2 /100WBC [facility] Neutrophils Absolute Auto 4.9 2.0 - 8.3 x10*3/uL [facility] Imm Gran Abs Auto 0.02 0.00 - 0.03 X10*3/uL [facility] Lymphocytes Absolute Auto 1.9 1.2 - 4.9 X10*3/uL [facility] Monocytes Absolute Auto 0.5 0.1 - 1.2 X10*3/uL [facility] Eosinophils Absolute Auto 0.3 0.0 - 0.4 X10*3/uL [facility] Basophils Absolute Auto 0.0 0.0 - 0.2 X10*3/uL [facility] NRBC Abs Auto 0.000 0.0 - 0.012 X10*3/uL [facility] 08/09/2024 11:2 3 AM EST 08/09/2024 11:26 AM EST us Generic External Data Provider LAB BLOOD ORDERAB LES Final Result [facility] [address] [place] [address] [phone] * (ABNORMAL) Urinalysis w/reflex microscopic (08/09/2024 11:23 AM EST) Only the most recent of2 resultswithin the time period is included. Color Urine Yellow [facility] Appearance Urine Clear [facility] PH 6.5 5.0 - 9.0 [facility] Glucose Urine UA Negative Negative mg/dL [facility] Urine Blood Small (1+)(A) Negative [facility] Specific [place] - Urine 1.025 1.005 - 1.025 [facility] Urine Protein Negative Neg-Trace mg/dL [facility] Urine Ketones Negative Negative mg/dL [facility] Nitrite Urine Negative Negative [facility] Leukocyte Esterase Urine Negative Negative [facility] 08/09/2024 11:2 3 AM EST 08/09/2024 11:26 AM EST Narrative [facility] - 08/09/2024 11:34 AM EST Urine, Clean Catch Generic External Data Provider LAB URINE ORDERAB LES Final Result Performing Organization Address [facility] Co de Phone Number [facility] [address] [place] [phone] * Magnesium (08/09/2024 11:23 AM EST) Only the most recent of3 resultswithin the time period is included. Magnesium 2.2 1.6 - 2.6 mg/dL [facility] 08/09/2024 11:2 3 AM EST 08/09/2024 11:26 AM EST Generic External Data Provider LAB BLOOD ORDERAB LES Final Result Performing Organization Address City/[facility] Co de Phone Number [facility] [address] [place] [phone] * (ABNORMAL) Comprehensive Metabolic Panel (08/09/2024 11:23 AM EST) Only the most recent of3 resultswithin the time period is included. Sodium 141 135 - 145 mmol/L [facility] Potassium 3.9 3.3 - 5.1 mmol/L [facility] Chloride 110(H) 96 - 108 mmol/L [facility] Carbon Dioxide 25 22 - 29 mmol/L [facility] Anion Gap 10(L) 12 - 20 [facility] Urea Nitrogen (BUN) 14 9 - 16 mg/dL [facility] Creatinine, Serum 0.67 0.5 - 1.4 mg/dL [facility] Creatinine Clr Calc Pharmacy 91.6 [facility] Comment:Provided height and weight: 157.48 cm,81.6 kg.eGFR (calculated from the MDRD study equation) and eCrCl(calculated from the Cockcroft-Gault equation) are based ondifferent parameters and may not yield comparable results.If eCrCl result is absurd, please check patient'sheight/weight. Estimated Glomerular Filt Rate >60 [facility] Comment:Chronic Kidney Disea se: Estimated GFR < 60 mL/min/1.86y2Hynqfo Kidney Disease: Estimated GFR < 15 mL/min/1.73m2 Glucose 74 60 - 115 mg/dL [facility] Calcium 9.1 8.4 - 10.2 mg/dL [facility] Bilirubin, Total 0.4 0.0 - 1.0 mg/dL [facility] Aspartate Amino Transferase 21 5 - 31 U/L [facility] Alanine Aminotransferase 39(H) 0 - 31 U/L [facility] Total Protein 8.1(H) 6.5 - 8.0 g/dL [facility] Albumin Level 4.3 3.5 - 5.0 g/dL [facility] Alkaline Phosphatase 86 39 - 117 U/L [facility] 08/09/2024 11:2 3 AM EST 08/09/2024 11:26 AM EST us Generic External Data Provider LAB BLOOD ORDERAB LES Final Result [facility] [address] [place] [phone] * CT Abdomen Pelvis w/ Contrast (08/02/2024 7:19 PM EST) Anatomical Region Laterality Modality Body, Pelvis, Abdomen Computed T omography 08/02/2024 7:19 PM EST Narrative 08/02/2024 7:20 PM EST ? [facility] ?[address] ?[place] [address] ? CT Scan Report ? Signed ? Patient: Joel Mastache,Buck D ?MR#: MM ?? [id number] ? : 1965 ?Acct:[id number] ? Age/Sex: 59 / F ?ADM Date: 08/02/24 ? Loc: HO.ED ? Attending Dr: ? Ordering Physician: Viraj Bermudez ?? Date of Service: 08/02/24 ?? Procedure(s): CT abdomen pelvis w IV con ?? Accession Number(s): [id number] ? cc: Panda Doulgas MD; Viraj Bermudez ? Report Number: ?? [id number]: Total DLP = ??603.00 mGy-cm ? CLINICAL [...] ? DD/ 18 ? TD/TT: 08/02/241918 ? Cake Former: ? Procedure Note Juliet, Image - 08/02/[address] [address] [address] Scan Report Signed Patient: Buck Rader [facility]#: [id number] : 1965Acct:[id number] Age/Sex: 59 / FADM Date: 08/02/24 Loc: HO.ED Attending Dr: Ordering Physician: Viraj Bermudez Date of Service: 08/02/24 Procedure(s): CT abdomen pelvis w IV con Accession Number(s): [id number] cc: Panda Douglas MD; Viraj Bermudez Report Number: [id number]: Total DLP = 603.00 mGy-cm CLINICAL HISTORY: [...] in OV> 08/02/241919 DD/ 18 TD/TT: 08/02/241918 Cake Former: [facility] External Provider IMG CT PROCEDURES Final Result * Slide Review (08/02/2024 11:19 AM EST) Slide Review VERIFIED [facility] 08/02/2024 11:1 9 AM EST 08/02/2024 11:22 AM EST Generic External Data Provider LAB BLOOD ORDERAB LES Final Result Performing Organization Address [facility] de Phone Number [facility] [address] [place] [phone] * Lipase (08/02/2024 11:19 AM EST) Only the most recent of2 resultswithin the time period is included. Pathologist [facility] Lipase 18 8 - 78 U/L [facility] 08/02/2024 11:1 9 AM EST 08/02/2024 11:22 AM EST Generic External Data Provider LAB BLOOD ORDERAB LES Final Result Performing Organization Address [facility] Phone Number [facility] [address] [place] [phone] * Hepatic Function Panel (08/02/2024 11:19 AM EST) Only the most recent of2 resultswithin the time period is included. Pathologist [facility] Bilirubin, Direct 0.1 0.0 - 0.5 mg/dL [facility] 08/02/2024 11:1 9 AM EST 08/02/2024 11:22 AM EST Generic External Data Provider LAB BLOOD ORDERAB LES Final Result Performing Organization Address [facility] de Phone Number [facility] [address] [place] [phone] * (ABNORMAL) Basic Metabolic Panel (07/31/2024 12:09 PM EST) [facility] Sodium 140 135 - 145 mmol/L [facility] Potassium 4.0 3.3 - 5.1 mmol/L [facility] Chloride 108 96 - 108 mmol/L [facility] Carbon Dioxide 25 22 - 29 mmol/L [facility] Anion Gap 11(L) 12 - 20 [facility] Urea Nitrogen (BUN) 16 9 - 16 mg/dL [facility] Creatinine, Serum 0.70 0.5 - 1.4 mg/dL [facility] Creatinine Clr Calc Pharmacy 89.0 [facility] Comment:Provided height and weight: 157.48 cm,83.915 kg.eGFR (calculated from the MDRD study equation) and eCrCl(calculated from the Cockcroft-Gault equation) are based ondifferent parameters and may not yield comparable results.If eCrCl result is absurd, please check patient'sheight/weight. Estimated Glomerular Filt Rate >60 [facility] Comment:Chronic Kidney Disea se: Estimated GFR < 60 mL/min/[id number] Kidney Disease: Estimated GFR < 15 mL/min/1.73m2 Glucose 81 60 - 115 mg/dL [facility] Calcium 9.5 8.4 - 10.2 mg/dL [facility] 07/31/2024 12:0 9 PM EST 07/31/2024 12:12 PM EST us Generic External Data Provider LAB BLOOD ORDERAB LES Final Result Performing Organization Address City/State/[facility] Co de Phone Number [facility] [address] [place] [address] [phone] * CT Abdomen Pelvis w/o Contrast (07/31/2024 12:05 PM EST) Anatomical Region Laterality Modality Body, Pelvis, Abdomen Computed T omography 07/31/2024 12:0 5 PM EST Narrative 07/31/2024 12:08 PM EST ? [facility] ?[address] [place] [address] ?[place] [address] ? CT Scan Report ? Signed ? Patient: Joel Mastache,Buck D ?MR#: MM ?? [id number] ? : 1965 ?Acct:[id number] ? Age/Sex: 59 / F ?ADM Date: 02/01/25 ? Loc: HO.ED ? Attending Dr: ? Ordering Physician: Shanda Mora ?? Date of Service: 07/31/24 ?? Procedure(s): CT abdomen pelvis wo IV con ?? Accession Number(s): [id number] ? cc: Panda Douglas MD; Shanda Mora ? Report Number: ?? [id number]: Total DLP = ??618.00 mGy-cm ? CLINICAL [...] DD/ 1205 ? TD/TT: 07/31/24 1205 ? Cake Former: ? Procedure Note Juliet, Image - 07/31/[address] [place] [address] [address] Scan Report Signed Patient: Buck Rader DMR#: [id number] : 1965Acct:[id number] Age/Sex: 59 / FADM Date: 07/31/24 Loc: HO.ED Attending Dr: Ordering Physician: Shanda Mora Date of Service: 07/31/24 Procedure(s): CT abdomen pelvis wo IV con Accession Number(s): [id number] cc: Panda Douglas MD; Shanda Mora Report Number: [id number]: Total DLP = 618.00 mGy-cm CLINICAL HISTORY: [...] OV> 07/31/24 1206 DD/ 1205 TD/TT: 07/31/24 120 Cake Former: [facility] External Provider IMG CT PROCEDURES Edited Result - Final * (ABNORMAL) Lipid Panel with Reflex to Direct LDL (07/12/2024 9:01 AM EST) Triglycerides 126 <150 mg/dL [facility] Comment:Desirable Triglyceri de: less than 150 mg/dLBorderline High Triglyceride 150-199 mg/dLHigh Triglyceride: 200-499 mg/dLVery High Triglyceride: greater than or equal to 5OO mg/dL Cholesterol 251(H) <200 mg/dL [facility] Comment:Desirable Cholestero l: less than 200 mg/dLBorderline High Cholesterol: 200-239 mg/dLHigh Cholesterol: greater than 239 mg/dL LDL Cholesterol Calculated 168(H) <100 mg/dL [facility] Comment:Desirable LDL: less than 100 mg/dLNear Optimal/Above Optimal LDL: 110- 129 mg/dLBorderline High LDL: 130-159 mg/dLHigh LDL: 160-189 mg/dLVery High LDL: greater than or equal to 190 mg/dL HDL Cholesterol 58 >40 mg/dL [facility] Comment:Desirable HDL: great er than 40 mg/dL Note: This HDL assay may give artificially low results in patients with liver disease. Blood 07/12/2024 9:01 AM EST 07/12/2024 10:59 AM EST Panda Douglas MD LAB BLOOD ORDERABLES Fin al Result Performing Organization Address [facility] Co de Phone Number [facility] [address] [place] [phone] * Hemoglobin A1c (07/12/2024 9:01 AM EST) Hemoglobin A1c 5.6 <6.0 % [facility] Comment:Hemoglobin A1C Refer ence Range Adults: 4.8 - 6.0 % Non diabetic: < 6.0 % Goal: < 7.0 %Additional Action Suggested: > 8.0 %Note: Hemoglobin A1c results are invalid for patients with abnormal amounts of HbF. Blood transfusions may impact the HbA1c concentration in the patient sample. Estimated Average Glucose 114 mg/dL [facility] Comment:eAG = Estimated ave rage glucose which is %A1C expressed asaverage glucose, using the formula of the Y4Z-ZocnezzFycqxlq Glucose study (ADAG), Diabetes Care, Vol.31,#8,Jan. 2007 Blood Venous blood specimen / Unknown 07/12/2024 9:01 AM EST 07/12/2024 10:59 AM EST Panda Douglas MD LAB BLOOD ORDERABLES Fin al Result Performing Organization Address [facility] Co de Phone Number [facility] [address] [place] [phone] * Pinworm Examination (07/02/2024 10:08 AM EST) Pinworm Examination SEE NOTE [facility] Comment:PINWORM EXAMINATION Micro Number: [id number] Test Status: Final Specimen Source: Pinworm paddle prep Specimen Quality: Adequate Pinworm Result 1: No enterobius vermicularis seen. Comment: 3 PINWORM PADDLE PREPS SENT IN FOR ONE ORDERTHIS TEST WAS PERFORMED AT:[facility] [place] [id number] BHAKTA MD Swab Anal structure / Unknown 07/02/2024 10:08 AM EST 07/02/2024 11:23 AM EST Tariq Maldonado MD LAB MICROBIOLOGY - GE NERAL ORDERABLES Final Result Performing Organization Address [facility] Co de Phone Number [facility] [address] [place] [phone] * Herpes Simplex Virus Culture with Reflex Typing (06/29/2024 12:00 AM EST) HSV Culture/Type SEE NOTE [facility] Comment:HERPES SIMPLEX VIRUS CULTURE W/RFL TO TYPING Micro Number: [id number] Test Status: Final Specimen Source: Unk Specimen Quality: Inadequate Result: Test not performed. No suitable specimen received. Please review the test requirements at [email or web address] TEST WAS PERFORMED AT:[facility] [address] [id number] BHAKTA MD Swab Anal structure / Unknown 06/29/2024 06/29/2024 Tariq Maldonado MD LAB MICROBIOLOGY - GE NERAL ORDERABLES Final Result Performing Organization Address [facility] Co de Phone Number [facility] [address] [place] [phone] * (ABNORMAL) HM PAP/HPV (01/29/2024) Pap Smear 4. LSIL(A) 1. NILM HPV Not Detected Undetected, Indeterminat e, Quantitative , Not Detected Historical Provider HEALTH MAINTENANCE Edited Result - Final * Hepatitis Panel, General (06/18/2023 9:52 AM EST) Hepatitis A IgM Nonreactive Nonreactive [facility] Comment:IgM antibodies to MALONE V not detected; does not exclude earlyacute or recovered HAV infection. ~Hepatitis B Surface Antibody REACTIVE Nonreactive [facility] Comment:REACTIVE: > 11.99 mI U/mL Hepatitis B Core Antibody Nonreactive Nonreactive [facility] Hepatitis C Antibody Nonreactive Nonreactive [facility] Comment:Antibodies to HCV no t detected; does not exclude early acuteHCV infection. Hepatitis B Surface Ag Negative Negative [facility] Blood 06/18/2023 9:52 AM EST 06/18/2023 1:03 PM EST us Panda Douglas MD LAB BLOOD ORDERABLES Fin al Result Performing Organization Address [facility]/ZIP Co de Phone Number [facility] [address] [place] [phone] * HIV-1/2 Antigen and Antibodies, Fourth Generation, with Reflexes (06/18/2023 9:52 AM EST) HIV AB/AG Nonreactive Nonreactive [facility] Comment:HIV-1 p24 Ag and/or HIV-1/HIV-2 Ab not detected.A test result that is nonreactive does not exclude thepossibility of exposure to or infection with HIV-1 and/orHIV-2. Nonreactive results in this assay for individualswith prior exposure to HIV-1 and/or HIV-2 may be due toantigen and antibody levels that are below the limit ofdetection of this assay.The [email or web address] HIV Ag/Ab Combo assay result andsupplemental assay results should be interpreted inconjunction with the patient's clinical presentation,history and other laboratory results. If the results areinconsistent with clinical evidence, additional testing issuggested to confirm the result. Blood Venous blood specimen / Unknown 06/18/2023 9:52 AM EST 06/18/2023 1:03 PM EST us Panda Douglas MD LAB BLOOD ORDERABLES Fin al Result Performing Organization Address [facility]/ZIP Co de Phone Number [facility] [address] [place] [phone] * Hm Colonoscopy (03/17/2018) Colonoscopy Normal Normal us Historical Provider HEALTH MAINTENANCE Edited Result - Final from Last 3 Months or Most [place] [address] [facility] C[facility] DENTAL-[facility] MEDICAID STAND ADULT Care Teams Roentgenology Teacher Relationship Specialty Start Date End Date Panda Douglas MD [address] [place] [address] PCP - General Family Medicine 09/18/16 Kyrie Flannery, RN [address] [place] [address] Rn Care ManagerLoan Operations Manager 08/20/24
--- OUTSIDE RECORDS SUMMARY | 2024-09-21 10:58 | XMS_ITS | Encounter Summary ---
Author Organization [employer] Address [address] [facility] [address] [place] [address] Care Team Providers Care Miter Grinder Operator Name Role Phone Katie Douglas MD Primary Care Provider + Kyrie Flannery RN Unavailable [phone] Encounter Details Date Type Department Care Team (Latest Contact Info) Description 04/24/2020 Abstract [facility] CONVERSIONS Dental, Provider, DDS Social History [...] Upcoming Encounters Date Type Department Care Team ([facility] st Contact Info) Description 12/10/2024 12:15 PM EDT Telemedicine [facility] MEDICINE [address] [place] [address] Katie Douglas MD [address] [place] [address] documented as of this encounter Visit Diagnoses Not on filedocumented in this encounter Care Teams Miter Grinder Operator Relationship Specialty Start Date End Date Katie Douglas MD [address] [place] [address] PCP - General Family Medicine 09/18/16 Kyrie Flannery, RN [address] [place] [address] [place] [address] Roll InspectorMerchandise Associate 08/20/24 documented as of this encounter
--- OUTSIDE RECORDS SUMMARY | 2024-09-21 10:58 | XMS_ITS | Encounter Summary ---
Author Organization [employer] Address [address] [facility] [address] [place] [address] Care Team Providers Care Shipboard Intelligence Analyst Name Role Phone Katie Douglas MD Primary Care Provider + Kyrie Flannery RN Unavailable [phone] Encounter Details Date Type Department Care Team (Latest Contact Info) Description 08/27/2021 Abstract [facility] CONVERSIONS Dental, Provider, DDS Social History [...] Info) Description 12/10/2024 12:15 PM EDT Telemedicine [facility] MEDICINE [address] [place] [address] Katie Douglas MD [address] [place] [address] documented as of this encounter Visit Diagnoses Not on filedocumented in this encounter Care Teams Shipboard Intelligence Analyst Relationship Specialty Start Date End Date Katie Douglas MD [address] [place] [address] PCP - General Family Medicine 09/18/16 Kyrie Flannery, RN [address] [place] [address] [place] [address] Hand Fur CleanerSales Operations Coordinator 08/20/24 documented as of this encounter
--- OUTSIDE RECORDS SUMMARY | 2024-09-21 10:58 | XMS_ITS | Encounter Summary ---
Author Organization [employer] Address [address] [place] [address] Care Team Providers Care Scale Shooter Name Role Phone Katie Douglas MD Primary Care Provider + Kyrie Flannery RN Unavailable [phone] Reason for Visit * Reason Comments Med Refill Encounter Details Date Type Department Care Team ([facility] st Contact Info) Description 09/16/2024 Refill [facility] ADULT DENTAL [address] [place] [address] Arsh Cortes DDS [address] [place], [place] [phone] Social History Tobacco Use Types Packs/Day Years [...] encounter Miscellaneous Notes * Telephone Encounter - Donald Duvall DMD - 09/16/2024 1:55 PM EDT Pt need dental appointment prior to any prescription can be given because pt came to see Dr. Leon December 2023 (long time ago) documented in this encounter Plan of Treatment Upcoming Encounters Date Type Department Care Team (Late st Contact Info) Description 12/10/2024 12:15 PM EDT Telemedicine [facility] MEDICINE [address] [place] [phone] Katie Douglas MD [address] [place] [address] documented as of this encounter Visit Diagnoses Not on filedocumented in this encounter Additional Health Concerns Assessment Noted Time PHQ-9 Depression Total Score: 8 02/12/20 24 10:40 AM EDT documented as of this encounter Care Teams Scale Shooter Relationship Specialty Start Date End Date Katie Douglas MD [address] [place] [phone] PCP - General Family Medicine 09/18/16 Kyrie Flannery, JIM [address] [place] [address] Hip Hop PerformersUnit Aid 08/20/24 documented as of this encounter
== END 2024-09-21 10:38 | disposition home or self-care (01) ==
LOC: HO.HUSH 09:43
PROVIDERS: PCP Internal Medicine; Visit Provider Nurse Practitioner Family
DX: N20.0 Calculus of kidney (principal); R31.29 Other microscopic hematuria; Z13.9 Encounter for screening, unspecified
CPT/HCPCS: 99213

== ENCOUNTER 2024-09-21 09:42 | Outpatient (REF) | payer MEDICAID, SELFPAY ==
[2024-09-21 17:34] LABS: Urine Cytology See Pathology rpt
== END 2024-09-21 09:43 | disposition home or self-care (01) ==
LOC: HO.LNP 09:42
PROVIDERS: PCP Internal Medicine; Visit Provider Nurse Practitioner Family
DX: R31.29 Other microscopic hematuria (principal); N20.0 Calculus of kidney
CPT/HCPCS: 81003; 88112; 99212

== ENCOUNTER 2024-12-08 09:31 | Outpatient (AMB) | payer MEDICAID, SELFPAY ==
--- NOTE | 2024-12-08 09:38 | A.OFFVIS_ITS ---
Vital Signs 12/08/24 09:42 Height 5 ft 2 in Weight 183 lb BMI 33.5 BP 111/59 L Blood Pressure Location Lt brachial Position Sitting Pulse 80 Pulse Oximetry (%) 96 Oxygen Delivery Method Room Air Intake Visit Reasons: Gastroenteritis eval. OK laurence Naqvi. Intake Note: Patient new consult for GERD. Patient cc: lowest abdominal pain on and off, GERD on and off, and soft stool. System Dispatcher Required: Yes System Dispatcher Name: [facility] interpeter Accompanied by: Self / Same As Patient Allergies hydromorphone Allergy (Unknown, Verified 12/08/24 09:38) hives oxycodone [From PERCOCET] Allergy (Unknown, Verified 12/08/24 09:38) ITCHING zolpidem [From AMBIEN] Allergy (Unknown, Verified 12/08/24 09:38) ITCHING Medication List - Last Reconciled 12/08/24 by Paige Aguilar, JENA alprazolam 0.5 mg PO DAILY PRN atorvastatin 40 mg PO BEDTIME cetirizine 10 mg PO DAILY cyclobenzaprine 10 mg PO TID PRN fluticasone propionate 50 mcg/actuation 1 - 2 sprays intranasal DAILY PRN fluticasone propionate 110 mcg/actuation (Flovent HFA) 2 puffs inhalation BID hydrocortisone 2.5% 1 appl MI BEDTIME PRN ibuprofen 400 mg PO Q8-12H PRN ketotifen fumarate 0.025%(0.035%) 1 drp ophthalmic (eye) BID lidocaine 5% 1 patch topical DAILY loperamide 2 mg PO Q6H PRN HPI HPI Gastroenteritis eval. ADRIAN Naqvi.: Details: Patient is a Ukrainian-speaking 59-year-old female with PMH of asthma, depression and anxiety. Referred by PCP for further evaluation of ab pain. Lux was referred by their primary care provider for diarrhea and abdominal pain, originally presenting July 2022 and notably resurfaced this July. The patient reported similar episodes in the past, with the primary symptom being stomach pain radiating to the lower back. ER visit 07/2024 here at [facility] revealed inflammation in the intestines later treated with course of Augmentin. The abdominal pain varies, occurring intermittently, and rates the severity at about 6/10. Diarrhea is usually triggered by ingestion of greasy, fatty, or fried foods. Generally, stools are well-formed but can range from soft to hard, sometimes requiring straining, which may provoke hemorrhoids. The patient denies any recent fevers, nausea, vomiting, or blood in stools but occasionally experiences heartburn, particularly after eating certain foods. Appetite remains unaffected. The patient underwent a gallbladder removal in October 2023, leading to stable weight at 183 pounds following prior fluctuation. Patient denies: regurgitation, dysphasia, unintentional wt loss or melena/hematochezia. -tolerated anesthesia in the past without difficulty. ON LICENSE OF [facility] Medical History (Updated 12/08/24 @ 10:44 by Paige Aguilar CNP) Diarrhea External hemorrhoid Pruritus ani Achilles tendinitis of both lower extremities AFSHAN III (cervical intraepithelial neoplasia grade III) with severe dysplasia Asthma Depression Anxiety Surgical History Hx of cholecystectomy History of bilateral tubal ligation Family History Mother Epilepsy Mental health disorder Social History Household Members: Spouse Housing: Apartment Unable to assess alcohol history related to: Unknown Alcohol intake: never Patient Tobacco Use Status: Never used Tobacco Current occupational status: disabled Sexual orientation: Straight/Heterosexual Gender identity: Female Review of Systems Const Reports as per HPI ENT Reports as per HPI Card Reports as per HPI Resp Reports as per HPI GI Reports as per HPI Reports as per HPI Physical Exam Vital Signs: Last Vital Signs Pulse 80 12/08/24 09:42 BP 111/59 L 12/08/24 09:42 Pulse Ox 96 12/08/24 09:42 Oxygen Delivery Method Room Air 12/08/24 09:42 BMI result Body Mass Index 33.5 Const General: healthy appearing, no acute distress and well developed Nutritional Appearance: well nourished Orientation/consciousness: patient oriented x3 HEENT Head: Yes normal to inspection, Yes normocephalic and Yes atraumatic Face and sinus: Yes normal facial exam Eyes General: appearance normal, both eyes and all related structures Neck Neck: Yes normal visual inspection Resp Effort & Inspection: normal respiratory effort, able to speak in complete sentences, no tracheal deviation and symmetric chest movement Auscultation: clear to auscultation bilaterally Cardio Jugular venous distension: no JVD Rate: regular rate Rhythm: regular rhythm Heart sounds: S1 normal heart sound present, S2 normal heart sound present, no gallops and no murmurs GI Inspection: Yes normal to inspection and No distended Palpation (GI): Soft to palpation, not firm, nontender and No hepatosplenomegaly present Auscultation: Hypoactive bowel sounds present Neuro General: patient oriented x3 Gait exam (Neuro): Normal gait present Psych Appearance: grossly normal Mental Status: mental status grossly normal Speech and movement: Normal speech and movement present Affect: normal affect Attitude: cooperative Thought process: Normal thought process present Thought content: Normal thought content present Insight: Good insight present (Psych) Judgement: Good judgement present (Psych) Assessment & Plan Assessment & Plan (1) Abdominal pain: Code(s): R10.9 - Unspecified abdominal pain Category: Medical Qualifiers: Abdominal location: lower abdomen, unspecified Qualified Code(s): R10.30 - Lower abdominal pain, unspecified Plan: Affecting bilateral lower quadrants with intermittent, now infrequent diarrhea. Reviewed 07/2024 CT ab/pelvis evidence of colitis. Additional Tests: Colonoscopy to assess inflammation and diverticulosis; stool sample and diagnostic labs including fasting blood work Medications: Offered pharmacological management, Divine declined. Will consider anti-spasmodic, if pain persists. Encouraged use of anti-diarrheals like loperamide if symptoms recur Lifestyle Modifications: Avoid greasy, fatty, and fried foods Diagnostic Tests: Prescriptions for laxative tablets and Miralax sent to pharmacy; instructions for Gatorade purchase and clear liquid diet given. Medications: - understands to hold NSAIDs 7 days prior to procedure. - Use Tylenol if needed for pain. Patient educated on procedure preparation, including avoiding certain foods and ensuring clear liquid intake. Advised on necessity for ride post-procedure due to sedation. Follow up: cannot exclude [employer] as source. PAP last collected 01/2024 with HPV Negative LSIL. Repeat due this year, defer to PCP/[employer] Plan follow up after colonoscopy or sooner as needed Time: I spent a total of 40 minutes on the date of encounter which includes: Preparing to see the patient (reviewed previous documentation, test results and medical history) Performing a medically appropriate exam and/or evaluation Ordering medications, tests, and procedures Documenting clinical information in the health record Orders: Orders Ova and Parasite Today R19.7 - Diarrhea, unspecified IRON PROFILE Today R10.30 - Lower abdominal pain, unspecified C Reactive Protein Today R10.9 - Unspecified abdominal pain Calprotectin, Fecal Today R10.9 - Unspecified abdominal pain Comprehensive Met. Panel Today R10.9 - Unspecified abdominal pain Transglutaminase IgA Today R10.9 - Unspecified abdominal pain Giardia Ag Stool EIA Today R19.7 - Diarrhea, unspecified Complete Blood Count Auto Diff Today R10.30 - Lower abdominal pain, unspecified Medications: New bisacodyl Take four tablets once for 1 day per colonoscopy instructions 5 mg PO ONCE 1 day 4 tabs 0RF polyethylene glycol 3350 (Miralax) per colonoscopy prep instructions 238 grams PO ONCE 238 grams 0RF Coding Level of Care Code New Pt New Pt Level 5 (78863) Patient Type New Diagnoses Lower abdominal pain R10.30 Abdominal location: lower abdomen, unspecified
[2024-12-08 09:42] VITALS: BP 111/59; PULSE 80; O2SAT 96; BMI 33.5
== END 2024-12-08 10:46 | disposition home or self-care (01) ==
PROVIDERS: PCP Internal Medicine; Visit Provider Nurse Practitioner Family
DX: R10.30 Lower abdominal pain, unspecified (principal)
CPT/HCPCS: 99205

== ENCOUNTER → 2024-12-08 09:31 | Outpatient (BNVA) | payer MEDICAID, SELFPAY | PROVIDERS: PCP Internal Medicine; Visit Provider Nurse Practitioner Family | DX: R13.0 Aphagia (principal); R10.30 Lower abdominal pain, unspecified; R19.7 Diarrhea, unspecified | CPT/HCPCS: 99212 ==

== ENCOUNTER 2025-02-09 10:52 | Emergency (ER) | payer MEDICAID, SELFPAY ==
--- NOTE | ~2025-02-09 | XR_ITS ---
EXAMINATION: XR LUMBOSACRAL SPINE CLINICAL INFORMATION: pain x 3 weeks COMPARISON: Correlated to CT abdomen pelvis dated August 02, 2024. TECHNIQUE: AP and lateral views FINDINGS: Multilevel small marginal osteophyte formation and endplate sclerosis throughout the axial skeleton. Levoconvex curvature apex at L2-3. No acute cortical disruption or malalignment. XR/XR lumbar spine 2-3V IMPRESSION: Multilevel spondylosis and mild levoconvex scoliosis. Electronically signed by: Antonio Nick MD 02/09/2025 12:12 PM EDT
[2025-02-09 10:55] VITALS: BP 121/65; PULSE 79; RESP 16; TEMP 36.4; O2SAT 98; BMI 33.0
--- NOTE | 2025-02-09 11:08 | ED.GENADULT ---
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 She notes it is R lower back. She tried motrin, tylenol, methocarbamol and topical pain patches. She states she has no urinary symptoms and no abdominal pain. Has had back pains before. MD complaint: back pain Onset (ago): week(s) (3) Location: back Radiation: other (R upper buttock) Severity: severe Quality: aching Pain Consistency: constant Relieving factors: immobilization Exacerbating factors: movement Associated symptoms: denies other symptoms Treatments prior to arrival: NSAID Related Data Home Medications ?Medication ?Instructions ?Recorded ?Confirmed fluticasone propionate 50 1 - 2 spray intranasal DAILY PRN 10/23/21 12/08/24 mcg/actuation nasal spray,suspension ibuprofen 400 mg tablet 400 mg PO Q8-12H PRN 12/24/21 12/08/24 alprazolam 0.5 mg tablet 0.5 mg PO DAILY PRN anxiety 08/26/22 12/08/24 fluticasone propionate 110 2 puff inhalation BID 08/26/22 12/08/24 mcg/actuation HFA aerosol inhaler (Flovent HFA) cetirizine 10 mg tablet 10 mg PO DAILY 12/20/22 12/08/24 ketotifen fumarate 0.025 % (0.035 1 drp ophthalmic (eye) BID 12/20/22 12/08/24 %) eye drops atorvastatin 40 mg tablet 40 mg PO BEDTIME 12/08/24 12/08/24 Previous Rx's ?Medication ?Instructions ?Recorded loperamide 2 mg capsule 2 mg PO Q6H PRN loose stool #10 08/15/22 caps hydrocortisone 2.5 % topical cream 1 appl UT BEDTIME PRN itching #30 01/23/23 with perineal applicator grams cyclobenzaprine 10 mg tablet 10 mg PO TID PRN muscle spasm #20 07/31/24 tabs lidocaine 5 % topical patch 1 patch topical DAILY #30 ea 07/31/24 bisacodyl 5 mg tablet,delayed 5 mg PO ONCE 1 day #4 tabs 12/08/24 release polyethylene glycol 3350 17 238 g PO ONCE #238 grams 12/08/24 gram/dose oral powder (Miralax) cyclobenzaprine 10 mg tablet 10 mg PO TID PRN muscle spasm #20 02/09/25 tabs lidocaine 5 % topical patch 1 patch topical DAILY #30 ea 02/09/25 prednisone 20 mg tablet 40 mg (2 x 20 mg) PO DAILY 3 days 02/09/25 #6 tabs Allergies Allergy/AdvReac Type Severity Reaction Status Date / Time hydromorphone Allergy Unknown hives Verified 02/09/25 11:05 oxycodone (From PERCOCET) Allergy Unknown ITCHING Verified 02/09/25 11:05 zolpidem (From AMBIEN) Allergy Unknown ITCHING Verified 02/09/25 11:05 Review of Systems Review of Systems: Constitutional : No Weight loss, No Fever, No Chills, ENT/Mouth : No Hearing loss, No Ear Pain, No Nasal Congestion, No Sinus Pain, No Hoarseness, No sore throat, No Rhinorrhea, No Swallowing Difficulty Cardiovascular : No Chest Pain, No SOB Respiratory : No Cough, No Dyspnea Gastrointestinal : No Nausea, No Vomiting, No Diarrhea, No abdominal Pain, No Hematochezia, No Melena Genitourinary : No Dysuria, No Urinary Frequency, No Hematuria, No Urinary Incontinence, Musculoskeletal : positive back pain Skin : No Skin Lesions, No rash Neuro : No Weakness, No Numbness, No Paresthesias, no loss of bowel or bladder incontinence, no saddle anesthesia Yes all other systems are reviewed and are negative [facility] Past Medical History Attestation statement: The following information was validated with the patient. Source: old records reviewed Medical History Diarrhea External hemorrhoid Pruritus ani Achilles tendinitis of both lower extremities AFSHAN III (cervical intraepithelial neoplasia grade III) with severe dysplasia Asthma Depression Anxiety Surgical History Hx of cholecystectomy History of bilateral tubal ligation Family History Family History Mother Epilepsy Mental health disorder Social History Social History Household Members: Spouse Housing: Apartment Unable to assess alcohol history related to: Unknown Alcohol intake: never Patient Tobacco Use Status: Never used Tobacco Current occupational status: disabled Sexual orientation: Straight/Heterosexual Gender identity: Female Physical Exam ED Vital Signs: Vital Signs - 24 hr 02/09/25 10:55 Temperature 97.6 F Pulse Rate 79 Respiratory Rate 16 Blood Pressure 121/65 Pulse Oximetry 98 Oxygen Delivery Method Room Air BMI result Body Mass Index 33.0 Appearance: Alert. Oriented X3. No acute distress. Eyes: Pupils equal, round and reactive to light. ENT: Pharynx normal. Neck: Normal inspection. Neck supple. CVS: Normal heart rate and rhythm. Pulses normal. Respiratory: No respiratory distress. Breath sounds normal. Abdomen: Soft and nontender. Back: ttp along L and R PSIS - no midline ttp Skin: Skin warm and dry. Normal skin color. Extremities: No lower extremity edema. Neuro: Oriented X 3. No motor deficit. No sensory deficit. CN2-12 intact leg raises do hurt the patient on both sides R > L. Course Course Course Narrative: This is a rapid medical exam performed by Samara Nelson NP: Additional HPI, ROS, PE not included below will be deferred to primary provider. Patient is a 59-year-old Cypriot speaking female presenting with complaint of lower back pain radiating down right leg for the past 3 weeks. Denies fall or other trauma. Denies saddle anesthesia or bowel or bladder incontinence. Plan: Lumbar xray Medications Administered Discontinued Medications Generic Name Dose Route Start Last Admin Trade Name Freq PRN Reason Stop Dose Admin Ketorolac Tromethamine 30 mg 02/09/25 11:50 02/09/25 11:56 Ketorolac Tromethamine 30 Mg/Ml Vial IM 02/09/25 11:51 30 mg ONCE ONE Administration Medical Decision Making Medical Decision Making MDM Narrative: 59 yo female with PMH of HTN, vertigo, here with c/o low back pain with some radiation to R buttock area - at this time no concerning signs of abdominal pain she is NV intact, cauda equina not present will obtain xray and provide non narcotic analgesia. Has no signs of renal colic. Differential Diagnosis Differential Diagnoses: The differential diagnosis associated with the presentation includes back strain, DDD no signs of cauda equina at this time Admission/Observation Consideration of admission/observation: Escalation of care including admission/observation considered steady gait, no signs of cauda equina can be sent home with PO pain control Independent Interpretation I performed an independent interpretation of an: Plain X-Ray Radiology Impression Discussion of test interpretation with radiology: I have reviewed the radiologist's reading. External Record Review External record reviewed: Outpatient record Prescription Management I considered prescription management with: Pain Medication and Other Discharge Plan Discharge Clinical Impression: Lumbar radiculopathy Patient Disposition: Home, Self-Care Instructions: Lumbar Radiculopathy (ED), Lower Back Exercises (ED) Additional Instructions: return for worsening pain, numbness, weakness, fevers, loss of control of bowel or bladder any other concerns stop taking methocarbamol switch to the muscle relaxer follow up with your primary care doctor FINDINGS: Multilevel small marginal osteophyte formation and endplate sclerosis throughout the axial skeleton. Levoconvex curvature apex at L2-3. No acute cortical disruption or malalignment. XR/XR lumbar spine 2-3V IMPRESSION: Multilevel spondylosis and mild levoconvex scoliosis. Prescriptions: New cyclobenzaprine 10 mg tablet 10 mg PO TID PRN (Reason: muscle spasm) Qty: 20 0RF lidocaine 5 % adhesive patch,medicated 1 patch topical DAILY Qty: 30 0RF Rx Instructions: leave on most painful area for up to 12 hrs prednisone 20 mg tablet 40 mg PO DAILY 3 Days Qty: 6 0RF No Action loperamide 2 mg capsule 2 mg PO Q6H PRN (Reason: loose stool) Qty: 10 0RF hydrocortisone 2.5 % cream with perineal applicator 1 appl UT BEDTIME PRN (Reason: itching) Qty: 30 0RF cyclobenzaprine 10 mg tablet 10 mg PO TID PRN (Reason: muscle spasm) Qty: 20 0RF lidocaine 5 % adhesive patch,medicated 1 patch topical DAILY Qty: 30 0RF Rx Instructions: leave on most painful area for up to 12 hrs fluticasone propionate 50 mcg/actuation spray,suspension 1 - 2 spray intranasal DAILY PRN ibuprofen 400 mg tablet 400 mg PO Q8-12H PRN alprazolam 0.5 mg tablet 0.5 mg PO DAILY PRN (Reason: anxiety) fluticasone propionate [Flovent HFA] 110 mcg/actuation HFA aerosol inhaler 2 puff inhalation BID cetirizine 10 mg tablet 10 mg PO DAILY ketotifen fumarate 0.025 % (0.035 %) drops 1 drp ophthalmic (eye) BID atorvastatin 40 mg tablet 40 mg PO BEDTIME bisacodyl 5 mg tablet,delayed release (DR/EC) 5 mg PO ONCE 1 Days Qty: 4 0RF Rx Instructions: Take four tablets once for 1 day per colonoscopy instructions polyethylene glycol 3350 [Miralax] 17 gram/dose powder 238 g PO ONCE Qty: 238 0RF Rx Instructions: per colonoscopy prep instructions Print Language: [place]riot
[2025-02-09 12:29] VITALS: BP 121/65; PULSE 79; RESP 16; TEMP 36.4; O2SAT 98
--- OUTSIDE RECORDS SUMMARY | 2025-02-09 12:58 | XMS_ITS | Clinical Summary ---
Author Organization [employer] Address [address] [facility] [address] [place] [address] Care Team Providers Care Radiation Protection Specialist Name Role Phone Panda Douglas MD Primary Care Provider + Kyrie Flannery RN Unavailable [phone] Allergies Active Allergy Reactions Criticality Noted Date Comments Cat Dander 02/10/2023 Other reaction(s): WHEEZING Fentanyl [...] EN LA MA PANDA 12/10/19 23 Active chlorhexidine (Peridex) 0.12 % solution Swish 15 mL morning and night for 1 minute. Spit, do not swallow. Do not eat or drink for 30 minutes following use. 473 mL 02/09/20 24 Active ammonium lactate (Amlactin) 12 % cream Apply topically if needed for dry skin. 385 g 1 06/14/20 24 025 Active liver oil-zinc oxide (Desitin) 40 % ointment Apply topically if needed in the morning and at bedtime for irritation. 56 g 06/14/20 24 Active cetirizine (ZyrTEC) 10 MG tabletIndicatio ns:Seasonal allergic rhinitis, unspecified trigger TOME NGHIA TABLETA TODOS LOS ALVAREZ 90 tablet 3 08/31/19 25 Active atorvastatin (Lipitor) 40 MG tablet Take 1 tablet (40 mg) by mouth at bedtime. 30 tablet 11 09/21/19 25 026 Active Ketotifen Fumarate 0.035 % solution Administer 1 drop into both eyes if needed in the morning, at noon, and at bedtime (allergy). ADMINISTER 1 DROP INTO THE AFFECTED EYE(S) THREE TIMES DAILY 10 mL 1 11/02/19 25 Active betamethasone valerate (Valisone) 0.1 % ointmentIndicat ions:Allergic conjunctivitis, unspecified laterality Apply topically if needed in the morning and at bedtime (itchiness). 45 g 11/02/19 25 Active lidocaine (Xylocaine) 5 % ointmentIndicat ions:Chronic pain of right ankle Apply topically if needed for mild pain. 50 g 2 11/02/19 25 026 Active ibuprofen 600 MG tablet TOME 1 TABLETA POR VIA ORAL CADA 6 HORAS CUANDO SEA NECESARIO PARA EL DOLOR MILD 90 tablet 11/16/19 25 Active methocarbamol (Robaxin) 500 MG tabletIndicatio ns:Acute bilateral low back pain without sciatica Take 1 tablet (500 mg) by mouth every 6 (six) hours for 10 days. 40 tablet 01/22/20 25 Active lidocaine (Lidoderm) 5 % patchIndication s:Acute bilateral low back pain without sciatica Apply 1 patch topically Once per day. Remove & discard patch within 12 hours 30 patch 1 01/22/20 25 025 Active Ventolin HFA 108 (90 Base) MCG/ACT inhalerIndicati ons:Moderate persistent asthma, unspecified whether complicated INHALE 2 PUFFS EVERY 4 (FOUR) HOURS IF NEEDED FOR SHORTNESS OF BREATH OR WHEEZING. 18 g 1 02/10/20 25 Active albuterol (ProAir HFA) 108 (90 Base) MCG/ACT inhalerIndicati ons:Moderate persistent asthma, unspecified whether complicated Inhale 2 puffs every 4 (four) hours if needed for shortness of breath or wheezing. 18 g 1 12/11/19 25 025 Discontinued Active Problems Problem Noted Date Diagnosed Date Ill-fitting dentures 12/28/2024 History of tooth extraction 11/09/2024 Dental root caries 11/08/2024 Chronic pain of right ankle 11/01/2024 Assessment & Plan (11/02/2024 10:51 AM EDT): I prescribed for her lidocaine gel to apply locally Decreased attention Span 09/20/2024 Assessment & Plan (09/20/2024 10:19 AM EDT): We discussed about potential intersection L ET with history of anxiety and depression and previous use of alprazolam until 2 years ago. Advised her to continue reading daily and enroll on P[employer] or reading classes at [facility] so that some specific learning limitation can be evaluated. She will follow-up with [facility] regarding drivers license Pruritus ani 06/29/2024 Assessment [...] recommended she be tested for Pinworm. Contacted [facility] who confirmed they had the stiicky pads for testing and pt was instructed to continuous pickling line pickler the supplies at [facility] and if the electrician front staff was confused to ask them to [...] to date, next one due 2023 by [facility] Mammogram Up to date, next one due 2023 Eye exam Up to date, next one due 2024 CRC screen Up to date. Next one due on 02/2028 Lipids/FBS To be ordered Vaccinations Influenza iz today. Counseled about COVID + Booster and Zoster. Other iz up to date. Obtain hepatitis profile. Dental visit Overdue, child welfare counselor to make an appt at [facility] or one of the other closest [...] of lower back 08/15/2022 Assessment & Plan (12/10/2024 4:23 PM EDT): Doing better status post stretching exercises, Tylenol and Flexeril as needed Advised to contact puncture and call back as needed if she wants to be referred to pain clinic or PT Assessment & Plan (09/20/2024 10:17 AM EDT): [...] 07/08/2017 Pure hypercholesterolemia 07/08/2017 Assessment & Plan (12/10/2024 4:22 PM EDT): Doing well, tolerates Lipitor. Order lipid profile and LFTs and adjust medications if needed Counseled regarding moderate amount of exercise, increase consumption of fruits vegetables, fish and high fiber foods. Assessment & Plan (09/20/2024 10:20 AM EDT): [...] if LDL not improving. Neck pain 07/08/2017 Pain in female pelvis 11/05/2016 Hyperlipidemia 01/12/2013 Assessment & Plan (06/14/2024 2:37 PM EST): Currently on dietary modifications, has fatty liver. Order lipids and fu w me in 6w Assessment & Plan (06/12/2023 10:52 AM EST): Repeat lipids and f/u with me next appointment Depressive disorder 01/12/2013 Anxiety 01/12/2013 Asthma 01/12/2013 Assessment & Plan (12/10/2024 4:23 PM EDT): Doing well on albuterol as needed, no recent exacerbations Assessment & Plan (02/12/2024 2:23 PM EDT): Controlled, no recent exacerbations in past 5 months. Continue albuterol prn. Follow up in 3 months. Resolved Problems Problem Noted Date Diagnosed Date Resolved Date Biliary calculus 08/15/2022 09/20/2024 Cervical intraepithelial neoplasia grade 2 11/03/2018 02/12/2024 Assessment & Plan (08/11/2023 2:04 PM EST): FU PAP next week FU w/[facility] Acute serous otitis media 01/02/2017 Encounters Date Type Department Care Team Description 02/09/2025 Orders Only [facility] External Provider, [facility] 02/08/[address] [address] Panda Douglas MD Moderate persistent asthma, unspecified whether complicated 01/26/[address] [address] Panda Douglas MD Letter Request (I called the patient, regarding her request for a letter for housing. She stated that she has difficulty negotiating stairs, and is requesting an apartment on a first floor. She said that she could go up to a second floor, if there are not more than 5 steps to climb.) 01/25/[address] [address] Panda Douglas MD letter 01/21/2025 11:15 AM EDT Office Visit [address] [address] Anaid Jeff NP Acute bilateral low back pain without sciatica (Primary Dx) 01/21/2025 Travel 01/20/[address] [address] Ramírez Donaldson [place] CHART PREP 01/19/[address] [address] Panda Douglas MD Nurse Triage 12/28/2024 10:00 AM EDT Office Visit [facility] [address] [place] [phone] Arsh Cortes DDS Ill-fitting dentures (Primary Dx) 12/10/2024 12:15 PM EDT Telemedicine [address] [address] Panda Douglas MD Spasm of muscle of lower back (Primary Dx); Moderate persistent asthma, unspecified whether complicated; Pure hypercholesterolemia 12/10/[address] [address] Panda Douglas MD Care Management (C3CM- F/U call) 12/10/2024 Travel 12/09/2024 Telephone [facility] [address] [place] [address] Panda Douglas MD chart prep 11/14/2024 Refill [facility] [address] [place], [place] [phone] Panda Douglas MD 11/10/2024 Telephone [facility] [address] [place] [phone] Panda Douglas MD Care Management (C3- F/U call # [phone]) 11/09/2024 1:30 PM EDT Office Visit [facility] [address] [place] [address] [phone] Arsh Cortes DDS History of tooth extraction, unspecified edentulism class (Primary Dx) from Last 3 Months Immunizations Immunization Administration Dates Next Due Hep B, adult [...] Sign Reading Time Taken Comments Blood Pressure 130/72 01/21/2025 10:54 AM EDT Pulse 70 01/21/2025 10:54 AM EDT Temperature 36.6 C (97.9 F) 01/21/2025 10:54 AM EDT Respiratory Rate 18 01/21/2025 10:54 AM EDT Oxygen Saturation 95% 08/11/2024 8:41 AM EST Inhaled Oxygen Concentration - - Weight 83.5 kg (184 lb) 01/21/2025 10:54 AM EDT Height 157.5 cm (5' 2 ) 01/21/2025 10:54 AM EDT Body Mass Index 33.65 01/21/2025 10:54 AM EDT Plan of Treatment Health Maintenance Due Date Last Done Comments CT Colonography 1967 FIT DNA/Cologuard 1967 FIT 1967 FOBT 1965 Sigmoidoscopy 1965 Dental X-Ray: Full Mouth 09/21/2023 021, 03/19/2019, 10/19/2014 Dental Prophylaxis 02/24/2024 08/25/2023, 0 02/18/2022, 08/27/2021, Additional history exists COVID-19 Vaccine ( season) 2024 07/18/2022, 06/05/2021, 09/13/2020 Dental Oral Exam 03/05/2024 09/02/2023, , 04/24/2020, Additional history exists Depression Screening 02/11/2025 02/12/2024, 02/12/20 Cervical Cancer Screening 02/16/2025 HPV/Cotest 02/16/2025 01/29/2024, 05, 07/16/2021, Additional history exists Pap Smear 02/16/2025 01/29/2024, 10/28, 07/16/2021, Additional history exists Influenza Vaccine (#1) 2025 , 06/12/2023, 08/15/2022, Additional history exists SDOH Screening 08/10/2025 08/10/2024 Mammogram 08/26/2025 08/26/2024, 08/01, 08/16/2022, Additional history exists Dental X-Ray: Bitewings 09/24/2025 09/24/19, 08/25/2023, 08/27/2021, Additional history exists Alcohol/Substance Use Screening 01/21/2026 01/21/2025 Disability Screening 01/21/2026 01/21/2025 Tobacco Screening 01/21/2026 01/21/2025 DTaP/Tdap/Td Vaccines (3 - Td or Tdap) [...] Completed 06/18/2023 Zoster Vaccines Completed 08/07/2023, 05/01/2022 HIB Vaccines Aged Out No longer eligi [...] patient's age to complete this topic Meningococcal B Vaccine Aged Out No l onger eligible based on patient's age to complete [...] Procedure Name Priority Date/Time Associated Diagnosis Comments XR LUMBAR SPINE 2-3 VIEWS Routine 02/09/2025 10:44 AM EDT ADJUST PARTIAL DENTURE - MANDIBULAR Routine 12/28/2024 10:00 AM EDT CASE PRESENTATION, DETAILED AND EXTENSIVE TREATMENT PLANNING Routine 12/28/2024 10:00 AM EDT LIMITED ORAL EVALUATION - PROBLEM FOCUSED Routine 12/28/2024 10:00 AM EDT CASE PRESENTATION, DETAILED AND EXTENSIVE TREATMENT PLANNING Routine 11/09/2024 1:30 PM EDT 31 ADD TOOTH TO EXISTING PARTIAL DENTURE Routine 11/09/2024 1:30 PM EDT BITEWING - SINGLE RADIOGRAPHIC IMAGE Routine 09/23/2024 1:00 PM EDT Periodontal disease Dental root caries BI MAMMOGRAM SCREENING TOMOSYNTHESIS BILATERAL Routine 08/26/2024 2:40 PM EST LIPID PANEL WITH REFLEX TO DIRECT LDL Routine 07/12/2024 9:01 AM EST Pure hypercholesterolemia HM PAP/HPV Routine 01/29/2024 PERIODIC ORAL EVALUATION - ESTABLISHED PATIENT Routine 09/02/2023 9:30 AM EST Full PROPHYLAXIS - ADULT Routine 08/25/2023 11:00 AM EST HEPATITIS PANEL, [...] Recently Relevant to Health Maintenance Results * XR Lumbar Spine 2-3 Views (02/09/2025 10:44 AM EDT) Anatomical Region Laterality Modality Spine, L-spine Radiographic Iwona ging 02/09/2025 10:4 4 AM EDT Narrative 02/09/2025 12:15 PM EDT [place] [address] XRay Report Signed Patient: Buck Rader MR#: [id number] : 1965 Acct:[id number] Age/Sex: 59 / F ADM Date: 02/09/25 Loc: HO.ED Attending Dr: Ordering Physician: Opal Nelson NP Date of Service: 02/09/25 Procedure(s): XR lumbar spine 2-3V Accession Number(s): [id number] cc: Panda Douglas MD; Opal Nelson NP EXAMINATION: XR LUMBOSACRAL SPINE CLINICAL INFORMATION: pain x 3 weeks COMPARISON: Correlated to CT abdomen pelvis dated August 02, 2024. TECHNIQUE: AP and lateral views FINDINGS: Multilevel small marginal osteophyte formation and endplate sclerosis throughout the axial skeleton. Levoconvex curvature apex at L2-3. No acute cortical disruption or malalignment. XR/XR lumbar spine 2-3V IMPRESSION: Multilevel spondylosis and mild levoconvex scoliosis. Electronically signed by: Antonio Nick MD 02/09/2025 12:12 PM EDT RP Dictated By: Antonio Ramirez MD Signed By: <Electronically signed by Antonio Peralta MD in OV> 02/09/25 1212 DD/ 1044 TD/TT: 02/09/25 1144 Marketing Strategy Manager: Procedure Note Donotuseinterpreter, Image - 02/09/[address] [address] XRay Report Signed Patient: Buck Rader DMR#: [id number] : 1965Acct:[id number] Age/Sex: 59 / FADM Date: 02/09/25 Loc: HO.ED Attending Dr: Ordering Physician: Opal Nelson NP Date of Service: 02/09/25 Procedure(s): XR lumbar spine 2-3V Accession Number(s): [id number] cc: Panda Douglas MD; Opal Nelson NP EXAMINATION: XR LUMBOSACRAL SPINE CLINICAL INFORMATION: pain x 3 weeks COMPARISON: Correlated to CT abdomen pelvis dated August 02, 2024. TECHNIQUE: AP and lateral views FINDINGS: Multilevel small marginal osteophyte formation and endplate sclerosis throughout the axial skeleton. Levoconvex curvature apex at L2-3. No acute cortical disruption or malalignment. XR/XR lumbar spine 2-3V IMPRESSION: Multilevel spondylosis and mild levoconvex scoliosis. Electronically signed by: Antonio Nick MD 02/09/2025 12:12 PM EDT RP Dictated By: Antonio Ramirez MD Signed By: <Electronically signed by Antonio Peralta MDin OV> 02/09/25 1212 DD/ 1044 TD/TT: 02/09/25 1144 Marketing Strategy Manager: [facility] External Provider IMG XR PROCEDURES Final Result * BI Mammogram Screening Tomosynthesis Bilateral (08/26/2024 2:40 PM EST) Anatomical Region Laterality Modality Breast Bilateral Mammography 08/26/2024 2:40 PM EST Narrative 08/30/2024 3:17 PM EST [address] [place] [address] Mammography Report Signed Patient: Buck Rader MR#: [id number] : 1965 Acct:[id number] Age/Sex: 59 / F ADM Date: 08/26/24 Loc: HO.MAMMO Attending Dr: Panda Douglas MD Ordering Physician: Panda Douglas MD Results: 1Ne gative Date of Service: 08/26/24 Follow Up: 1 Year From Orig ina Mammogram Procedure(s): MM tomosynthesis screening BI Accession Number(s): [id number] cc: Panda Douglas MD EXAMINATION: MM SCREENING [...] DO 08/30/2024 03:14 PM EST Dictated By: Tyminski,Akyla DO Signed By: <Electronically signed by Kayla Wilde DO in OV> 08/30/24 1514 DD/ 1440 TD/TT: 08/26/24 1500 Marketing Strategy Manager: Procedure Note Donotuseinterpreter, Image - 08/30/2024 [facility] [address] [place], [place] [address] Mammography Report Signed Patient: Buck Rader DMR#: [id number] : 1965Acct:[id number] Age/Sex: 59 / FADM Date: 08/26/24 Loc: HO.MAMMO Attending Dr: Panda Douglas MD Ordering Physician: Panda Douglas MDResults: 1Ne gative Date of Service: 08/26/24Follow Up: 1 Year From Orig ina Mammogram Procedure(s): MM tomosynthesis screening BI Accession Number(s): [id number] cc: Panda Douglas MD EXAMINATION: MM SCREENING [...] 08/30/24 1514 DD/ 1440 TD/TT: 08/26/24 1500 Marketing Strategy Manager: Panda Douglas MD IMG BI PROCEDURES Final Result * (ABNORMAL) Lipid Panel with Reflex to Direct LDL (07/12/2024 9:01 AM EST) Triglycerides 126 <150 mg/dL [facility] Comment:Desirable Triglyceri de: less than 150 mg/dLBorderline High Triglyceride 150-199 mg/dLHigh Triglyceride: 200-499 mg/dLVery High Triglyceride: greater than or equal to 5OO mg/dL Cholesterol 251(H) <200 mg/dL [facility] Comment:Desirable Cholestero l: less than 200 mg/dLBorderline High Cholesterol: 200-239 mg/dLHigh Cholesterol: greater than 239 mg/dL LDL Cholesterol Calculated 168(H) <100 mg/dL [facility] Comment:Desirable LDL: less than 100 mg/dLNear Optimal/Above Optimal LDL: 110- 129 mg/dLBorderline High LDL: 130-159 mg/dLHigh LDL: 160-189 mg/dLVery High LDL: greater than or equal to 190 mg/dL HDL Cholesterol 58 >40 mg/dL [facility] Comment:Desirable HDL: great er than 40 mg/dL Note: This HDL assay may give artificially low results in patients with liver disease. Blood 07/12/2024 9:01 AM EST 07/12/2024 10:59 AM EST Panda Douglas MD LAB BLOOD ORDERABLES Fin al Result [facility] [address] [place] [phone] * (ABNORMAL) HM PAP/HPV (01/29/2024) Pap Smear 4. LSIL(A) 1. NILM HPV Not Detected Undetected, Indeterminat e, Quantitative , Not Detected Historical Provider HEALTH MAINTENANCE Edited Result - Final * Hepatitis Panel, General (06/18/2023 9:52 AM EST) Hepatitis A IgM Nonreactive Nonreactive [facility] Comment:IgM antibodies to MALONE V not detected; does not exclude earlyacute or recovered HAV infection. ~Hepatitis B Surface Antibody REACTIVE Nonreactive [facility] Comment:REACTIVE: > 11.99 mI U/mL Hepatitis B Core Antibody Nonreactive Nonreactive [facility] Hepatitis C Antibody Nonreactive Nonreactive [facility] Comment:Antibodies to HCV no t detected; does not exclude early acuteHCV infection. Hepatitis B Surface Ag Negative Negative [facility] Blood 06/18/2023 9:52 AM EST 06/18/2023 1:03 PM EST us Panda Douglas MD LAB BLOOD ORDERABLES Fin al Result [facility] [address] [place] [phone] * HIV-1/2 Antigen and Antibodies, Fourth Generation, with Reflexes (06/18/2023 9:52 AM EST) HIV AB/AG Nonreactive Nonreactive [facility] Comment:HIV-1 p24 Ag and/or HIV-1/HIV-2 Ab not detected.A test result that is nonreactive does not exclude thepossibility of exposure to or infection with HIV-1 and/orHIV-2. Nonreactive results in this assay for individualswith prior exposure to HIV-1 and/or HIV-2 may be due toantigen and antibody levels that are below the limit ofdetection of this assay.The [employer] HIV Ag/Ab Combo assay result andsupplemental assay results should be interpreted inconjunction with the patient's clinical presentation,history and other laboratory results. If the results areinconsistent with clinical evidence, additional testing issuggested to confirm the result. Blood Venous blood specimen / Unknown 06/18/2023 9:52 AM EST 06/18/2023 1:03 PM EST us Panda Douglas MD LAB BLOOD ORDERABLES Fin al Result [facility] [address] [place] [phone] * Colonoscopy (03/17/2018) Colonoscopy Normal Normal us Historical Provider HEALTH MAINTENANCE Edited Result - Final from Last 3 Months or Most Recently Relevant to Health Maintenance Insurance [facility] MEDICAID STAND ADULT Care Teams Radiation Protection Specialist Relationship Specialty Start Date End Date Panda Douglas MD [address] [place] [phone] PCP - General Family Medicine 09/18/16 Kyrie Flannery RN [address] [place] [phone] Dryland FarmerConsulting Solution Manager 08/20/24
--- OUTSIDE RECORDS SUMMARY | 2025-02-09 12:58 | XMS_ITS | Patient Health Record ---
Author Organization [facility] Address [address] [place] [phone] Care Team Providers Care Geospatial Information Technologist Name Role Phone Misael TEMPLETON, Katie Primary Care Provider Unavail able Juancarlos Manning Unavailable [phone] Allergies Allergen (clinical drug ingredient) Drug/Non Drug Allergy documented on EMR Reaction Allergy Type Onset Date Status acetaminophen / oxycodone Percocet Unknown Drug Allergy Active Reason For Referral No Information Medications Medication SIG (Take, Route, Frequency, Duration) Notes Start Date End Date Status Meclizine HCl 12.5 MG 2 tablets as neede d Orally Once a day Active Ibuprofen 400 MG 1 tablet with food o r milk as needed Orally Three times a day W/ 800 MG TABS TID Active Flonase 50 MCG/ACT 1 spray in each nostril Nasally Once a day Active Tirosint 25 MCG 1 capsule on an empt y stomach in the morning Orally Once a day Active MiraLax (colon prep) 8.3 ounce ((238) grams mixed with Gatorade or Crystal Light orally begin at 5:00 p.m. the day before the procedure for 1 day 01/24/2018 Active Albuterol Sulfate HFA 108 (90 Base) MCG/ACT 2 puffs as needed Inhalation every 6 hrs Active Lorazepam 20 MG 1 TAB Oral DIRECTED Active ProAir HFA 108 (90 Base) MCG/ACT 2 puffs as needed Inhalation every 6 hrs Active Flovent HFA 110 MCG/ACT 1 puff Inhalatio n Twice a day Active Dulcolax (colon prep) 5 MG take at 3:00 p.m and 7:00p.m. Orally two tablets twice a day for one day for 1 day 01/24/2018 Active Clotrimazole 1 % 2 application to affected area Externally Twice a day Active Clindamycin HCl 150 MG 1 capsule Orally every 6 hrs Not-Taking Ketoconazole 2 % 1 application to affected area Externally Twice a day Active Cetirizine HCl 10 MG 1 tablet Orally Onc e a day Active FLUoxetine HCl 20 MG 1 capsule in the morning Orally Once a day Active Cyclobenzaprine HCl 10 MG 1 tablet as ne eded Orally QHS PRN PAIN Active Social History Tobacco Use: Social History Observation Description Date Details (start date - stop date) Never Smoker NA - NA Tobacco Use/Smoking Question Answer Notes Patient is a nonsmoker Alcohol Screen Question Answer Notes Did you have a drink containing alcohol in the p ast year? No Points 0 Interpretation Negative Section Notes: Nonsmoker; no alcohol Problems Problem Type SNOMED Code ICD Code Onset Dates Problem Status W/U Status Risk Notes Problem [id number] Encounter for screening for malignant neoplasm of colon (Z12.11) Active confirmed Problem [id number] Preprocedural examination (Z01.818) Active confirmed Plan Of Treatment Future Test Test Name Order Date COLONOSCOPY 01/20/2018 Insurance Providers Payer Name Payer Address Payer Phone Subscriber Number Group Number Insured Name Patient Relationship to Insured Coverage Start Date Coverage End Date [facility] [address] [place] [phone] [id number] EB GLOVER Self - patient is the insured Medical (General) History Medical History History ICD Code Asthma Depression Hyperlipidemia Anxiety Denies DC,DM,CVA,renal disease Herniated disc in neck Surgical History Surgery Date(Month/Year) tubal ligation
== END 2025-02-09 12:29 | disposition home or self-care (01) ==
PROVIDERS: Emergency Provider Emergency Medicine; PCP Internal Medicine
DX: M54.16 Radiculopathy, lumbar region (principal); M54.50 Low back pain, unspecified; M79.604 Pain in right leg
CPT/HCPCS: 72100; 96372; 99284; J1885

== ENCOUNTER → 2025-02-09 11:09 | Outpatient (BNV) | payer MEDICAID, SELFPAY | PROVIDERS: Emergency Provider Emergency Medicine; PCP Internal Medicine; Visit Provider Radiology Diagnostic Radiology | DX: M47.816 Spondylosis without myelopathy or radiculopathy, lumbar region (principal) | CPT/HCPCS: 72100 ==

== ENCOUNTER 2025-02-18 11:34 | Outpatient (AMB) | payer MEDICAID, SELFPAY ==
--- OUTSIDE RECORDS SUMMARY | 2025-02-18 11:37 | XMS_ITS | Patient Health Record ---
Author Organization [facility] Address [address] [place] [phone] Care Team Providers Care Distribution Manager Name Role Phone Misael TEMPLETON, Katie Primary Care Provider Unavail able Juancarlos Manning Unavailable [phone] Allergies Allergen (clinical drug ingredient) Drug/Non Drug [...] Problem Status W/U Status Risk Notes Problem [id number] Encounter for screening for malignant neoplasm of colon (Z12.11) Active confirmed Problem [id number] Preprocedural examination (Z01.818) Active confirmed Plan Of Treatment Future Test Test Name Order Date COLONOSCOPY 01/20/2018 Insurance Providers Payer Name Payer Address Payer Phone Subscriber Number Group Number Insured Name Patient Relationship to Insured Coverage Start Date Coverage End Date [facility]ICA[facility] OF [facility] [address] [place] [phone] [id number] EB GLOVER Self - patient is the insured Medical (General) History Medical History History ICD Code Asthma Depression Hyperlipidemia Anxiety Denies IA,DM,CVA,renal disease Herniated disc in neck Surgical History Surgery Date(Month/Year) tubal ligation
--- OUTSIDE RECORDS SUMMARY | 2025-02-18 11:37 | XMS_ITS | Clinical Summary ---
Author Organization [employer] Address [address] [facility] 7t [place] [address] Care Team Providers Care Chief Executive Officer Name Role Phone Panda Douglas MD Primary Care Provider + Kyrie Flannery RN Unavailable [phone] Allergies Active Allergy Reactions Criticality Noted Date [...] to continue reading daily and enroll on [place] or reading classes at [facility] so that some specific learning limitation can be evaluated. She will follow-up with [facility] regarding drivers license Pruritus ani 06/29/2024 [...] recommended she be tested for Pinworm. [place] [facility] [place] confirmed they had the stiicky pads for testing and pt was instructed to corn picker the supplies at [facility] and if the front counter attendant staff was confused to ask them [...] to date, next one due 2023 by SHELL SHOP SUPERVISOR Mammogram Up to date, next one due 2023 Eye exam Up to date, next one due 2024 CRC screen Up to date. Next one due on 02/2028 Lipids/FBS To be ordered Vaccinations Influenza iz today. Counseled about COVID + Booster and Zoster. Other iz up to date. Obtain hepatitis profile. Dental visit Overdue, trauma counsellor to make an appt at [facility] or one of the other closest [...] PM EST): FU PAP next week FU w/SHELL SHOP SUPERVISOR Acute serous otitis media 01/02/2017 Encounters Date Type Department Care Team Description 02/09/2025 Orders Only [facility] External Provider, [facility] 02/08/[address] [address] Panda Douglas MD Moderate persistent asthma, unspecified whether complicated 01/26/[address] [address] Panda Douglas MD Letter Request (I called the patient, regarding her request for a letter for housing. She stated that she has difficulty negotiating stairs, and is requesting an apartment on a first floor. She said that she could go up to a second floor, if there are not more than 5 steps to climb.) 01/25/[address] [address] Panda Douglas MD letter 01/21/2025 11:15 AM EDT Office Visit [address] [address] Anaid Jeff NP Acute bilateral low back pain without sciatica (Primary Dx) 01/21/2025 Travel 01/20/[address] [address] Ramírez Donaldson MA CHART PREP 01/19/[address] [address] Panda Douglas MD Nurse Triage 12/28/2024 10:00 AM EDT Office Visit [facility] [address] [place] [address] Arsh Cortes DDS Ill-fitting dentures (Primary Dx) 12/10/2024 12:15 PM EDT Telemedicine [address] [address] Panda Douglas MD Spasm of muscle of lower back (Primary Dx); Moderate persistent asthma, unspecified whether complicated; Pure hypercholesterolemia 12/10/[address] [address] Panda Douglas MD Care Management (C3CM- F/U call) 12/10/2024 Travel 12/09/2024 Telephone [facility] MED[facility] [address] [place] [address] Panda Douglas MD chart prep from Last 3 Months Immunizations Immunization Administration [...] PROBLEM FOCUSED Routine 12/28/2024 10:00 AM EDT BITEWING - SINGLE RADIOGRAPHIC IMAGE Routine [...] AM EDT Narrative 02/09/2025 12:15 PM EDT [address] [address] XRay Report Signed Patient: Buck Rader MR#: [id number] : 1965 Acct:[id number] Age/Sex: 59 / F ADM Date: 02/09/25 Loc: .ED Attending Dr: Ordering Physician: Opal Nelson NP Date of Service: 02/09/25 Procedure(s): XR lumbar spine 2-3V Accession Number(s): [id number] cc: Panda Douglas MD; Opal Nelson NP [...] Antonio Nick MD 02/09/2025 12:12 PM EDT Dictated By: Antonio Ramirez MD Signed By: <Electronically signed by Antonio Peralta MD in OV> 02/09/25 1212 DD/ 1044 TD/TT: 02/09/25 1144 Class C Truck Driver: Procedure Note Donotuseinterpreter, Image - 02/09/2025 [address] [place] [address] XRay Report Signed Patient: Buck Rader DMR#: [id number] : 1965Acct:[id number] Age/Sex: 59 / FADM Date: 02/09/25 Loc: HO.ED Attending Dr: Ordering Physician: Opal Nelson NP Date of Service: 02/09/25 Procedure(s): XR lumbar spine 2-3V Accession Number(s): [id number] cc: Panda Douglas MD; Opal Nelson NP [...] Antonio Nick MD 02/09/2025 12:12 PM EDT Dictated By: Antonio Ramirez MD Signed By: <Electronically signed by Antonio Peralta MDin OV> 02/09/25 1212 DD/ 1044 TD/TT: 02/09/25 1144 Class C Truck Driver: [facility] External Provider IMG XR PROCEDURES Final Result * BI Mammogram Screening Tomosynthesis Bilateral (08/26/2024 2:40 PM EST) Anatomical Region Laterality Modality Breast Bilateral Mammography 08/26/2024 2:40 PM EST Narrative 08/30/2024 3:17 PM EST [facility] [address] [place] [address] Mammography Report Signed Patient: Buck Rader MR#: [id number] : 1965 Acct:[id number] Age/Sex: 59 / F ADM Date: 08/26/24 Loc: HO.MAMMO Attending Dr: Panda Douglas MD Ordering Physician: Panda Douglas MD Results: 1Ne gative Date of Service: 08/26/24 Follow Up: 1 Year From Orig inal Mammogram Procedure(s): MM tomosynthesis screening BI Accession Number(s): [id number] cc: Panda Douglas MD EXAMINATION: MM SCREENING [...] by: Kayla Wilde DO 08/30/2024 03:14 PM [facility] Dictated By: Kayla Wilde DO Signed By: <Electronically signed by Kayla Wilde DO in OV> 08/30/24 1514 DD/ 1440 TD/TT: 08/26/24 1500 Class C Truck Driver: Procedure Note Donotuseinterpreter, Image - 08/30/2024 [facility] [address] [place] [address] Mammography Report Signed Patient: Buck Rader [facility]#: [id number] : 1965Acct:[id number] Age/Sex: 59 / FADM Date: 08/26/24 Loc: MARIANN Attending Dr: Panda Douglas MD Ordering Physician: Panda Douglas MDResults: 1Ne gative Date of Service: 08/26/24Follow Up: 1 Year From Orig ina Mammogram Procedure(s): MM tomosynthesis screening BI Accession Number(s): [id number] cc: Panda Douglas MD EXAMINATION: MM SCREENING [...] Kayla Wilde DO 08/30/2024 03:14 PM EST RP Dictated By: Kayla Wilde DO Signed By: <Electronically signed by Kayla Wilde DO in OV> 08/30/24 1514 DD/ 1440 TD/TT: 08/26/24 1500 Class C Truck Driver: Panda Douglas MD [facility] BI PROCEDURES Final Result * (ABNORMAL) Lipid Panel with Reflex to Direct LDL (07/12/2024 9:01 AM EST) Triglycerides 126 <150 mg/dL [facility] Comment:Desirable Triglyceri de: less than 150 mg/dLBorderline High Triglyceride 150-199 mg/dLHigh Triglyceride: 200-499 mg/dLVery High Triglyceride: greater than or equal to 5OO mg/dL Cholesterol 251(H) <200 mg/dL [facility] Comment:Desirable Cholestero l: less than 200 mg/dLBorderline High Cholesterol: 200-239 mg/dLHigh Cholesterol: greater than 239 mg/dL LDL Cholesterol Calculated 168(H) <100 mg/dL [facility] Comment:Desirable LDL: less than 100 mg/dLNear Optimal/Above Optimal LDL: 110- 129 mg/dLBorderline High LDL: 130-159 mg/dLHigh LDL: 160-189 mg/dLVery High LDL: greater than or equal to 190 mg/dL HDL Cholesterol 58 >40 mg/dL [facility] Comment:Desirable HDL: great er than 40 mg/dL Note: This HDL assay may give artificially low results in patients with liver disease. Blood 07/12/2024 9:01 AM EST 07/12/2024 10:59 AM EST Panda Douglas MD LAB BLOOD ORDERABLES Jeffrey mckinnon Result [facility] [address] [place] [phone] * (ABNORMAL) HM PAP/HPV (01/29/2024) Pap Smear 4. LSIL(A) 1. NILM HPV Not Detected Undetected, Indeterminat e, Quantitative , Not Detected Historical Provider HEALTH MAINTENANCE Edited Result - Final * Hepatitis Panel, General (06/18/2023 9:52 AM EST) Hepatitis A IgM Nonreactive Nonreactive [facility] Comment:IgM antibodies to MALONE V not detected; does not exclude earlyacute or recovered HAV infection. ~Hepatitis B Surface Antibody REACTIVE Nonreactive [facility] Comment:REACTIVE: > 11.99 mI U/mL Hepatitis B Core Antibody Nonreactive Nonreactive [facility] Hepatitis C Antibody Nonreactive Nonreactive [facility] Comment:Antibodies to HCV no t detected; does not exclude early acuteHCV infection. Hepatitis B Surface Ag Negative Negative [facility] Blood 06/18/2023 9:52 AM EST 06/18/2023 1:03 PM EST Panda Douglas MD LAB BLOOD ORDERABLES Fin al Result Performing Organization Address City/[facility]/ZIP Co de Phone Number [facility] [address] [place] [address] [phone] * HIV-1/2 Antigen and Antibodies, Fourth Generation, with Reflexes (06/18/2023 9:52 AM EST) HIV AB/AG Nonreactive Nonreactive [facility] Comment:HIV-1 p24 Ag and/or HIV-1/HIV-2 Ab not detected.A test result that is nonreactive does not exclude thepossibility of exposure to or infection with HIV-1 and/orHIV-2. Nonreactive results in this assay for individualswith prior exposure to HIV-1 and/or HIV-2 may be due toantigen and antibody levels that are below the limit ofdetection of this assay.The [employer] Uniq HIV Ag/Ab Combo assay result andsupplemental assay results should be interpreted inconjunction with the patient's clinical presentation,history and other laboratory results. If the results areinconsistent with clinical evidence, additional testing issuggested to confirm the result. Blood Venous blood specimen / Unknown 06/18/2023 9:52 AM EST 06/18/2023 1:03 PM EST Panda Douglas MD LAB BLOOD ORDERABLES Fin al Result Performing Organization Address [facility]/ZIP Co de Phone Number [facility] [address] [place] [address] [phone] * Colonoscopy (03/17/2018) Colonoscopy Normal Normal us Historical Provider HEALTH MAINTENANCE Edited Result - Final from Last 3 Months or Most Recently Relevant to Health Maintenance Insurance [employer] [facility] MED[facility] STAND ADULT Care Teams Chief Executive Officer Relationship Specialty Start Date End Date Panda Douglas MD [address] [place] [address] PCP - General Family Medicine 09/18/16 Kyrie Flannery RN [address] [place] [phone] Medical Scientific LiaisonGeneral Contractor 08/20/24
--- NOTE | 2025-02-18 12:18 | MHC.OFFVIS ---
Vital Signs 02/18/25 12:20 Height 5 ft 2 in Weight 177 lb BMI 32.4 BP 139/71 Blood Pressure Location Lt brachial Position Sitting Respiration 16 Pulse 69 Pulse Source Pulse Oximeter Pulse Oximetry (%) 97 Oxygen Delivery Method Room Air Intake Visit Reasons: Follow Pt. Request Tray Casting Machine Operator Required: Yes Tray Casting Machine Operator Services: Tray Casting Machine Operator Present Tray Casting Machine Operator Name: [id number] Tariq Accompanied by: Spouse Allergies hydromorphone Allergy (Unknown, Verified 02/18/25 12:23) hives oxycodone (From PERCOCET) Allergy (Unknown, Verified 02/18/25 12:23) ITCHING zolpidem (From AMBIEN) Allergy (Unknown, Verified 02/18/25 12:23) ITCHING Medication List - Last Reconciled 02/18/25 by Kassidy Crouch LPN alprazolam 0.5 mg PO DAILY PRN atorvastatin 40 mg PO BEDTIME bisacodyl 5 mg PO ONCE 1 day cetirizine 10 mg PO DAILY cyclobenzaprine 10 mg PO TID PRN cyclobenzaprine 10 mg PO TID PRN fluticasone propionate 50 mcg/actuation 1 - 2 sprays intranasal DAILY PRN fluticasone propionate 110 mcg/actuation (Flovent HFA) 2 puffs inhalation BID hydrocortisone 2.5% 1 appl WI BEDTIME PRN ibuprofen 400 mg PO Q8-12H PRN ketotifen fumarate 0.025%(0.035%) 1 drp ophthalmic (eye) BID lidocaine 5% 1 patch topical DAILY lidocaine 5% 1 patch topical DAILY loperamide 2 mg PO Q6H PRN polyethylene glycol 3350 (Miralax) 238 grams PO ONCE prednisone 40 mg (2 x 20 mg) PO DAILY 3 days HPI HPI Follow Pt. Request: Details: History of Present Illness The patient is a 59-year-old female presenting with ankle pain. The pain extends from her ankle up to her leg, and she reports that previous injections did not provide relief. She has been advised to continue with stretching exercises as other interventions have not been effective. The patient also experiences back pain, which has been treated with anti-inflammatory medication in the past. She has not engaged in physical therapy for her back, as previous sessions did not yield significant improvement. The pain in her back sometimes radiates down to her hip and foot. Pain Description - Onset: Pain in the ankle extending to the leg - Quality: Persistent pain not relieved by injections - Location: Ankle, radiating up the leg - Exacerbating factors: Lack of effective intervention - Relieving factors: Stretching exercises suggested Physical Exam - Appears afebrile. - Alert and oriented. - Mood and affect appropriate. - Follows and participates in conversation appropriately. - Respiratory effort is unlabored. Pain Management - Analgesia: Previous injections did not provide relief; anti-inflammatory medications used for back pain - Activities of Daily Living: Pain affects mobility, stretching exercises recommended [facility] Medical History Diarrhea External hemorrhoid Pruritus ani Achilles tendinitis of both lower extremities AFSHAN III (cervical intraepithelial neoplasia grade III) with severe dysplasia Asthma Depression Anxiety Surgical History Hx of cholecystectomy History of bilateral tubal ligation Family History Mother Epilepsy Mental health disorder Social History Household Members: Spouse Housing: Apartment Unable to assess alcohol history related to: Unknown Alcohol intake: never Patient Tobacco Use Status: Never used Tobacco Current occupational status: disabled Sexual orientation: Straight/Heterosexual Gender identity: Female Physical Exam Vital Signs: Last Vital Signs Pulse 69 02/18/25 12:20 Resp 16 02/18/25 12:20 BP 139/71 02/18/25 12:20 Pulse Ox 97 02/18/25 12:20 Oxygen Delivery Method Room Air 02/18/25 12:20 BMI result Body Mass Index 32.4 Assessment & Plan Assessment & Plan (1) Achilles tendinitis of both lower extremities: Code(s): M76.61 - Achilles tendinitis, right leg; M76.62 - Achilles tendinitis, left leg Category: Medical Plan Plan - Continue with stretching exercises for ankle pain management. - Consider physical therapy for back pain if symptoms worsen, potentially followed by an MRI if necessary. - Explore Shockwave Therapy as an alternative treatment, noting it is not covered by insurance. Patient was informed and verbally consented to the use of an ambient scribe for clinic note documentation during this visit. Discussion Notes I discussed with the patient that the injections previously administered did not provide relief for her ankle pain, so continuing with stretching exercises is advisable instead of repeating the injection. We also talked about the possibility of physical therapy for her back pain if it worsens, and the option of an MRI to further investigate the cause. I informed her about Shockwave Therapy as a potential treatment, although it is not covered by insurance and would require [id number] payment. Patient Instructions - Continue with stretching exercises for ankle pain. - Monitor back pain and consider physical therapy if it worsens. - Consider Shockwave Therapy for ankle pain, understanding it is not covered by insurance. Coding Level of Care Code Est Pt Level 3 (28122) Diagnoses Achilles tendinitis of both lower extremities M76.61; M76.62
[2025-02-18 12:20] VITALS: BP 139/71; PULSE 69; RESP 16; O2SAT 97; BMI 32.4
== END 2025-02-18 12:46 | disposition home or self-care (01) ==
LOC: HO.PMC 11:35
PROVIDERS: PCP Internal Medicine; Visit Provider Internal Medicine
DX: M76.61 Achilles tendinitis, right leg (principal); M76.62 Achilles tendinitis, left leg
CPT/HCPCS: 99213

== ENCOUNTER → 2025-02-18 11:34 | Outpatient (BNVA) | payer MEDICAID, SELFPAY | PROVIDERS: PCP Internal Medicine; Visit Provider Internal Medicine | DX: M76.61 Achilles tendinitis, right leg (principal); M76.62 Achilles tendinitis, left leg | CPT/HCPCS: 99212 ==

== ENCOUNTER 2025-03-14 09:56 | Outpatient (REF) | payer MEDICAID, SELFPAY ==
--- NOTE | ~2025-03-14 | US_ITS ---
EXAMINATION: US RETROPERITONEAL LIMITED (RENAL ONLY) CLINICAL INFORMATION: Calculus of kidney.. COMPARISON: January 14, 2024 demonstrated no gross nephrolithiasis. Correlated to contrast enhanced CT abdomen pelvis dated August 02, 2024 TECHNIQUE: Real-time ultrasound kidneys using grayscale technique. FINDINGS: RIGHT KIDNEY: 10 x 4 x 5 cm (SAG x AP x TRV). Normal echotexture. Normal renal cortical thickness. No hydronephrosis. No gross solid or cystic lesions. LEFT KIDNEY: 11 x 5 x 5 cm (SAG x AP x TRV). Normal echotexture. Normal renal cortical thickness. No hydronephrosis. No gross solid or cystic lesion. US/US renal BI IMPRESSION: No hydronephrosis or nephrolithiasis. Normal exam.. Electronically signed by: Antonio Nick MD 03/14/2025 10:58 AM EDT
--- OUTSIDE RECORDS SUMMARY | 2025-03-14 12:20 | XMS_ITS | Encounter Summary ---
Author Organization [employer] Address [address] [facility] 7[address] [place] [address] Care Team Providers Care Treasury Director Name Role Phone Katie Douglas MD Primary Care Provider + Kyrie Flannery RN Unavailable [phone] Reason for Visit * Reason Onset Date Comments pain from ext 02/09/2024 Encounter Details Date Type Department Care Team ([facility] st Contact Info) Description 02/09/2024 Telephone [facility] [address] [place] [address] Arsh Cortes DDS [address] [place] [address] pain from ext Social History Tobacco Use [...] AM EDT documented as of this encounter Functional Status * Over the past 2 weeks, how often have you been bothered by any of the following problems? Question Answer Date of Assessment Author Patient Health Questionnaire -2 Score 1 02/12/2024 10:40 AM EDT Ashanti Santillan MA * If you checked off any problems on this questionnaire so far, Question Answer Date of Assessment Author How difficult have these problems made it for you to do your work, take care of things at home, or get along with other people? Somewhat difficult 02/12/2024 10:40 AM MIKALT Ashanti Santillan MA * Over the last 2 weeks, how often have you been bothered by any of the following problems? Question Answer Date of Assessment Author Feeling nervous, anxious, or on edge 0 02/12/2024 10:41 AM EDT Ashanti Santillan MA Not being able to stop or co ntrol worrying 1 02/12/2024 10:41 AM MIKALT Ashanti Santillan MA Worrying too much about diff erent things 0 02/12/2024 10:41 AM Ashanti Wilkes MA Trouble relaxing 1 02/12/2024 10:41 AM Ashanti Wilkes MA Being so restless that it is hard to sit still 0 02/12/2024 10:41 AM Ashanti Wilkes MA Becoming easily annoyed or irritable 0 02/12/2024 10:41 AM Ashanti Wilkes MA Feeling afraid as if somethi ng awful might happen 0 02/12/2024 10:41 AM Ashanti Wilkes MA MAGALIS-7 Total Score 2 02/12/2024 10:41 AM Ashanti Wilkes MA * Over the past 2 weeks, how often have you been bothered by any of the following problems? Question Answer Date of Assessment Author Little interest or pleasure in doing things Not at all 02/12/2024 10:40 AM Ashanti Wilkes MA Feeling down, depressed, or hopeless Several days 02/12/2024 10:40 AM Ashanti Wilkes [place] Trouble falling or staying asleep, or sleeping too much Several days 02/12/2024 10:40 AM Ashanti Wilkes MA Feeling tired or having little energy Several days 02/12/2024 10:40 AM Ashanti Wilkes MA Poor appetite or overeating More than half the days 02/12/2024 10:40 AM Ashanti Wilkes MA Feeling bad about yourself - or that you are a failure or have let yourself or your family down Not at all 02/12/2024 10:40 AM Ashanti Wilkes [place] Trouble concentrating on things, such as reading the newspaper or watching television Nearly every day 02/12/2024 10:40 AM Ashanti Wilkes MA Moving or speaking so slowly that other people could have noticed? Or the opposite - being so fidgety or restless that you have been moving around a lot more than usual. Not at all 02/12/2024 10:40 AM Ashanti Wilkes MA Thoughts that you would be better off or hurting yourself in some way Not at all 02/12/2024 10:40 AM Ashanti Wilkes MA Patient Health Questionnaire-9 Score 8 02/12/2024 10:40 AM Ashanti Wilkes MA documented as of this encounter Miscellaneous Notes [...] documented in this encounter Plan of Treatment Not on file documented as of this encounter Visit Diagnoses Not on filedocumented in this encounter Additional Health Concerns Assessment Noted Time PHQ-9 Depression Total Score: 10 023 2:01 PM EDT documented as of this encounter Care Teams Treasury Director Relationship Specialty Start Date End Date Katie Douglas MD [address] [place] [address] PCP - General Family Medicine 09/18/16 Kyrie Flannery, JIM [address] [place] [phone] Sample SewerBerry Grower 08/20/24 documented as of this encounter
--- OUTSIDE RECORDS SUMMARY | 2025-03-14 12:20 | XMS_ITS | Encounter Summary ---
Author Organization [facility] Address [address] [place] [address] [address] [place] [address] Care Team Providers Care Cash Management Officer Name Role Phone Katie Douglas MD Primary Care Provider + Kyrie Flannery RN Unavailable [phone] Encounter Details Date Type Department Care Team (Latest Contact Info) Description 08/27/2021 Abstract [facility] CONVERSIONS Dental, Provider, DDS Social History Tobacco Use Types Packs/Day Years Used Date Smoking Tobacco: Never Assessed Comments Unknown Sex and Gender Information Value Date Recorded Sex Assigned at Female 04/29/2022 10:18 AM EDT Legal Sex Female 10:18 AM EDT Gender Identity Female 04/29/2022 10:18 AM EDT Sexual Orientation Straight 04/29/2022 10 :18 AM EDT documented as of this encounter Plan of Treatment Not on file documented as of this encounter Visit Diagnoses Not on filedocumented in this encounter Care Teams Cash Management Officer Relationship Specialty Start Date End Date Katie Douglas MD [address] [place] [address] PCP - General Family Medicine 09/18/16 Kyrie Flannery, JIM [address] [place] [phone] Probation CounselorKnitting Machine Fixer 08/20/24 documented as of this encounter
--- OUTSIDE RECORDS SUMMARY | 2025-03-14 12:20 | XMS_ITS | Patient Health Record ---
Author Organization [facility] Address [address] [place] [phone] Care Team Providers Care Front Office Spec Name Role Phone Misael TEMPLETON, Katie Primary Care Provider Unavail able Juancarlos Manning Unavailable [phone] Allergies Allergen (clinical drug ingredient) Drug/Non Drug [...] Problem Status W/U Status Risk Notes Problem [id number] Encounter for screening for malignant neoplasm of colon (Z12.11) Active confirmed Problem [id number] Preprocedural examination (Z01.818) Active confirmed Plan Of Treatment Future Test Test Name Order Date COLONOSCOPY 01/20/2018 Insurance Providers Payer Name Payer Address Payer Phone Subscriber Number Group Number Insured Name Patient Relationship to Insured Coverage Start Date Coverage End Date [facility] [address] [place] [id number] EB GLOVER Self - patient is the insured Medical (General) History Medical History History ICD Code Asthma Depression Hyperlipidemia Anxiety Denies GA,DM,CVA,renal disease Herniated disc in neck Surgical History Surgery Date(Month/Year) tubal ligation
--- OUTSIDE RECORDS SUMMARY | 2025-03-14 12:20 | XMS_ITS | Clinical Summary ---
Author Organization [employer] Address [address] [facility] 7t [place] [address] Care Team Providers Care Batch Tester Name Role Phone Panda Douglas MD Primary Care Provider + Kyrie Flannery RN Unavailable [phone] Allergies Active Allergy Reactions Criticality Noted Date Comments Cat Dander 02/10/2023 Other reaction(s): WHEEZING Fentanyl Itching 12/02/2023 Gramineae Pollens 02/10/2023 Other reaction(s): wheezing Hydromorphone Hives 02/10/2023 Morphine Hives 12/02/2023 Oxycodone Itching 10/19/2014 Oxycodone-Acetaminophen 08/15/2022 Other reaction(s): itching all over Poison Melissa Extract 10/19/2014 Zolpidem Itching,Rash Low 02/10/2023 Medications meclizine (Antivert) 12.5 MG tabletIndication s:Dizziness TOME NGHIA TABLETA PHONG VECES AL D A CUANDO SEA NECESARIO 30 tablet 3 3 Active FLUoxetine (PROzac) 20 MG capsule TOME NGHIA C PSULA TODOS LOS D EN LA MA PANDA 3 Active chlorhexidine (Peridex) 0.12 % solution Swish 15 mL morning and night for 1 minute. Spit, do not swallow. Do not eat or drink for 30 minutes following use. 473 mL 4 Active ammonium lactate (Amlactin) 12 % cream Apply topically if needed for dry skin. 385 g 1 4 06/14/20 25 Active liver oil-zinc oxide (Desitin) 40 % ointment Apply topically if needed in the morning and at bedtime for irritation. 56 g 4 Active cetirizine (ZyrTEC) 10 MG tabletIndication s:Seasonal allergic rhinitis, unspecified trigger TOME NGHIA TABLETA TODOS LOS ALVAREZ 90 tablet 3 5 Active atorvastatin (Lipitor) 40 MG tablet Take 1 tablet (40 mg) by mouth at bedtime. 30 tablet 11 5 09/21/19 26 Active Ketotifen Fumarate 0.035 % solution Administer 1 drop into both eyes if needed in the morning, at noon, and at bedtime (allergy). ADMINISTER 1 DROP INTO THE AFFECTED EYE(S) THREE TIMES DAILY 10 mL 1 5 Active betamethasone valerate (Valisone) 0.1 % ointmentIndicati ons:Allergic conjunctivitis, unspecified laterality Apply topically if needed in the morning and at bedtime (itchiness). 45 g 5 Active lidocaine (Xylocaine) 5 % ointmentIndicati ons:Chronic pain of right ankle Apply topically if needed for mild pain. 50 g 2 5 11/02/19 26 Active ibuprofen 600 MG tablet TOME 1 TABLETA POR VIA ORAL CADA 6 HORAS CUANDO SEA NECESARIO PARA EL DOLOR MILD 90 tablet 5 Active methocarbamol (Robaxin) 500 MG tabletIndication s:Acute bilateral low back pain without sciatica Take 1 tablet (500 mg) by mouth every 6 (six) hours for 10 days. 40 tablet 5 Active lidocaine (Lidoderm) 5 % patchIndications :Acute bilateral low back pain without sciatica Apply 1 patch topically Once per day. Remove & discard patch within 12 hours 30 patch 1 5 03/22/20 25 Active Ventolin HFA 108 (90 Base) MCG/ACT inhalerIndicatio ns:Moderate persistent asthma, unspecified whether complicated INHALE 2 PUFFS EVERY 4 (FOUR) HOURS IF NEEDED FOR SHORTNESS OF BREATH OR WHEEZING. 18 g 1 5 Active Active Problems Problem Noted Date Diagnosed Date [...] to continue reading daily and enroll on Ukrainian or reading classes at [facility] so that some specific learning limitation can be evaluated. She will follow-up with [facility] regarding drivers license Pruritus ani 06/29/2024 Assessment [...] recommended she be tested for Pinworm. Contacted [facility] lab who confirmed they had the stiicky pads for testing and pt was instructed to bulk picker the supplies at [facility] and if the front attendant staff was confused to ask them [...] to date, next one due 2023 by [facility] Mammogram Up to date, next one due 2023 Eye exam Up to date, next one due 2024 CRC screen Up to date. Next one due on 02/2028 Lipids/FBS To be ordered Vaccinations Influenza iz today. Counseled about COVID + Booster and Zoster. Other iz up to date. Obtain hepatitis profile. Dental visit Overdue, certified addiction counselor to make an appt at [facility] or one of the other closest [...] PM EST): FU PAP next week FU w/[facility] Acute serous otitis media 01/02/2017 Encounters Date Type Department Care Team Description 03/14/2025 Orders Only [facility] External Provider, [facility] 02/09/2025 Orders Only [facility] External Provider, [facility] 02/08/2025 Refill [facility] [address] [place] [address] Panda Douglas MD Moderate persistent asthma, unspecified whether complicated 01/26/[address] [address] Panda Douglas MD Letter Request (I called the patient, regarding her request for a letter for housing. She stated that she has difficulty negotiating stairs, and is requesting an apartment on a first floor. She said that she could go up to a second floor, if there are not more than 5 steps to climb.) 01/25/2025 Telephone [facility] [address] [place] [address] Panda Douglas MD letter 01/21/2025 11:15 AM EDT Office Visit [address] [address] Anaid Jeff NP Acute bilateral low back pain without sciatica (Primary Dx) 01/21/2025 Travel 01/20/[address] [address] Ramírez Donaldson [place] CHART PREP 01/19/[address] [address] Panda Douglas MD Nurse Triage 12/28/2024 10:00 AM EDT Office Visit [facility] [address] [place] [address] Arsh Cortes DDS Ill-fitting dentures (Primary Dx) from Last 3 Months Immunizations [...] 08/25/2023, 0 02/18/2022, 08/27/2021, Additional history exists Dental Oral Exam 03/05/2024 09/02/2023, , 04/24/2020, Additional history exists Depression Screening 02/11/2025 02/12/2024, 02/12/20 Cervical Cancer Screening 02/16/2025 HPV/Cotest 02/16/2025 01/29/2024, 10/28, 07/16/2021, Additional history exists Pap Smear 02/16/2025 01/29/2024, 10/28, 07/16/2021, Additional history exists COVID-19 Vaccine ( season) 2025 07/18/2022, 06/05/2021, 09/13/2020 Influenza Vaccine (#1) 2025 , 06/12/2023, 08/15/2022, [...] Procedure Name Priority Date/Time Associated Diagnosis Comments US RENAL COMPLETE Routine 03/14/2025 10:15 AM EDT XR LUMBAR SPINE 2-3 VIEWS Routine 02/09/2025 [...] Recently Relevant to Health Maintenance Results * US Renal Complete (03/14/2025 10:15 AM EDT) Anatomical Region Laterality Modality Kidney Ultrasound 03/14/2025 10:1 5 AM EDT Narrative 03/14/2025 11:04 AM EDT [address] [address] Ultrasound Report Signed Patient: Buck Rader MR#: [id number] : 1965 Acct:[id number] Age/Sex: 59 / F ADM Date: 03/14/25 Loc: HO.US Attending Dr: Rosa HONEYCUTT Ordering Physician: Rosa Emanuel Date of Service: 03/14/25 Procedure(s): US renal BI Accession Number(s): [id number] cc: Panda Douglas MD; Rosa Emanuel Reason for Exam: N20.0 - Calculus of kidney EXAMINATION: US RETROPERITONEAL LIMITED (RENAL ONLY) CLINICAL INFORMATION: Calculus of kidney.. COMPARISON: January 14, 2024 demonstrated no gross nephrolithiasis. Correlated to contrast enhanced CT abdomen pelvis dated August 02, 2024 TECHNIQUE: Real-time ultrasound kidneys using grayscale technique. FINDINGS: RIGHT KIDNEY: 10 x 4 x 5 cm (SAG x AP x TRV). Normal echotexture. Normal renal cortical thickness. No hydronephrosis. No gross solid or cystic lesions. LEFT KIDNEY: 11 x 5 x 5 cm (SAG x AP x TRV). Normal echotexture. Normal renal cortical thickness. No hydronephrosis. No gross solid or cystic lesion. US/US renal BI IMPRESSION: No hydronephrosis or nephrolithiasis. Normal exam.. Electronically signed by: Antonio Nick MD 03/14/2025 10:58 AM EDT Dictated By: Antonio Ramirez MD Signed By: <Electronically signed by Atnonio Peralta MD in OV> 03/14/25 1058 DD/ 1015 TD/TT: 03/14/25 1020 Clinical Field Specialist: Procedure Note Donotuseinterpreter, Image - 03/14/2025 [place] [address] Ultrasound Report Signed Patient: Buck Rader [facility]#: [id number] : 1965Acct:[id number] Age/Sex: 59 / FADM Date: 03/14/25 Loc: HO.US Attending Dr: Rosa HONEYCUTT Ordering Physician: Rosa Emanuel Date of Service: 03/14/25 Procedure(s): US renal BI Accession Number(s): [id number] cc: Panda Douglas MD; Rosa Emanuel [facility] Reason for Exam: N20.0 - Calculus of kidney EXAMINATION: US RETROPERITONEAL LIMITED (RENAL ONLY) CLINICAL INFORMATION: Calculus of kidney.. COMPARISON: January 14, 2024 demonstrated no gross nephrolithiasis. Correlated to contrast enhanced CT abdomen pelvis dated August 02, 2024 TECHNIQUE: Real-time ultrasound kidneys using grayscale technique. FINDINGS: RIGHT KIDNEY: 10 x 4 x 5 cm (SAG x AP x TRV). Normal echotexture. Normal renal cortical thickness. No hydronephrosis. No gross solid or cystic lesions. LEFT KIDNEY: 11 x 5 x 5 cm (SAG x AP x TRV). Normal echotexture. Normal renal cortical thickness. No hydronephrosis. No gross solid or cystic lesion. US/US renal BI IMPRESSION: No hydronephrosis or nephrolithiasis. Normal exam.. Electronically signed by: Antonio Nick MD 03/14/2025 10:58 AM EDT Dictated By: Antonio Ramirez MD Signed By: <Electronically signed by Antonio Peralta MDin OV> 03/14/25 1058 DD/ 1015 TD/TT: 03/14/25 1020 Clinical Field Specialist: us [facility] External Provider IMG US PROCEDURES Edited Result - Final * XR Lumbar Spine 2-3 Views (02/09/2025 10:44 AM EDT) Anatomical Region Laterality Modality Spine, L-spine Radiographic Iwona ging 02/09/2025 10:4 4 AM EDT Narrative 02/09/2025 12:15 PM EDT [address] [address] XRay Report Signed Patient: Buck Rader MR#: [id number] : 1965 Acct:[id number] Age/Sex: 59 / F ADM Date: 02/09/25 Loc: HO.ED Attending Dr: Ordering Physician: Opal Nelson NP Date of Service: 02/09/25 Procedure(s): XR lumbar spine 2-3V Accession Number(s): [id number] cc: Panda Douglas MD; Opal Nelson NP [...] 02/09/25 1212 DD/ 1044 TD/TT: 02/09/25 1144 Clinical Field Specialist: Procedure Note Donotuseinterpreter, Image - 02/09/2025 [place] [address] XRay Report Signed Patient: Buck Rader DMR#: [id number] : 1965Acct:[id number] Age/Sex: 59 / FADM Date: 02/09/25 Loc: HO.ED Attending Dr: Ordering Physician: Opal Nelson NP Date of Service: 02/09/25 Procedure(s): XR lumbar spine 2-3V Accession Number(s): [id number] cc: Panda Douglas MD; Opal Nelson NP [...] 02/09/25 1212 DD/ 1044 TD/TT: 02/09/25 1144 Clinical Field Specialist: [facility] External Provider IMG XR PROCEDURES Final Result * BI Mammogram Screening Tomosynthesis Bilateral (08/26/2024 2:40 PM EST) Anatomical Region Laterality Modality Breast Bilateral Mammography 08/26/2024 2:40 PM EST Narrative 08/30/2024 3:17 PM EST [address] [place] [address] Mammography Report Signed Patient: Buck Rader MR#: [id number] : 1965 Acct:[id number] Age/Sex: 59 / F ADM Date: 08/26/24 Loc: HO.MAMMO Attending Dr: Panda Douglas MD Ordering Physician: Panda Douglas MD Results: 1Ne gative Date of Service: 08/26/24 Follow Up: 1 Year From [facility] Mammogram Procedure(s): MM tomosynthesis screening BI Accession Number(s): [id number] cc: Panda Douglas MD EXAMINATION: MM SCREENING [...] 08/30/24 1514 DD/ 1440 TD/TT: 08/26/24 1500 Clinical Field Specialist: Procedure Note Donotuseinterpreter, Image - 08/30/2024 [facility] [address] [place], [place] [address] Mammography Report Signed Patient: Buck Rader DMR#: [id number] : 1965Acct:[id number] Age/Sex: 59 / FADM Date: 08/26/24 Loc: HO.MAMMO Attending Dr: Panda Douglas MD Ordering Physician: Panda Douglas MDResults: 1Ne gative Date of Service: 08/26/24Follow Up: [facility] Mamm[facility] Procedure(s): MM tomosynthesis screening BI Accession Number(s): [id number] cc: Panda Douglas MD EXAMINATION: MM SCREENING [...] 08/30/24 1514 DD/ 1440 TD/TT: 08/26/24 1500 Clinical Field Specialist: us Panda Douglas MD IMG BI PROCEDURES Final Result * (ABNORMAL) Lipid Panel with Reflex to Direct LDL (07/12/2024 9:01 AM EST) Triglycerides 126 <150 mg/dL [facility] Comment:Desirable Triglyceri de: less than 150 mg/dLBorderline High Triglyceride 150-199 mg/dLHigh Triglyceride: 200-499 mg/dLVery High Triglyceride: greater than or equal to 5OO mg/dL Cholesterol 251(H) <200 mg/dL [facility] Comment:Desirable Cholestero l: less than 200 mg/dLBorderline High Cholesterol: 200-239 mg/dLHigh Cholesterol: greater than 239 mg/dL LDL Cholesterol Calculated 168(H) <100 mg/dL [facility] Comment:Desirable LDL: less than 100 mg/dLNear Optimal/Above Optimal LDL: 110- 129 mg/dLBorderline High LDL: 130-159 mg/dLHigh LDL: 160-189 mg/dLVery High LDL: greater than or equal to 190 mg/dL HDL Cholesterol 58 >40 mg/dL [facility] Comment:Desirable HDL: great er than 40 mg/dL Note: This HDL assay may give artificially low results in patients with liver disease. Blood 07/12/2024 9:01 AM EST 07/12/2024 10:59 AM EST us Panda Douglas MD LAB BLOOD ORDERABLES Fin al Result [facility] [address] [place] [phone] * (ABNORMAL) HM PAP/HPV (01/29/2024) [facility] Pap Smear 4. LSIL(A) 1. NILM HPV Not Detected Undetected, Indeterminat e, Quantitative , Not Detected Historical Provider HEALTH MAINTENANCE Edited Result - Final * Hepatitis Panel, General (06/18/2023 9:52 AM EST) [facility] Hepatitis A IgM Nonreactive Nonreactive [facility] Comment:IgM antibodies to MALONE V not detected; does not exclude earlyacute or recovered HAV infection. ~Hepatitis B Surface Antibody REACTIVE Nonreactive [facility] Comment:REACTIVE: > 11.99 mI U/mL Hepatitis B Core Antibody Nonreactive Nonreactive [facility] Hepatitis C Antibody Nonreactive Nonreactive [facility] Comment:Antibodies to HCV no t detected; does not exclude early acuteHCV infection. Hepatitis B Surface Ag Negative Negative [facility] Blood 06/18/2023 9:52 AM EST 06/18/2023 1:03 PM EST Panda Douglas MD LAB BLOOD ORDERABLES Fin al Result [facility] [address] [place] [address] [phone] * HIV-1/2 Antigen and Antibodies, Fourth Generation, with Reflexes (06/18/2023 9:52 AM EST) Pathologist [facility] HIV AB/AG Nonreactive Nonreactive [facility] Comment:HIV-1 p24 Ag and/or HIV-1/HIV-2 Ab not detected.A test result that is nonreactive does not exclude thepossibility of exposure to or infection with HIV-1 and/orHIV-2. Nonreactive results in this assay for individualswith prior exposure to HIV-1 and/or HIV-2 may be due toantigen and antibody levels that are below the limit ofdetection of this assay.The [email or web address] HIV Ag/Ab Combo assay result andsupplemental assay results should be interpreted inconjunction with the patient's clinical presentation,history and other laboratory results. If the results areinconsistent with clinical evidence, additional testing issuggested to confirm the result. Blood Venous blood specimen / Unknown 06/18/2023 9:52 AM EST 06/18/2023 1:03 PM EST Panda Douglas MD LAB BLOOD ORDERABLES Fin al Result [facility] [address] [place] [address] [phone] * Colonoscopy (03/17/2018) [facility] Colonoscopy Normal Normal Historical Provider HEALTH MAINTENANCE Edited Result - Final from Last 3 Months or Most Recently Relevant to Health Maintenance Insurance [facility] ST[facility] ADULT Care Teams Batch Tester Relationship Specialty Start Date End Date Panda Douglas MD [address] [place] [phone] PCP - General Family Medicine 09/18/16 Kyrie Flannery RN [address] [place] [address] Print DesignerTalent Development Consultant 08/20/24
--- OUTSIDE RECORDS SUMMARY | 2025-03-14 12:20 | XMS_ITS | Encounter Summary ---
Author Organization [employer] [facility] Address [address] [facility] 7t [place] [address] Care Team Providers Care Mica Miner Blasting Name Role Phone Katie Douglas MD Primary Care Provider + Kyrie Flannery RN Unavailable [phone] Encounter Details Date Type Department Care Team (Latest Contact Info) Description 03/19/2019 Abstract [facility] Dental, Provider, DDS Social [...] on filedocumented in this encounter Care Teams Mica Miner Blasting Relationship Specialty Start Date End Date Katie Douglas MD [address] [place] [address] PCP - General Family Medicine 09/18/16 Kyrie Flannery, RN [address] [place] [address] Print Shop StenographerFinancial Reporting Advisor 08/20/24 documented as of this encounter
--- OUTSIDE RECORDS SUMMARY | 2025-03-14 12:20 | XMS_ITS | Encounter Summary ---
Author Organization [employer] Address [address] [facility] 7t [place] [address] Care Team Providers Care Front End Architect Name Role Phone Katie Douglas MD Primary Care Provider + Kyrie Flannery RN Unavailable [phone] Encounter Details Date Type Department Care Team ([facility] Contact Info) Description 08/08/2022 Orders Only [facility] [address] [place], [place] [phone] Henrietta Newell LPN Social History Tobacco Use [...] on filedocumented in this encounter Care Teams Front End Architect Relationship Specialty Start Date End Date Katie Douglas MD [address] [place], [place] [phone] PCP - General Family Medicine 09/18/16 Kyrie Flannery, RN [address] [place] [address] Lithographing Machine OperatorDirector Of Development And Marketing 08/20/24 documented as of this encounter
--- OUTSIDE RECORDS SUMMARY | 2025-03-14 12:20 | XMS_ITS | Encounter Summary ---
Author Organization [employer] Address [address] [address] [facility] [address] 7[address] [place] [address] Care Team Providers Care Early Head Start Teacher Name Role Phone Katie Douglas MD Primary Care Provider + Kyrie Flannery RN Unavailable [phone] Encounter Details Date Type Department Care Team ([facility] Contact Info) Description 03/14/2025 Orders Only [facility] External Provider, [facility] Social History Tobacco Use Types Packs/Day [...] on file documented as of this encounter Procedures Procedure Name Priority Date/Time Associated Diagnosis Comments US RENAL COMPLETE Routine 03/14/2025 10: 15 AM EDT documented in this encounter Results * US Renal Complete (03/14/2025 10:15 AM EDT) Anatomical Region Laterality Modality Kidney Ultrasound 03/14/2025 10:1 5 AM EDT Narrative 03/14/2025 11:04 AM EDT [place] [address] Ultrasound Report Signed Patient: Buck Rader MR#: [id number] : 1965 Acct:[id number] Age/Sex: 59 / F ADM Date: 03/14/25 Loc: HO.US Attending Dr: Rosa HONEYCUTT Ordering Physician: Rosa Emanuel Date of Service: 03/14/25 Procedure(s): US renal BI Accession Number(s): [id number] cc: Katie Douglas MD; Rosa Emanuel Reason for Exam: [...] signed by Antonio Peralta MD in OV> 03/14/25 1058 DD/ 1015 TD/TT: 03/14/25 1020 Chain Saw Mechanic: Procedure Note Donotuseinterpreter, Image - 03/14/2025 [place] [address] Ultrasound Report Signed Patient: Buck Rader DMR#: [id number] : 1965Acct:[id number] Age/Sex: 59 / FADM Date: 03/14/25 Loc: HO.US Attending Dr: Rosa HONEYCUTT Ordering Physician: Rosa Emanuel Date of Service: 03/14/25 Procedure(s): US renal BI Accession Number(s): [id number] cc: Katie Douglas MD; Rosa Emanuel Reason for Exam: [...] Antonio Nick MD 03/14/2025 10:58 AM EDT RP Dictated By: Antonio Ramirez MD Signed By: <Electronically signed by Antonio Peralta MDin OV> 03/14/25 1058 DD/ 1015 TD/TT: 03/14/25 1020 Chain Saw Mechanic: [facility] External Provider IMG US PROCEDURES Edited Result - Final documented in this encounter Visit Diagnoses Not on filedocumented in this encounter Additional Health Concerns Assessment Noted Time PHQ-9 Depression Total Score: 8 02/12/20 24 10:40 AM EDT documented as of this encounter Care Teams Early Head Start Teacher Relationship Specialty Start Date End Date Katie Douglas MD [address] [place] [address] PCP - General Family Medicine 09/18/16 Kyrie Flannery, JIM [address] [place] [address] Tool Room SupervisorSet Designer 08/20/24 documented as of this encounter
--- OUTSIDE RECORDS SUMMARY | 2025-03-14 12:20 | XMS_ITS | Encounter Summary ---
Author Organization [employer] Address [address] [facility] 7t [place] [address] Care Team Providers Care Director Trust Name Role Phone Katie Douglas MD Primary Care Provider + Kyrie Flannery RN Unavailable [phone] Reason for Visit * Reason Onset Date Comments unable to post insurance 09/16/2024 Encounter Details Date Type Department Care Team (Late st Contact Info) Description 09/16/2024 Refill [facility] [address] [place] [address] Arsh Cortes DDS [address] [place] [address] Social History Tobacco Use Types Packs/Day Years [...] * Telephone Encounter - Jaqui Banks - 09/23/2024 8:06 AM EDT Patient is coming for emergency dental appt at 1pm. Unable to post insurance portal not running on PAR side DR * Telephone Encounter - Donald Duvall DMD [...] as of this encounter Care Teams Director Trust Relationship Specialty Start Date End Date Katie Douglas MD [address] [place] [address] PCP - General Family Medicine 09/18/16 Kyrie Flannery, RN [address] [place] [address] [place] [address] Rn CardiovascularBreaker Layer 08/20/24 documented as of this encounter
--- OUTSIDE RECORDS SUMMARY | 2025-03-14 12:20 | XMS_ITS | Encounter Summary ---
Author Organization [employer] [facility] Address [address] [facility] 7t [place] [address] Care Team Providers Care Multi Mission Helicopter Aircrewman Name Role Phone Katie Douglas MD Primary Care Provider + Kyrie Flannery RN Unavailable [phone] Encounter Details Date Type Department Care Team (Latest Contact Info) Description 04/24/2020 Abstract [facility] CONVERSIONS Dental, Provider, DDS Social [...] on filedocumented in this encounter Care Teams Multi Mission Helicopter Aircrewman Relationship Specialty Start Date End Date Katie Douglas MD [address] [place] [address] PCP - General Family Medicine 09/18/16 Kyrie Flannery, RN [address] [place] [address] Tuber HelperNuclear Physics Teacher 08/20/24 documented as of this encounter
--- OUTSIDE RECORDS SUMMARY | 2025-03-14 12:21 | XMS_ITS | Encounter Summary ---
Author Organization [employer] [facility] Address [address] [facility] 7t [place] [address] Care Team Providers Care Looper Fixer Name Role Phone Katie Douglas MD Primary Care Provider + Kyrie Flannery RN Unavailable [phone] Encounter Details Date Type Department Care Team ([facility] st Contact Info) Description 04/02/2023 Abstract [facility] [address] [place], [place] [phone] Rozina Gama Social History Tobacco Use Types [...] documented as of this encounter Care Teams Looper Fixer Relationship Specialty Start Date End Date Katie Douglas MD [address] [place] [address] PCP - General Family Medicine 09/18/16 Kyrie Flannery, JIM [address] [place] [phone] Communications Department ChairProfessor Of Education 08/20/24 documented as of this encounter
--- OUTSIDE RECORDS SUMMARY | 2025-03-14 12:21 | XMS_ITS | Encounter Summary ---
Author Organization [employer] Address [address] [facility] [address] 7t [place] [address] Care Team Providers Care Supervisor Abattoir Name Role Phone Katie Douglas MD Primary Care Provider + Kyrie Flannery RN Unavailable Encounter Details Date Type Department Care Team ([facility] st Contact Info) Description 09/03/2022 Orders Only [facility] PEDS [address] [place], [place] [phone] Henrietta Newell LPN Social History Tobacco Use [...] on filedocumented in this encounter Care Teams Supervisor Abattoir Relationship Specialty Start Date End Date Katie Douglas MD [address] [place] [phone] PCP - General Family Medicine 09/18/16 Kyrie Flannery, RN [address] [place] [address] [place] [address] Behavior InterventionistLithographic Plate Maker Apprentice 08/20/24 documented as of this encounter
--- OUTSIDE RECORDS SUMMARY | 2025-03-14 12:21 | XMS_ITS | Encounter Summary ---
Author Organization [facility] Address [address] [facility] 7[address] [place] [address] Care Team Providers Care Entry Level Chemist Name Role Phone Katie Douglas MD Primary Care Provider + Kyrie Flannery RN Unavailable [phone] Encounter Details Date Type Department Care Team ([facility] st Contact Info) Description 10/29/2022 Abstract [facility] MED[facility] [address], [place] [phone] Sandra Ospina RN [address] [place], [place] [phone] Social History Tobacco Use Types Packs/Day Years [...] MAINTENANCE Final Result * Pap Smear (03/01/2020) HM Pap smear ASCUS'HPV Narrative Sandra Ospina RN - 03/01/2020 Followed by GEOLOGICAL ENGINEERING TEACHER ONC, 06/16/20 s/p CKC/ECC Historical Provider HEALTH MAINTENANCE Edited Result - Final * Colonoscopy (03/17/2018) Colonoscopy Normal Normal Historical Provider HEALTH MAINTENANCE Edited Result - Final documented in this encounter Visit Diagnoses Not on filedocumented in this encounter Care Teams Entry Level Chemist Relationship Specialty Start Date End Date Katie Douglas MD [address] [place] [id number] PCP - General Family Medicine 09/18/16 Kyrie Flannery RN [address] [place] [id number] Embossing Calender OperatorBlanker Operator 08/20/24 documented as of this encounter
== END 2025-03-14 09:57 | disposition home or self-care (01) ==
LOC: HO.US 09:56
PROVIDERS: PCP Internal Medicine; Visit Provider Nurse Practitioner Family
DX: N20.0 Calculus of kidney (principal)
CPT/HCPCS: 76775

== ENCOUNTER → 2025-03-14 09:57 | Outpatient (BNV) | payer MEDICAID, SELFPAY | PROVIDERS: PCP Internal Medicine; Visit Provider Radiology Diagnostic Radiology | DX: N20.0 Calculus of kidney (principal) | CPT/HCPCS: 76775 ==

== ENCOUNTER 2025-05-11 11:50 | Outpatient (AMB) | payer MEDICAID, SELFPAY ==
--- OUTSIDE RECORDS SUMMARY | 2025-05-10 10:00 | XMS_ITS | Encounter Summary ---
Author Organization [facility] Address [address] [facility] [address] [place] [address] Care Team Providers Care Dock Loader Name Role Phone Katie Douglas MD Primary Care Provider + Kyrie Flannery RN Unavailable [phone] Reason for Visit * Reason Comments Extraction Ext on tooth# 18 Encounter Details Date Type Department Care Team ([facility] st Contact Info) Description 05/10/2025 10:00 AM EST Office Visit [facility] ADULT DENTAL [address] [place] [address] Arsh Cortes DDS [address] [place] [address] Pain, dental (Primary Dx); Periodontal disease Social History Tobacco Use Types Packs/Day Years Used Date Smoking Tobacco: Never Passive Smoke Exposure: Never Smokeless Tobacco: Never Alcohol Use Standard Drinks/Week Comments Never 0 (1 standard drink = 0.6 oz pur e alcohol) Depression Answer Date Recorded Patient Health Questionnaire-9 Score 5 03/18/2025 Patient Health Questionnaire-9 Score 5 03/18/2025 Last PHQ-9: Questionnaire Data Not on file 0 03/18/2025 Housing Stability Answer Date Recorded What is your housing situation today? I have emiliano lisa 01/29/[address] you li [...] Date Recorded Patient Health Questionnaire-2 Score 1 03/18/2025 Internet Access Answer Date Recorded Internet Access [...] Sign Reading Time Taken Comments Blood Pressure 132/74 05/10/2025 9:57 AM EST Pulse - - Temperature - - Respiratory Rate - - Oxygen Saturation - - Inhaled Oxygen Concentration - - Weight - - Height - - Body Mass Index - - documented in this encounter Progress Notes * Arsh Cortes DDS - 05/10/2025 10:00 AM EST Patient ID: Buck Brown is a 60 y.o. female. Time Out: Timeout Date: 05/10/25, Timeout Time: 953 (ext on tooth#28) Location: [facility] Tooth: Mandible Procedure: Extraction and Dentures Verified the above with patient, engineering inspection assistant, and provider. Confirmed via patient's chart, intraorally and by radiographs. Special Tester: not applicable Chief Complaint Patient presents with Extraction Ext on tooth# 18 Medical Hx: Vitals: Blood pressure 132/74. Medical History[1] Medications: Encounter Medications[2] Consent Obtained: The risks, benefits, indications, potential complications, and alternatives were explained to the patient and informed consent was obtained with good understanding. Treatment Provided: Dental procedures in this visit D7140 - EXTRACTION, ERUPTED TOOTH OR EXPOSED ROOT (ELEVATION/FORCEPS REMOVAL) 28 (Completed) Service provider: Arsh Cortes DDS Billing provider: Arsh Cortes DDS [id number] - CASE PRESENTATION, DETAILED AND EXTENSIVE TREATMENT PLANNING (Completed) Service provider: Arsh Cortes DDS Billing provider: Arsh Cortes DDS Diagnosis: Dental pain, peridontal disease Topical: 20% Benzocaine Anesthesia: 2% Lidocaine (Xylocaine) w/ 1:100,000 epinephrine Number of Cartridges: 1 Injection Type: Mental nerve block and Intrapapillary injection Confirmed profound anesthesia. Pharyngeal curtain and bite block placed. Removed tooth with elevators and forceps. Apices intact. Surgical Extraction: Routine Socket curetted & irrigated with sterile water. Compressed alveolar bone. Sutures: None Needed All adjacent teeth intact. Hemostasis achieved. Complications: None. Pt tolerated procedure well . Pt states having analgesics at home Written and verbal post-op instructions given. Impression taken / sent to [facility] to add teeth to existing Patient discharged in stable condition; ambulatory, alert, and oriented. NV: Test Worker: Karoline Newell Dentist: Arsh Cortes DDS [1] Past Medical History: Diagnosis Date Achilles tendinosis 08/15/2022 Allergies seasonal allergies. Anxiety Asthma Bleeding gums Cervical intraepithelial neoplasia grade 2 11/03/2018 Depression [2] Outpatient Encounter Medications as of 05/10/2025 Medication Sig Dispense Refill ammonium lactate (Amlactin) 12 % cream Apply topically if needed for dry skin. 385 g 1 atorvastatin (Lipitor) 40 MG tablet Take 1 tablet (40 mg) by mouth at bedtime. 30 tablet 11 betamethasone valerate (Valisone) 0.1 % ointment Apply topically if needed in the morning and at bedtime (itchiness). 45 g 0 Bisacodyl EC 5 MG EC tablet TAKE FOUR TABLETS ONCE FOR 1 DAY PER COLONOSCOPY INSTRUCTIONS celecoxib (CeleBREX) 100 MG capsule TAKE 1 CAPSULE BY MOUTH TWICE A DAY 60 capsule 0 cetirizine (ZyrTEC) 10 MG tablet TOME NGHIA TABLETA TODOS LOS ALVAREZ 90 tablet 3 chlorhexidine (Peridex) 0.12 % solution Swish 15 mL morning and night for 1 minute. Spit, do not swallow. Do not eat or drink for 30 minutes following use. 473 mL 0 cyclobenzaprine (Flexeril) 10 MG tablet Take 1 tablet (10 mg) by mouth at bedtime for 10 days. 10 tablet 0 Diclofenac Sodium 1 % gel APPLY 1 INCH TOPICALLY IN THE MORNING AND AT BEDTIME NEEDED FOR PAIN 100 g 1 FLUoxetine (PROzac) 20 MG capsule TOME NGHIA C PSULA TODOS LOS D EN LA DARYN MOSQUEDA GaviLAX 17 GM/SCOOP powder DISSOLVE IN APPROPRIATE LIQUID 238 GRAMS AND TAKE ORALLY PER COLONOSCOPYPREP INSTRUCTIONS Ketotifen Fumarate 0.035 % solution Administer 1 drop into both eyes if needed in the morning, at noon, and at bedtime (allergy). ADMINISTER 1 DROP INTO THE AFFECTED EYE(S) THREE TIMES DAILY 10 mL 1 liver oil-zinc oxide (Desitin) 40 % ointment Apply topically if needed in the morning and at bedtime for irritation. 56 g 0 meclizine (Antivert) 12.5 MG tablet TOME NGHIA TABLETA PHONG VECES AL D A CUANDO SEA NECESARIO 30 tablet 3 Ventolin HFA 108 (90 Base) MCG/ACT inhaler INHALE DANDO DOS SOPLIDOS POR VIA ORAL CADA CUATRO HORASCUANDO SEA NECESARIO PARA LA FALTA DE RESPIRACION OR PARA LA SIBILANCIA 18 g 1 No facility-administered encounter medications on file as of 05/10/2025. documented in this encounter Plan of Treatment Not on file documented as of this encounter Procedures Procedure Name Priority Date/Time Associated Diagnosis Comments 28 EXTRACTION, ERUPTED TOOTH OR EXPOSED ROOT (ELEVATION/FORCEPS REMOVAL) Routine 05/10/2025 10:00 AM EST CASE PRESENTATION, DETAILED AND EXTENSIVE TREATMENT PLANNING Routine 05/10/2025 10:00 AM EST documented in this encounter Visit Diagnoses Diagnosis Pain, dental- Primary Periodontal disease Unspecified gingival and periodontal disease documented in this encounter Additional Health Concerns Assessment Noted Time PHQ-9 Depression Total Score: 5 03/18/20 25 12:04 PM EDT documented as of this encounter Care Teams Dock Loader Relationship Specialty Start Date End Date Katie Douglas MD [address] [place] [address] PCP - General Family Medicine 09/18/16 Kyrie Flannery, JIM [address] [place] [id number] Can FeederChicken Hatchery Helper 08/20/24 Lila Leblanc Can FeederChicken Hatchery Helper 05/04/25 documented as of this encounter
--- NOTE | 2025-05-11 12:58 | MHC.OFFVIS ---
Intake Visit Reasons: 6m/US Intake Note: Patient is present for 6M/US Urology Medication:NONE Antibiotic Allergy:NONE Blood Thinner:NONE Career Education Teacher Required: No Career Education Teacher Services: Career Education Teacher Present Career Education Teacher [facility]: [facility] Allergies hydromorphone Allergy (Unknown, Verified 05/11/25 13:26) hives oxycodone (From PERCOCET) Allergy (Unknown, Verified 05/11/25 13:26) ITCHING zolpidem (From AMBIEN) Allergy (Unknown, Verified 05/11/25 13:26) ITCHING Medication List - Last Reconciled 05/11/25 by YOSSI Meyers- alprazolam 0.5 mg PO DAILY PRN atorvastatin 40 mg PO BEDTIME bisacodyl 5 mg PO ONCE 1 day cetirizine 10 mg PO DAILY cyclobenzaprine 10 mg PO TID PRN cyclobenzaprine 10 mg PO TID PRN fluticasone propionate 50 mcg/actuation 1 - 2 sprays intranasal DAILY PRN fluticasone propionate 110 mcg/actuation (Flovent HFA) 2 puffs inhalation BID hydrocortisone 2.5% 1 appl ID BEDTIME PRN ibuprofen 400 mg PO Q8-12H PRN ketotifen fumarate 0.025%(0.035%) 1 drp ophthalmic (eye) BID lidocaine 5% 1 patch topical DAILY lidocaine 5% 1 patch topical DAILY loperamide 2 mg PO Q6H PRN polyethylene glycol 3350 (Miralax) 238 grams PO ONCE prednisone 40 mg (2 x 20 mg) PO DAILY 3 days HPI Comments Details: Divine is a pleasant 60 year old Maori speaking female patient of Dr. Yeung. She has a past medical history of asthma, depression, anxiety, and AFSHAN III with dysplasia. She presents to the office today for follow-up of her nephrolithiasis as well as microscopic hematuria. In discussion with the patient today she denies having had any bothersome urological issues or concerns since her last office visit here. She does report her ongoing issues of lumbar discomfort. Most recent renal imaging results reviewed with the patient today. Bilateral kidneys with no nephrolithiasis, lesions, and or hydronephrosis per radiology report. In office urinalysis results reviewed with the patient today 1+ microscopic hematuria otherwise within normal limits. Previous urine cytologies are as follows: 03/23 & 09/21 Negative for high-grade urothelial carcinoma. She denies any previous history of nicotine dependence and or workplace chemical exposure. When asked she denies any bothersome urinary issues or concerns. She denies urinary urgency, urinary frequency, incontinence, nocturia, hematuria, dysuria, foul smelling urine, changes to urinary stream, flank pain, fever, and or chills. She is happy with her current voiding parameters. I discussed reasons for blood in the urine may include but are not limited to kidney stones, cancer in the urinary tract, kidney stone disease or inflammatory conditions of the urinary tract. I have discussed workup to include cystoscopy evaluation. She otherwise offers no other issues or concerns at this time. 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 Asthma Depression Anxiety Surgical History Hx of cholecystectomy History of bilateral tubal ligation Family History Mother Epilepsy Mental health disorder Social History Household Members: Spouse Housing: Apartment Alcohol intake: never Patient Tobacco Use Status: Never used Tobacco Current occupational status: disabled Sexual orientation: Straight/Heterosexual Gender identity: Female Review of Systems Const Reports no additional complaints Eyes Reports no additional complaints ENT Reports no additional complaints Card Reports no additional complaints Resp Reports no additional complaints GI Reports as per HPI Reports as per HPI Musc Reports as per HPI Neuro Reports no additional complaints Psych Reports no additional complaints Endo Reports no additional complaints Physical Exam Const General: cooperative, healthy appearing, comfortable, no acute distress, well developed, alert and awake Nutritional Appearance: overweight Orientation/consciousness: patient oriented x3 Limitations: language barrier HEENT Head: Yes normal to inspection, Yes normocephalic and Yes atraumatic Ears: hearing grossly normal bilaterally Eyes General: appearance normal, both eyes and all related structures Neck Neck: Yes normal visual inspection and Yes trachea midline Chest Chest palpation & inspection: normal inspection of the chest Resp Effort & Inspection: normal respiratory effort and able to speak in complete sentences Cardio Rate: regular rate GI Inspection: Yes normal to inspection General: Yes no CVA tenderness Back/Spine/Pelvis Back: no CVA tenderness Skin General skin exam: no rashes or lesions noted Neuro General: patient oriented x3 Extrem General: Yes normal to inspection Psych Appearance: grossly normal and well kempt Mental Status: mental status grossly normal Speech and movement: Normal speech and movement present and Clear speech present Affect: normal affect Attitude: cooperative Thought process: Normal thought process present Thought content: Normal thought content present Insight: Fair insight present (Psych) Judgement: Fair judgement present (Psych) Results Reviewed Results Reviewed: Date of Service: 03/14/25 Procedure(s): US renal BI FINDINGS: RIGHT KIDNEY: 10 x 4 x 5 cm (SAG x AP x TRV). Normal echotexture. Normal renal cortical thickness. No hydronephrosis. No gross solid or cystic lesions. LEFT KIDNEY: 11 x 5 x 5 cm (SAG x AP x TRV). Normal echotexture. Normal renal cortical thickness. No hydronephrosis. No gross solid or cystic lesion. IMPRESSION: No hydronephrosis or nephrolithiasis. Normal exam.. Assessment & Plan Assessment & Plan (1) Microscopic hematuria: Code(s): R31.29 - Other microscopic hematuria Category: Medical (2) Nephrolithiasis: Code(s): N20.0 - Calculus of kidney Category: Medical Plan In office urinalysis results reviewed with the patient today; as noted above. Previous urine cytology results reviewed with the patient today; as noted above. Most recent renal imaging results reviewed with the patient today; as noted above. All questions were answered. She currently denies any bothersome urinary issues or concerns. She reports be happy with current voiding parameters. We did discussed the importance of adequate hydration relation to nephrolithiasis as well as overall health and well-being. Will obtain renal ultrasound in 1 We discussed potential causes of microscopic hematuria as well as further workup to include in office cystoscopy however will continue with surveillance monitoring per patient request. Follow-up in 1 year with imaging to be completed prior; or sooner with any issues, concerns, and or questions Orders: Orders Urine Cytology Today R31.29 - Other microscopic hematuria AMB Urinalysis Automated Today Z13.9 - Encounter for screening, unspecified US renal BI 1 Year N20.0 - Calculus of kidney Patient Instructions: The patient had an opportunity to ask questions regarding the treatment plan. All questions were answered. Physical exam, labs, and imaging were discussed and reviewed in detail. As well as risks, benefits, and discussion of treatment choices. No major barriers to understanding were identified. The patient expressed understanding and agreement with the above treatment plan. The patient was made aware they should contact our office by phone for worsening of their current condition, the appearance of new symptoms, or with any questions or concerns. Compliance is encouraged with any medications and follow up testing that is ordered. It is a privilege to be allowed the opportunity to participate in? your urological care.? Again, if you have any questions or concerns If you have any questions or concerns please do not hesitate to contact me. The office is [phone]. This note is constructed using voice recognition software. While every effort has been made to ensure accuracy hoop riveting machine operator helper errors may have been included. Yours sincerely, TANGELA Meyers Coding Level of Care Code Est Pt Level 3 (89141) Complex EM visit Add On G2211 Diagnoses Microscopic hematuria R31.29 Nephrolithiasis N20.0
--- OUTSIDE RECORDS SUMMARY | 2025-05-11 14:43 | XMS_ITS | Clinical Summary ---
Author Organization [employer] Address [address] [facility] 7t [place] [address] Care Team Providers Care Grants Analyst Name Role Phone Panda Wallace MD Primary Care Provider + Kyrie Flannery RN Unavailable [phone] Allergies Active Allergy Reactions Criticality Noted Date [...] 25 Active betamethasone valerate (Valisone) 0.1 % ointmentIndica tions:Allergic conjunctivitis , unspecified laterality Apply topically if needed in the morning and at bedtime (itchiness). 45 g 11/02/19 25 Active cyclobenzaprin e (Flexeril) 10 MG tablet Take 1 tablet (10 mg) by mouth at bedtime for 10 days. 10 tablet 03/18/20 25 Active Ventolin HFA 108 (90 Base) MCG/ACT inhalerIndicat ions:Moderate persistent asthma, unspecified whether complicated INHALE DANDO DOS SOPLIDOS POR VIA ORAL CADA CUATRO HORAS CUANDO SEA NECESARIO PARA LA FALTA DE RESPIRACION OR PARA LA SIBILANCIA 18 g 1 03/30/20 25 Active Bisacodyl EC 5 MG EC tablet TAKE FOUR TABLETS ONCE FOR 1 DAY PER COLONOSCOPY INSTRUCTIONS 12/09/19 25 Active GaviLAX 17 GM/SCOOP powder DISSOLVE IN APPROPRIATE LIQUID 238 GRAMS AND TAKE ORALLY PER COLONOSCOPY PREP INSTRUCTIONS 12/09/19 25 Active celecoxib (CeleBREX) 100 MG capsule TAKE 1 CAPSULE BY MOUTH TWICE A DAY 60 capsule 04/15/20 25 Active Diclofenac Sodium 1 % gel APPLY 1 INCH TOPICALLY IN THE MORNING AND AT BEDTIME NEEDED FOR PAIN 100 g 1 04/15/20 25 Active celecoxib (CeleBREX) 100 MG capsule Take 1 capsule (100 mg) by mouth 2 times daily. 60 capsule 03/18/20 25 025 Discontinued Diclofenac Sodium 1 % gel Apply 1 inch topically if needed in the morning and at bedtime (pain). 60 g 03/18/20 25 025 Discontinued Active Problems Problem Noted Date Diagnosed Date Dental calculus 04/06/2025 Pain, dental 12/28/2024 History of tooth extraction 11/09/2024 Dental [...] to continue reading daily and enroll on [place] or reading classes at [facility] so that some specific learning limitation can be evaluated. She will follow-up with [facility] regarding drivers license Pruritus ani [...] recommended she be tested for Pinworm. Contacted [facility] who confirmed they had the stiicky pads for testing and pt was instructed to orange picker the supplies at [facility] and if the front line supervisor staff was confused to ask them to [...] PCP Dental abscess 09/24/2023 Periodontal disease 09/02/2023 Gingival bleeding 08/25/2023 Missing teeth, acquired 08/25/2023 [...] to date, next one due 2023 by MOUTHPIECE MAKER Mammogram Up to date, next one due 2023 Eye exam Up to date, next one due 2024 CRC screen Up to date. Next one due on 02/2028 Lipids/FBS To be ordered Vaccinations Influenza iz today. Counseled about COVID + Booster and Zoster. Other iz up to date. Obtain hepatitis profile. Dental visit Overdue, staff counselor to make an appt at [facility] or one of the other closest dental clinics. Candidiasis of perineum 06/12/2023 Assessment & Plan (06/12/2023 11:11 AM EST): Use Lotrisone cream BID F/u with me in 3-6 weeks Screen for STD (sexually transmitted disease) Assessment & Plan (06/12/2023 2:13 PM EST): Patient is in a monogamous relationship, interested on STD testing Vitamin D deficiency 08/15/2022 Tired 08/15/2022 Spasm of muscle of lower back 08/15/2022 Overview (03/18/2025): x-ray on 02/09/2025 with evidence of multilevel OA of the lumbar spine and levoscoliosis. Assessment & Plan (03/18/2025 6:16 PM EDT): X-rays of the spine showed multilevel OA of L spine and levoscoliosis. Symptoms are not improving with PT, not interested in epidural injections at this time. Will take Celebrex 100 mg twice daily and Tylenol as needed breakthrough pain + Flexeril nightly + diclofenac gel twice daily Advised regarding the stretching exercises at home and to contact puncture clinic Agreed to be referred to our in-house chronic pain management program Assessment & Plan (12/10/2024 4:23 PM EDT): [...] Bilateral Achilles tendonosis 08/15/2022 Assessment & Plan (04/05/2025 4:10 PM EDT): Pt attended and participated in chronic pain group today - good engagement with group model of care - continue to use combination of non-pharmacological modalities to address pain - followup in 2 weeks for next session Assessment & Plan (04/04/2025 8:59 AM EDT): Pt attended and participated in chronic pain group today - good engagement with group model of care - continue to use combination of non-pharmacological modalities to address pain - followup in 1-2 weeks for next session Assessment & Plan (03/18/2025 6:15 PM EDT): Continue to follow-up with orthopedics Assessment & Plan (03/18/2025 6:13 PM EDT): >>ASSESSMENT AND PLAN FOR HEEL PAIN, BILATERAL WRITTEN ON 06/14/2024 2:39 PM BY PANDA WALLACE MD Right side is resolved sp steroid inj. Advised to use Mositurizing cream on left side to treat heel skin cracks _ use heel pad for pain and fu w me in 6w. Assessment & Plan (02/12/2024 2:22 PM EDT): [...] EST): Will send refill for allergy medications. Encounter for colorectal cancer screening 2022 Assessment [...] Problem Noted Date Diagnosed Date Resolved Date Dental calculus 08/25/2023 04/04/2025 Sprain of calcaneofibular ligament 08/15/2022 03/18/2025 Biliary calculus 08/15/2022 09/20/2024 Gastroenteritis 08/15/2022 04/04/2025 Assessment & Plan (08/15/2022 12:28 PM EST): Resolving with imodium PRN from ED. Discussed with patient about hydration and BRAT diet, advance as tolerated. Will request CT scan and FU PRN. Cervical intraepithelial neoplasia grade 2 11/03/2018 02/12/2024 Assessment & Plan (08/11/2023 2:04 PM EST): FU PAP next week FU w/MOUTHPIECE MAKER Acute serous otitis media 01/02/2017 Encounters Date Type Department Care Team Description 05/10/2025 10:00 AM EST Office Visit [facility] AD[facility] D[facility] [address] [place] [address] Arsh Cortes DDS Pain, dental (Primary Dx); Periodontal disease 05/04/2025 Telephone [facility] MED & PEDS [address] [place], [place] [phone] Panda Wallace MD Care Coordination (ICP Care Plan) 04/15/2025 Refill [facility] MED[facility]INE [address] [place] [address] Panda Wallace MD 04/06/2025 8:00 AM EDT Office Visit [facility] [address] [place] [phone] Bessie Carrillo Periodontal disease (Primary Dx); Dental calculus; Missing teeth, acquired 04/04/2025 11:00 AM EDT Office Visit [address] [address] Carina Arreola MD Bilateral Achilles tendonosis (Primary Dx); Spasm of muscle of lower back 04/04/2025 Travel 03/30/[address] [address] Henrietta Heard DO Moderate persistent asthma, unspecified whether complicated 03/28/2025 11:45 AM EDT Office Visit [address] [address] Carina Arreola MD Spasm of muscle of lower back (Primary Dx); Dietary counseling; Exercise counseling; Class 1 obesity without serious comorbidity with body mass index (BMI) of 33.0 to 33.9 in adult, unspecified obesity type; Bilateral Achilles tendonosis 03/28/2025 Travel 03/21/[address] [address] Panda Wallace MD appt referall 03/18/2025 12:00 PM EDT Telemedicine [address] [address] Panda Wallace MD Spasm of muscle of lower back (Primary Dx); Bilateral Achilles tendonosis 03/18/2025 Travel 03/17/[address] [address] Panda Wallace MD CHART PREP 03/17/[address] [address] Panda Wallace MD Nurse Triage 03/14/2025 Orders Only [facility] External Provider, [facility] 02/09/2025 Orders Only [facility] External Provider, [facility] 02/08/2025 Refill [address] [place] [address] Panda Wallace MD Moderate persistent asthma, unspecified whether complicated from Last 3 Months Immunizations Immunization Administration Dates Next Due Hep B, adult 06/27/2010,11/03/2009,10/05/2009 Influenza injectable quadriv alent IIV4 with preservative 08/15/2022 Influenza injectable quadriv alent preservative free 06/12/2023,07/31/2021,05/10/2020,2016 Influenza, IIV3, injectable 03/28/2014, 1 Influenza, Injectable, MDCK, preservative free 06/26/2024 Influenza, Split (incl. gabriela fied surface antigen) [...] Pressure 132/74 05/10/2025 9:57 AM EST Pulse 70 01/21/2025 10:54 AM EDT Temperature [...] 1967 FIT 1967 FOBT 1967 Sigmoidoscopy 1967 RSV Patients and Patients Aged 60 years or older (1 - Risk 50-74 years 1-dose series) 2017 Dental Prophylaxis 02/24/2024 08/25/2023, 0 02/18/2022, 08/27/2021, Additional history exists Cervical Cancer Screening 02/16/2025 HPV/Cotest 02/16/2025 01/29/2024, 10/28, 07/16/2021, Additional history exists Pap Smear 02/16/2025 01/29/2024, 10/28, 07/16/2021, Additional history exists COVID-19 Vaccine ( season) 2025 07/18/2022, 06/05/2021, 09/13/2020 Influenza Vaccine (#1) 2025 , 06/12/2023, 08/15/2022, Additional history exists SDOH Screening 08/10/2025 08/10/2024 Mammogram 08/26/2025 08/26/2024, 08/01, 08/16/2022, Additional history exists Dental Oral Exam 10/06/2025 04/06/2025, 10/2023, 08/27/2021, Additional history exists Alcohol/Substance Use Screening 01/21/2026 01/21/2025 Disability Screening 01/21/2026 01/21/2025 Depression Screening 03/18/2026 03/18/2025, 03/18/20 Dental X-Ray: Bitewings 04/07/2026 04/06/20 25, 09/23/2024, 08/25/2023, Additional history exists DTaP/Tdap/Td Vaccines (3 - Td or Tdap) 05/05/2026 05/05/2016, 04/19/2013, 02/06/2006 Tobacco Screening 05/10/2026 05/10/2025 Colonoscopy 03/17/2028 03/17/2018 Colorectal Cancer Screening 03/17/2028 Dental X-Ray: Full Mouth 04/07/2028 025, 09/19/2020, 03/19/2019, Additional history exists Lipid Panel 07/12/2029 07/12/2024, 05/31, 11/23/2021, Additional history exists Hepatitis B Vaccines Completed 06/27/2010, 11/03/2009, 10/05/2009 [...] Procedure Name Priority Date/Time Associated Diagnosis Comments CASE PRESENTATION, DETAILED AND EXTENSIVE TREATMENT PLANNING Routine 05/10/2025 10:00 AM EST 28 EXTRACTION, ERUPTED TOOTH OR EXPOSED ROOT (ELEVATION/FORCEPS REMOVAL) Routine 05/10/2025 10:00 AM EST PERIODIC ORAL EVALUATION - ESTABLISHED PATIENT Routine 04/06/2025 8:00 AM EDT CASE PRESENTATION, DETAILED AND EXTENSIVE TREATMENT PLANNING Routine 04/06/2025 8:00 AM EDT INTRAORAL - COMPLETE SERIES OF RADIOGRAPHIC IMAGES Routine 04/06/2025 8:00 AM EDT Periodontal disease Dental calculus Missing teeth, acquired US RENAL COMPLETE Routine 03/14/2025 10:15 AM EDT XR LUMBAR SPINE 2-3 VIEWS Routine 02/09/2025 10:44 AM EDT BI MAMMOGRAM SCREENING TOMOSYNTHESIS BILATERAL Routine 08/26/2024 2:40 PM EST LIPID PANEL WITH REFLEX TO DIRECT LDL Routine 07/12/2024 9:01 AM EST Pure hypercholesterolemia HM PAP/HPV Routine 01/29/2024 Full PROPHYLAXIS - ADULT Routine 08/25/2023 11:00 AM EST HEPATITIS PANEL, GENERAL Routine 06/18/2023 9:52 AM EST Encounter for preventive health examination Screen for STD (sexually transmitted disease) HIV 1/2 ANTIGEN/ANTIBODY, FOURTH GENERATION W/RFL Routine 06/18/2023 9:52 AM EST Encounter for preventive health examination Screen for STD (sexually transmitted disease) COLONOSCOPY Routine 03/17/2018 from Last 3 Months or Most Recently Relevant to Health Maintenance Results * US Renal Complete (03/14/2025 10:15 AM EDT) Anatomical Region Laterality Modality Kidney Ultrasound 03/14/2025 10:1 5 AM EDT Narrative 03/14/2025 11:04 AM EDT [place] [address] Ultrasound Report Signed Patient: Buck Rader MR#: [id number] : 1965 Acct:[id number] Age/Sex: 59 / F ADM Date: 03/14/25 Loc: HO.US Attending Dr: Rosa HONEYCUTT Ordering Physician: Rosa Emanuel Date of Service: 03/14/25 Procedure(s): US renal BI Accession Number(s): [id number] cc: Panda Wallace MD; Rosa Emanuel Reason for Exam: N20.0 [...] 03/14/25 1058 DD/ 1015 TD/TT: 03/14/25 1020 House Registry Rn: Procedure Note Donotuseinterpreter, Image - 03/14/2025 [place] [address] Ultrasound Report Signed Patient: Buck Rader DMR#: [id number] : 1965Acct:[id number] Age/Sex: 59 / FADM Date: 03/14/25 Loc: HO.US Attending Dr: Rosa HONEYCUTT Ordering Physician: Rosa Emanuel Date of Service: 03/14/25 Procedure(s): US renal BI Accession Number(s): [id number] cc: Panda Wallace MD; Rosa Emanuel Reason for Exam: N20.0 [...] 03/14/25 1058 DD/ 1015 TD/TT: 03/14/25 1020 House Registry Rn: us [facility] External Provider IMG US PROCEDURES Edited Result - Final * XR Lumbar Spine 2-3 Views (02/09/2025 10:44 AM EDT) Anatomical Region Laterality Modality Spine, L-spine Radiographic Iwona ging 02/09/2025 10:4 4 AM EDT Narrative 02/09/2025 12:15 PM EDT [address] [address] XRay Report Signed Patient: Buck Rader MR#: [id number] : 1965 Acct:[id number] Age/Sex: 59 / F ADM Date: 02/09/25 Loc: HO.ED Attending Dr: Ordering Physician: Opal Nelson NP Date of Service: 02/09/25 Procedure(s): XR lumbar spine 2-3V Accession Number(s): [id number] cc: Panda aWllace MD; Opal Nelson NP EXAMINATION: XR LUMBOSACRAL [...] 02/09/25 1212 DD/ 1044 TD/TT: 02/09/25 1144 House Registry Rn: Procedure Note Donotuseinterpreter, Image - 02/09/[address] [place] [address] XRay Report Signed Patient: Buck Rader DMR#: [id number] : 1965Acct:[id number] Age/Sex: 59 / FADM Date: 02/09/25 Loc: HO.ED Attending Dr: Ordering Physician: Opal Nelson NP Date of Service: 02/09/25 Procedure(s): XR lumbar spine 2-3V Accession Number(s): [id number] cc: Panda Wallace MD; Opal Nelson NP EXAMINATION: XR LUMBOSACRAL [...] 02/09/25 1212 DD/ 1044 TD/TT: 02/09/25 1144 House Registry Rn: [facility] External Provider IMG XR PROCEDURES Final Result * BI Mammogram Screening Tomosynthesis Bilateral (08/26/2024 2:40 PM EST) Anatomical Region Laterality Modality Breast Bilateral Mammography 08/26/2024 2:40 PM EST Narrative 08/30/2024 3:17 PM EST [facility] [address] [place] [address] Mammography Report Signed Patient: Buck Rader D MR#: [id number] : 1965 Acct:[id number] Age/Sex: 59 / F ADM Date: 08/26/24 Loc: HO.MAMMO Attending Dr: Panda Wallace MD Ordering Physician: Panda Wallace MD Results: 1Ne gatmarjorie Date of Service: 08/26/24 Follow Up: 1 Year From Orig ina Mammogram Procedure(s): MM tomosynthesis screening BI Accession Number(s): [id number] cc: Panda Wallace MD EXAMINATION: MM SCREENING DIGITAL BREAST TOMOSYNTHESIS, [...] by: Kayla Wilde DO 08/30/2024 03:14 PM [facility] Dictated By: Kayla Wilde DO Signed By: <Electronically signed by Kayla Wilde DO in OV> 08/30/24 1514 DD/ 1440 TD/TT: 08/26/24 1500 House Registry Rn: Procedure Note Donotuseinterpreter, Image - 08/30/[facility] [address] [place], [place] [address] Mammography Report Signed Patient: Buck Rader [facility]#: [id number] : 1965Acct:[id number] Age/Sex: 59 / FADM Date: 08/26/24 Loc: MAMMO Attending Dr: Panda Wallace MD Ordering Physician: Panda Wallace MDResults: 1Ne gative Date of Service: 08/26/24Follow Up: 1 Year From [facility] ina Mammogram Procedure(s): MM tomosynthesis screening BI Accession Number(s): [id number] cc: Panda Wallace MD EXAMINATION: MM SCREENING DIGITAL BREAST TOMOSYNTHESIS, [...] 08/30/24 1514 DD/ 1440 TD/TT: 08/26/24 1500 House Registry Rn: Panda Wallace MD [facility] BI PROCEDURES Final Result * (ABNORMAL) Lipid Panel with Reflex to Direct LDL (07/12/2024 9:01 AM EST) Triglycerides 126 <150 mg/dL [facility] Comment:Desirable Triglyceri de: less than 150 mg/dLBorderline High Triglyceride 150-199 mg/dLHigh Triglyceride: 200-499 mg/dLVery High Triglyceride: greater than or equal to 5OO mg/dL Cholesterol 251(H) <200 mg/dL [facility] Comment:Desirable Cholestero l: less than 200 mg/dLBorderline High Cholesterol: 200-239 mg/dLHigh Cholesterol: greater than 239 mg/dL LDL Cholesterol Calculated 168(H) <100 mg/dL [facility] Comment:Desirable LDL: less than 100 mg/dLNear Optimal/Above Optimal LDL: 110- 129 mg/dLBorderline High LDL: 130-159 mg/dLHigh LDL: 160-189 mg/dLVery High LDL: greater than or equal to 190 mg/dL HDL Cholesterol 58 >40 mg/dL [facility] Comment:Desirable HDL: great er than 40 mg/dL Note: This HDL assay may give artificially low results in patients with liver disease. Blood 07/12/2024 9:01 AM EST 07/12/2024 10:59 AM EST Panda Wallace MD LAB BLOOD ORDERABLES Fin al Result [facility] [address] [place] [phone] * (ABNORMAL) HM PAP/HPV (01/29/2024) Pap Smear 4. LSIL(A) 1. NILM HPV Not Detected Undetected, Indeterminat e, Quantitative , Not Detected Historical Provider HEALTH MAINTENANCE Edited Result - Final * Hepatitis Panel, General (06/18/2023 9:52 AM EST) Hepatitis A IgM Nonreactive Nonreactive [facility] Comment:IgM antibodies to MALONE V not detected; does not exclude earlyacute or recovered HAV infection. ~Hepatitis B Surface Antibody REACTIVE Nonreactive [facility] Comment:REACTIVE: > 11.99 mI U/mL Hepatitis B Core Antibody Nonreactive Nonreactive [facility] Hepatitis C Antibody Nonreactive Nonreactive [facility] Comment:Antibodies to HCV no t detected; does not exclude early acuteHCV infection. Hepatitis B Surface Ag Negative Negative [facility] Blood 06/18/2023 9:5 2 AM EST 06/18/2023 1:03 PM EST Panda Wallace MD LAB BLOOD ORDERABLES Fin al Result Performing Organization Address [facility]/ZIP Co de Phone Number [facility] [address] [place] [address] [phone] * HIV-1/2 Antigen and Antibodies, Fourth Generation, with Reflexes (06/18/2023 9:52 AM EST) HIV AB/AG Nonreactive Nonreactive [facility] Comment:HIV-1 p24 Ag and/or HIV-1/HIV-2 Ab not detected.A test result that is nonreactive does not exclude thepossibility of exposure to or infection with HIV-1 and/orHIV-2. Nonreactive results in this assay for individualswith prior exposure to HIV-1 and/or HIV-2 may be due toantigen and antibody levels that are below the limit ofdetection of this assay.The Oyster HIV Ag/Ab Combo assay result andsupplemental assay results should be interpreted inconjunction with the patient's clinical presentation,history and other laboratory results. If the results areinconsistent with clinical evidence, additional testing issuggested to confirm the result. Blood Venous blood specimen / Unknown 06/18/2023 9:52 AM EST 06/18/2023 1:03 PM EST Panda Wallace MD LAB BLOOD ORDERABLES Fin al Result Performing Organization Address City/[facility]/ZIP Co de Phone Number [facility] [address] [place] [address] [phone] * Colonoscopy (03/17/2018) Colonoscopy Normal Normal Historical Provider HEALTH MAINTENANCE Edited Result - Final from Last 3 Months or Most Recently Relevant to Health Maintenance Insurance [facility] STAND ADULT Care Teams Grants Analyst Relationship Specialty Start Date End Date Panda Wallace MD [address] [place] [address] PCP - General Family Medicine 09/18/16 Kyrie Flannery, JIM [address] [place] [phone] Floor InstallerBalloon Design Printer 08/20/24 Lila Leblanc Floor InstallerBalloon Design Printer 05/04/25
--- OUTSIDE RECORDS SUMMARY | 2025-05-11 14:44 | XMS_ITS | Encounter Summary ---
Author Organization [employer] [facility] Address [address] [place] [address] 7 [place] [address] Care Team Providers Care Oil Program Compliance Specialist Name Role Phone Katie Douglas MD [...] on filedocumented in this encounter Care Teams Oil Program Compliance Specialist Relationship Specialty Start Date End Date Katie Douglas MD [address] [place] [address] PCP - General Family Medicine 09/18/16 Kyrie Flannery, JIM [address] [place] [phone] Educational InterpreterComputer Language Coder 08/20/24 Lila Leblanc Educational InterpreterComputer Language Coder 05/04/25 documented as of this encounter
--- OUTSIDE RECORDS SUMMARY | 2025-05-11 14:44 | XMS_ITS | Encounter Summary ---
Author Organization [employer] [facility] Address [address] [facility] 7t [place] [address] Care Team Providers Care Size Cutter Name Role Phone Katie Douglas MD Primary Care Provider + Kyrie Flannery RN Unavailable [phone] Encounter Details Date Type Department Care Team ([facility] st Contact Info) Description 04/02/2023 Abstract [facility] [address] [place], [place] [phone] Rozina Gama Social History Tobacco Use Types [...] documented as of this encounter Care Teams Size Cutter Relationship Specialty Start Date End Date Katie Douglas MD [address] [place] [address] PCP - General Family Medicine 09/18/16 Kyrie Flannery, JIM [address] [place] [phone] Dry Talc RackerPrefitter Doors 08/20/24 Lila Leblanc Dry Talc RackerPrefitter Doors 05/04/25 documented as of this encounter
--- OUTSIDE RECORDS SUMMARY | 2025-05-11 14:44 | XMS_ITS | Encounter Summary ---
Author Organization [employer] Address [address] [facility] [address] [place] [address] Care Team Providers Care Facilities Planner Name Role Phone Katie Douglas MD Primary Care Provider + Kyrie Flannery RN Unavailable [phone] Encounter Details Date Type Department Care Team ([facility] st Contact Info) Description 09/03/2022 Orders Only [facility] [address] [place], [place] [phone] Henrietta Newell LPN Social History Tobacco Use [...] on filedocumented in this encounter Care Teams Facilities Planner Relationship Specialty Start Date End Date Katie Douglas MD [address] [place] [phone] PCP - General Family Medicine 09/18/16 Kyrie Flannery, RN [address] [place] [address] [place] [address] Computer Science InstructorSpiral Winder 08/20/24 Lila Leblanc Computer Science InstructorSpiral Winder 05/04/25 documented as of this encounter
--- OUTSIDE RECORDS SUMMARY | 2025-05-11 14:44 | XMS_ITS | Encounter Summary ---
Author Organization [employer] Address [address] [facility] 7t [place] [address] Care Team Providers Care Printing Pressman Name Role Phone Katie Douglas MD Primary Care Provider + Kyrie Flannery RN Unavailable [phone] Reason for Visit * Reason Onset Date Comments pain from ext 02/09/2024 Encounter Details Date Type Department Care Team ([facility] st Contact Info) Description 02/09/2024 Telephone [facility] ADULT DENTAL [address] [place] [address] Arsh Cortes DDS [address] [place] [address] pain from ext Social History Tobacco Use [...] 10:40 AM EDT Ashanti Santillan MA * How difficult have these problems made it for you to do your work, take care of things at home, or get along with other people? Answer Date of Assessment Author Somewhat difficult 02/12/2024 10:40 AM EDT Ashanti Zeng MA * Over the last 2 weeks, how often have you been bothered by any of the following problems? Question Answer Date of Assessment Author Feeling nervous, anxious, or on edge 0 02/12/2024 10:41 AM MIKALT Ashanti Santillan MA Not being able to stop or co ntrol worrying 1 02/12/2024 10:41 AM MIKALT Ashanti Santillan MA Worrying too much about diff erent things 0 02/12/2024 10:41 AM MIKALT Ashanti Santillan MA Trouble relaxing 1 02/12/2024 10:41 AM MIKALT Ashanti Santillan MA Being so restless that it is [...] Elaine Fabian - 02/09/2024 8:26 AM EDT Good morn doc Patient had an extraction last week she [...] documented as of this encounter Care Teams Printing Pressman Relationship Specialty Start Date End Date Katie Douglas MD [address] [place] [address] PCP - General Family Medicine 09/18/16 Kyrie Flannery, JIM [address] [place] [address] Precast Concrete IronworkerContinuous Conveyor Screen Drier 08/20/24 Lila Leblanc Precast Concrete IronworkerContinuous Conveyor Screen Drier 05/04/25 documented as of this encounter
--- OUTSIDE RECORDS SUMMARY | 2025-05-11 14:44 | XMS_ITS | Encounter Summary ---
Author Organization [employer] [facility] Address [address] [place] [address] 7[address] [place] [address] Care Team Providers Care Cesspool Cleaner Name Role Phone Katie Douglas MD Primary Care Provider + Kyrie Flannery RN Unavailable [phone] Encounter Details Date Type Department Care [...] on filedocumented in this encounter Care Teams Cesspool Cleaner Relationship Specialty Start Date End Date Katie Douglas MD [address] [place] [address] PCP - General Family Medicine 09/18/16 Kyrie Flannery, RN [address] [place] [address] Program Medical DirectorDirector Of Content And Programming 08/20/24 Lila Leblanc Program Medical DirectorDirector Of Content And Programming 05/04/25 documented as of this encounter
--- OUTSIDE RECORDS SUMMARY | 2025-05-11 14:44 | XMS_ITS | Encounter Summary ---
Author Organization [facility] Address [address] [facility] 7t [place] [address] Care Team Providers Care Shake Loader Name Role Phone Katie Douglas MD Primary Care Provider + Kyrie Flannery RN Unavailable Encounter Details Date Type Department Care Team ([facility] st Contact Info) Description 10/29/[address] [facility] MED[facility] [address] [place], [place] [phone] Sandra Ospina RN [address] [place], [place] [phone] Social History Tobacco Use Types Packs/Day Years [...] Historical Provider HEALTH MAINTENANCE Final Result * Hm Pap Smear (03/01/2020) HM Pap smear [facility] Narrative Sandra Ospina RN - 03/01/2020 Followed by [facility], 06/16/20 s/p [facility] Historical Provider HEALTH MAINTENANCE Edited Result - Final * Colonoscopy (03/17/2018) Colonoscopy Normal Normal Historical Provider HEALTH MAINTENANCE Edited Result - Final documented in this encounter Visit Diagnoses Not on filedocumented in this encounter Care Teams Shake Loader Relationship Specialty Start Date End Date Katie Douglas MD [address] [place] [id number] PCP - General Family Medicine 09/18/16 Kyrie Flannery RN [address] [place] [address] Air Intelligence SpecialistResidential Support Specialist 08/20/24 Lila Leblanc Air Intelligence SpecialistResidential Support Specialist 05/04/25 documented as of this encounter
--- OUTSIDE RECORDS SUMMARY | 2025-05-11 14:44 | XMS_ITS | Encounter Summary ---
Author Organization [employer] Address [address] [facility] 7t [place] [address] Care Team Providers Care Director Dermatology Name Role Phone Katie Douglas MD Primary Care Provider + Kyrie Flannery RN Unavailable [phone] Reason for Visit * Reason Onset Date Comments unable to post insurance 09/16/2024 Encounter Details Date Type Department Care Team (Late st Contact Info) Description 09/16/2024 Refill [facility] ADULT DENTAL [address] [place] [address] Arsh Cortes DDS [address] [place] [address] Social History Tobacco Use Types Packs/Day Years [...] as of this encounter Care Teams Director Dermatology Relationship Specialty Start Date End Date Katei Douglas MD [address] [place] [id number] PCP - General Family Medicine 09/18/16 Kyrie Flannery, RN [address] [place] [address] [place] [address] Fha UnderwriterSenior Network Security Architect 08/20/24 Lila Leblanc Fha UnderwriterSenior Network Security Architect 05/04/25 documented as of this encounter
--- OUTSIDE RECORDS SUMMARY | 2025-05-11 14:44 | XMS_ITS | Encounter Summary ---
Author Organization [employer] Address [address] [facility] 7t [place] [address] Care Team Providers Care Parts Counter Associate Name Role Phone Katie Douglas MD Primary Care Provider + Kyrie Flannery RN Unavailable Encounter Details Date Type Department Care Team ([facility] Contact Info) Description 08/08/2022 Orders Only [facility] MED & PEDS [address] [place], [place] [phone] Henrietta Newell LPN Social History Tobacco Use [...] on filedocumented in this encounter Care Teams Parts Counter Associate Relationship Specialty Start Date End Date Katie Douglas MD [address] [place], [place] [phone] PCP - General Family Medicine 09/18/16 Kyrie Flannery, RN [address] [place] [address] Armhole Baster HandSupervisor Putty And [place] 08/20/24 Lila Leblanc Armhole Baster HandSupervisor Putty And [place] 05/04/25 documented as of this encounter
--- OUTSIDE RECORDS SUMMARY | 2025-05-11 14:44 | XMS_ITS | Encounter Summary ---
Author Organization [facility] [facility] Address [address] [place] [address] 7[address] [place] [address] Care Team Providers Care Rouge Mixer Name Role Phone Katie Douglas MD Primary Care Provider + Kyrie Flannery RN Unavailable [phone] Encounter Details Date Type Department Care Team [...] on filedocumented in this encounter Care Teams Rouge Mixer Relationship Specialty Start Date End Date Katie Douglas MD [address] [place] [address] PCP - General Family Medicine 09/18/16 Kyrie Flannery, RN [address] [place] [id number] X Ray Equipment ServicerCrane Follower 08/20/24 Lila Leblanc X Ray Equipment ServicerCrane Follower 05/04/25 documented as of this encounter
--- OUTSIDE RECORDS SUMMARY | 2025-05-11 14:44 | XMS_ITS | Patient Health Record ---
Author Organization [facility] Address [address] [place] [address] Care Team Providers Care Engineering Designer Name Role Phone Misael TEMPLETON, Katie Primary Care Provider Unavail able Juancarlos Manning Unavailable [phone] Allergies Allergen (clinical drug ingredient) Drug/Non Drug [...] at 5:00 p.m. the day before the procedure; Duration: 1 day 01/24/2018 Active Albuterol Sulfate HFA [...] two tablets twice a day for one day; Duration: 1 day 01/24/2018 Active Clotrimazole 1 % [...] Problem Status W/U Status Risk Notes Problem Screening for malignant neoplasm of colon (381641125) Encounter for screening for malignant neoplasm of colon (Z12.11) Active confirmed Problem Preprocedural examination (439931199602681) Preprocedural examination (Z01.818) Active confirmed Plan Of Treatment Future Test Test Name Order Date COLONOSCOPY 01/20/2018 Insurance Providers Payer Name Payer Address Payer Phone Subscriber Number Group Number Insured Name Patient Relationship to Insured Coverage Start Date Coverage End Date MEDICA[employer] OF [employer] [address] [place] [phone] [id number] [place] Self - patient is the insured Medical (General) History Medical History History ICD Code Asthma Depression Hyperlipidemia Anxiety Denies PA,DM,CVA,renal disease Herniated disc in neck Surgical History Surgery Date(Month/Year) tubal ligation
== END 2025-05-11 13:28 | disposition home or self-care (01) ==
LOC: HO.HUSH 11:50
PROVIDERS: PCP Internal Medicine; Visit Provider Nurse Practitioner Family
DX: R31.29 Other microscopic hematuria (principal); N20.0 Calculus of kidney; Z13.9 Encounter for screening, unspecified
CPT/HCPCS: 99213

== ENCOUNTER 2025-05-11 11:50 | Outpatient (REF) | payer MEDICAID, SELFPAY | END 2025-05-11 11:51 | disposition home or self-care (01) | LOC: HO.LAB 11:50 | PROVIDERS: PCP Internal Medicine; Visit Provider Nurse Practitioner Family | DX: N20.0 Calculus of kidney (principal); R31.29 Other microscopic hematuria | CPT/HCPCS: 81003; 99212 ==